=== PATIENT | female | born 1950 | race Caucasian/White ===

== ENCOUNTER → 2022-07-08 09:48 | Outpatient (CLI) | payer MEDICARE, SELFPAY ==
--- NOTE | ~2022-07-08 | MM_ITS ---
EXAMINATION: MM screening [facility] BI w nona HISTORY: Screening TECHNIQUE: Craniocaudal and mediolateral oblique 3-D tomosynthesis images were obtained and synthetic 2-D images were generated. CAD analysis was submitted and interpreted. COMPARISON: 07/16/2012 BREAST PARENCHYMAL COMPOSITION: Breast composed of scattered areas of fibroglandular density FINDINGS: The left breast is stable without evidence for malignancy. There is possible architectural distortion with adjacent clustered indeterminate calcifications centered in the upper outer quadrant of the right breast. IMPRESSION: 1. Possible architectural distortion and clustered indeterminate calcifications in the upper outer qu adrant of the right breast. 2. Additional mammographic views and possible breast ultrasound are recommended. BI-RADS Category 0: Incomplete: Needs additional imaging evaluation. Reviewed, dictated and finalized at location A. IMPRESSION: 1. Possible architectural distortion and clustered indeterminate calcifications in the upper outer quadrant of the right breast. 2. Additional mammographic views and possible breast ultrasound are recommended . BI-RADS Category 0: Incomplete: Needs additional imaging evaluation.
== END ==
PROVIDERS: PCP Obstetrics & Gynecology; Visit Provider Obstetrics & Gynecology
DX: Z12.31 Encounter for screening mammogram for malignant neoplasm of breast (principal); R92.8 Other abnormal and inconclusive findings on diagnostic imaging of breast
CPT/HCPCS: 77063; 77067

== ENCOUNTER → 2022-08-07 07:32 | Outpatient (CLI) | payer MEDICARE, SELFPAY ==
--- NOTE | ~2022-08-07 | MMUS_ITS ---
EXAMINATION: MM diagnostic [facility] RT w nona, US breast RT limited HISTORY: Possible architectural distortion and clustered indeterminate calcifications in upper outer quadrant of right breast on 07/08/2022 screening mammogram TECHNIQUE: Additional 3-D tomosynthesis images of the right breast were performed and synthetic 2-D i mages were generated. CAD analysis was submitted and interpreted. Magnification views of right breast . High resolution right upper outer quadrant breast ultrasound was performed. COMPARISON: 07/08/2022, 07/16/2012 bilateral screening mammogram examinations FINDINGS: MAMMOGRAPHIC FINDINGS: There is a linear array of grouped indeterminate irregular microcalcifications in the anterior upper outer quadrant of the right breast. These are suspicious due to the linear configuration in the irreg ularity. ULTRASOUND: No suspicious mass or shadowing is detected in the upper outer quadrant of the right breast. IMPRESSION: 1. Indeterminate linear array of irregular grouped microcalcifications, anterior upper outer right br east 2. Stereotactic biopsy of upper outer quadrant breast microcalcifications is recommended BI-RADS category 4, suspicious findings. Dr. Curtis telephoned the report and stereotactic breast biopsy recommendation on August 07, 2022 at [address] Tony Leonard's [employer] Ernestina. Reviewed, dictated and finalized at location A. IMPRESSION: 1. Indeterminate linear array of irregular grouped microcalcifications, anterio r upper outer right breast 2. Stereotactic biopsy of upper outer quadrant breast microcalcifications is re commended BI-RADS category 4, suspicious findings. Dr. Curtis telephoned the report and stereotactic breast biopsy recommendation on August 07, [address] Tony Leonard's [employer] Ernestina.
== END ==
PROVIDERS: PCP Obstetrics & Gynecology; Visit Provider Obstetrics & Gynecology
DX: R92.8 Other abnormal and inconclusive findings on diagnostic imaging of breast (principal)
CPT/HCPCS: 76642; 77061; 77065; G0279

== ENCOUNTER 2022-08-24 09:34 | Outpatient (CLI) | payer MEDICARE, SELFPAY ==
--- NOTE | ~2022-08-24 | MM_ITS ---
EXAMINATION: MM stereotactic bx RT, MM post biopsy diagnostic RT, MM stereotactic specimen RT DATE: 08/24/2022 11:24 (accession [id number]), 08/24/2022 11:25 (accession [id number]), 08/24 11:24 (accession [id number]) INDICATION: Indeterminate calcifications of the right breast. Stereotactic core biopsy is requested e valuate for malignancy. TECHNIQUE AND FINDINGS: The risks and potential benefits of the procedure were discussed with the patient including bleeding and infection. A time out was performed to verify the patient's name, date of and site of proce dure to be performed. The patient was placed in the prone position with the right breast in craniocau maty compression, and the area of interest was localized and targeted utilizing digital imaging with s tereotaxis. After sterile preparation of the skin, 1 cc of 1% lidocaine was utilized for local anesthesia at the skin puncture site and 15 cc 1% lidocaine with epinephrine was utilized for deeper local anesthesia a bout the biopsy site. A 9G [employer] vacuum assisted biopsy needle was advanced to the level of the calci fication of interest from a cephalad approach utilizing stereotactic guidance and a total of six tiss ue core biopsies were obtained. A specimen radiograph demonstrates that the calcifications of interest are included within the tissue cores. A tissue marker clip was then placed at the biopsy site. The needle was removed and hemosta sis was achieved. A sterile bandage was applied. The patient tolerated procedure well. A small hemato ma is seen at the biopsy site on the postprocedure mammogram. Tissue cores were submitted to surgical pathology for histologic analysis. A 2-view right unilateral digital mammogram was obtained post procedure and this demonstrates that th e tissue marker clip is in expected position. IMPRESSION: 1. Successful stereotactic biopsy of calcifications in the upper outer quadrant of the right breast, followed by tissue marker clip placement. Reviewed, dictated and finalized at location A. IMPRESSION: 1. Successful stereotactic biopsy of calcifications in the upper outer quadrant of the right breast, followed by tissue marker clip placement. IMPRESSION: 1. Successful stereotactic biopsy of calcifications in the upper outer quadrant of the right breast, followed by tissue marker clip placement.
== END 2022-08-24 09:35 | disposition home or self-care (01) ==
PROVIDERS: Visit Provider Surgery
DX: R92.1 Mammographic calcification found on diagnostic imaging of breast (principal); R56.9 Unspecified convulsions
CPT/HCPCS: 19081; 77065; 88305; A4648

== ENCOUNTER 2023-02-26 20:32 | Emergency (ER) | payer MEDICARE, SELFPAY ==
--- NOTE | ~2023-02-26 | XR_ITS ---
EXAMINATION: XR hip RT 2V w AP pelvis, XR lumbar spine 2-3V DATE: 02/26/2023 22:20 INDICATION: Low back and bilateral hip pain TECHNIQUE: 1. AP, lateral and lateral lumbosacral views of the lumbar spine were obtained. 2. Anteroposterior view of the pelvis and anteroposterior and frog-leg lateral views of the right hip were obtained. COMPARISON: Chest radiograph dated 01/17/2015 FINDINGS: Lumbar spine: 10 degrees lumbar dextrocurvature. 4 mm anterolisthesis L4 on L5. Chronic T12 compression fracture wi th 60% anterior to central vertebral body height loss which appears similar as on chest radiograph fr om 2015. Remaining vertebral body heights are normal. Moderate disc height loss at L2-L3. Mild disc h eight loss at L3-L4 through L5-S1. Moderate to severe facet osteoarthritis in the mid to lower lumbar spine. Pelvis and right hip: Alignment is normal. No fracture or suspected avascular necrosis. Mild bilateral hip and sacroiliac o steoarthritis. IMPRESSION: 1. Chronic T12 compression fracture. No acute osseous abnormality. 2. 10 degrees lumbar dextrocurvature with moderate spondylosis. 3. Mild bilateral hip and sacroiliac osteoarthritis. Reviewed, dictated and finalized at location A. ER CONSULTANT IMPRESSION: 1. Chronic T12 compression fracture. No acute osseous abnormality. 2. 10 degrees lumbar dextrocurvature with moderate spondylosis. 3. Mild bilateral hip and sacroiliac osteoarthritis.
[2023-02-26 20:57] VITALS: BP 176/67; PULSE 93; RESP 18; TEMP 36.4; O2SAT 100
--- NOTE | 2023-02-26 22:04 | ED.GENADULT ---
HPI - General Adult General Chief complaint: Unspecified Stated complaint: Hip pain (both), yeast infection possibly, Time Seen by Provider: 02/26/23 21:26 History of Present Illness HPI narrative: Patient presents to the emergency department with her . She has multiple complaints. Trips back and forth between the complaints when telling the history. Initially talks about her left hip and walking and [employer] all day with lifts. Then requests a test to determine whether she has vaginitis versus a yeast infection. She saw her [facility] last week and was prescribed steroid cream. She initially had left hip pain after walking and [employer] lifts all day. However a couple days ago she started having right hip pain 2. Much worse with any ambulation. Denies any particular trauma. Patient also having right shoulder pain has been ongoing for a long time. She has a history of seizures. No concern for recent seizure activity Related Data Home Medications Medication Instructions Recorded Confirmed cholecalciferol (vitamin D3) 25 25 mcg PO DAILY 12/16/19 12/29/22 mcg (1,000 unit) capsule levetiracetam 500 mg tablet 500 mg PO Q12H 12/16/19 12/29/22 Allergies Allergy/AdvReac Type Severity Reaction Status Date / Time amoxicillin Allergy Mild Diarrhea Verified 02/26/23 22:01 lisinopril Allergy Unknown Constipatio Verified 02/26/23 22:01 n Review of Systems Review of Systems: Negative except what is documented in the HPI [facility] Past Medical History Medical History Anxiety Cataract Cyst of breast, left, diffuse fibrocystic Removal 1981 Depression Ganglion cyst of foot removal 2004 (left) Grand mal seizure HTN (hypertension) PTSD (post-traumatic stress disorder) Seizures Surgical History Surgical History History of breast surgery breast cyst benign left History of surgery on arm titanium [place] Family History Family History Father Patient's father is , Onset Age: 88 Mother Family history of malignant neoplasm of bone Social History Social History Smoking status: Never smoker Alcohol intake: current Alcohol use details: rarely Lack of Transportation: No Lack of Food: Never True Current Housing: I Have Housing Concerned About Future Housing: No Difficulty Paying Gas/Electric Bills: No Difficulty Paying for Meds: No Currently Unemployed: No Education: Master's Degree or Higher Difficulty w/ Childcare or Family Care: No Living arrangements: with family Additional living arrangements comments: Lives with . Occupation/Education: retired Exam Narrative: GENERAL: Well-appearing, well-nourished, and in no acute distress. HEAD: Normocephalic, atraumatic. EYES: PERRLA and EOMI. ENT: Nares clear, no rhinorrhea or epistaxis. Mucous membranes moist. NECK: Supple. CHEST: Clear to auscultation. No respiratory distress. HEART: Regular rate and rhythm. ABDOMEN: Soft, nontender, nondistended. EXTREMITIES: Normal range of motion. No edema. No extremity tenderness. Pain with movement of hips SKIN: Warm, dry, no rash. NEURO: No focal deficits. Alert and oriented x3. PSYCH: Normal mood and affect. Course Course Emergency Course: Patient saw [facility]ER last week and they prescribed steroid cream. Diflucan added. Patient describes more of a burning sensation versus itching. No signs of trauma on images. Chronic T12 fracture noted. Patient feeling better overall. Will DC to home Vital Signs Vital signs: Vital Signs Temperature 36.4 C L 02/26/23 20:57 Pulse Rate 93 02/26/23 20:57 Respiratory Rate 18 02/26/23 20:57 Blood Pressure 176/67 H 02/26/23 20:57 Pulse Oximetry 100 02/26/23 20:57 Oxygen De
[2023-02-26] MEDS: HYDROcodone/acetaminophen (*CRX) 5-325 MG TABLET 1 TAB PO (22:48)
[2023-02-26] MEDS: ONDANSETRON HCL ODT 4 MG TABLET PO (22:49)
[2023-02-27] MEDS: FLUCONAZOLE 150 MG TABLET PO (00:38)
[2023-02-27 00:49] VITALS: BP 153/61; PULSE 80; RESP 15; O2SAT 100
== END 2023-02-27 00:52 | disposition home or self-care (01) ==
PROVIDERS: Emergency Provider Emergency Medicine
DX: M25.552 Pain in left hip (principal); M25.551 Pain in right hip; N89.8 Other specified noninflammatory disorders of vagina; I10 Essential (primary) hypertension; H26.9 Unspecified cataract; M16.0 Bilateral primary osteoarthritis of hip; M46.1 Sacroiliitis, not elsewhere classified; M48.54XA Collapsed vertebra, not elsewhere classified, thoracic region, initial encounter for fracture
CPT/HCPCS: 72100; 73502; 99284; A9270

== ENCOUNTER 2023-03-12 16:45 | Inpatient (IN) | payer MEDICARE, SELFPAY ==
[2023-03-12] VITALS (15 sets, daily range): BP systolic 122–175; BP diastolic 55–76; PULSE 82–95; RESP 12–20; TEMP 36.7; O2SAT 98–100
--- NOTE | ~2023-03-12 | CT_ITS ---
EXAMINATION: CT pelvis wo con DATE: 03/12/2023 19:28 INDICATION: Right hip pain and spasms TECHNIQUE: High resolution computed tomography (CT) of the pelvis was performed without intravenous c ontrast. Additional sagittal and coronal reconstructions were performed. Automated exposure control a nd iterative reconstruction technique were employed. The dose-length product was 399.52 mGy-cm. COMPARISON: Right hip and lumbar spine radiographs dated 02/26/2023 FINDINGS: There is an acute appearing fracture extending transversely across the S2 segment with subtle linear lucency extending across the posterior elements and with prominent buckling of the anterior cortex of the vertebral body which is new since the prior radiographs. There are associated nondisplaced sagit tally oriented insufficiency fractures extending across the bilateral sacral ala cephalad to the larg e nodule fracture at S2. These are also without evident correlate on the prior radiographs. No other fractures identified. Normal alignment at the bilateral hips. Mild osteoarthritis at the bilateral hi p and sacral iliac joints. No hip joint effusions. 3 mm anterolisthesis L4 on L5 with mild disc height loss at L3-L4 and L4-L5. Severe bilateral facet o steoarthritis at L4-5 and moderate bilateral facet osteoarthritis at L3-L4 and L5-S1. There are 3 non obstructing stones measuring up to 3 mm at a lower pole calyx of the left kidney. Visualized portion of the bowels including the appendix are normal. Bladder, uterus and bilateral adnexa are unremarkabl e. No free intraperitoneal gas or fluid. No pathologically enlarged pelvic or inguinal lymphadenopath y. IMPRESSION: 1. Recent sacral insufficiency fractures as detailed above which are new since 02/26/2023. 2. Mild lower lumbar spondylosis with moderate to severe lower lumbar facet osteoarthritis. 3. Mild bilateral hip and sacroiliac osteoarthritis. Reviewed, dictated and finalized at location A. [employer] IMPRESSION: 1. Recent sacral insufficiency fractures as detailed above which are new since 02/26/2023. 2. Mild lower lumbar spondylosis with moderate to severe lower lumbar facet ost eoarthritis. 3. Mild bilateral hip and sacroiliac osteoarthritis.
[2023-03-12 17:24] LABS: Basophils Absolute Auto 0.1 K/mm3 (0.0-0.1); Basophils Percent Auto 1.3 % (0.2-1.2); Eosinophils Percent Auto 0.3 % (0-4.4); Hematocrit 40.7 % (37.0-47.0); Immature Granulocyte Absolute 0.02 K/mm3 (0.00-0.031); Immature Granulocyte Percent A 0.3 % (0-0.5); Lymphocytes Absolute Auto 1.57 K/mm3 (0.9-3.2); Mean Corpuscular HGB Conc 34.4 g/dl (32-36); Mean Corpuscular Hemoglobin 32.2 pg (26-34); Mean Corpuscular Volume 93.6 fl (80-100); Mean Platelet Volume 9.6 fl (7.4-10.4); Monocytes Percent Auto 13.1 % (2.6-8.5); Neutrophils Absolute Auto 4.8 K/mm3 (1.3-6.7); Platelet Count Result 360 k/mm3 (150-375); Red Blood Count 4.35 M/mm3 (4.2-5.4); Red Cell Distribution Width 11.4 % (11.5-14.5); White Blood Count 7.5 K/mm3 (4.5-10.0)
[2023-03-12 17:36] LABS: Alanine Aminotransferase 26 U/L (6-35); Albumin Level 4.6 g/dL (3.5-5.1); Alkaline Phosphatase 170 U/L (38-126); Anion Gap 11 mmol/L (8-16); Aspartate Amino Transferase 32 U/L (14-36); Bilirubin,Total 0.7 mg/dL (0.2-1.3); Blood Urea Nitrogen 13 mg/dL (7-17); Calcium 9.2 mg/dL (8.4-10.2); Carbon Dioxide 25 mmol/L (22-30); Chloride 84 mmol/L (98-107); Estimated CRCL calculation 73 ml/min; Estimated Glomerular Filt Rate > 60; Glucose 118 mg/dL (65-110); Potassium 4.4 mmol/L (3.4-5.0); Sodium 120 mmol/L (137-145)
[2023-03-12 18:59] LABS: Appearance Urine Clear (Clear); Bilirubin Urine Negative (Negative); Blood Urine Negative (Negative); Color Urine Yellow (Yellow); Glucose Urine UA Negative (Negative); Ketones Urine Negative (Negative); Leukocyte Esterase Ur Negative LEU/UL (Negative); Nitrate Urine Negative (Negative); Protein Urine Negative (Negative); Specific Grav Ur 1.011 (1.001-1.035); Urobilinogen Urine 0.2 mg/dL (<2.0); pH Urine 6.5 (5.0-9.0)
[2023-03-12 19:02] LABS: Add Urine Microscopic? NO
[2023-03-12 19:14] LABS: Amphetamine Screen Urine Negative (Negative); Barbiturate Screen Urine Negative (Negative); Benzodiazepines Screen Urine Negative (Negative); Cannabinoid Screen Urine Negative (Negative); Cocaine Screen Urine Negative (Negative); Methadone Screen Urine Negative (Negative); Opiate Screen Urine Negative (Negative); Phencyclidine Screen Urine Negative (Negative)
--- NOTE | 2023-03-12 19:15 | ED.ANXIETY ---
HPI - Anxiety General Chief Complaint: Anxiety <RICKI Andrade Last Filed: 03/13/23 00:26> Stated Complaint: anxiety <RICKI Andrade Last Filed: 03/13/23 00:26> Time Seen by Provider: 03/12/23 18:36 <RICKI Andrade Last Filed: 03/13/23 00:26> Source: patient and family <RICKI Andrade Last Filed: 03/13/23 00:26> Mode of arrival: ambulatory <RICKI Andrade Last Filed: 03/13/23 00:26> Limitations: no limitations <RICKI Andrade Last Filed: 03/13/23 00:26> History of Present Illness HPI narrative: Patient is a 72 y/o female, with PMH of anxiety, vaginal atrophy, HTN, who presents to the ED with multiple complaints. Patient reports pain in her L hip/buttock for the last 2 weeks. She denies any known injury. She has not tried anything for the pain. She also reports having intermittent cramping in her lower extremities and left sided abdomen, intermittent nausea, vulvar pain r/t her atrophic vaginitis, and increased anxiety/panic attacks. Patient states she cannot keep going on like this. She does have previous history of anxiety and had been on Paxil for many years, but quit taking this a few years ago. at bedside endorses that her anxiety has been uncontrollable recently. Patient denies SI or HI. <Sialaja Last PA-C - Last Filed: 03/13/23 00:26> Related Data Home Medications: Home Medications Medication Instructions Recorded Confirmed cholecalciferol (vitamin D3) 25 25 mcg PO DAILY 12/16/19 12/29/22 mcg (1,000 unit) capsule levetiracetam 500 mg tablet 500 mg PO Q12H 12/16/19 12/29/22 <RICKI Andrade Last Filed: 03/13/23 00:26> Allergies/Adverse Reactions: Allergies Allergy/AdvReac Type Severity Reaction Status Date / Time amoxicillin Allergy Mild Diarrhea Verified 02/26/23 22:01 lisinopril Allergy Unknown Constipatio Verified 02/26/23 22:01 n <Sailaja Last PA-C - Last Filed: 03/13/23 00:26> Review of Systems Review of Systems: CONSTITUTIONAL: Denies fever, chills, or sweats. CARDIOVASCULAR: Denies chest pain. RESPIRATORY: Denies dyspnea. GASTROINTESTINAL: See HPI. GENITOURINARY: Denies dysuria or hematuria. MUSCULOSKELETAL: See HPI. NEUROLOGIC: Denies tingling, numbness, or weakness. PSYCHIATRIC: See HPI. <Sailaja Last PA-C - Last Filed: 03/13/23 00:26> All systems reviewed & are unremarkable except as noted in HPI and below <Sailaja Last PA-C - Last Filed: 03/13/23 00:26> [facility] Past Medical History Medical History: Medical History Anxiety Cataract Cyst of breast, left, diffuse fibrocystic Removal 1981 Depression Ganglion cyst of foot removal 2004 (left) Grand mal seizure HTN (hypertension) PTSD (post-traumatic stress disorder) Seizures <Sailaja Last PA-C - Last Filed: 03/13/23 00:26> Surgical History Surgical History: Surgical History History of breast surgery breast cyst benign left History of surgery on arm titanium theresa <Sailaja Last PA-C - Last Filed: 03/13/23 00:26> Family History Family History: Family History Father Patient's father is , Onset Age: 88 Mother Family history of malignant neoplasm of bone <Sailaja Last PA-C - Last Filed: 03/13/23 00:26> Social History Social History: Social History Smoking status: Never smoker Alcohol intake: current Alcohol use details: rarely Lack of Transportation: No Lack of Food: Never True Current Housing: I Have Housing Concerned About Future Housing: No Difficulty Paying Gas/Electric Bills: No Difficulty Paying for
[2023-03-12] MEDS: SODIUM CHLORIDE 0.9% IV 1,000 ML 999 ML IV CONT (19:47)
[2023-03-12] MEDS: LORazepam INJ (*CRX) 2 MG/ML VIAL 0.5 MG IV PUSH (19:48)
[2023-03-12] MEDS: ONDANSETRON INJ 4 MG/2 ML VIAL IV PUSH (19:48)
[2023-03-12] MEDS: MORPHINE SULFATE (*CRX) 4 MG/ML INJ IV PUSH (19:48)
[2023-03-12 20:42] LABS: Ethanol < 10 mg/dL (<10)
[2023-03-12 22:03] LABS: Creatine Kinase 60 U/L (30-135); Magnesium 1.8 mg/dL (1.6-2.3)
[2023-03-12] MEDS: SODIUM CHLORIDE 0.9% IV 1,000 ML 100 ML IV CONT (22:23)
[2023-03-12 22:40] LABS: Sodium 123 mmol/L (137-145)
[2023-03-13 00:14] LABS: Sodium Urine Random 24 meq/L
[2023-03-13 00:40] VITALS: BP 153/74; PULSE 93; RESP 18; TEMP 36.8; O2SAT 97
[2023-03-13 01:00] VITALS: O2SAT 97
[2023-03-13 02:40] LABS: Sodium 124 mmol/L (137-145)
[2023-03-13 06:00] VITALS: BP 131/58; PULSE 84; RESP 18; TEMP 36.2; O2SAT 99
[2023-03-13 06:42] LABS: Basophils Absolute Auto 0.1 K/mm3 (0.0-0.1); Basophils Percent Auto 0.9 % (0.2-1.2); Eosinophils Percent Auto 0.4 % (0-4.4); Hematocrit 34.7 % (37.0-47.0); Hemoglobin 11.8 g/dL (12.0-15.0); Immature Granulocyte Absolute 0.01 K/mm3 (0.00-0.031); Immature Granulocyte Percent A 0.2 % (0-0.5); Lymphocytes Absolute Auto 1.08 K/mm3 (0.9-3.2); Lymphocytes Percent Auto 19.7 % (18.3-44.2); Mean Corpuscular Hemoglobin 32.4 pg (26-34); Mean Corpuscular Volume 95.3 fl (80-100); Mean Platelet Volume 9.6 fl (7.4-10.4); Monocytes Absolute Auto 0.7 K/mm3 (0.1-0.6); Monocytes Percent Auto 13.3 % (2.6-8.5); Neutrophils Absolute Auto 3.6 K/mm3 (1.3-6.7); Neutrophils Percent Auto 65.5 % (45.5-73.1); Platelet Count Result 288 k/mm3 (150-375); Red Blood Count 3.64 M/mm3 (4.2-5.4); Red Cell Distribution Width 11.7 % (11.5-14.5); White Blood Count 5.5 K/mm3 (4.5-10.0)
[2023-03-13 07:00] LABS: Anion Gap 6 mmol/L (8-16); Blood Urea Nitrogen 9 mg/dL (7-17); Calcium 8.4 mg/dL (8.4-10.2); Carbon Dioxide 25 mmol/L (22-30); Chloride 95 mmol/L (98-107); Estimated CRCL calculation 62 ml/min; Estimated Glomerular Filt Rate > 60; Glucose 76 mg/dL (65-110); Potassium 4.3 mmol/L (3.4-5.0); Sodium 126 mmol/L (137-145)
--- NOTE | 2023-03-13 08:00 | PCPTNOTE ---
Waiting for neurosurgery consult/recommendations prior to PT evaluation
[2023-03-13 08:30] LABS: Erythrocyte Sedimentation Rate 21 mm/hr (0-20); Parathyroid Intact 62.7 pg/mL (7.5-53.5)
[2023-03-13 08:36] LABS: Vitamin D 25 Hydroxy 27.7 ng/mL
[2023-03-13] MEDS: levETIRAcetam 500 MG TABLET PO ×2 (08:56→17:32)
[2023-03-13] MEDS: SODIUM CHLORIDE 0.9% IV 1,000 ML 100 ML IV CONT ×2 (08:57→19:00)
[2023-03-13] MEDS: ALPRAZolam (*CRX) 0.5 MG TABLET PO (08:57)
[2023-03-13] MEDS: CHOLECALCIFEROL 1,000 UNITS TABLET 1000 UNITS PO ×2 (08:57→13:46)
--- NOTE | 2023-03-13 10:41 | PM.CNNEP ---
Assessment and Plan Assessment and plan (1) Acute hyponatremia: Code(s): E87.1 - Hypo-osmolality and hyponatremia Status: Acute Assessment and Plan: acute by review of labs however, patient reports a history of this in the past (due to medications) admission sodium 120mmol/L with slow improvement noted with IVFs no culprit medications at this time she does admit to excessive free water intake check TSH, cortisol, SPEP, UPEP, and serum/urine osmo as well as urine electrolytes consider adding free water restriction as well follow serial sodium levels . I will continue follow the patient with you while she remains hospitalized make further recommendations as deemed necessary. Thank you for allowing me to participate in the care this patient. History of Present Illness Reason for Consult Consult date: 03/13/23 Reason for consult: hyponatremia Chief Complaint Chief complaint: Hyponatremia, Anxiety, Pelvic Insufficiency Fractu History of Present Illness Narrative: The patient is a 72-year-old female with a past medical history as outlined below who presented to [facility] with numerous complaints. She reports pain in her left hip/buttocks for last two weeks as well as intermittent cramping in her lower extremities and left-sided abdomen. She also reports intermittent nausea and vulvar pain secondary to atrophic vaginitis. She also has significant anxiety/ panic issues and is very difficult for the patient to focus on one thing at a time. Given these constellation of symptoms, she presented to the emergency room for further assessment Workup and evaluation in the emergency room demonstrated the patient to be hemodynamically stable but quite anxious. It was difficult to get the patient to relay her symptoms / issues as she would jump from topic to topic and was difficult to get her to focus on just one thing. Routine blood tests were significant for a sodium level of 120 millimoles per L a the which is an acute change from review of her previous laboratory findings. Given this electrolyte abnormality and her other multitude of issues as complaints, she was admitted to the hospital for further evaluation and therapy. Since her admission, she has been started on IV fluids and her sodium level is actually improved slowly in comparison to her was on admission. Renal consultation was requested due to her acute hyponatremia. Although not listed in the computer system here [facility], the patient reports that she has had issues with hyponatremia in the past secondary to the use of Paxil. However recent labs in the last couple of years have demonstrated relative stability in her sodium level as far as I can tell. Furthermore, as already mentioned, with the use of IV fluids, her sodium level has improved to some degree artery and there may be a a degree of volume depletion present in spite of the fact that she has a reported history of excessive free water intake. Currently, the time my visit, the patient remains quite anxious and difficult to get her to concentrate on one topic. Review of Systems Review of Systems: As per HPI. [facility] Past Medical History Medical History (Updated 03/27/23 @ 11:47 by aMrce Fowler, [employer]RIER [employer]IVER-C) Anxiety Cataract Cyst of breast, left, diffuse fibrocystic Removal 1981 Depression Excessive cerumen in both ear canals Ganglion cyst of foot removal 2004 (left) Grand mal seizure HTN (hypertension) PTSD (post-traumatic stress disorder) Seizures Surgical History Surgical History History of breast surgery breast cyst benign left History of surgery on arm titanium theresa Family History Family History Father Patient's father is , Onset Age: 88 Mother Family history of malignant neoplasm of bone Social History Social History (Updated
--- NOTE | 2023-03-13 10:42 | PHAR ---
HOME MED OF BYSTOLIC 10 MG TABLET, TAKE ONE TABLET BY MOUTH DAILY, HAS BEEN VERIFIED.
[2023-03-13 10:59] LABS: Sodium 125 mmol/L (137-145)
[2023-03-13] MEDS: TRIAMCINOLONE ACET 0.1% OINT 15 GM TUBE 1 APPLIC TOPICAL ×2 (12:03→18:25)
--- NOTE | 2023-03-13 12:33 | PM.IMHP ---
H&P: HPI History of Present Illness Date/Time: 03/13/23 12:33 Chief Complaint: Multiple complaints Narrative: Patient is a 72 y/o female, with PMH of anxiety, vaginal atrophy, HTN, who presents to the ED with multiple complaints. Patient reports pain in her L hip/buttock for the last 2 weeks. She denies any known injury. She has not tried anything for the pain.? She also reports having intermittent cramping in her lower extremities and left sided abdomen, intermittent nausea, vulvar pain r/t her atrophic vaginitis, and increased anxiety/panic attacks.? Patient states she cannot keep going on like this.? She does have previous history of anxiety and had been on Paxil for many years, but quit taking this a few years ago.? at bedside endorses that her anxiety has been uncontrollable recently.? Patient denies SI or HI. Difficult to keep patient on track with HPI and ROS. 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 She reports history of low sodium in the past that she attributed to Paxil. Review of Systems Review of Systems: All systems reviewed & are unremarkable except as noted in HPI and below PMFSH Past Medical History Medical History Anxiety Cataract Cyst of breast, left, diffuse fibrocystic Removal 1981 Depression Ganglion cyst of foot removal 2004 (left) Grand mal seizure HTN (hypertension) PTSD (post-traumatic stress disorder) Seizures Surgical History Surgical History History of breast surgery breast cyst benign left History of surgery on arm titanium theresa Family History Family History Father Patient's father is , Onset Age: 88 Mother Family history of malignant neoplasm of bone Social History Social History Smoking status: Never smoker Alcohol intake: current Alcohol use details: rarely Substance use: never Substance use type: does not use Lack of Transportation: No Lack of Food: Never True Current Housing: I Have Housing Concerned About Future Housing: No Difficulty Paying Gas/Electric Bills: No Difficulty Paying for Meds: No Currently Unemployed: No Education: Master's Degree or Higher Difficulty w/ Childcare or Family Care: No Living arrangements: with family Additional living arrangements comments: Lives with . Occupation/Education: retired Spiritual care concerns: No Meds Home Medications and Allergies Home Medications Medication Instructions Recorded Confirmed Type cholecalciferol (vitamin D3) 25 25 mcg PO DAILY 12/16/19 03/13/23 History mcg (1,000 unit) capsule levetiracetam 500 mg tablet 500 mg PO Q12H 12/16/19 03/13/23 History Bystolic 10 mg tablet (nebivolol) 10 mg PO DAILY #90 tabs 07/04/22 03/13/23 Rx triamcinolone acetonide 0.1 % 1 ea topical BID 03/13/23 03/13/23 History topical ointment Allergies Allergy/AdvReac Type Severity Reaction Status Date / Time amoxicillin Allergy Mild Diarrhea Verified 02/26/23 22:01 lisinopril Allergy Unknown Constipatio Verified 02/26/23 22:01 n Vital Signs Vital Signs - 24 hr 03/12/23 16:55 03/12/23 18:23 03/12/23 19:54 Temperature 36.7 C Pulse Rate 88 95 93 Respiratory Rate 20 20 15 Blood Pressure 165/68 H 170/69 H 175/68 H Pulse Oximetry 100 100 100 Oxygen Delivery Room Air 03/12/23 18:09 03/12/23 18:18 03/12/23 19:14 Temperature Pulse Rate 91 92 Respiratory Rate 13 18 Blood Pressure Pulse Oximetry 100 100 100 Oxygen Delivery 03/12/23 19:15 03/12/23 19:16 03/12/23 19:30 Temperature Pulse Rate Respiratory Rate Blood Pressure 165/70 H Pulse Oximetry 100 100 100 Oxygen Delivery 03/12/23 20:03 03/12/23 20:15 03/12/23 20:16 Temperature Pul
[2023-03-13 14:00] VITALS: BP 120/43; PULSE 88; RESP 20; TEMP 37.1; O2SAT 97
[2023-03-13 14:57] LABS: Sodium 125 mmol/L (137-145)
[2023-03-13] MEDS: LORATADINE 5 MG TABLET 2.5 MG PO (17:31)
[2023-03-13] MEDS: polyethylene glycoL 3350 17 GM POWD.PACK PO (17:36)
[2023-03-13 18:55] LABS: Sodium 124 mmol/L (137-145)
[2023-03-13 19:38] LABS: Creatinine Urine 116.4 mg/dL; Total Protein Urine Random 8 mg/dL; Ur Ttl Prot Creatinine Ratio 0.07 mg/mg (0-0.20); Urea Random Urine 711 MG/DL
[2023-03-13 19:39] LABS: Sodium Urine Random 84 meq/L
[2023-03-13 20:00] VITALS: O2SAT 98
[2023-03-13 22:00] VITALS: BP 164/66; PULSE 99; RESP 16; TEMP 36.9; O2SAT 98
[2023-03-13 22:52] LABS: Sodium 126 mmol/L (137-145)
[2023-03-14 02:12] LABS: Sodium 126 mmol/L (137-145)
[2023-03-14] MEDS: SODIUM CHLORIDE 0.9% IV 1,000 ML 100 ML IV CONT ×2 (05:22→14:00)
[2023-03-14] MEDS: levETIRAcetam 500 MG TABLET PO ×2 (05:23→18:04)
[2023-03-14 06:00] VITALS: BP 166/69; PULSE 93; RESP 16; TEMP 36.6; O2SAT 96
[2023-03-14 06:28] LABS: Basophils Absolute Auto 0.1 K/mm3 (0.0-0.1); Basophils Percent Auto 0.8 % (0.2-1.2); Eosinophils Absolute Auto 0.1 K/mm3 (0-0.3); Eosinophils Percent Auto 0.8 % (0-4.4); Hematocrit 34.9 % (37.0-47.0); Hemoglobin 11.8 g/dL (12.0-15.0); Immature Granulocyte Absolute 0.02 K/mm3 (0.00-0.031); Immature Granulocyte Percent A 0.3 % (0-0.5); Lymphocytes Absolute Auto 1.16 K/mm3 (0.9-3.2); Lymphocytes Percent Auto 14.8 % (18.3-44.2); Mean Corpuscular HGB Conc 33.8 g/dl (32-36); Mean Corpuscular Hemoglobin 32.2 pg (26-34); Mean Corpuscular Volume 95.4 fl (80-100); Mean Platelet Volume 9.9 fl (7.4-10.4); Monocytes Absolute Auto 0.9 K/mm3 (0.1-0.6); Monocytes Percent Auto 11.3 % (2.6-8.5); Neutrophils Absolute Auto 5.6 K/mm3 (1.3-6.7); Platelet Count Result 296 k/mm3 (150-375); Red Blood Count 3.66 M/mm3 (4.2-5.4); Red Cell Distribution Width 11.7 % (11.5-14.5); White Blood Count 7.8 K/mm3 (4.5-10.0)
[2023-03-14 06:39] LABS: Albumin Level 2.2 g/dL (3.5-5.1); Anion Gap 7 mmol/L (8-16); Blood Urea Nitrogen 8 mg/dL (7-17); Calcium 8.6 mg/dL (8.4-10.2); Carbon Dioxide 25 mmol/L (22-30); Chloride 95 mmol/L (98-107); Estimated CRCL calculation 73 ml/min; Estimated Glomerular Filt Rate > 60; Glucose 104 mg/dL (65-110); Magnesium 1.9 mg/dL (1.6-2.3); Phosphorus 3.1 mg/dL (2.5-4.5); Sodium 127 mmol/L (137-145)
--- NOTE | 2023-03-14 09:15 | PM.IMPN ---
Progress Note: A&P Assessment and Plan (1) Acute anxiety: Code(s): F41.9 - Anxiety disorder, unspecified Status: Acute Assessment and Plan: Acute on chronic anxiety possibly exacerbated by hyponatremia. Wandering stories jumping from topic to topic extremely anxious. PRN alprazolam continued from home med list but they are not really PRN as patient insists on each dose allowed. 03/14: Chronic anxiety but appears less anxious than what previous notes had stated. Patient states she feels better today. (2) Acute hyponatremia: Code(s): E87.1 - Hypo-osmolality and hyponatremia Status: Acute Assessment and Plan: Patient indicates a history low-sodium however prior results from June 2022 and January 2021 were within normal limits. Sodium 120 on presentation to the emergency department. IV fluids ordered. Q.4 hours sodium levels ordered. Nephrology consulted. Workup is pending. 03/14: Patient admits to drinking 13 glasses of water at home. Sodium is improving. Sodium today is 127 up from 120 yesterday. (3) Sacral insufficiency fracture: Qualifiers: Encounter type: initial encounter Qualified Code(s): M84.48XA - Pathological fracture, other site, initial encounter for fracture Code(s): M84.48XA - Pathological fracture, other site, initial encounter for fracture Status: Acute Assessment and Plan: Difficult to narrow down timing of symptom onset but seems to be 2-3 weeks ago and patient denies trauma, states that wearing [place] orthotics for 10 hours may have caused fractures. Initially consulted Neurosurgery but Neurosurgery does not cover these fractures as there is no potential spinal cord involvement. Pain levels elevated may be cause of patient's hyponatremia via SIADH mechanism. Consulted Ortho, unsure if there is any intervention possible, rec's appreciated. 03/14: Consulted Ortho. Unsure if there is much intervention that they can help with but we appreciate their recommendations. Continue with pain control and PT OT. Patient denies decreased sensation to her lower extremities. I spoke with Dr. Jensen, this is not a neuro surgery issue. Recommends bone health clinic at discharge and agrees with ortho consult however she to does not know that there is much intervention they can assist with. (4) History of seizures: Code(s): Z87.898 - Personal history of other specified conditions Status: Acute Assessment and Plan: No seizures in 5 years, takes Keppra, insisted that it had to be brand name and given at 0530/1730 exactly or she will have seizures. (5) Atrophic vaginitis: Code(s): N95.2 - Postmenopausal atrophic vaginitis Status: Acute Assessment and Plan: Continue home steroid cream, may consider [employer] consult due to how bad this is bothering patient. Examination deferred on admission. 03/14: May consider starting Estradiol cream with outpatient follow up. Plan Pain control for sacral insufficiency fractures PT/OT Miralax for symptom of constipation (last BM 03/11) Home medications continued at patient's preferred timing. Nephrology consult for hyponatremia, avoid overcorrection May consider psychiatry consult if anxiety is still so problematic after steady sodium correction Strongly consider staff rotation to prevent caregiver overwhelm Diet: Heart Healthy VTE prophylaxis: Lovenox 40 mg Daily GI prophylaxis: Pepcid 20 mg BID Code Status: Full code Med Rec: Done and times adjusted per patient concern Disposition: Likely SNF Subjective Date/time seen: 03/14/23 09:15 Interval history: HPI obtained from chart, Patient is a 72 y/o female, with PMH of anxiety, vaginal atrophy, HTN, who presents to the ED with multiple complaints. Patient reports pain in her L hip/buttock for the last 2 weeks. She denies any known injury. She has not tried anything for the pain.? She also reports having intermittent cramping
[2023-03-14 10:20] LABS: Sodium 127 mmol/L (137-145)
--- NOTE | 2023-03-14 13:49 | P.PNNP_ITS ---
Progress Note: A&P Assessment and Plan (1) Acute hyponatremia: Code(s): E87.1 - Hypo-osmolality and hyponatremia Status: Acute Assessment and Plan: * slow improvement * acute by review of labs * however, patient reports a history of this in the past (due to medications) * admission sodium 120mmol/L with slow improvement noted with IVFs * no culprit medications at this time * she does admit to excessive free water intake * evaluation to date: * TSH and cortisol okay * SPEP, UPEP, and serum/urine osmo pending * urine electrolytes suggest a degree of prerenal azotemia * will add fluid restriction * follow serial sodium levels . Will continue to follow. Subjective Date/time seen: 03/14/23 13:49 Interval history: Folllow-up for acute hyponatremia. Sodium level continues to improve with current therapy/interventions; still with significant anxiety issues as noted by nursing; no apparent distress noted. Exam Narrative: General: eldely but WD/WN female in NAD; ++ anxiety Heart: normal S1 and S2; no rub Lungs: clear to auscultation Abdomen: soft, nontender, nondistended, positive bowel sounds Extremities: no cyanosis or clubbing; no edema Skin: warm and dry Objective Data Vital Signs Vital Signs: Vital Signs Temp Pulse Resp BP Pulse Ox O2 Del Method 03/14/23 13:30 99.8 F H 86 16 162/62 H 97 03/14/23 10:46 Room Air 03/14/23 10:19 Room Air 03/14/23 06:00 97.9 F 93 16 166/69 H 96 03/13/23 20:00 98 Room Air 03/13/23 22:00 98.5 F 99 16 164/66 H 98 Intake/Output Intake/Output: Intake & Output 03/11/23 03/12/23 03/13/23 03/14/23 23:59 23:59 23:59 23:59 Intake Total 1000 2720 2100 Output Total 400 1000 Balance 1000 2320 1100 Meds/Results Medications: Active Medications Generic Name Dose Route Start Last Admin Trade Name Freq PRN Reason Stop Dose Admin Alprazolam 0.5 mg 03/12/23 22:40 03/13/23 08:57 Alprazolam (*Crx) 0.5 Mg Tablet PO 0.5 mg TID PRN Administration Anxiety Enoxaparin Sodium 40 mg 03/14/23 09:00 03/14/23 12:34 Enoxaparin 40 Mg/0.4 Ml Syringe SUB-Q Not Given DAILY [facility] Famotidine 20 mg 03/13/23 21:00 03/14/23 12:34 Famotidine 20 Mg Tablet PO Not Given Q12HR [facility] Home Med 1 each 03/15/23 05:30 Home Med Bystolic (Nebivolol) 10 Mg Tablet PO 04/14/23 05:29 DAILY@0530 [facility] Sodium Chloride 1,000 mls @ 100 mls/hr 03/12/23 22:00 03/14/23 14:00 Normal Saline Iv IV CONT 100 mls/hr .Q10H [facility] Administration Levetiracetam 500 mg 03/13/23 17:30 03/14/23 18:04 Levetiracetam 500 Mg Tablet PO 500 mg Q12H [facility] Administration Loratadine 2.5 mg 03/13/23 16:41 03/13/23 17:31 Loratadine 5 Mg Tablet PO 2.5 mg PRN PRN Administration Allergic Symptoms Morphine Sulfate 4 mg 03/12/23 22:39 Morphine Sulfate (*Crx) 4 Mg/Ml Inj IV PUSH Q2H PRN Pain Rated 7-10 Ondansetron HCl 4 mg 03/12/23 22:39 Ondansetron Inj 4 Mg/2 Ml Vial IV PUSH Q4H PRN
--- NOTE | 2023-03-14 13:49 | PM.PNNEP ---
Progress Note: A&P Assessment and Plan (1) Acute hyponatremia: Code(s): E87.1 - Hypo-osmolality and hyponatremia Status: Acute Assessment and Plan: slow improvement acute by review of labs however, patient reports a history of this in the past (due to medications) admission sodium 120mmol/L with slow improvement noted with IVFs no culprit medications at this time she does admit to excessive free water intake evaluation to date: TSH and cortisol okay SPEP, UPEP, and serum/urine osmo pending urine electrolytes suggest a degree of prerenal azotemia will add fluid restriction follow serial sodium levels . Will continue to follow. Subjective Date/time seen: 03/14/23 13:49 Interval history: Folllow-up for acute hyponatremia. Sodium level continues to improve with current therapy/interventions; still with significant anxiety issues as noted by nursing; no apparent distress noted. Exam Narrative: General: eldely but WD/WN female in NAD; ++ anxiety Heart: normal S1 and S2; no rub Lungs: clear to auscultation Abdomen: soft, nontender, nondistended, positive bowel sounds Extremities: no cyanosis or clubbing; no edema Skin: warm and dry Objective Data Vital Signs Vital Signs: Vital Signs Temp Pulse Resp BP Pulse Ox O2 Del Method 03/14/23 13:30 99.8 F H 86 16 162/62 H 97 03/14/23 10:46 Room Air 03/14/23 10:19 Room Air 03/14/23 06:00 97.9 F 93 16 166/69 H 96 03/13/23 20:00 98 Room Air 03/13/23 22:00 98.5 F 99 16 164/66 H 98 Intake/Output Intake/Output: Intake & Output 03/11/23 03/12/23 03/13/23 03/14/23 23:59 23:59 23:59 23:59 Intake Total 1000 2720 2100 Output Total 400 1000 Balance 1000 2320 1100 Meds/Results Medications: Active Medications Generic Name Dose Route Start Last Admin Trade Name Freq PRN Reason Stop Dose Admin Alprazolam 0.5 mg 03/12/23 22:40 03/13/23 08:57 Alprazolam (*Crx) 0.5 Mg Tablet PO 0.5 mg TID PRN Administration Anxiety Enoxaparin Sodium 40 mg 03/14/23 09:00 03/14/23 12:34 Enoxaparin 40 Mg/0.4 Ml Syringe SUB-Q Not Given DAILY [facility] Famotidine 20 mg 03/13/23 21:00 03/14/23 12:34 Famotidine 20 Mg Tablet PO Not Given Q12HR [facility] Home Med 1 each 03/15/23 05:30 Home Med Bystolic (Nebivolol) 10 Mg Tablet PO 04/14/23 05:29 DAILY@0530 [facility] Sodium Chloride 1,000 mls @ 100 mls/hr 03/12/23 22:00 03/14/23 14:00 Normal Saline Iv IV CONT 100 mls/hr .Q10H [facility] Administration Levetiracetam 500 mg 03/13/23 17:30 03/14/23 18:04 Levetiracetam 500 Mg Tablet PO 500 mg Q12H [facility] Administration Loratadine 2.5 mg 03/13/23 16:41 03/13/23 17:31 Loratadine 5 Mg Tablet PO 2.5 mg PRN PRN Administration Allergic Symptoms Morphine Sulfate 4 mg 03/12/23 22:39 Morphine Sulfate (*Crx) 4 Mg/Ml Inj IV PUSH Q2H PRN Pain Rated 7-10 Ondansetron HCl 4 mg 03/12/23 22:39 Ondansetron Inj 4 Mg/2 Ml Vial IV PUSH Q4H PRN Nausea Polyethylene Glycol 17 gm 03/13/23 15:01 Polyethylene Glycol 3350 17 Gm Powd.Pack PO QAM PRN Constipation Tramadol HCl 25 mg 03/12/23 22:40 Tramadol Hcl (*Crx) 25 Mg Tablet PO Q4H PRN Pain Rated 4-6 Triamcinolone Acetonide 1 applic 03/13/23 09:00 03/14/23 09:46 Triamcinolone Acet 0.1% Oint 15 Gm Tube TOPICAL 1 applic BID [facility] Administration Vitamin D 1,000 units 03/14/23 14:00 03/14/23 14:00 Cholecalciferol 1,000 Units Tablet PO 1,000 units DAILY@1400 [facility] Administration Radiology Results: ITS Impressions Pelvis CT 03/12/23 19:32 IMPRESSION: 1. Recent sacral insufficiency fractures as detailed above which are new since 02/26/2023. 2. Mild lower lumbar spondylosis with moderate to severe lower lumbar facet osteoarthritis. 3. Mild bilateral hip and sacroiliac osteoarthritis. Labs Labs: Laboratory Tests
[2023-03-14 14:00] VITALS: BP 162/62; PULSE 86; RESP 16; TEMP 37.7; O2SAT 97
[2023-03-14] MEDS: CHOLECALCIFEROL 1,000 UNITS TABLET 1000 UNITS PO (14:00)
[2023-03-14 14:18] LABS: Sodium 127 mmol/L (137-145)
[2023-03-14 20:00] VITALS: PULSE 85; RESP 16; O2SAT 97
[2023-03-14 20:51] VITALS: BP 153/55; PULSE 85; RESP 16; TEMP 37.4; O2SAT 97
[2023-03-14] MEDS: LORATADINE 5 MG TABLET 2.5 MG PO (21:19)
[2023-03-15] MEDS: ALPRAZolam (*CRX) 0.5 MG TABLET PO (00:32)
[2023-03-15 05:41] VITALS: BP 144/56; PULSE 83; RESP 18; TEMP 36.7; O2SAT 97
[2023-03-15 06:08] LABS: Basophils Absolute Auto 0.1 K/mm3 (0.0-0.1); Basophils Percent Auto 1.4 % (0.2-1.2); Eosinophils Absolute Auto 0.2 K/mm3 (0-0.3); Eosinophils Percent Auto 3.4 % (0-4.4); Hematocrit 32.4 % (37.0-47.0); Hemoglobin 11.2 g/dL (12.0-15.0); Immature Granulocyte Absolute 0.01 K/mm3 (0.00-0.031); Immature Granulocyte Percent A 0.2 % (0-0.5); Lymphocytes Absolute Auto 1.33 K/mm3 (0.9-3.2); Lymphocytes Percent Auto 26.4 % (18.3-44.2); Mean Corpuscular HGB Conc 34.6 g/dl (32-36); Mean Corpuscular Hemoglobin 32.8 pg (26-34); Mean Platelet Volume 9.8 fl (7.4-10.4); Monocytes Absolute Auto 0.7 K/mm3 (0.1-0.6); Monocytes Percent Auto 14.7 % (2.6-8.5); Neutrophils Absolute Auto 2.7 K/mm3 (1.3-6.7); Neutrophils Percent Auto 53.9 % (45.5-73.1); Platelet Count Result 260 k/mm3 (150-375); Red Blood Count 3.41 M/mm3 (4.2-5.4); Red Cell Distribution Width 11.9 % (11.5-14.5)
[2023-03-15 06:18] LABS: Albumin Level 3.2 g/dL (3.5-5.1); Anion Gap 6 mmol/L (8-16); Blood Urea Nitrogen 9 mg/dL (7-17); Calcium 8.3 mg/dL (8.4-10.2); Carbon Dioxide 23 mmol/L (22-30); Chloride 100 mmol/L (98-107); Estimated CRCL calculation 73 ml/min; Estimated Glomerular Filt Rate > 60; Glucose 88 mg/dL (65-110); Magnesium 1.9 mg/dL (1.6-2.3); Phosphorus 3.7 mg/dL (2.5-4.5); Sodium 129 mmol/L (137-145)
[2023-03-15] MEDS: levETIRAcetam 500 MG TABLET PO ×2 (06:21→17:22)
--- NOTE | 2023-03-15 09:14 | PM.IMPN ---
Progress Note: A&P Assessment and Plan (1) Acute anxiety: Code(s): F41.9 - Anxiety disorder, unspecified Status: Acute Assessment and Plan: Acute on chronic anxiety possibly exacerbated by hyponatremia. Wandering stories jumping from topic to topic extremely anxious. PRN alprazolam continued from home med list but they are not really PRN as patient insists on each dose allowed. 03/14: Chronic anxiety but appears less anxious than what previous notes had stated. Patient states she feels better today. 03/15: Had a panic attack last night. Xanax TID for anxiety. She had a dose last night which helped her through the panic. (2) Acute hyponatremia: Code(s): E87.1 - Hypo-osmolality and hyponatremia Status: Acute Assessment and Plan: Patient indicates a history low-sodium however prior results from June 2022 and January 2021 were within normal limits. Sodium 120 on presentation to the emergency department. IV fluids ordered. Q.4 hours sodium levels ordered. Nephrology consulted. Workup is pending. 03/14: Patient admits to drinking 13 glasses of water at home. Sodium is improving. Sodium today is 127 up from 120 yesterday. 03/15: Fluid restriction.1800 ml daily. Refusing IV fluids and IV. Will place on sodium tabs 1 gram BID. (3) Sacral insufficiency fracture: Qualifiers: Encounter type: initial encounter Qualified Code(s): M84.48XA - Pathological fracture, other site, initial encounter for fracture Code(s): M84.48XA - Pathological fracture, other site, initial encounter for fracture Status: Acute Assessment and Plan: Difficult to narrow down timing of symptom onset but seems to be 2-3 weeks ago and patient denies trauma, states that wearing Birkenstock orthotics for 10 hours may have caused fractures. Initially consulted Neurosurgery but Neurosurgery does not cover these fractures as there is no potential spinal cord involvement. Pain levels elevated may be cause of patient's hyponatremia via SIADH mechanism. Consulted Ortho, unsure if there is any intervention possible, rec's appreciated. 03/14: Consulted Ortho. Unsure if there is much intervention that they can help with but we appreciate their recommendations. Continue with pain control and PT OT. Patient denies decreased sensation to her lower extremities. I spoke with Dr. Jensen, this is not a neuro surgery issue. Recommends bone health clinic at discharge and agrees with ortho consult however she to does not know that there is much intervention they can assist with. 03/15: Doing well with therapy. No complaints of pain. States her pain has improved since she was admitted. (4) History of seizures: Code(s): Z87.898 - Personal history of other specified conditions Status: Acute Assessment and Plan: No seizures in 5 years, takes Keppra, insisted that it had to be brand name and given at 0530/1730 exactly or she will have seizures. (5) Atrophic vaginitis: Code(s): N95.2 - Postmenopausal atrophic vaginitis Status: Acute Assessment and Plan: Continue home steroid cream, may consider ASSISTANT FACILITY MANAGER consult due to how bad this is bothering patient. Examination deferred on admission. 03/14: May consider starting Estradiol cream with outpatient follow up. 03/15: Since patient had previous prescription from [employer], will restart this medication. Plan Pain control for sacral insufficiency fractures PT/OT Miralax for symptom of constipation (last BM 03/11) Home medications continued at patient's preferred timing. Nephrology consult for hyponatremia, avoid overcorrection May consider psychiatry consult if anxiety is still so problematic after steady sodium correction Strongly consider staff rotation to prevent caregiver overwhelm Diet: Heart Healthy VTE prophylaxis: Lovenox 40 mg Daily GI prophylaxis: Pepcid 20 mg BID Code Status: Full code Med Rec: Done and times adjusted per patient conc
[2023-03-15 14:00] VITALS: BP 158/56; PULSE 79; RESP 18; TEMP 37.2; O2SAT 100
--- NOTE | 2023-03-15 15:05 | P.PNNP_ITS ---
Progress Note: A&P Assessment and Plan (1) Acute hyponatremia: Code(s): E87.1 - Hypo-osmolality and hyponatremia Status: Acute Assessment and Plan: * slow improvement * acute by review of labs * however, patient reports a history of this in the past (due to medications) * admission sodium 120mmol/L with slow improvement noted with IVFs * no culprit medications at this time * she does admit to excessive free water intake * evaluation to date: * TSH and cortisol okay * SPEP, UPEP, and serum/urine osmo pending * urine electrolytes suggest a degree of prerenal azotemia * on fluid restriction and salt tabs * follow serial sodium levels . Will continue to follow. Subjective Date/time seen: 03/15/23 15:05 Interval history: Folllow-up for acute hyponatremia. Seems to be doing reasonably well at this time; sodium continues to slowly improve with current therapy; working with PT/OT as tolerated; no acute distress noted. Exam Narrative: General: eldely but WD/WN female in NAD; ++ anxiety Heart: normal S1 and S2; no rub Lungs: clear to auscultation Abdomen: soft, nontender, nondistended, positive bowel sounds Extremities: no cyanosis or clubbing; no edema Skin: warm and intact Objective Data Vital Signs Vital Signs: Vital Signs Temp Pulse Resp BP Pulse Ox O2 Del Method 03/15/23 14:00 99.0 F 79 18 158/56 H 100 03/15/23 05:41 98.0 F 83 18 144/56 H 97 03/14/23 20:00 85 16 97 Room Air 03/14/23 20:51 99.3 F 85 16 153/55 H 97 Intake/Output Intake/Output: Intake & Output 03/12/23 03/13/23 03/14/23 03/15/23 23:59 23:59 23:59 23:59 Intake Total 1000 2720 2100 880 Output Total 400 1000 Balance 1000 2320 1100 880 Meds/Results Medications: Active Medications Generic Name Dose Route Start Last Admin Trade Name Freq PRN Reason Stop Dose Admin Alprazolam 0.5 mg 03/12/23 22:40 03/15/23 00:32 Alprazolam (*Crx) 0.5 Mg Tablet PO 0.5 mg TID PRN Administration Anxiety Enoxaparin Sodium 40 mg 03/14/23 09:00 03/15/23 11:33 Enoxaparin 40 Mg/0.4 Ml Syringe SUB-Q Not Given DAILY [facility] Estradiol 1 applic 03/16/23 21:00 Estradiol Vaginal Cream 42.5 Gm VAGINAL [email or web address] [facility] Famotidine 20 mg 03/13/23 21:00 03/15/23 11:33 Famotidine 20 Mg Tablet PO Not Given Q12HR [facility] Home Med 1 each 03/15/23 05:30 03/15/23 06:21 Home Med Bystolic (Nebivolol) 10 Mg Tablet PO 04/14/23 05:29 1 each DAILY@0530 [facility] Administration Levetiracetam 500 mg 03/13/23 17:30 03/15/23 06:21 Levetiracetam 500 Mg Tablet PO 500 mg Q12H [facility] Administration Loratadine 2.5 mg 03/13/23 16:41 03/14/23 21:19 Loratadine 5 Mg Tablet PO 2.5 mg PRN PRN Administration Allergic Symptoms Morphine Sulfate 4 mg 03/12/23 22:39 Morphine Sulfate (*Crx) 4 Mg/Ml Inj IV PUSH Q2H PRN Pain Rated 7-10 Ondansetron HCl 4 mg 03/12/23 22:39 Ondansetron Inj 4 Mg/2 Ml Vial IV PUSH Q4H PRN Nausea Polyethylene Glycol 17 gm 03/13/23 1
--- NOTE | 2023-03-15 15:05 | PM.PNNEP ---
Progress Note: A&P Assessment and Plan (1) Acute hyponatremia: Code(s): E87.1 - Hypo-osmolality and hyponatremia Status: Acute Assessment and Plan: slow improvement acute by review of labs however, patient reports a history of this in the past (due to medications) admission sodium 120mmol/L with slow improvement noted with IVFs no culprit medications at this time she does admit to excessive free water intake evaluation to date: TSH and cortisol okay SPEP, UPEP, and serum/urine osmo pending urine electrolytes suggest a degree of prerenal azotemia on fluid restriction and salt tabs follow serial sodium levels . Will continue to follow. Subjective Date/time seen: 03/15/23 15:05 Interval history: Folllow-up for acute hyponatremia. Seems to be doing reasonably well at this time; sodium continues to slowly improve with current therapy; working with PT/OT as tolerated; no acute distress noted. Exam Narrative: General: eldely but WD/WN female in NAD; ++ anxiety Heart: normal S1 and S2; no rub Lungs: clear to auscultation Abdomen: soft, nontender, nondistended, positive bowel sounds Extremities: no cyanosis or clubbing; no edema Skin: warm and intact Objective Data Vital Signs Vital Signs: Vital Signs Temp Pulse Resp BP Pulse Ox O2 Del Method 03/15/23 14:00 99.0 F 79 18 158/56 H 100 03/15/23 05:41 98.0 F 83 18 144/56 H 97 03/14/23 20:00 85 16 97 Room Air 03/14/23 20:51 99.3 F 85 16 153/55 H 97 Intake/Output Intake/Output: Intake & Output 03/12/23 03/13/23 03/14/23 03/15/23 23:59 23:59 23:59 23:59 Intake Total 1000 2720 2100 880 Output Total 400 1000 Balance 1000 2320 1100 880 Meds/Results Medications: Active Medications Generic Name Dose Route Start Last Admin Trade Name Freq PRN Reason Stop Dose Admin Alprazolam 0.5 mg 03/12/23 22:40 03/15/23 00:32 Alprazolam (*Crx) 0.5 Mg Tablet PO 0.5 mg TID PRN Administration Anxiety Enoxaparin Sodium 40 mg 03/14/23 09:00 03/15/23 11:33 Enoxaparin 40 Mg/0.4 Ml Syringe SUB-Q Not Given DAILY [facility] Estradiol 1 applic 03/16/23 21:00 Estradiol Vaginal Cream 42.5 Gm VAGINAL [email or web address] [facility] Famotidine 20 mg 03/13/23 21:00 03/15/23 11:33 Famotidine 20 Mg Tablet PO Not Given Q12HR [facility] Home Med 1 each 03/15/23 05:30 03/15/23 06:21 Home Med Bystolic (Nebivolol) 10 Mg Tablet PO 04/14/23 05:29 1 each DAILY@0530 [facility] Administration Levetiracetam 500 mg 03/13/23 17:30 03/15/23 06:21 Levetiracetam 500 Mg Tablet PO 500 mg Q12H [facility] Administration Loratadine 2.5 mg 03/13/23 16:41 03/14/23 21:19 Loratadine 5 Mg Tablet PO 2.5 mg PRN PRN Administration Allergic Symptoms Morphine Sulfate 4 mg 03/12/23 22:39 Morphine Sulfate (*Crx) 4 Mg/Ml Inj IV PUSH Q2H PRN Pain Rated 7-10 Ondansetron HCl 4 mg 03/12/23 22:39 Ondansetron Inj 4 Mg/2 Ml Vial IV PUSH Q4H PRN Nausea Polyethylene Glycol 17 gm 03/13/23 15:01 Polyethylene Glycol 3350 17 Gm Powd.Pack PO QAM PRN Constipation Sodium Chloride 1 gm 03/15/23 17:00 03/15/23 17:19 Sodium Chloride 1 Gm Tablet PO 1 gm BID [facility] Administration Tramadol HCl 25 mg 03/12/23 22:40 Tramadol Hcl (*Crx) 25 Mg Tablet PO Q4H PRN Pain Rated 4-6 Triamcinolone Acetonide 1 applic 03/13/23 09:00 03/15/23 11:33 Triamcinolone Acet 0.1% Oint 15 Gm Tube TOPICAL Not Given BID [facility] Vitamin D 1,000 units 03/14/23 14:00 03/15/23 17:19 Cholecalciferol 1,000 Units Tablet PO 1,000 units DAILY@1400 [facility] Administration Radiology Results: ITS Impressions Pelvis CT 03/12/23 19:32 IMPRESSION: 1. Recent sacral insufficiency fractures as detailed above which are new since 02/26/2023. 2. Mild lower lumbar spondylosis with moderate to severe lower lumbar facet osteoarthritis. 3. Mild bilateral hip and
[2023-03-15] MEDS: SODIUM CHLORIDE 1 GM TABLET PO (17:19)
[2023-03-15] MEDS: CHOLECALCIFEROL 1,000 UNITS TABLET 1000 UNITS PO (17:19)
--- NOTE | 2023-03-15 17:50 | PC.NURSE ---
Pt c/o pain and and concerns of sepsis r/t her IV sites and the saline infusing. She thinks she is allergic to it and states that the WIND ENERGY ENGINEER said that the sites are infected. WIND ENERGY ENGINEER made aware and ordered sodium tablets instead. Reassured pt the sites are okay. Pt has two 2 inch rashes noted to bilat upper arms. Pt wanted to get a shower today, but I informed her I didn't feel she was safe due to her pelvic fractures, weakness, use of wheelchair prior to admission, and use of walker at this time. Pt set up with bath supplies and offered shower cap. Pt content with this option.
[2023-03-15] MEDS: LORATADINE 10 MG TABLET PO (19:17)
[2023-03-15 19:41] LABS: Osmolality, Urine 323 mOsm/kg (50-1200)
[2023-03-15 21:15] VITALS: PULSE 83; RESP 14; O2SAT 100
[2023-03-15 22:00] VITALS: BP 142/59; PULSE 83; RESP 14; TEMP 36.4; O2SAT 100
[2023-03-16] MEDS: levETIRAcetam 500 MG TABLET PO (05:24)
[2023-03-16 06:00] VITALS: BP 128/65; PULSE 79; RESP 14; TEMP 36.8; O2SAT 96
[2023-03-16 06:55] LABS: Basophils Absolute Auto 0.1 K/mm3 (0.0-0.1); Basophils Percent Auto 1.1 % (0.2-1.2); Eosinophils Absolute Auto 0.3 K/mm3 (0-0.3); Eosinophils Percent Auto 4.6 % (0-4.4); Hematocrit 34.2 % (37.0-47.0); Hemoglobin 11.4 g/dL (12.0-15.0); Immature Granulocyte Absolute 0.02 K/mm3 (0.00-0.031); Immature Granulocyte Percent A 0.4 % (0-0.5); Lymphocytes Percent Auto 21.3 % (18.3-44.2); Mean Corpuscular HGB Conc 33.3 g/dl (32-36); Mean Corpuscular Hemoglobin 32.1 pg (26-34); Mean Corpuscular Volume 96.3 fl (80-100); Mean Platelet Volume 9.8 fl (7.4-10.4); Monocytes Absolute Auto 0.7 K/mm3 (0.1-0.6); Monocytes Percent Auto 13.1 % (2.6-8.5); Neutrophils Absolute Auto 3.4 K/mm3 (1.3-6.7); Neutrophils Percent Auto 59.5 % (45.5-73.1); Platelet Count Result 277 k/mm3 (150-375); Red Blood Count 3.55 M/mm3 (4.2-5.4); White Blood Count 5.6 K/mm3 (4.5-10.0)
[2023-03-16 07:05] LABS: Albumin Level 3.5 g/dL (3.5-5.1); Anion Gap 7 mmol/L (8-16); Blood Urea Nitrogen 13 mg/dL (7-17); Calcium 8.6 mg/dL (8.4-10.2); Carbon Dioxide 24 mmol/L (22-30); Chloride 98 mmol/L (98-107); Estimated CRCL calculation 62 ml/min; Estimated Glomerular Filt Rate > 60; Glucose 95 mg/dL (65-110); Magnesium 1.9 mg/dL (1.6-2.3); Phosphorus 3.7 mg/dL (2.5-4.5); Sodium 129 mmol/L (137-145)
--- NOTE | 2023-03-16 08:16 | P.PNIM_ITS ---
Progress Note: A&P Assessment and Plan (1) Acute anxiety: Code(s): F41.9 - Anxiety disorder, unspecified Status: Acute Assessment and Plan: Acute on chronic anxiety possibly exacerbated by hyponatremia. Wandering stories jumping from topic to topic extremely anxious. PRN alprazolam continued from home med list but they are not really PRN as patient insists on each dose allowed. 03/14: Chronic anxiety but appears less anxious than what previous notes had stated. Patient states she feels better today. 03/15: Had a panic attack last night. Xanax TID for anxiety. She had a dose last night which helped her through the panic. (2) Acute hyponatremia: Code(s): E87.1 - Hypo-osmolality and hyponatremia Status: Acute Assessment and Plan: Patient indicates a history low-sodium however prior results from June 2022 and January 2021 were within normal limits. Sodium 120 on presentation to the emergency department. IV fluids ordered. Q.4 hours sodium levels ordered. Nephrology consulted. Workup is pending. 03/14: Patient admits to drinking 13 glasses of water at home. Sodium is improving. Sodium today is 127 up from 120 yesterday. 03/15: Fluid restriction.1800 ml daily. Refusing IV fluids and IV. Will place on sodium tabs 1 gram BID. (3) Sacral insufficiency fracture: Qualifiers: Encounter type: initial encounter Qualified Code(s): M84.48XA - Pathological fracture, other site, initial encounter for fracture Code(s): M84.48XA - Pathological fracture, other site, initial encounter for fracture Status: Acute Assessment and Plan: Difficult to narrow down timing of symptom onset but seems to be 2-3 weeks ago and patient denies trauma, states that wearing Birkenstock orthotics for 10 hours may have caused fractures. Initially consulted Neurosurgery but Neurosurgery does not cover these fractures as there is no potential spinal cord involvement. Pain levels elevated may be cause of patient's hyponatremia via SIADH mechanism. Consulted Ortho, unsure if there is any intervention possible, rec's appreciated. 03/14: Consulted Ortho. Unsure if there is much intervention that they can help with but we appreciate their recommendations. Continue with pain control and PT OT. Patient denies decreased sensation to her lower extremities. I spoke with Dr. Jensen, this is not a neuro surgery issue. Recommends bone health clinic at discharge and agrees with ortho consult however she to does not know that there is much intervention they can assist with. 03/15: Doing well with therapy. No complaints of pain. States her pain has improved since she was admitted. (4) History of seizures: Code(s): Z87.898 - Personal history of other specified conditions Status: Acute Assessment and Plan: No seizures in 5 years, takes Keppra, insisted that it had to be brand name and given at 0530/1730 exactly or she will have seizures. 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 Examination deferred on admission. 03/14: May consider starting Estradiol cream with outpatient follow up. 03/15: Since patient had previous prescription from [employer], will restart this medication. Plan Pain control for sacral insufficiency fractures PT/OT Miralax for symptom of constipation (last BM 03/11) Home medications continued at patient's preferred timing. Nephrology consult for hyponatremia, avoid overcorrection May consider psychiatry consult if
[2023-03-16] MEDS: SODIUM CHLORIDE 1 GM TABLET PO (10:11)
[2023-03-16] MEDS: ENOXAPARIN 40 MG/0.4 ML SYRINGE SUB-Q (10:11)
--- NOTE | 2023-03-16 11:47 | PM.DS ---
DS: Admitting Diagnosis Discharge Date 03/16 Admitting Diagnosis weakness, pain DS: Summary Hospital Course Hospital Course: HPI obtained from chart, Patient is a 72 y/o female, with PMH of anxiety, vaginal atrophy, HTN, who presents to the ED with multiple complaints. Patient reports pain in her L hip/buttock for the last 2 weeks. She denies any known injury. She has not tried anything for the pain.? She also reports having intermittent cramping in her lower extremities and left sided abdomen, intermittent nausea, vulvar pain r/t her atrophic vaginitis, and increased anxiety/panic attacks.? Patient states she cannot keep going on like this.? She does have previous history of anxiety and had been on Paxil for many years, but quit taking this a few years ago.? at bedside endorses that her anxiety has been uncontrollable recently.? Patient denies SI or HI. 03/14: Patient is seen sitting up in her chair. She is in a good mood and states that she has ?come out of the rabbit hole?. She feels like her pain is improved today. Her biggest complaint is vaginal dryness. She is asking for something to help with that. She says she has been working with therapy today and was walking in the halls. Sodium is showing some improvement today is 127. Upon speaking with the patient it sounds like she was drinking copious amounts of water at home. This combined with her steroid use her likely contributing factors to her low sodium. 03/15: Continues to do well today. Still waiting for sodium level to increase greater than 130. Hopefully tomorrow she will be able to d/c. She mentions that she was on estradiol prescribed by Dr Mac and she just had stopped taking it. She feels like she needs to take it because her vaginal dryness and discomfort is worse. Will restart the cream today. She has been working well with therapy. No other acute complaints at this time. 03/16: Mrs Holman is doing well today. She does have a red rash to her upper arms and face which she contributes to 'heat rash'. She says she gets it from time to time with seasonal changes, anxiety, and she thinks she is possibly having a reaction to the hospital linens. Her sodium level remains stable at 129. Her IV developed a phlebitis yesterday and she was saying she did not want another IV started and was refusing the IV fluids. She was started on sodium tablets 1 gram BID. Her symptoms of hyponatremia; weakness, pain, confusion have all resolved. I spoke with Dr Carrington who agrees with plan to discharge today with sodium tablet prescription and repeat BMP in 1 week with PCP follow up. Patient is agreeable to the plan. Status at Discharge Cognitive/behavioral status at discharge: A&Ox4 Time Spent with Patient Time attestation: Total time spent providing and/or coordinating discharge services:56 Exam Narrative: General: well appearing, well developed, well nourished, appears stated age. HEENT: normocephalic, atraumatic. Mucous membranes moist. EOMI, PERRLA, bilateral sclera anicteric, no conjunctival injection. Neck supple without JVD, lymphadenopathy, or bruit. Respiratory: clear to auscultation bilaterally. No rales/rhonic/wheezes. Cardiovascular: Regular rate and rhythm, normal S1-S2 upon auscultation. No murmurs, rubs, or clicks. PMI is nondisplaced, capillary re-fill less than 3 second. Abdomen: Soft, flat, no pulsatile masses, non-distended and non-tender. No rebound, no guarding. No CVA tenderness, no hepatosplenomegaly.? Bowel sounds present to all four quadrants. No high pitch or tinkling sounds, resonant to percussion. Extremities: No cyanosis, clubbing, or edema present. Pulses are palpable 2/2.? Active ROM to all four extremities. Neuro: Alert and orientated x 4. PERRLA. Cranial nerves 2-12 intact without focal deficit. Skin: Warm, dry, and intact, without rash, erythema, or lesion. Lines: Incisions: Psych: pleasant, cooperative, normal speech, normal affect, no hallucinations, no dysart
[2023-03-17 00:15] LABS: Lambda Light Chain 15.3 mg/L (5.7-26.3)
[2023-03-17 09:05] LABS: Albumin 3.4 g/dL (3.8-4.8); Alpha 1 Globulin 0.3 g/dL (0.2-0.3); Alpha 2 Globulin 0.8 g/dL (0.5-0.9); Beta 1 Globulin 0.4 g/dL (0.4-0.6); Gamma Globulin 0.9 g/dL (0.8-1.7); Protein, Total 6.2 g/dL (6.1-8.1)
[2023-03-17 14:16] LABS: Chloride Rand Ur 90 mmol/L (32-290); Chloride/Creatinine Rand Ur 81 (38-318); Creatinine Random Urine 111 mg/dL (20-275)
[2023-03-19 01:23] LABS: Creatinine, Random Urine 114 mg/dL (20-275); Total Protein/Creatinine Ratio 79 mg/g creat (24-184)
== END 2023-03-16 13:30 | disposition home health service (06) | DRG 641 ==
LOC: ANHED 22:22 → ANH3MEDSUR 23:27
PROVIDERS: Internal Medicine Nephrology; Nurse Practitioner; Student in an Organized Health Care Education/Training Program; Admitting Provider Internal Medicine; Emergency Provider Physician Assistant; Visit Provider Nurse Practitioner Acute Care
DX: E87.1 Hypo-osmolality and hyponatremia (principal); M84.48XD Pathological fracture, other site, subsequent encounter for fracture with routine healing; N95.2 Postmenopausal atrophic vaginitis; F41.0 Panic disorder [episodic paroxysmal anxiety]; F43.10 Post-traumatic stress disorder, unspecified; F32.A Depression, unspecified; I10 Essential (primary) hypertension; R21 Rash and other nonspecific skin eruption; R56.9 Unspecified convulsions; K59.00 Constipation, unspecified; X58.XXXD Exposure to other specified factors, subsequent encounter
CPT/HCPCS: 36415; 72192; 80048; 80053; 80069; 80307; 81003; 81050; 82306; 82436; 82533; 82550; 82570; 83735; 83883; 83935; 83970; 84155; 84156; 84165; 84166; 84295; 84300; 84443; 84540; 85025; 85652; 96361; 96374; 96375; 97161; 97165; 99285; A9270; G0378; J1650; J2060; J2270; J2405; J7030

== ENCOUNTER 2023-03-22 11:34 | Outpatient (CLI) | payer MEDICARE, SELFPAY ==
[2023-03-23 09:06] LABS: Anion Gap 10 mmol/L (8-16); Blood Urea Nitrogen 13 mg/dL (7-17); Calcium 9.4 mg/dL (8.4-10.2); Carbon Dioxide 27 mmol/L (22-30); Chloride 90 mmol/L (98-107); Estimated Glomerular Filt Rate > 60; Glucose 96 mg/dL (65-110); Potassium 4.4 mmol/L (3.4-5.0); Sodium 127 mmol/L (137-145)
== END 2023-03-22 11:35 | disposition home or self-care (01) ==
PROVIDERS: Visit Provider Clinical Nurse Specialist
DX: E87.1 Hypo-osmolality and hyponatremia (principal)
CPT/HCPCS: 36415; 80048

== ENCOUNTER 2023-05-31 11:44 | Emergency (ER) | payer MEDICARE, SELFPAY ==
[2023-05-31 11:46] VITALS: BP 171/76; PULSE 80; RESP 20; TEMP 36.4; O2SAT 100
[2023-05-31 15:15] VITALS: BP 134/70; PULSE 86; RESP 18; O2SAT 100
[2023-05-31 15:20] VITALS: PULSE 85
--- NOTE | 2023-05-31 15:41 | ECG_ITS ---
Measurements Intervals [place] Rate: 84 P: 11 [place]: 108 QRS: 10 QRSD: 89 T: 13 QT: 368 QTc: 437 Interpretive Statements SINUS RHYTHM WITH SHORT [place] INTERVAL POSSIBLE RIGHT VENTRICULAR CONDUCTION DELAY [RSR (QR) IN V1/V2] BORDERLINE ECG NO PREVIOUS ECG AVAILABLE FOR COMPARISON Electronically Signed On 06-01-2023 15:03:30 [employer] by Ray Hickey M.D.
--- NOTE | 2023-05-31 15:42 | ED.GENADULT ---
HPI - General Adult General Chief complaint: Seizure Stated complaint: siezure Time Seen by Provider: 05/31/23 15:41 History of Present Illness HPI narrative: Patient is a 73-year-old female with past medical history of seizure disorder on Keppra presents to the emergency department this afternoon after a witnessed seizure at home while she was in the shower. states that patient became unresponsive but did not fall or hit her. Patient is currently at her baseline. Last breakthrough seizure was approximately 1 year ago. Patient states that she did not have a seizure, she only dozed off while showering as she has been very weak since she has not been drinking water or eating food due to loss of appetite. Patient states that she has been having some abdominal cramping for the last few days secondary to gas and constipation, she has been constipated for a couple of days but finally had a bowel movement yesterday that was normal. She is currently denying any chest pain, shortness of breath, dysuria, hematuria, constipation, diarrhea, melena, hematochezia, fevers or chills. Patient also denies any headaches, dizziness, lightheadedness, focal weakness, changes in her vision, numbness unrepaired. There are no other modifying, alleviating, or precipitating factors at this time. Related Data Home Medications Medication Instructions Recorded Confirmed cholecalciferol (vitamin D3) 25 25 mcg PO DAILY 12/16/19 03/26/23 mcg (1,000 unit) capsule levetiracetam 500 mg tablet 500 mg PO Q12H 12/16/19 03/26/23 Allergies Allergy/AdvReac Type Severity Reaction Status Date / Time Latex, Natural Rubber Allergy Intermediate Hives Verified 05/31/23 15:21 amoxicillin Allergy Mild Diarrhea Verified 05/31/23 15:21 Corticosteroids Allergy Unknown excessive Verified 05/31/23 15:21 (Glucocorticoids) thirst hydrocodone Allergy Unknown [place], Verified 05/31/23 15:21 abdominal pain lisinopril Allergy Unknown Constipatio Verified 05/31/23 15:21 n bleach Allergy Unknown Rash Uncoded 05/31/23 15:21 fragrance Allergy Unknown Rash Uncoded 05/31/23 15:21 Review of Systems Review of Systems: All systems are reviewed and are negative unless stated otherwise in the HPI. [facility] Past Medical History Medical History Anxiety Cataract Cyst of breast, left, diffuse fibrocystic Removal 1982 Depression Excessive cerumen in both ear canals Ganglion cyst of foot removal 2004 (left) Grand mal seizure HTN (hypertension) PTSD (post-traumatic stress disorder) Seizures Surgical History Surgical History History of breast surgery breast cyst benign left History of surgery on arm titanium theresa Family History Family History Father Patient's father is , Onset Age: 88 Mother Family history of malignant neoplasm of bone Social History Social History Social History: Caffeine- coffee Smoking status: Never smoker Alcohol intake: current Alcohol use details: rarely Substance use: never Substance use type: does not use Lack of Transportation: No Lack of Food: Never True Current Housing: I Have Housing Concerned About Future Housing: No Difficulty Paying Gas/Electric Bills: No Difficulty Paying for Meds: No Currently Unemployed: No Education: Master's Degree or Higher Difficulty w/ Childcare or Family Care: No Living arrangements: with family Additional living arrangements comments: Lives with . Occupation/Education: retired Spiritual care concerns: No Exam Narrative: General: Alert, awake, afebrile, in no acute distress. HEENT: PERRL, no rhinorrhea, no post nasal drip, oropharynx clear. Neck: Trachea midline, no JVD, no lymphadenopathy. Cardi
[2023-05-31 16:00] VITALS: BP 160/46; PULSE 88; RESP 20; O2SAT 100
[2023-05-31 16:04] LABS: Basophils Absolute Auto 0.1 K/mm3 (0.0-0.1); Basophils Percent Auto 0.7 % (0.2-1.2); Eosinophils Percent Auto 0.2 % (0-4.4); Hematocrit 40.7 % (37.0-47.0); Hemoglobin 14.2 g/dL (12.0-15.0); Immature Granulocyte Absolute 0.03 K/mm3 (0.00-0.031); Immature Granulocyte Percent A 0.2 % (0-0.5); Lymphocytes Absolute Auto 1.22 K/mm3 (0.9-3.2); Mean Corpuscular HGB Conc 34.9 g/dl (32-36); Mean Corpuscular Hemoglobin 31.8 pg (26-34); Mean Corpuscular Volume 91.1 fl (80-100); Mean Platelet Volume 9.8 fl (7.4-10.4); Monocytes Percent Auto 8.2 % (2.6-8.5); Neutrophils Absolute Auto 9.8 K/mm3 (1.3-6.7); Neutrophils Percent Auto 80.7 % (45.5-73.1); Platelet Count Result 344 k/mm3 (150-375); Red Blood Count 4.47 M/mm3 (4.2-5.4); Red Cell Distribution Width 11.7 % (11.5-14.5); White Blood Count 12.2 K/mm3 (4.5-10.0)
[2023-05-31 16:29] LABS: Alanine Aminotransferase 30 U/L (6-35); Albumin Level 4.5 g/dL (3.5-5.1); Alkaline Phosphatase 122 U/L (38-126); Anion Gap 9 mmol/L (8-16); Aspartate Amino Transferase 39 U/L (14-36); Bilirubin,Total 0.7 mg/dL (0.2-1.3); Blood Urea Nitrogen 14 mg/dL (7-17); Carbon Dioxide 24 mmol/L (22-30); Chloride 96 mmol/L (98-107); Estimated CRCL calculation 47 ml/min; Estimated Glomerular Filt Rate > 60; Glucose 117 mg/dL (65-110); Potassium 4.3 mmol/L (3.4-5.0); Sodium 129 mmol/L (137-145)
[2023-05-31 16:30] LABS: Lipase 63 U/L (23-300)
[2023-05-31 16:33] LABS: Appearance Urine Cloudy (Clear); Bacteria Urine Rare /hpf; Bilirubin Urine Negative (Negative); Blood Urine Negative (Negative); Color Urine Dark Yellow (Yellow); Glucose Urine UA Negative (Negative); Ketones Urine 3+ mg/dL (Negative); Leukocyte Esterase Ur 1+ LEU/UL (Negative); Need Manual Microscopic Reviewed; Nitrate Urine Negative (Negative); Non Pathogenic Casts >20; Protein Urine 2+ mg/dL (Negative); Specific Grav Ur 1.021 (1.001-1.035); Squamous Epithelial Cell Urine Many /hpf (Few)
[2023-05-31 16:38] LABS: Add Urine Microscopic? YES
[2023-05-31 17:00] LABS: Creatine Kinase 82 U/L (30-135); Magnesium 1.9 mg/dL (1.6-2.3)
[2023-05-31] MEDS: SODIUM CHLORIDE 0.9% IV 1,000 ML 999 ML IV CONT (17:03)
[2023-05-31] MEDS: levETIRAcetam 500 MG TABLET PO (17:17)
== END 2023-05-31 17:34 | disposition home or self-care (01) ==
PROVIDERS: Emergency Provider Emergency Medicine; PCP Internal Medicine
DX: R55 Syncope and collapse (principal); E87.1 Hypo-osmolality and hyponatremia; E86.0 Dehydration; R82.998 Other abnormal findings in urine; G40.909 Epilepsy, unspecified, not intractable, without status epilepticus; I10 Essential (primary) hypertension; H26.9 Unspecified cataract; R94.31 Abnormal electrocardiogram [ECG] [EKG]
CPT/HCPCS: 36415; 80053; 81001; 82248; 82550; 83690; 83735; 85025; 87086; 93005; 99284; A9270; J7030

== ENCOUNTER 2023-11-03 10:27 | Emergency (ER) | payer MEDICARE, SELFPAY ==
[2023-11-03 10:36] VITALS: BP 187/72; PULSE 87; RESP 16; TEMP 36.3; O2SAT 100
[2023-11-03 11:53] VITALS: RESP 20
--- NOTE | 2023-11-03 12:08 | ED.GENADULT ---
HPI - General Adult General Chief complaint: Unspecified Stated complaint: low sodium Time Seen by Provider: 11/03/23 11:42 Source: patient and family () Mode of arrival: ambulatory Limitations: no limitations History of Present Illness HPI narrative: Patient presents with concern low-sodium. She has a history of this feels that this is going on today. She is complaining nausea and cold hands for the past 6 weeks and diarrhea today. She denies any generalized weakness. She states she has been drinking 7 cups of water per day as advised and also having some Pedialyte recently. She states when her sodium has been low before she got an infusion and this helped. She initially states she doesn't have a primary care physician but then states she has been seeing an [employer]/PA who is holistic and not just trying to push medication. She states she previously saw Dr Cardoso. Patient frequently going on tangents about her Bystolic medication which she was advised to stop taking since it can cause hyponatremia but that she started taking it again because she panicked because her home blood pressure cuff wasn't working at measuring her blood pressure. She is frustrated that her blood pressure is improperly taken at appointments, including not waiting a certain amount of time after arriving and being performed over clothing/sweatshirts. Related Data Home Medications Medication Instructions Recorded Confirmed cholecalciferol (vitamin D3) 25 25 mcg PO DAILY 12/16/19 08/07/23 mcg (1,000 unit) capsule levetiracetam 500 mg tablet 500 mg PO Q12H 12/16/19 08/07/23 cetirizine 10 mg capsule (Zyrtec) 10 mg PO DAILY PRN 08/07/23 08/07/23 Allergies Allergy/AdvReac Type Severity Reaction Status Date / Time Latex, Natural Rubber Allergy Intermediate Hives Verified 11/03/23 11:50 amoxicillin Allergy Mild Diarrhea Verified 11/03/23 11:50 Corticosteroids Allergy Unknown excessive Verified 11/03/23 11:50 (Glucocorticoids) thirst hydrocodone Allergy Unknown naseau, Verified 11/03/23 11:50 abdominal pain lisinopril Allergy Unknown Constipatio Verified 11/03/23 11:50 n bleach Allergy Unknown Rash Uncoded 11/03/23 11:50 fragrance Allergy Unknown Rash Uncoded 11/03/23 11:50 PMFSH Past Medical History Medical History (Updated 11/04/23 @ 13:45 by Cindy Cook MD) Anxiety Cataract Cyst of breast, left, diffuse fibrocystic Removal 1981 Depression Excessive cerumen in both ear canals Ganglion cyst of foot removal 2004 (left) Grand mal seizure HTN (hypertension) Hyponatremia PTSD (post-traumatic stress disorder) Seizures Surgical History Surgical History History of breast surgery breast cyst benign left History of surgery on arm titanium theresa Family History Family History Father Patient's father is , Onset Age: 88 Mother Family history of malignant neoplasm of bone Social History Social History (Updated 11/04/23 @ 13:46 by Cindy Cook MD) Social History: Caffeine- coffee Plant based diet Smoking status: Never smoker Alcohol intake: current Alcohol use details: rarely Substance use: never Substance use type: does not use Lack of Transportation: No Lack of Food: Never True Current Housing: I Have Housing Concerned About Future Housing: No Difficulty Paying Gas/Electric Bills: No Difficulty Paying for Meds: No Currently Unemployed: No Education: Master's Degree or Higher Difficulty w/ Childcare or Family Care: No Living arrangements: with family Additional living arrangements comments: Lives with . Occupation/Education: retired Spiritual care concerns: No Exam Narrative: GENERAL: Well-appearing, well-nourished, and in no acute distress. HEAD: Normocephalic, atraumatic. EYES: Keeps sunglasses on throughout
[2023-11-03 12:25] LABS: Basophils Absolute Auto 0.1 K/mm3 (0.0-0.1); Basophils Percent Auto 1.1 % (0.2-1.2); Eosinophils Percent Auto 0.3 % (0-4.4); Hemoglobin 13.1 g/dL (12.0-15.0); Immature Granulocyte Absolute 0.01 K/mm3 (0.00-0.031); Immature Granulocyte Percent A 0.2 % (0-0.5); Lymphocytes Absolute Auto 1.32 K/mm3 (0.9-3.2); Lymphocytes Percent Auto 21.7 % (18.3-44.2); Mean Corpuscular HGB Conc 35.4 g/dl (32-36); Mean Corpuscular Hemoglobin 32.8 pg (26-34); Mean Corpuscular Volume 92.5 fl (80-100); Mean Platelet Volume 10.1 fl (7.4-10.4); Monocytes Absolute Auto 0.7 K/mm3 (0.1-0.6); Monocytes Percent Auto 11.8 % (2.6-8.5); Neutrophils Percent Auto 64.9 % (45.5-73.1); Platelet Count Result 283 k/mm3 (150-375); Red Cell Distribution Width 11.9 % (11.5-14.5); White Blood Count 6.1 K/mm3 (4.5-10.0)
[2023-11-03 12:59] LABS: Alanine Aminotransferase 42 U/L (6-35); Albumin Level 4.5 g/dL (3.5-5.1); Alkaline Phosphatase 119 U/L (38-126); Anion Gap 9 mmol/L (4-12); Aspartate Amino Transferase 45 U/L (14-36); Bilirubin,Total 0.5 mg/dL (0.2-1.3); Blood Urea Nitrogen 16 mg/dL (7-17); Calcium 9.4 mg/dL (8.4-10.2); Carbon Dioxide 26 mmol/L (22-30); Chloride 88 mmol/L (98-107); Estimated CRCL calculation 72 ml/min; Estimated Glomerular Filt Rate > 60; Glucose 166 mg/dL (65-110); Magnesium 1.8 mg/dL (1.6-2.3); Potassium 4.1 mmol/L (3.4-5.0); Sodium 123 mmol/L (137-145)
[2023-11-03 13:02] LABS: Influenza A QL RT-PCR Negative (Negative); Influenza B QL RT-PCR Negative (Negative); SARS-CoV-2 RNA PCR Negative (Negative)
[2023-11-03 13:07] VITALS: BP 167/62; PULSE 90; RESP 20; O2SAT 98
[2023-11-03 13:27] LABS: Creatinine Urine 15.3 mg/dL
[2023-11-03] MEDS: SODIUM CHLORIDE 0.9% IV 1,000 ML 999 ML IV CONT (13:27)
[2023-11-03 13:31] LABS: Sodium Urine Random 25 meq/L
[2023-11-03 14:55] VITALS: BP 178/72; PULSE 87; RESP 16; O2SAT 97
[2023-11-03 15:13] LABS: Anion Gap 9 mmol/L (4-12); Blood Urea Nitrogen 14 mg/dL (7-17); Calcium 8.5 mg/dL (8.4-10.2); Carbon Dioxide 25 mmol/L (22-30); Chloride 93 mmol/L (98-107); Estimated CRCL calculation 72 ml/min; Estimated Glomerular Filt Rate > 60; Glucose 102 mg/dL (65-110); Potassium 4.1 mmol/L (3.4-5.0); Sodium 127 mmol/L (137-145)
[2023-11-03 16:31] VITALS: BP 185/81; PULSE 90; RESP 20; O2SAT 97
[2023-11-07 14:28] LABS: Osmolality, Urine 200 mOsm/kg (50-1200)
== END 2023-11-03 16:35 | disposition home or self-care (01) ==
PROVIDERS: Emergency Provider Student in an Organized Health Care Education/Training Program; PCP Internal Medicine
DX: E87.1 Hypo-osmolality and hyponatremia (principal); R74.01 Elevation of levels of liver transaminase levels; Z20.822 Contact with and (suspected) exposure to COVID-19; I10 Essential (primary) hypertension; Z79.899 Other long term (current) drug therapy
CPT/HCPCS: 36415; 80048; 80053; 82570; 83735; 83935; 84300; 85025; 87636; 96360; 99283; J7030

== ENCOUNTER 2023-11-05 10:00 | Emergency (ER) | payer MEDICARE, SELFPAY ==
[2023-11-05 10:29] VITALS: BP 200/70; PULSE 82; RESP 20; TEMP 36.7; O2SAT 100
--- NOTE | 2023-11-05 11:25 | ED.GENADULT ---
HPI - General Adult General Chief complaint: Recheck/Abnormal Lab/Rx Stated complaint: i wanna get sodium chloride tablets Time Seen by Provider: 11/05/23 10:57 Source: patient Mode of arrival: ambulatory Limitations: no limitations History of Present Illness HPI narrative: this is a 73-year-old female with PMH of chronic hyponatremia who presents to the ED for sodium chloride tablet prescription. She states that she has been scheduled for an appointment in a month with her PCP but got very anxious about her sodium being low today. States that she has undergone several workups the of the hospital and ER for hyponatremia. She states that she is feeling asymptomatic at this time. She has been taking Pedialyte but would really like to just have the sodium tablets. States that these would help more than anything. reports she knows exactly why her sodium is low and is due to all the drugs such as beta blockers that she is taking. Denies any further complaints Related Data Home Medications Medication Instructions Recorded Confirmed cholecalciferol (vitamin D3) 25 25 mcg PO DAILY 12/16/19 08/07/23 mcg (1,000 unit) capsule levetiracetam 500 mg tablet 500 mg PO Q12H 12/16/19 08/07/23 cetirizine 10 mg capsule (Zyrtec) 10 mg PO DAILY PRN 08/07/23 08/07/23 Allergies Allergy/AdvReac Type Severity Reaction Status Date / Time Latex, Natural Rubber Allergy Intermediate Hives Verified 11/03/23 11:50 amoxicillin Allergy Mild Diarrhea Verified 11/03/23 11:50 Corticosteroids Allergy Unknown excessive Verified 11/03/23 11:50 (Glucocorticoids) thirst hydrocodone Allergy Unknown naseau, Verified 11/03/23 11:50 abdominal pain lisinopril Allergy Unknown Constipatio Verified 11/03/23 11:50 n bleach Allergy Unknown Rash Uncoded 11/03/23 11:50 fragrance Allergy Unknown Rash Uncoded 11/03/23 11:50 Review of Systems Review of Systems: All systems as dictated in [facility] Past Medical History Medical History (Updated 11/05/23 @ 14:25 by Porfirio Ponce PA-C) Anxiety Cataract Cyst of breast, left, diffuse fibrocystic Removal 1982 Depression Excessive cerumen in both ear canals Ganglion cyst of foot removal 2004 (left) Grand mal seizure HTN (hypertension) Hyponatremia PTSD (post-traumatic stress disorder) Seizures Surgical History Surgical History History of breast surgery breast cyst benign left History of surgery on arm titanium theresa Family History Family History Father Patient's father is , Onset Age: 88 Mother Family history of malignant neoplasm of bone Social History Social History (Updated 11/04/23 @ 13:46 by Cindy Cook MD) Social History: Caffeine- coffee Plant based diet Smoking status: Never smoker Alcohol intake: current Alcohol use details: rarely Substance use: never Substance use type: does not use Lack of Transportation: No Lack of Food: Never True Current Housing: I Have Housing Concerned About Future Housing: No Difficulty Paying Gas/Electric Bills: No Difficulty Paying for Meds: No Currently Unemployed: No Education: Master's Degree or Higher Difficulty w/ Childcare or Family Care: No Living arrangements: with family Additional living arrangements comments: Lives with . Occupation/Education: retired Spiritual care concerns: No Exam Narrative: GENERAL: Well-appearing, well-nourished, and in no acute distress. HEAD: Normocephalic, atraumatic. EYES: PERRLA and EOMI. ENT: Nares clear, no rhinorrhea or epistaxis. Mucous membranes moist. Oropharynx without tonsillar hypertrophy exudate or other lesions. NECK: Supple. No adenopathy or masses. CHEST: No respiratory distress. Clear to auscultation. No wheezes rales or rhonchi HEART: Regular rate and rhythm. No murmur heard.
== END 2023-11-05 12:59 | disposition home or self-care (01) ==
PROVIDERS: Emergency Provider Physician Assistant
DX: E87.1 Hypo-osmolality and hyponatremia (principal); I10 Essential (primary) hypertension; Z79.899 Other long term (current) drug therapy
CPT/HCPCS: 99283

== ENCOUNTER 2024-01-18 15:55 | Emergency (ER) | payer MEDICARE, SELFPAY ==
--- NOTE | ~2024-01-18 | CT_ITS ---
EXAMINATION: CT brain wo con DATE: 01/18/2024 18:39 INDICATION: Seizure. TECHNIQUE: Computed tomography (CT) of the head was performed without intravenous contrast. The mA wa s adjusted according to patient size. Iterative reconstruction technique was employed. The dose-lengt h product was 681.00 mGy-cm. COMPARISON: Head CT 01/17/2015, brain MRI 11/02/2013 FINDINGS: There is low attenuation in the right temporal occipital white matter. There are scattered areas of low attenuation in the cerebral white matter, which is within normal limits for the patient' s age. There is no intracranial hemorrhage, acute infarction, or abnormal intracranial mass lesion. The ventricles are normal in size. There is mild mucosal thickening in the ethmoid sinuses. The masto id air cells are normal. There is are normal. IMPRESSION: 1. Low attenuation in the right temporal occipital white matter, which may be an age-indeterminate in farct or vasogenic edema. Consider brain MRI without and with contrast. Reviewed, dictated and finalized at location A. IMPRESSION: 1. Low attenuation in the right temporal occipital white matter, which may be a n age-indeterminate infarct or vasogenic edema. Consider brain MRI without and with contrast.
--- NOTE | ~2024-01-18 | XR_ITS ---
EXAMINATION: XR chest 1V portable DATE: 01/18/2024 17:29 INDICATION: Seizure TECHNIQUE: frontal view of the chest was obtained. COMPARISON: None FINDINGS: Linear discoid atelectasis/scarring at the bilateral costophrenic angles. Mild right apical pleural-p arenchymal scarring. No pulmonary edema, pleural effusion or pneumothorax. The cardiomediastinal silh ouette is normal. Plain screw fixation along the proximal right humerus. IMPRESSION: 1. Mild discoid atelectasis at the bilateral lung bases. Reviewed, dictated and finalized at location A.
[2024-01-18 16:04] VITALS: BP 173/75; PULSE 107; PULSE 109; RESP 20; TEMP 36.1; O2SAT 92; O2SAT 93
--- NOTE | 2024-01-18 16:04 | ECG_ITS ---
Test Date: 2024-01-18 16:12:01 Measurements Intervals [place] Rate: 105 P: 53 OK: 135 QRS: 38 QRSD: 94 T: 9 QT: 322 QTc: 426 Interpretive Statements SINUS TACHYCARDIA LEFT ATRIAL ENLARGEMENT [-0.15mV P-WAVE IN V1/V2] POSSIBLE RIGHT VENTRICULAR CONDUCTION DELAY [RSR (QR) IN V1/V2] No previous ECG available for comparison Electronically Signed On 01-19-2024 16:14:13 CDT by Hyacinth Sweet M.D.
[2024-01-18 16:32] VITALS: BP 156/63; PULSE 104; RESP 20; O2SAT 94
--- NOTE | 2024-01-18 17:17 | ED.SEIZURE ---
HPI - Seizure General Chief Complaint: Seizure Stated Complaint: AMS Time Seen by Provider: 01/18/24 17:17 Source: patient, family and EMS Mode of arrival: EMS Limitations: no limitations History of Present Illness HPI Narrative: 73 years old white female came to the ED by ambulance after having a seizure witnessed by her lasted for 10 seconds. History of seizure, last 1 was 8 years ago, currently on Keppra 500 b.i.d.. Patient reports tons of stress lately and lack of sleep. Currently patient screaming about pain at the right hip area, declined to take any pain medication, she is telling me that she gets worse when she lay flat for a while and need to get up and start moving She denies any fever, chills, nausea, vomiting, chest pain or shortness of breath or headache or focal neuro deficit. Patient does not want any blood workup or any imaging and would like to go home because she knew her symptoms secondary to stress. Seizure History: Yes Related Data Home Medications Medication Instructions Recorded Confirmed cholecalciferol (vitamin D3) 25 25 mcg PO DAILY 12/16/19 08/07/23 mcg (1,000 unit) capsule levetiracetam 500 mg tablet 500 mg PO Q12H 12/16/19 08/07/23 cetirizine 10 mg capsule (Zyrtec) 10 mg PO DAILY PRN 08/07/23 08/07/23 Allergies Allergy/AdvReac Type Severity Reaction Status Date / Time Latex, Natural Rubber Allergy Intermediate Hives Verified 01/18/24 16:02 amoxicillin Allergy Mild Diarrhea Verified 01/18/24 16:02 Corticosteroids Allergy Unknown excessive Verified 01/18/24 16:02 (Glucocorticoids) thirst hydrocodone Allergy Unknown naseau, Verified 01/18/24 16:02 abdominal pain lisinopril Allergy Unknown Constipatio Verified 01/18/24 16:02 n bleach Allergy Unknown Rash Uncoded 01/18/24 16:02 fragrance Allergy Unknown Rash Uncoded 01/18/24 16:02 Review of Systems Review of Systems: All systems reviewed & are unremarkable except as noted in HPI and below PMFSH Past Medical History Medical History Anxiety Cataract Cyst of breast, left, diffuse fibrocystic Removal 1981 Depression Excessive cerumen in both ear canals Ganglion cyst of foot removal 2004 (left) Grand mal seizure HTN (hypertension) Hyponatremia PTSD (post-traumatic stress disorder) Seizures Surgical History Surgical History History of breast surgery breast cyst benign left History of surgery on arm titanium theresa Family History Family History Father Patient's father is , Onset Age: 88 Mother Family history of malignant neoplasm of bone Social History Social History Social History: Caffeine- coffee Plant based diet Smoking status: Never smoker Alcohol intake: current Alcohol use details: rarely Substance use: never Substance use type: does not use Lack of Transportation: No Lack of Food: Never True Current Housing: I Have Housing Concerned About Future Housing: No Difficulty Paying Gas/Electric Bills: No Difficulty Paying for Meds: No Currently Unemployed: No Education: Master's Degree or Higher Difficulty w/ Childcare or Family Care: No Living arrangements: with family Additional living arrangements comments: Lives with . Occupation/Education: retired Spiritual care concerns: No Exam Narrative: General appearance: Well-developed, well-nourished, anxious Skin: Normal color Head: Normocephalic, nontraumatic Eyes: Clear conjunctiva ENT: Oropharynx normal, ears normal, nose normal Neck: Supple, nontender Chest and respiratory: Airway patent, no respiratory distress, no accessory muscle use Heart: Regular rate/rhythm Abdomen: Soft, nontender, no organomegaly, quiet bowel sounds Vascular: Normal peripheral pulses, normal cap
[2024-01-18] MEDS: levETIRAcetam 1000MG/NACL100ML 1,000 MG/100 ML BAG 400 MG IVPB (17:36)
[2024-01-18] MEDS: diazePAM INJ (*CRX) 10 MG/2 ML SYRINGE 5 MG IV PUSH (18:11)
[2024-01-18 18:16] VITALS: BP 134/69; PULSE 100; RESP 17; O2SAT 93
[2024-01-18 18:18] LABS: Basophils Absolute Auto 0.1 K/mm3 (0.0-0.1); Basophils Percent Auto 0.6 % (0.2-1.2); Eosinophils Percent Auto 0.1 % (0-4.4); Hemoglobin 13.6 g/dL (12.0-15.0); Immature Granulocyte Absolute 0.17 K/mm3 (0.00-0.031); Lymphocytes Absolute Auto 0.99 K/mm3 (0.9-3.2); Lymphocytes Percent Auto 5.5 % (18.3-44.2); Mean Corpuscular HGB Conc 35.8 g/dl (32-36); Mean Corpuscular Hemoglobin 32.9 pg (26-34); Mean Platelet Volume 10.1 fl (7.4-10.4); Monocytes Absolute Auto 1.1 K/mm3 (0.1-0.6); Monocytes Percent Auto 6.4 % (2.6-8.5); Neutrophils Absolute Auto 15.4 K/mm3 (1.3-6.7); Neutrophils Percent Auto 86.4 % (45.5-73.1); Platelet Count Result 269 k/mm3 (150-375); Red Blood Count 4.13 M/mm3 (4.2-5.4); Red Cell Distribution Width 12.5 % (11.5-14.5); White Blood Count 17.8 K/mm3 (4.5-10.0)
[2024-01-18 18:28] LABS: Alanine Aminotransferase 45 U/L (6-35); Albumin Level 4.5 g/dL (3.5-5.1); Alkaline Phosphatase 135 U/L (38-126); Anion Gap 7 mmol/L (4-12); Aspartate Amino Transferase 57 U/L (14-36); Bilirubin,Total 0.5 mg/dL (0.2-1.3); Blood Urea Nitrogen 21 mg/dL (7-17); Calcium 8.9 mg/dL (8.4-10.2); Carbon Dioxide 27 mmol/L (22-30); Chloride 89 mmol/L (98-107); Creatine Kinase 203 U/L (30-135); Estimated CRCL calculation 80 ml/min; Estimated Glomerular Filt Rate > 60; Glucose 120 mg/dL (65-110); Potassium 4.1 mmol/L (3.4-5.0); Sodium 123 mmol/L (137-145)
--- NOTE | 2024-01-18 18:44 | PC.NURSE ---
Notified by radiology pt refused all imaging. aware.
--- NOTE | 2024-01-18 18:44 | PC.NURSE ---
pt states she is unable to urinate on the bedpan but is having to much pain to get on a bedside commode.
[2024-01-18 20:42] VITALS: BP 134/88; PULSE 102; RESP 15; O2SAT 100
== END 2024-01-18 20:44 | disposition home or self-care (01) ==
PROVIDERS: Emergency Provider Emergency Medicine; PCP Clinical Nurse Specialist
DX: G40.909 Epilepsy, unspecified, not intractable, without status epilepticus (principal); G93.6 Cerebral edema; E87.1 Hypo-osmolality and hyponatremia; F41.9 Anxiety disorder, unspecified; R00.0 Tachycardia, unspecified; R94.31 Abnormal electrocardiogram [ECG] [EKG]
CPT/HCPCS: 36415; 70450; 71045; 80053; 82550; 85025; 93005; 96365; 96375; 99284; J1953; J3360

== ENCOUNTER 2024-01-19 10:05 | Emergency (ER) | payer MEDICARE, SELFPAY ==
[2024-01-19] VITALS (9 sets, daily range): BP systolic 114–157; BP diastolic 60–85; PULSE 60–108; RESP 11–21; TEMP 36.6–36.9; O2SAT 94–99
--- NOTE | ~2024-01-19 | XR_ITS ---
EXAMINATION: XR knee RT 3V DATE: 01/19/2024 12:34 INDICATION: Right knee pain post seizure TECHNIQUE: Anteroposterior, oblique and crosstable lateral views of the right knee were obtained COMPARISON: None. FINDINGS: Alignment is normal. No fracture. There is at least mild joint space narrowing at the medial compart ment the right knee which could be underestimated on nonweightbearing imaging. There are also tiny ma rginal osteophytes along the patella also consistent with mild osteoarthritis. Minimal right knee diony nt effusion without evident layering lipohemarthrosis. Soft tissues are otherwise unremarkable. IMPRESSION: 1. Small right knee joint effusion. No acute osseous abnormality. 2. Mild osteoarthritis at the medial and patellofemoral compartment. Reviewed, dictated and finalized at location A.
--- NOTE | ~2024-01-19 | XR_ITS ---
EXAMINATION: XR hip RT 2V w AP pelvis DATE: 01/19/2024 12:34 INDICATION: Right hip pain and limited range of motion post seizure TECHNIQUE: Anteroposterior view of the pelvis and anteroposterior and cross-table lateral views of th e right hip were obtained. COMPARISON: None. FINDINGS: Comminuted proximal right femoral fracture which includes a transcervical fracture plane, a horizonta l intratrochanteric fracture plane and with nondisplaced fracture involving the greater trochanter. T here is proximal migration and varus angulation and external rotation of the distal diaphyseal fragme nt. The femoral head fragment remains normally centered in the right acetabulum but is rotated as wit h abduction. No other fractures identified. Mild osteoarthritis at the bilateral hip and sacroiliac j oints. IMPRESSION: 1. Comminuted proximal right femoral fracture including both transcervical and transverse intratrocha nteric fracture planes with proximal migration, varus angulation and external rotation of the distal diaphyseal fragment. Reviewed, dictated and finalized at location A. IMPRESSION: 1. Comminuted proximal right femoral fracture including both transcervical and transverse intratrochanteric fracture planes with proximal migration, varus ang ulation and external rotation of the distal diaphyseal fragment.
--- NOTE | ~2024-01-19 | XR_ITS ---
EXAMINATION: XR chest 1V DATE: 01/19/2024 12:34 INDICATION: Seizure TECHNIQUE: frontal view of the chest was obtained. COMPARISON: Chest radiograph dated 01/18/2024 FINDINGS: Persistent of linear and bandlike the basilar discoid atelectasis/scarring at the bilateral costophre siddharth angles. Retrocardiac opacities in the left lower lung zone. No pleural effusion or pneumothorax. Heart size is within normal limits for AP technique. Plain screw fixation at the proximal right humer us. IMPRESSION: 1. Chronic discoid atelectasis/scarring at the bilateral lung bases. 2. New retrocardiac opacities in the left lower lung zone which could represent additional atelectasi s or pneumonia. Reviewed, dictated and finalized at location A. IMPRESSION: 1. Chronic discoid atelectasis/scarring at the bilateral lung bases. 2. New retrocardiac opacities in the left lower lung zone which could represent additional atelectasis or pneumonia.
--- NOTE | 2024-01-19 11:27 | ECG_ITS ---
Test Date: 2024-01-19 12:12:35 Measurements Intervals [place] Rate: 99 P: 52 SC: 137 QRS: 18 QRSD: 90 T: 12 QT: 336 QTc: 432 Interpretive Statements SINUS RHYTHM LEFT ATRIAL ENLARGEMENT [-0.15mV P WAVE IN V1/V2] Compared to ECG 01/18/2024 16:12:01 Sinus tachycardia no longer present Electronically Signed On 01-19-2024 16:24:28 CDT by Hyacinth Sweet M.D.
--- NOTE | 2024-01-19 11:29 | ED.GENADULT ---
HPI - General Adult General Chief complaint: Unspecified <Re Cannon PA-C - Last Filed: 01/19/24 16:06> Stated complaint: R leg pain <Re Cannon PA-C - Last Filed: 01/19/24 16:06> History of Present Illness HPI narrative: 73-year-old female with history of seizures, hyponatremia, hypertension presents to the ED from home via EMS for right leg pain. Patient's is at bedside to assist with history. States yesterday they were at the kitchen table and the patient had a seizure lasting approximately 10-15 seconds. States she was sitting in a chair when all of her extremities tensed up. They contacted EMS and she was transported to the ED for further evaluation. She is evaluated here and left AMA after having some blood work and a CT brain which showed an indeterminate infarct or vasogenic edema. She presents back today because she states she has not been able to move secondary to right leg pain. States she has not urinated in 16 hours because she cannot get up to urinate. She is reporting pain diffusely to the right leg and states she has been unable to move her leg. She has not had any seizures since she was seen yesterday. She has been taking 500 mg of Keppra b.i.d. for several years. Her last seizure was 8 years ago. Her neurologist is at [facility]. <Re Cannon PA-C - Last Filed: 01/19/24 16:06> Related Data Home medications: Home Medications Medication Instructions Recorded Confirmed cholecalciferol (vitamin D3) 25 25 mcg PO DAILY 12/16/19 08/07/23 mcg (1,000 unit) capsule levetiracetam 500 mg tablet 500 mg PO Q12H 12/16/19 08/07/23 cetirizine 10 mg capsule (Zyrtec) 10 mg PO DAILY PRN 08/07/23 08/07/23 <Re Cannon PA-C - Last Filed: 01/19/24 16:06> Allergies/adverse reactions: Allergies Allergy/AdvReac Type Severity Reaction Status Date / Time Latex, Natural Rubber Allergy Intermediate Hives Verified 01/18/24 16:02 amoxicillin Allergy Mild Diarrhea Verified 01/18/24 16:02 Corticosteroids Allergy Unknown excessive Verified 01/18/24 16:02 (Glucocorticoids) thirst hydrocodone Allergy Unknown naseau, Verified 01/18/24 16:02 abdominal pain lisinopril Allergy Unknown Constipatio Verified 01/18/24 16:02 n bleach Allergy Unknown Rash Uncoded 01/18/24 16:02 fragrance Allergy Unknown Rash Uncoded 01/18/24 16:02 <Re Cannon PA-C - Last Filed: 01/19/24 16:06> Review of Systems Review of Systems: All systems reviewed & are unremarkable except as noted in HPI and below <Re Cannon PA-C - Last Filed: 01/19/24 16:06> PMFSH Past Medical History Medical History: Medical History Anxiety Cataract Cyst of breast, left, diffuse fibrocystic Removal 1981 Depression Excessive cerumen in both ear canals Ganglion cyst of foot removal 2004 (left) Grand mal seizure HTN (hypertension) Hyponatremia PTSD (post-traumatic stress disorder) Seizures <Re Cannon PA-C - Last Filed: 01/19/24 16:06> Surgical History Surgical History: Surgical History History of breast surgery breast cyst benign left History of surgery on arm titanium theresa <Re Cannon PA-C - Last Filed: 01/19/24 16:06> Family History Family History: Family History Father Patient's father is , Onset Age: 88 Mother Family history of malignant neoplasm of bone <Re Cannon PA-C - Last Filed: 01/19/24 16:06> Social History Social History: Social History Social History: Caffeine- coffee Plant based diet Smoking status: Never smoker Alcohol intake: current Alcohol use details: rarely Substance use: never Substance use type: does not use Lack of Transportation:
--- NOTE | 2024-01-19 11:34 | PC.NURSE ---
garrick applied for patient comfort.
[2024-01-19 11:48] LABS: Basophils Percent Auto 0.3 % (0.2-1.2); Hematocrit 35.4 % (37.0-47.0); Hemoglobin 12.9 g/dL (12.0-15.0); Immature Granulocyte Absolute 0.05 K/mm3 (0.00-0.031); Immature Granulocyte Percent A 0.4 % (0-0.5); Lymphocytes Absolute Auto 0.58 K/mm3 (0.9-3.2); Lymphocytes Percent Auto 4.8 % (18.3-44.2); Mean Corpuscular HGB Conc 36.4 g/dl (32-36); Mean Corpuscular Hemoglobin 33.5 pg (26-34); Mean Corpuscular Volume 91.9 fl (80-100); Monocytes Absolute Auto 0.9 K/mm3 (0.1-0.6); Monocytes Percent Auto 7.4 % (2.6-8.5); Neutrophils Absolute Auto 10.4 K/mm3 (1.3-6.7); Neutrophils Percent Auto 87.1 % (45.5-73.1); Platelet Count Result 229 k/mm3 (150-375); Red Blood Count 3.85 M/mm3 (4.2-5.4); Red Cell Distribution Width 12.9 % (11.5-14.5)
[2024-01-19 11:56] LABS: Ethanol < 10 mg/dL (<10)
[2024-01-19 11:58] LABS: Alanine Aminotransferase 41 U/L (6-35); Albumin Level 4.3 g/dL (3.5-5.1); Alkaline Phosphatase 123 U/L (38-126); Anion Gap 10 mmol/L (4-12); Aspartate Amino Transferase 60 U/L (14-36); Bilirubin,Total 1.1 mg/dL (0.2-1.3); Blood Urea Nitrogen 15 mg/dL (7-17); Calcium 8.7 mg/dL (8.4-10.2); Carbon Dioxide 23 mmol/L (22-30); Chloride 92 mmol/L (98-107); Creatine Kinase 474 U/L (30-135); Estimated Glomerular Filt Rate > 60; Glucose 119 mg/dL (65-110); Potassium 4.1 mmol/L (3.4-5.0); Sodium 125 mmol/L (137-145)
[2024-01-19 12:05] LABS: INR 1.1; Prothrombin Time 14.1 Seconds (11.1-14.7)
[2024-01-19 12:06] LABS: Partial Thromboplastin Time 27.6 Seconds (22.3-36.8)
[2024-01-19 12:09] LABS: Troponin I < 0.012 ng/mL (0.000-0.034)
[2024-01-19] MEDS: CYCLOBENZAPRINE HCL 5 MG TABLET PO (12:13)
[2024-01-19] MEDS: HYDROmorphone HCL INJ (*CRX) 1 MG/ML SYR 0.5 MG IV PUSH ×3 (13:12→17:06)
[2024-01-19] MEDS: SODIUM CHLORIDE 0.9% IV 1,000 ML 999 ML IV CONT (13:12)
[2024-01-19 14:29] LABS: Magnesium 1.9 mg/dL (1.6-2.3)
[2024-01-19 14:42] LABS: Add Urine Microscopic? YES; Appearance Urine Clear (Clear); Bacteria Urine None Seen /hpf; Bilirubin Urine Negative (Negative); Blood Urine Negative (Negative); Color Urine Yellow (Yellow); Glucose Urine UA Negative (Negative); Ketones Urine 2+ mg/dL (Negative); Leukocyte Esterase Ur 1+ LEU/UL (Negative); Nitrate Urine Negative (Negative); Non Pathogenic Casts 0-2; Protein Urine Trace mg/dL (Negative); RBC Urine 0-2 /hpf (0-2); Specific Grav Ur 1.018 (1.001-1.035); Squamous Epithelial Cell Urine Occasional /hpf (Few); Urobilinogen Urine 0.2 mg/dL (<2.0); pH Urine 6.5 (5.0-9.0)
[2024-01-19 14:52] LABS: Amphetamine Screen Urine Negative (Negative); Barbiturate Screen Urine Negative (Negative); Benzodiazepines Screen Urine Negative (Negative); Cannabinoid Screen Urine Negative (Negative); Cocaine Screen Urine Negative (Negative); Methadone Screen Urine Negative (Negative); Opiate Screen Urine Negative (Negative); Phencyclidine Screen Urine Negative (Negative)
--- NOTE | 2024-01-19 17:22 | PC.NURSE ---
called [facility] ER and gave report to NIKKIE Esteban. all questions answered.
== END 2024-01-19 17:12 | disposition short-term general hospital (02) ==
PROVIDERS: Emergency Provider Physician Assistant; PCP Clinical Nurse Specialist
DX: S72.91XA Unspecified fracture of right femur, initial encounter for closed fracture (principal); G40.909 Epilepsy, unspecified, not intractable, without status epilepticus; I10 Essential (primary) hypertension; F41.9 Anxiety disorder, unspecified; F32.A Depression, unspecified; F43.10 Post-traumatic stress disorder, unspecified; X58.XXXA Exposure to other specified factors, initial encounter; Z79.899 Other long term (current) drug therapy
CPT/HCPCS: 36415; 71045; 73502; 73562; 80053; 80307; 81001; 82077; 82550; 83735; 84484; 85025; 85610; 85730; 87077; 87086; 87186; 93005; 96361; 96365; 96375; 96376; 99285; A9270; J0696; J1171; J7030

== ENCOUNTER 2024-06-21 07:20 | Emergency (ER) | payer MEDICARE, SELFPAY ==
--- NOTE | ~2024-06-21 | XR_ITS ---
EXAMINATION: XR shoulder LT 1V DATE: 06/21/2024 08:10 INDICATION: Left shoulder pain. TECHNIQUE: 3 views of left shoulder were obtained. COMPARISON: None. FINDINGS: Alignment is normal. No fracture. The glenohumeral joint is well profiled. There is mild ac romioclavicular joint and glenohumeral joint osteoarthritis. IMPRESSION: 1. Mild polyarticular osteoarthritis. Reviewed, dictated and finalized at location A. NELER OUTSOLE
--- NOTE | ~2024-06-21 | CT_ITS ---
EXAMINATION: CT cervical spine wo con DATE: 06/21/2024 08:54 INDICATION: Neck injury. Fall. TECHNIQUE: Computed tomography (CT) of the cervical spine was performed without intravenous contrast. Automated exposure control and iterative reconstruction technique were employed. The dose-length pro duct was 250.63 mGy-cm. COMPARISON: CT cervical spine 11/01/2013 FINDINGS: There is kyphosis of cervical spine. There is 3 degrees levocurvature of cervical spine. Th ere is 2 mm retrolisthesis of C6 on C7. There is mild chronic anterior wedging of T1 vertebral body. There is moderately decreased disc height at C4-C5 and severely decreased disc height at C5-C6 and C6 -C7. The following disc levels are specifically discussed: C2-C3: There is no uncovertebral joint osteoarthritis. There is mild bilateral facet joint osteoarthr itis. There is no neural foraminal stenosis. There is no central canal stenosis. C3-C4: There is no uncovertebral joint osteoarthritis. There is severe right and moderate left facet joint osteoarthritis. There is mild right neural foraminal stenosis. There is no central canal stenos is. C4-C5: There is severe bilateral uncovertebral joint osteoarthritis. There is moderate right and mild left facet joint osteoarthritis. There is mild bilateral neural foraminal stenosis. There is mild ce ntral canal stenosis. C5-C6: There is severe bilateral uncovertebral joint osteoarthritis. There is moderate bilateral face t joint osteoarthritis. There is mild right and moderate left neural foraminal stenosis. There is mil d central canal stenosis. C6-C7: There is severe bilateral uncovertebral joint osteoarthritis. There is mild right and moderate left facet joint osteoarthritis. There is mild left neural foraminal stenosis. There is mild central canal stenosis. C7-T1: There is no uncovertebral joint osteoarthritis. There is mild right and severe left facet join t osteoarthritis. There is mild left neural foraminal stenosis. There is no central canal stenosis. IMPRESSION: 1. No acute fracture. 2. Severe cervical spondylosis. Reviewed, dictated and finalized at location A. PUBLIC RELATIONS
--- NOTE | ~2024-06-21 | CT_ITS ---
EXAMINATION: CT brain wo con DATE: 06/21/2024 08:54 INDICATION: Head injury. TECHNIQUE: Computed tomography (CT) of the head was performed without intravenous contrast. The mA wa s adjusted according to patient size. Iterative reconstruction technique was employed. The dose-lengt h product was 681.00 mGy-cm. COMPARISON: Head CT 01/18/2024 FINDINGS: There are scattered areas of low attenuation in the cerebral white matter, which is within normal limits for the patient's age. There is no intracranial hemorrhage, acute infarction, or abnorm al intracranial mass lesion. The ventricles are normal in size. There is mild mucosal thickening in t he ethmoid sinuses. The orbits are normal. The mastoid air cells are normal. IMPRESSION: 1. Normal aging brain. Reviewed, dictated and finalized at location A. COATER IMPRESSION: 1. Normal aging brain.
--- NOTE | ~2024-06-21 | XR_ITS ---
EXAMINATION: XR chest 1V portable DATE: 06/21/2024 08:20 INDICATION: Seizure. TECHNIQUE: A single frontal view of the chest was obtained. COMPARISON: Chest single view 01/19/2024 FINDINGS: There is mild atelectasis versus scarring in the lower lung zones. No pleural effusion or p neumothorax. The heart size is normal. There is plate and screw fixation of right humerus. IMPRESSION: 1. Mild atelectasis versus scarring in the lower lung zones. Reviewed, dictated and finalized at location A. O MACHINE OPERATOR
[2024-06-21 07:27] VITALS: BP 137/61; PULSE 77; RESP 16; TEMP 36.6; O2SAT 92
[2024-06-21 07:33] VITALS: O2SAT 93
--- OUTSIDE RECORDS SUMMARY | 2024-06-21 07:55 | XMS_ITS | Continuity of Care Document ---
Author Organization [facility] Address [address] [place] [address] [address] [place] [address] Phone Care Team Providers Care Stock Handler Floorperson Name Role Phone Bennett PT,MPT,ATC, Porfirio Unavailable [...] Diagnoses Date Provider Providers Copied on Encounter [facility], [place], [place], [id number], tel:[phone] [place] No Information 6 Donald Richardson [place], . [facility], [place], [place], [address], tel:[phone] [place] No Information 6 JANN Abernathy, . [facility], [place], [place], [address], [place] tel:[phone] [place] No Information 6 Bennett Porfirio. , [place], [place]. [facility], [place], [place], [address], [place] tel:[phone] [place] No Information 6 Bennett Porfirio. , [place], [place]. [facility], [place], [place], [address], [place] tel:[phone] [place] No Information 6 Bennett Porfirio. , [place], [place]. [facility], [place], [place], [address], [place] tel:[phone] [place] No Information 6 Bennett Porfirio. , [place]. [facility], [place], [place], [address], [place] tel:[phone] [place] No Information 6 Bennett Porfirio. , [place]. [facility], [place], [place], [address], [place] tel:[phone] [place] No Information 6 Bennett Porfirio. , [place], [place]. [facility], [place], [place], [address], [place] tel:[phone] [place] No Information 6 Heaven Ordoñez. [address] [facility], [address], [place], [place], [facility], [place]. tel: [phone] [facility], [place], [place], [address], [place] tel:[phone] [place] No Information 6 Bennett Porfirio. , [place], [place]. [facility], [place], [place], [address], [place] tel:[phone] [place] No Information José-0 4-201 6 Bennett Porfirio. , [place], [place]. [facility], [address], [place], [place], [address], [place] tel:[phone] [place] No Information Dec-3 0-201 5 Bennett Porfirio. , [place], [place]. [facility], [address], [place], [place], [address], [place] tel:[phone] [place] No Information Dec-2 8-201 5 Bennett Porfirio. , [place], [place]. [facility], [address], [place], [place], [address], [place] tel:[phone] [place] No Information Dec-2 1-201 5 Bennett Porfirio. , [place], [place]. [facility], [address], [place], [place], [address], [place] tel:[phone] [place] No Information Dec-1 6-201 5 Bennett Porfirio. , [place], [place]. [facility], [address], [place], [place], [address], [place] tel:[phone] [place] No Information Dec-1 4-201 5 Bennett Porfirio. , [place]. [facility], [address], [place], [place], [address], [place] tel:[phone] [place] No Information Dec-0 9-201 5 Bennett Porfirio. , [place]. [facility], [place], [place], [address], [place] tel:[phone] [place] No Information Dec-0 7-201 5 Bennett Porfirio. , [place], [place]. [facility], [place], [place], [address], [place] tel:[phone] [place] No Information Dec-0 2-201 5 Bennett Porfirio. , [place]. [facility], [place], [place], [address], [place] tel:[phone] [place] No Information Nov-3 0-201 5 Bennett Porf[place]io. , [place], [place]. [facility], [address], [place], [place], [address], [place] tel:[phone] [place] No Information Nov-2 5-201 5 Bennett Porfirio. , [place], [place]. [facility], [address], [place], [place], [address], [place] tel:[phone] [place] No Information Nov-2 3- 5 Bennett Porfirio. , [place], [place]. [facility], [address], [place], [place], [address], [place] tel:[phone] [place] No Information Feb-1 8- 5 Leena Fowler. [address] [facility], [address], [place], [place], [facility], [place]. tel: [phone] [facility], [place], [place], [address], [place] tel:[phone] [place] No Information Feb-1 6- 5 Bennett Porfirio. , [place], [place]. [facility], [place], [place], [address], [place] tel:[phone] [place] No Information Feb-1 5 Bennett Porfirio. , [place]. [facility], [place], [place], [address], [place] tel:[phone] [place] No Information Nov-0 9- 5 Bennett Porfirio. , [place]. [facility], [address], [place], [place], [address], [place] tel:[phone] [place] No Information Nov-0 6- 5 Danie Pimentel. [address] [facility], [address], [place], [place], [facility], [place]. tel: [phone] [facility], [place], [place], [address], [place] tel:[phone] [place] No Information 4 5 Danie Loren. [address] [place] [address], [address], [place], [facility], . tel: [phone] [address], [place], [place], [address], tel:[phone] [place] No Information 2 5 Danie Loren. [address] [place] [address], [address], [place], [facility], . tel: [phone] [address], [place], [place], [address], tel:[phone] [place] No Information 0 5 Danie Loren. [address] [place] [address], [address], [place], [facility], . tel: [phone] [address], [place], [address], tel:[phone] [place] No Information 8 5 Danie Loren. [address] [place] [address], [address], [place], [facility], . tel: [phone] [address], [place], [place], [address], tel:[phone] [place] Pain in right shoulderStiffnes s of right shoulder, not elsewhere classifiedMuscle weakness (generalized)Uns p fx upper end of r humerus, subs for fx w routn healPresence of other bone and tendon implants 6 5 Danie Loren. [address] [place] [address], [address], [place], [place], [facility], . tel: [phone] Family History Family Member Type Diagnosis Age At Onset No Information Payers Payer name Insurance type Covered republican ID Authoriza tion(s) No Information Social History [...]
--- OUTSIDE RECORDS SUMMARY | 2024-06-21 07:55 | XMS_ITS ---
Author Organization [facility] Address [address] [place] [address] Care Team Providers Care Heel Shaver Name Role Phone Manuel Desiree Unavailable [phone] REASON FOR VISIT BEE RANCHER Allergies Encounters Encounter Location Date Provider Diagnosis [facility] [address] [place] [address] 02/22/2023 Desiree Jackson Plan Of Treatment No Information Progress Notes * Teodoro HOLMANB: (74 yo F)Acc No.[id number]:02/22/2023 Progress Notes Patient: Apurva URENA Provider: Costa Jackson PA-C :1950 A ge:72 Y S ex:Female Date:02/22/2023 Address:[facility] [address] Subjective: * Chief Complaints: * 1 . BEE RANCHER Allergies. 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
--- OUTSIDE RECORDS SUMMARY | 2024-06-21 07:55 | XMS_ITS | Referral Summary ---
Author Organization [facility] Address [address] [place] [address] Care Team Providers Care Support Group Manager Name Role Phone Marce Fowler NP Unavailable [phone] Marce Fowler NP Primary Care Provider [phone] Encounters Date Type Department Care Team Description 06/05/2024 Telephone [facility] Organization [address] [place] [address] [facility] [place], [place] Unsuccessful Phone Call 1 ([employer]) from Last 3 Months Allergies Active Allergy Reactions Criticality Noted Date Comments Bleach (Sodium Hypochlorite) Rash Medium 024 Latex Rash Medium 01/20/2024 Nickel Rash Medium Medications nebivoloL (BYSTOLIC) 10 mg tablet Take 1 tablet (10 mg total) by mouth daily 30 tablet 4 01/26/20 25 Active cholecalciferol (VITAMIN D-3) 1,000 unit capsule Take 1 capsule (1,000 Units total) by mouth daily 30 capsule 4 01/26/20 25 Active acetaminophen 500 mg capsule Take 2 capsules (1,000 mg total) by mouth every 6 (six) hours 30 tablet 4 Active cyclobenzaprine (FLEXERIL) 5 mg tablet Take 1 tablet (5 mg total) by mouth 3 (three) times a day 30 tablet 4 Active lidocaine (ASPERCREME) 4 % adhesive patch,medicated Place 1 patch on the skin daily 30 patch 4 Active miconazole 2 % powder Apply topically 2 (two) times a day 70 g 4 Active polyethylene glycol (MIRALAX) 17 gram packetIndicatio ns:constipation Take 1 packet (17 g total) by mouth daily 30 packet 4 Active senna-docusate (PERICOLACE) 8.6-50 mg Take 2 tablets by mouth 2 (two) times a day 120 tablet 4 Active levETIRAcetam (KEPPRA) 750 mg tablet Take 1 tablet (750 mg total) by mouth 2 (two) times a day 180 tablet 3 4 03/10/20 25 Active Active Problems Problem Noted Date Diagnosed Date Hypo-osmolality and hyponatremia 03/04/2024 Illness, unspecified 03/04/2024 Nausea 03/04/2024 Pain in right leg 03/04/2024 Urinary retention 01/23/2024 Assessment & Plan (01/25/2024 1:32 PM CDT): - 01/22 failed void trail yesterday, put parrish in on 01/22/2024 - 01/23 removed parrish, will have void check Void check completed Single skin nodule 01/22/2024 Assessment & Plan (01/22/2024 11:44 AM CDT): - reports single skin nodule behind left knee, no pain, no erythema, no drainage - picture uploaded in media, continue to monitor Discharge planning issues 01/21/2024 Assessment & Plan (01/24/2024 1:38 PM CDT): - 01/20 POD1, will PT/OT, f/u neurology - 01/21 pending for brain MRI - 01/22 pt refuses MRI, per neurology, okay with outpatient MRI, PT/OT rec's SNF, Patient is medically stable for discharge, SW/CM updated. Discharge pending placement - 01/23 parrish removed, Discharge pending for placement Treatment plan started on 01/21, UTI (urinary tract infection) 01/21/2024 Assessment & Plan (01/25/2024 1:31 PM CDT): - UA (01/18) Nitrite neg, wbc 21-50, urine culture: Enterococcus, Doxycycline resistent Abx Nitrofurantoin 01/20-01/23 (3 days) COMPLETED Fall 01/20/2024 Assessment & Plan (01/23/2024 9:30 AM CDT): - CXR: negative - CT head and Cspine: negative - CK due to being immobile for 24hrs, 444(01/19) Hypertension 01/20/2024 Assessment & Plan (01/22/2024 11:38 AM CDT): - hold home nebivolol (need special pharmacy permissions) --> resumed on 01/21 Chronic hyponatremia 01/20/2024 Assessment & Plan (01/25/2024 1:38 PM CDT): - hypoNa+ to 129 on presentation - possible percipient of seizure activity - given 1g salt tablet, encourage PO intake, free water restriction, Gatorade, daily BMP--> 01/22 refused salt, cont free water restriction + Gatorade - D5NS @ 50ml/hr while NPO for OR 01/21 Na 132 Baseline Right occipital hypoattenuation 01/20/2024 Assessment & Plan (01/23/2024 9:21 AM CDT): #Right occipital hypoattenuation could represent age indeterminate infarct vs. 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 - prior MRI brain and HCT from 2014 that demonstrate a similar occipital finding as HCT 01/18 - per neurology: can consider non-urgent brain MRI to further evaluate --> ordered joe MRI - 01/22 pt refuses MRI, contacted neurology, okay with outpatient MRI Closed wedge compression fracture of T1 vertebra 01/20/2024 Assessment & Plan (01/21/2024 4:27 PM CDT): #Age indeterminate anterior wedging of T1 - no tenderness to palpation Breakthrough seizure 01/19/2024 Assessment & Plan (01/23/2024 9:30 AM CDT): - cont home keppra - neurology consult for breakthrough seizure - ordered routine EEG, EEG:This is an abnormal awake and stage I sleep EEG due to rare right hemisphere slowing. Focal slowing indicates focal cerebral dysfunction. A focal structural or physiologic abnormality should be considered. - seizure precautions - Follow-up in the Epilepsy clinic with Dr. Monroy on 10/06/2024 Closed fracture of neck of right femur 4 Assessment & Plan (01/25/2024 1:44 PM CDT): #R intertrochanteric femur fx - ortho c/s: OR on 01/19 - WBAT RLE, no active abduction, abduction pillow until abduction brace fitted - PT/OT, pain control - Wound Care: Maintain surgical dressing until follow-up - Sutures/[place]: Will be removed 3 weeks after surgical date., will be 02/10/2024 - Bone health referral at discharge Patient has follow up scheduled on 03/[address] Wu located at [facility] WBAT, DVT prophylaxis Eliquis 2.5 mg PO x4 weeks Dysuria 03/25/2023 Epilepsy with partial complex seizures 5 Assessment & Plan (09/17/2017 11:32 AM CDT): Well controlled on monotherapy with Keppra. Cerebral arteriovenous malformation 05/16/2013 Resolved Problems Problem Noted Date Diagnosed Date Resolved Date Closed fracture of proximal end of humerus 02/03/2015 01/22/2024 Assessment & Plan (01/21/2024 4:22 PM CDT): #R intertrochanteric femur fx - ortho c/s: OR on 01/19 - WBAT RLE, no active abduction, abduction pillow until abduction brace fitted - PT/OT, pain control - Bone health referral at discharge Social History Tobacco Use Types Packs/Day Years Used Date Smoking Tobacco: Never Smokeless Tobacco: Never Tobacco Cessation:Counseling Given: Not Answered AUDIT-C Answer Date Recorded Q1: How often do you have a drink containing alcohol? Never 01/20/2024 Q2: How many drinks containi ng alcohol do you have on a typical day when you are drinking? Patient does not drink Q3: How often do you have si x or more drinks on one occasion? Never 01/20/2024 Personal Safety Answer Date Recorded Have you ever been in or are you currently in a harmful physical or emotional relationship or is someone making you feel afraid or unsafe? 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 Gender Identity Female 01/20/2024 12:30 AM CDT Sexual Orientation Not on file Last Filed Vital Signs Vital Sign Reading Time Taken Comments Blood Pressure 171/86 03/10/2024 7:56 AM AIRCRAFT POWERTRAIN REPAIRER Pulse 99 03/10/2024 7:56 AM AIRCRAFT POWERTRAIN REPAIRER Temperature 37.3 C (99.2 F) 01/25/2024 3:12 PM CDT Respiratory Rate 18 01/25/2024 3:12 PM CDT Oxygen Saturation 100% 01/25/2024 3:12 PM CDT Inhaled Oxygen Concentration - - Weight 70.3 kg (155 lb) 03/10/2024 7:56 AM AIRCRAFT POWERTRAIN REPAIRER Height 157.5 cm (5' 2 ) 03/10/2024 7:56 AM AIRCRAFT POWERTRAIN REPAIRER Body Mass Index 28.35 03/10/2024 7:56 AM AIRCRAFT POWERTRAIN REPAIRER Plan of Treatment Not on file Medical Devices Implanted Type Area Supervisor Furnace Process Device Identifier Shelf Expiration Date Model / Serial / Lot [employer] Simplex P Full Dose Radiopaque Preblend Cement Bone Tobramycin 6197-9-010 - S0 - [id number] Implanted:Qty: 2 on 01/20/2024 by Dhruv Wu MD at [facility] Bone Cement Left: Femur [employer] [id number] 03/15/2025 6197-9-010 / 0 / [id number] Description:Same Lot # and s mary Exp date (x2) Synthes 1.7mm 750mm Crimp Cerclage Cable Orthopedic Stainless Steel 298.801.01s - S0 - [id number] Implanted:Qty: 1 on 01/20/2024 by Dhruv Wu MD at [facility] Cable Left: Femur Synthes 10/13/2028 298.801.01S / 0 / [id number] [employer] [place] 97mm Cemented Hip 2 03/29 Standard Offset Taper Stem [id number] - S0 - [id number] Implanted:Qty: 1 on 01/20/2024 by Dhruv Wu MD at [facility] Other - see comments Left: Femur [employer] [id number] 06/13/2028 [id number] / 0 / [id number] Description:Femoral Stem [employer] Cementralizer 8.5mm Cemented Hip Femur Centralizer Stem Pmma Latex Free 1376-46-000 - S0 - [id number] Implanted:Qty: 1 on 01/20/2024 by Dhruv Wu MD at [facility] Other - see comments Left: Femur [employer] [id number] 08/13/2028 1376-46-000 / 0 / [id number] Description:Stem Centralizer [employer] Articul/Girma 28mm Hip +1.5mm 03/29 Taper Head Femoral Cocr Sterile Latex Free 1365-11-000 - S0 - [id number] Implanted:Qty: 1 on 01/20/2024 by Dhruv Wu MD at [facility] Other - see comments Left: Femur [employer] [id number] 10/13/2028 1365-11-000 / 0 / [id number] Description:Femoral Head [employer] Self-Centering 44mm 28mm Hip Femur Head Bipolar Sterile [place] 1035-44-000 - S0 - [id number] Implanted:Qty: 1 on 01/20/2024 by Dhruv Wu MD at [facility] Other - see comments Left: Femur [employer] [id number] 09/13/2028 1035-44-000 / 0 / [id number] Description:Bi-polar Head [employer]/O rtho Prep-Im Plug [place] Sponge Suction Hip Kit Thr Latex Free [id number] - S0 - [id number] Implanted:Qty: 1 on 01/20/2024 by Dhruv Wu MD at [facility] Other - see comments Left: Femur [employer]/ Ortho [id number] 06/05/2033 629195 / 0 / [id number] Description:Cement restricto r Insurance [facility] MEDICARE [facility] MEDICARE [facility] Advance Directives For more information, please contact: [phone] Documents on File Type Date Recorded Patient Sow Farm Manager Expl anation ADVANCE DIRECTIVE 01/21/2024 2:49 PM POWER OF SUPERVISOR PHOTOCOMPOSITION-MEDICAL ADVANCE DIRECTIVE 01/21/2024 2:49 PM ALYSE MONAHAN * Full Code (Latest Code Status on File) Date Activated Date Inactivated Comments 01/20/2024 1:58 AM 01/25/2024 11:27 PM Care Teams Support Group Manager Relationship Specialty Start Date End Date Marce Fowler NP [address] [place] [address] [address] [place] [address] PCP - General Cardiovascular Disease 01/31/24 Marce Fowler NP [address] [place] [address] [address] [place] [address] Registered Nurse Cardiovascular Disease 10/31/23
--- OUTSIDE RECORDS SUMMARY | 2024-06-21 07:55 | XMS_ITS | Patient Health Record ---
Author Organization [facility] Address [address] [place] [address] Support Name Relationship Address Phone Apurva Holman Guarantor Unknown [phone] Reason For Referral No Information Plan Of Treatment No Information Insurance Providers Payer Name Payer Address Payer Phone Subscriber Number Group Number Insured Name Patient Relationship to Insured Coverage Start Date Coverage End Date [employer] [address] [place] [address] [id number] Apurva Holman Self - patient is the insured
--- OUTSIDE RECORDS SUMMARY | 2024-06-21 07:55 | XMS_ITS | Clinical Summary ---
Author Organization [facility] Address [address] [place] [address] Care Team Providers Care Manager Mba Name Role Phone Marce Fowler NP Unavailable [phone] Marce Fowler NP Primary Care Provider Allergies Active Allergy Reactions Criticality Noted Date [...] a day 180 tablet 3 4 03/10/20 Active Active Problems Problem Noted Date Diagnosed [...] Care: Maintain surgical dressing until follow-up - Sutures/Lanie: Will be removed 3 weeks after surgical date., will be 02/10/2024 - Bone health referral at discharge Patient has follow up scheduled on 03/[address] Wu located at [facility], [facility], DVT prophylaxis Eliquis 2.5 mg PO [...] control - Bone health referral at discharge Encounters Date Type Department Care Team Description 06/05/2024 Telephone [facility] Accountable Care Organization [address] [place] [id number] Soheila Barry MA Unsuccessful Phone Call 1 (Seamus NASH) from Last 3 Months Medical History Medical History Date Comments Personal history of other di seases of the circulatory system History of hypertension - (A dded by EDER Raza) Personal history of other me ntal and behavioral disorders History of anxiety disorder - (Added by EDER Raza) Anxiety Panic attacks Seizures (HCC) Family History Medical History Relation Name Comments Hypertension Father Family history of hypertension - (Added by TW Conv) Stroke Father Family history of cerebrovascular accident - (Added by TW Conv) Relation Name Status Comments Father Social History Tobacco Use Types Packs/Day Years [...] on file Legal 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 Gender Identity Female 01/20/2024 12:30 AM CDT Sexual Orientation Not on file Obstetrics History Last Filed Vital Signs Vital Sign Reading Time Taken Comments Blood Pressure 171/86 03/10/2024 7:56 AM MICROARRAY SPECIALIST Pulse 99 03/10/2024 7:56 AM MICROARRAY SPECIALIST Temperature 37.3 C (99.2 F) 01/25/2024 3:12 PM CDT Respiratory Rate 18 01/25/2024 3:12 PM CDT Oxygen Saturation 100% 01/25/2024 3:12 PM CDT Inhaled Oxygen Concentration - - Weight 70.3 kg (155 lb) 03/10/2024 7:56 AM MICROARRAY SPECIALIST Height 157.5 cm (5' 2 ) 03/10/2024 7:56 AM MICROARRAY SPECIALIST Body Mass Index 28.35 03/10/2024 7:56 AM MICROARRAY SPECIALIST Plan of Treatment Health Maintenance Due Date Last Done Comments Breast Cancer Screening-Mammogram 1950 Colon Cancer Screening-Colonoscopy 1950 Depression Screening 1950 Hepatitis C Screening 1950 Osteoporosis Screening-Bone Density Scan 1950 DTaP/Tdap/Td Vaccine (1 - Tdap) 1962 Hepatitis B Screening 1969 Pneumococcal vaccine 65+ (1 of 1 - PCV) 2001 Zoster Vaccine (1 of 2) 2001 Well Visit 65+ 2016 Covid-19 Vaccine ( season) 2023, 12/07/2020 Influenza Vaccine (#1) 2023 Fall Risk Assessment 01/24/2025 01/25/2024 Medical Devices Implanted Type [employer] Device Identifier Shelf Expiration Date Model / Serial / Lot [employer] Simplex P Full Dose Radiopaque Preblend Cement Bone Tobramycin 6197-9-010 - S0 - [id number] Implanted:Qty: 2 on 01/20/2024 by Dhruv Wu MD at [facility] Bone Cement Left: Femur [employer] [id number] 03/15/2025 6197-9-010 / 0 / [id number] Description:Same Lot # and s mary Exp date (x2) Synthes 1.7mm 750mm Crimp Cerclage Cable Orthopedic Stainless Steel 298.801.01s - S0 - [id number] Implanted:Qty: 1 on 01/20/2024 by Dhruv Wu MD at [facility] Cable Left: Femur Synthes 10/13/2028 298.801.01S / 0 / [id number] [employer] [place] 97mm Cemented Hip 2 03/29 Standard Offset Taper Stem [id number] - S0 - [id number] Implanted:Qty: 1 on 01/20/2024 by Dhruv Wu MD at [facility] Other - see comments Left: Femur [employer] Inc [id number] 06/13/2028 [id number] / 0 / [id number] Description:Femoral Stem [employer] Inc Cementralizer 8.5mm Cemented Hip Femur Centralizer Stem Pmma Latex Free 1376-46-000 - S0 - [id number] Implanted:Qty: 1 on 01/20/2024 by Dhruv Wu MD at [facility] Other - see comments Left: Femur [employer] Inc [id number] 08/13/2028 1376-46-000 / 0 / [id number] Description:Stem Centralizer [employer] Inc Articul/Girma 28mm Hip +1.5mm 03/29 Taper Head Femoral Cocr Sterile Latex Free 1365-11-000 - S0 - [id number] Implanted:Qty: 1 on 01/20/2024 by Dhruv Wu MD at [facility] Other - see comments Left: Femur [employer] Inc [id number] 10/13/2028 1365-11-000 / 0 / [id number] Description:Femoral Head [employer] Inc Self-Centering 44mm 28mm Hip Femur Head Bipolar Sterile [place] 1035-44-000 - S0 - [id number] Implanted:Qty: 1 on 01/20/2024 by Dhruv Wu MD at [facility] Other - see comments Left: Femur [employer] Inc [id number] 09/13/2028 1035-44-000 / 0 / [id number] Description:Bi-polar Head [employer]/Rich[employer]/O rtho Prep-Im Plug [place] Sponge Suction Hip Kit Thr Latex Free [id number] - S0 - [id number] Implanted:Qty: 1 on 01/20/2024 by Dhruv Wu MD at [facility] Other - see comments Left: Femur [employer]/ Ortho [id number] 06/05/2033 [id number] / 0 / [id number] Description:Cement restricto r Insurance AET MEDICARE [facility] MEDICARE [facility] MEDICARE Advance Directives For more information, please contact: [phone] Documents on File Type Date Recorded Patient Community Organization Aide Expl anation ADVANCE DIRECTIVE 01/21/2024 2:49 PM [employer]ER HAND-MEDICAL ADVANCE DIRECTIVE 01/21/2024 2:49 PM ALYSE MONAHAN * Full Code (Latest Code Status on File) Date Activated Date Inactivated Comments 01/20/2024 1:58 AM 01/25/2024 11:27 PM Care Teams Manager Mba Relationship Specialty Start Date End Date Marce Fowler NP [address] [place] [address] [address] ROS[address] [place] [id number] PCP - General Cardiovascular Disease 01/31/24 Marce Fowler NP [address] [facility] [address] [place] [address] [id number] Registered Nurse Cardiovascular Disease 10/31/23
[2024-06-21 07:59] LABS: Basophils Absolute Auto 0.1 K/mm3 (0.0-0.1); Basophils Percent Auto 1.7 % (0.2-1.2); Eosinophils Absolute Auto 0.1 K/mm3 (0-0.3); Eosinophils Percent Auto 2.2 % (0-4.4); Hematocrit 37.1 % (37.0-47.0); Hemoglobin 12.6 g/dL (12.0-15.0); Immature Granulocyte Absolute 0.14 K/mm3 (0.00-0.031); Immature Granulocyte Percent A 3.3 % (0-0.5); Lymphocytes Absolute Auto 1.25 K/mm3 (0.9-3.2); Lymphocytes Percent Auto 29.9 % (18.3-44.2); Mean Corpuscular Hemoglobin 31.7 pg (26-34); Mean Corpuscular Volume 93.2 fl (80-100); Mean Platelet Volume 10.5 fl (7.4-10.4); Monocytes Absolute Auto 0.6 K/mm3 (0.1-0.6); Monocytes Percent Auto 13.4 % (2.6-8.5); Neutrophils Absolute Auto 2.1 K/mm3 (1.3-6.7); Neutrophils Percent Auto 49.5 % (45.5-73.1); Platelet Count Result 249 k/mm3 (150-375); Red Blood Count 3.98 M/mm3 (4.2-5.4); Red Cell Distribution Width 12.3 % (11.5-14.5); White Blood Count 4.2 K/mm3 (4.5-10.0)
[2024-06-21 08:10] LABS: Alanine Aminotransferase 39 U/L (6-35); Albumin Level 4.5 g/dL (3.5-5.1); Alkaline Phosphatase 137 U/L (38-126); Anion Gap 14 mmol/L (4-12); Aspartate Amino Transferase 44 U/L (14-36); Bilirubin,Total 0.4 mg/dL (0.2-1.3); Blood Urea Nitrogen 17 mg/dL (7-17); Calcium 9.5 mg/dL (8.4-10.2); Carbon Dioxide 23 mmol/L (22-30); Chloride 88 mmol/L (98-107); Estimated CRCL calculation 60 ml/min; Estimated Glomerular Filt Rate > 60; Glucose 107 mg/dL (65-110); Sodium 125 mmol/L (137-145)
--- NOTE | 2024-06-21 08:21 | ED_ITS ---
HPI - General Adult General Chief complaint: Seizure Stated complaint: seizure Time Seen by Provider: 06/21/24 07:24 History of Present Illness HPI narrative: 74-year-old female presented emergency department for evaluation after having a seizure today. Patient's last seizure was back in January. Patient does take Keppra 750 mg b.i.d.. Patient and has been are admit that she has not missed any doses. Patient denies any recent coughs colds or fevers. Patient denies any nausea vomiting or diarrhea. Patient does complain of some burning with urination that started few days ago. Patient did have a fall secondary to the seizure did complain of head and neck pain and shoulder pain. Related Data Home Medications ?Medication ?Instructions ?Recorded ?Confirmed ?Last Taken ?Type cholecalciferol (vitamin D3) 25 25 mcg PO DAILY 12/16/19 06/21/24 03/12/23 05:00 History mcg (1,000 unit) capsule cetirizine 10 mg capsule (Zyrtec) 10 mg PO DAILY PRN allergy symptoms 08/07/23 06/21/24 Unknown History levetiracetam 500 mg tablet 750 mg PO Q12H 06/19/24 06/21/24 06/21/24 History Allergies Allergy/AdvReac Type Severity Reaction Status Date / Time Latex, Natural Rubber Allergy Intermediate Hives Verified 06/21/24 07:35 amoxicillin Allergy Mild Diarrhea Verified 06/21/24 07:35 Corticosteroids Allergy Unknown excessive Verified 06/21/24 07:35 (Glucocorticoids) thirst hydrocodone Allergy Unknown naseau, Verified 06/21/24 07:35 abdominal pain lisinopril Allergy Unknown Constipatio Verified 06/21/24 07:35 n bleach Allergy Unknown Rash Uncoded 06/21/24 07:35 fragrance Allergy Unknown Rash Uncoded 06/21/24 07:35 Review of Systems 2 Review of Systems: All systems reviewed & are unremarkable except as noted in HPI and below PMFSH Past Medical History Medical History (Updated 06/21/24 @ 11:25 by Ryley Jennings MD) Excessive cerumen in both ear canals Hyponatremia Grand mal seizure Seizures Ganglion cyst of foot removal 2004 (left) Cyst of breast, left, diffuse fibrocystic Removal 1981 PTSD (post-traumatic stress disorder) Cataract Anxiety Depression HTN (hypertension) Surgical History Surgical History History of breast surgery breast cyst benign left History of surgery on arm titanium theresa Family History Family History Father Patient's father is , Onset Age: 88 Mother Family history of malignant neoplasm of bone Social History Social History Social History: Caffeine- coffee Plant based diet Smoking status: Never smoker Alcohol intake: current Alcohol use details: rarely Substance use: never Substance use type: does not use Lack of Transportation: No Lack of Food: Never True Current Housing: I Have Housing Concerned About Future Housing: No Difficulty Paying Gas/Electric Bills: No Difficulty Paying for Meds: No Currently Unemployed: No Education: Master's Degree or Higher Difficulty w/ Childcare or Family Care: No Living arrangements: with family Additional living arrangements comments: Lives with . Occupation/Education: retired Spiritual care concerns: No Exam 2 Narrative: APPEARANCE: Well appearing, no pain, no distress, well-nourished. HEAD: normocephalic, atraumatic. Patient in C-collar on arrival EYES: PERRLA/EOMI, conjunctivae clear. NOSE: Normal no drainage EARS:TMS clear with good light reflex. THROAT: Pharynx clear, no exudate. NECK: Supple. No adenopathy, no masses. RESPIRATORY: Airway patent, respirations nonlabored. Clear to auscultation bilaterally, no rales, rhonchi, wheezing. CARDIOVASCULAR: Regular rate and rhythm without murmurs rubs or gallops. ABDOMINAL: Soft, nontender, nondistended, normal bowel sounds MUSCULOSKELETAL: Moves all extremities. Strength/ROM intact, No edema, No calf tenderness. NEURO: Alert. Cranial nerves II through XII intact. Grossly intact SKIN: Warm, dry. Normal Color Course Vital Signs Vital signs: Vital Signs Temperature 97.9 F 06/21/24 07:27 Pulse Rate 77 06/21/24 07:27 Respiratory Rate 16 06/21/24 07:27 Blood Pressure 137/61 06/21/24 07:27 Pulse Oximetry 92 06/21/24 07:27 Oxygen Delivery Room Air 06/21/24 07:27 Temperature 97.9 F 06/21/24 07:27 Pulse Rate 84 06/21/24 11:49 Respiratory Rate 16 06/21/24 11:49 Blood Pressure 143/61 H 06/21/24 11:49 Pulse Oximetry 96 06/21/24 11:49 Oxygen Delivery Room Air 06/21/24 07:33 Medical Decision Making MDM Narrative Medical decision making narrative: 74-year-old female presented emergency department for evaluation for breakthrough seizure. Patient is currently afebrile with no leukocytosis and a stable hemoglobin. Patient does have baseline chronic hyponatremia that is similar to her baseline no underlying kidney dysfunction. Urine was negative for infection patient was negative for COVID RSV and influenza. CT head and C- spine and right shoulder were evaluated for injury and these were negative. Chest x-ray was ordered to evaluate for pneumonia and this was also negative. Case was discussed with Dr. De Los Santos at [place] and they did recommend increasing the patient's Keppra to 1 g b.i.d.. Patient did take her morning medication but she will be treated with an additional 1 g IV prior to discharge. Patient family were comfortable with plan for discharge and close follow-up. All questions concerns were addressed. Differential Diagnosis Differential Diagnosis: COVID, RSV, influenza, pneumonia, urinary tract infection, breakthrough seizure, medication noncompliance Vital Signs Vital Signs: Vital Signs Temperature 97.9 F 06/21/24 07:27 Pulse Rate 77 06/21/24 07:27 Respiratory Rate 16 06/21/24 07:27 Blood Pressure 137/61 06/21/24 07:27 Pulse Oximetry 92 06/21/24 07:27 Oxygen Delivery Room Air 06/21/24 07:27 Temperature 97.9 F 06/21/24 07:27 Pulse Rate 84 06/21/24 11:49 Respiratory Rate 16 06/21/24 11:49 Blood Pressure 143/61 H 06/21/24 11:49 Pulse Oximetry 96 06/21/24 11:49 Oxygen Delivery Room Air 06/21/24 07:33 Lab Data Lab results reviewed: Yes I reviewed the patient's lab results. 06/21/24 07:43 06/21/24 07:43 Labs: Lab Results 06/21/24 06/21/24 06/21/24 Range/Units 07:43 08:44 09:10 WBC 4.2 L (4.5-10.0) K/mm3 RBC 3.98 L (4.2-5.4) M/mm3 Hgb 12.6 (12.0-15.0) g/dL Hct 37.1 (37.0-47.0) % MCV 93.2 (80-100) fl MCH 31.7 (26-34) pg MCHC 34.0 (32-36) g/dl RDW 12.3 (11.5-14.5) % Plt Count 249 (150-375) k/mm3 MPV 10.5 H (7.4-10.4) fl Immature Gran % (Auto) 3.3 H (0-0.5) % Neut % (Auto) 49.5 (45.5-73.1) % Lymph % (Auto) 29.9 (18.3-44.2) % [place] % (Auto) 13.4 H (2.6-8.5) % Eos % (Auto) 2.2 (0-4.4) % Baso % (Auto) 1.7 H (0.2-1.2) % Lymph # (Auto) 1.25 (0.9-3.2) K/mm3 [place] # (Auto) 0.6 (0.1-0.6) K/mm3 Eos # (Auto) 0.1 (0-0.3) K/mm3 Baso # (Auto) 0.1 (0.0-0.1) K/mm3 Abs Immat Gran (auto) 0.14 H (0.00-0.031) K/mm3 Absolute Neuts (auto) 2.1 (1.3-6.7) K/mm3 Absolute Nucleated RBC 0.000 (0.0-0.012) K/mm3 Nucleated RBC % 0.0 (0.0-0.2) % Sodium 125 L (137-145) mmol/L Potassium 4.0 (3.4-5.0) mmol/L Chloride 88 L (98-107) mmol/L Carbon Dioxide 23 (22-30) mmol/L Anion Gap 14 H (4-12) mmol/L BUN 17 (7-17) mg/dL Creatinine 0.62 L (0.7-1.0) mg/dL Estim Creat Clear Calc 60 ml/min Estimated GFR > 60 (59 - ) Glucose 107 (65-110) mg/dL Calcium 9.5 (8.4-10.2) mg/dL Total Bilirubin 0.4 (0.2-1.3) mg/dL AST 44 H (14-36) U/L ALT 39 H (6-35) U/L Alkaline Phosphatase 137 H (38-126) U/L Total Protein 8.0 (6.3-8.2) g/dL Albumin 4.5 (3.5-5.1) g/dL Urine Color Yellow (Yellow) Urine Appearance Clear (Clear) Urine pH 6.0 (5.0-9.0) Ur Specific [place] 1.018 (1.001-1.035) Urine Protein 2+ H (Negative) mg/dL Urine Glucose (UA) Negative (Negative) mg/dL Urine Ketones Negative (Negative) mg/dL Ur Blood (Man) Non-hemolyzed trace H (Negative) Urine Nitrate Negative (Negative) Urine Bilirubin Negative (Negative) Urine Urobilinogen 0.2 (<2.0) mg/dL Leukocyte Esterase Rfl Negative (Negative) SHIRA/UL Urine RBC 3-5 H (0-2) /hpf Urine WBC 0-5 (0-3) /hpf Ur Squamous Epith Cells None seen (Few) /hpf Urine Bacteria None seen /hpf Urine Casts 0-2 Influenza A (RT-PCR) Negative (Negative) Influenza B (RT-PCR) Negative (Negative) RSV (RT-PCR) Negative (Negative) SARS-CoV-2 RNA (RT-PCR) Negative (Negative) Imaging Data Radiologist's impression: Impressions Shoulder X-Ray 06/21/24 08:11 IMPRESSION: 1. Mild polyarticular osteoarthritis. Chest X-Ray 06/21/24 08:24 IMPRESSION: 1. Mild atelectasis versus scarring in the lower lung zones. Head CT 06/21/24 08:59 IMPRESSION: 1. Normal aging brain. Cervical Spine CT 06/21/24 09:02 IMPRESSION: 1. No acute fracture. 2. Severe cervical spondylosis. Discharge Plan Discharge Clinical Impression: Seizures Patient Disposition: Home, Self-Care Condition: Stable Instructions: Antibiotic Form, Epilepsy (DC) Additional Instructions: Increase your Keppra to 1000 mg b.i.d. starting with your evening dose tonight. Have close follow-up with your neurologist. If you have any worsening symptoms then please call or return to the emergency department. Patient Language: Taiwanese Prescriptions: New levetiracetam [Keppra] 1,000 mg tablet 1,000 mg PO BID 30 Days Qty: 60 0RF No Action levetiracetam 500 mg tablet 750 mg PO Q12H cholecalciferol (vitamin D3) 25 mcg (1,000 unit) capsule 25 mcg PO DAILY Zyrtec 10 mg capsule 10 mg PO DAILY PRN (Reason: allergy symptoms) estradiol [Estrace] 0.01 % (0.1 mg/gram) Cream 1 applic vaginal MoWeFr@HS Qty: 42.5 0RF nebivolol [Bystolic] 5 mg tablet 5 mg PO DAILY Qty: 90 3RF sodium chloride 1,000 mg tablet,soluble 1,000 mg PO DAILY Qty: 30 0RF Follow-up/Referrals: Marce Fowler, AMBULATORY SERVICES REPRESENTATIVE-C [Primary Care Provider] -
[2024-06-21 09:22] LABS: Add Urine Microscopic? YES; Appearance Urine Clear (Clear); Bacteria Urine None Seen /hpf; Bilirubin Urine Negative (Negative); Blood Urine Non-Hemolyzed Trace (Negative); Color Urine Yellow (Yellow); Glucose Urine UA Negative (Negative); Ketones Urine Negative (Negative); Leukocyte Esterase Ur Negative LEU/UL (Negative); Nitrate Urine Negative (Negative); Non Pathogenic Casts 0-2; Protein Urine 2+ mg/dL (Negative); Specific Grav Ur 1.018 (1.001-1.035); Squamous Epithelial Cell Urine None Seen /hpf (Few); Urobilinogen Urine 0.2 mg/dL (<2.0); WBC Urine 0-5 /hpf (0-3)
[2024-06-21 09:25] LABS: Influenza A QL RT-PCR Negative (Negative); Influenza B QL RT-PCR Negative (Negative); RSV RNA, RT-PCR Negative (Negative); SARS-CoV-2 RNA PCR Negative (Negative)
[2024-06-21 09:45] VITALS: BP 149/63; PULSE 77; RESP 16; O2SAT 98
[2024-06-21] MEDS: levETIRAcetam 1000MG/NACL100ML 1,000 MG/100 ML BAG 400 MG IVPB (11:47)
[2024-06-21 11:49] VITALS: BP 143/61; PULSE 84; RESP 16; O2SAT 96
== END 2024-06-21 12:15 | disposition home or self-care (01) ==
PROVIDERS: Emergency Provider Emergency Medicine; PCP Clinical Nurse Specialist
DX: G40.909 Epilepsy, unspecified, not intractable, without status epilepticus (principal); Z20.822 Contact with and (suspected) exposure to COVID-19; I10 Essential (primary) hypertension; E87.1 Hypo-osmolality and hyponatremia; M19.011 Primary osteoarthritis, right shoulder; M47.812 Spondylosis without myelopathy or radiculopathy, cervical region; Z79.899 Other long term (current) drug therapy
CPT/HCPCS: 36415; 70450; 71045; 72125; 73020; 80053; 81001; 85025; 87637; 96374; 99284; J1953; L0140

== ENCOUNTER 2024-08-19 10:18 | Outpatient (CLI) | payer MEDICARE, SELFPAY ==
--- OUTSIDE RECORDS SUMMARY | 2024-08-19 11:08 | XMS_ITS ---
Author Organization [facility] [place] ([address]) Address [address] [place] [address] Care Team Providers Care Residential Child Care Counselor Name Role Phone Desiree Jackson [phone] REASON FOR VISIT PARLOR MAID Allergies Encounters Encounter Location Date Provider Diagnosis [facility] [address] [place] [address] 02/22/2023 Desiree Jackson Plan Of Treatment No Information Progress Notes * Yamil HOLMANAlessioB: (74 yo F)Acc No.[id number]:02/22/2023 Progress Notes Patient: Apurva URENA Provider: Costa Jackson PA-C :1950 A ge:72 Y S ex:Female Date:02/22/2023 Address:[address] Subjective: * Chief Complaints: * 1 . PARLOR MAID Allergies. * Medical History: Objective: * Vitals: Assessment: Plan: * Treatment: * Billing Information: * Visit Code: * Procedure Codes: * Electronic signature of Evert Jackson PA-C, [facility] on 08/19/2024 at 11:08 AM CDT Sign off status: Pending * Provider: Costa Jackson PA-C Date: 04/24/2022 Generated for Ida simmons/Harry/eTransmitting on: 0 08/19/2024 11:08 AM CDT
--- OUTSIDE RECORDS SUMMARY | 2024-08-19 11:08 | XMS_ITS | Patient Health Record ---
Author Organization [facility] [place] ([address]) Address [address] [place] [address] Support Name Relationship Address Phone Apurva Holman Guarantor Unknown [phone] Reason For Referral No Information Plan Of Treatment No Information Insurance Providers Payer Name Payer Address Payer Phone Subscriber Number Group Number Insured Name Patient Relationship to Insured Coverage Start Date Coverage End Date [employer] Medicare [address] [place] [address] [id number] Apurva Holman Self - patient is the insured
--- OUTSIDE RECORDS SUMMARY | 2024-08-19 11:09 | XMS_ITS | Referral Summary ---
Author Organization [facility] Address [address] [place] [address] Care Team Providers Care Advertising Sales Associate Name Role Phone Marce Fowler NP Unavailable [phone] Marce Fowler NP Primary Care Provider Encounters Date Type Department Care Team Description 08/12/2024 Telephone [facility] Epilepsy [address] [facility] 6th [place] [address] [place] [address] Clay Monroy MD PhD Med Management; Medication Problem 07/31/2024 Telephone [facility] Epilepsy [address] [facility] 6th [place] [address] Clay Monroy MD PhD Med Management; Hallucinations 06/26/2024 Telephone [facility] Accountable Care Organization [address] [place] [address] Soheila Barry MA Unsuccessful Phone Call 1 ([employer] OMW) 06/25/2024 Telephone [facility] Epilepsy [address] [facility] [address]th [place] [address] [place] [address] Altagracia Willams RN 06/23/2024 Telephone [facility] Epilepsy [address] [facility] [address]th [place] [address] [place] [address] Clay Monroy MD PhD 06/21/2024 Telephone [facility] [address] [place] [address] Health 4th Floor [address] [place] [phone] Liat De Los Santos MD 06/05/2024 Telephone [facility] Care Organization [address] [place] [address] Soheila Barry MA Unsuccessful Phone Call 1 ([place] SAAD) from Last 3 Months Allergies Active Allergy Reactions Criticality Noted Date Comments Bleach (Sodium Hypochlorite) Rash Medium 024 Latex Rash Medium 01/20/2024 Nickel Rash Medium Medications nebivoloL (BYSTOLIC) 10 mg tablet Take 1 tablet (10 mg total) by mouth daily 30 tablet 11 4 01/26/20 25 Active cholecalciferol (VITAMIN D-3) 1,000 unit capsule Take 1 capsule (1,000 Units total) by mouth daily 30 capsule 11 4 01/26/20 25 Active acetaminophen 500 mg [...] day 120 tablet 4 Active levETIRAcetam (KEPPRA) 500 mg tablet Take 1.5 tablets (750 mg total) by mouth 2 (two) times a day 90 tablet 1 5 10/12/19 25 Active levETIRAcetam (KEPPRA) 1,000 mg tablet Take 1 tablet (1,000 mg total) by mouth 2 (two) times a day 180 tablet 1 5 08/01/19 25 Discontinu ed(Reorder ) levETIRAcetam (KEPPRA) 500 mg tablet Take 1.5 tablets (750 mg total) by mouth every morning AND 2 tablets (1,000 mg total) nightly. 210 tablet 5 08/13/19 25 Discontinu ed(Reorder ) Active Problems Problem Noted Date Diagnosed Date [...] on 03/[address] 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 DIRECTOR Gender Identity Female 01/20/2024 12:30 AM CDT Sexual Orientation Not on file Last Filed Vital Signs Vital Sign Reading Time Taken Comments Blood Pressure 171/86 03/10/2024 7:56 AM COMMUNITY AFFAIRS DIRECTOR Pulse 99 03/10/2024 7:56 AM COMMUNITY AFFAIRS DIRECTOR Temperature 37.3 C (99.2 F) 01/25/2024 3:12 PM CDT Respiratory Rate 18 01/25/2024 3:12 PM CDT Oxygen Saturation 100% 01/25/2024 3:12 PM CDT Inhaled Oxygen Concentration - - Weight 70.3 kg (155 lb) 03/10/2024 7:56 AM COMMUNITY AFFAIRS DIRECTOR Height 157.5 cm (5' 2 ) 03/10/2024 7:56 AM COMMUNITY AFFAIRS DIRECTOR Body Mass Index 28.35 03/10/2024 7:56 AM COMMUNITY AFFAIRS DIRECTOR Plan of Treatment Not on file Medical Devices Implanted Type Area Mat Cutter Device Identifier Shelf Expiration Date Model / Serial / Lot [employer] Simplex P Full Dose Radiopaque Preblend Cement Bone Tobramycin 6197-9-010 - S0 - [id number] Implanted:Qty: 2 on 01/20/2024 by Dhruv Wu MD at [facility] Bone Cement Left: Femur [employer] [id number] 03/15/2025 6197-9-010 / 0 / [id number] Description:Same Lot # and s mary Exp date (x2) Synthes 1.7mm 750mm Crimp Cerclage Cable Orthopedic Stainless Steel 298.801.01s - S0 - [id number] Implanted:Qty: 1 on 01/20/2024 by Dhruv Wu MD at [facility] Cable Left: Femur Synthes 10/13/2028 298.801.01S / 0 / [id number] Depuy [employer] Inc [place] 97mm Cemented Hip 2 03/29 Standard Offset Taper Stem [id number] - S0 - [id number] Implanted:Qty: 1 on 01/20/2024 by Dhruv Wu MD at [facility] Other - see comments Left: Femur [employer] Inc [id number] 06/13/2028 [id number] / 0 / [id number] Description:Femoral Stem [employer] Inc Cementralizer 8.5mm Cemented Hip Femur Centralizer Stem Pmma Latex Free 1376-46-000 - S0 - [id number] Implanted:Qty: 1 on 01/20/2024 by Dhruv Wu MD at [facility] Other - see comments Left: Femur [employer] Inc [id number] 08/13/2028 1376-46-000 / 0 / [id number] Description:Stem Centralizer [employer] Inc Articul/Girma 28mm Hip +1.5mm 03/29 Taper Head Femoral Cocr Sterile Latex Free 1365-11-000 - S0 - Implanted:Qty: 1 on 01/20/2024 by Dhruv Wu MD at [facility] Other - see comments Left: Femur [employer] Inc [id number] 10/13/2028 1365-11-000 / 0 / [id number] Description:Femoral Head [employer] Inc Self-Centering 44mm 28mm Hip Femur Head Bipolar Sterile [place]as 1035-44-000 - S0 - [id number] Implanted:Qty: 1 on 01/20/2024 by Dhruv Wu MD at [facility] Other - see comments Left: Femur [employer] Inc [id number] 09/13/2028 1035-44-000 / 0 / [id number] Description:Bi-polar Head [employer]Rich[employer]/O rtho Prep-Im Plug Rodanthe Sponge Suction Hip Kit Thr Latex Free 854383 - S0 - [id number] Implanted:Qty: 1 on 01/20/2024 by Dhruv Wu MD at [facility] Other - see comments Left: Femur [employer]/ Ortho [id number] 06/05/2033 530855 / 0 / [id number] Description:Cement restricto r Insurance MEDICARE MEDICARE [facility]IC[facility] Address: [facility] [id number] [place] [id number] Advance Directives For more information, please contact: [phone] Documents on File Type Date Recorded Patient Credit Reporter Expl anation ADVANCE DIRECTIVE 01/21/2024 2:49 PM POWER OF CHAIN SALES CONSULTANT-MEDICAL ADVANCE DIRECTIVE 01/21/2024 2:49 PM ALYSE Dennison WILL * Full Code (Latest Code Status on File) Date Activated Date Inactivated Comments 01/20/2024 1:58 AM 01/25/2024 11:27 PM Care Teams Advertising Sales Associate Relationship Specialty Start Date End Date Marce Fowler WEB MASTER [address] [facility] [address] [place] [address] [place] [id number] PCP - General Cardiovascular Disease 01/31/24 Marce Fowler WEB MASTER [address] [facility] [address] [place] [place] [id number] Registered Nurse Cardiovascular Disease 10/31/23
--- OUTSIDE RECORDS SUMMARY | 2024-08-19 11:09 | XMS_ITS | Clinical Summary ---
Author Organization [facility] Address [facility] [place] [address] Care Team Providers Care Sole Trimmer Name Role Phone Marce Fowler NP Unavailable [phone] Marce Fowler NP Primary Care Provider [phone] Allergies Active Allergy Reactions Criticality Noted Date [...] Closed fracture of neck of right femur Assessment & Plan (01/25/2024 1:44 PM CDT): #R intertrochanteric femur fx - ortho c/s: OR on 01/19 - WBAT RLE, no active abduction, abduction pillow until abduction brace fitted - PT/OT, pain control - Wound Care: Maintain surgical dressing until follow-up - Sutures/[place]: Will be removed 3 weeks after surgical date., will be 02/10/2024 - Bone health referral at discharge Patient has follow up scheduled on 03/[address] Wu located at [address], DVT prophylaxis Eliquis 2.5 mg PO x4 [...] Type Department Care Team Description 08/12/2024 Telephone [facility] Epilepsy [address] [facility] 6th [place] [address] [place] [phone] Clay Monroy MD PhD Med Management; Medication Problem 07/31/2024 Telephone [facility] Epilepsy [address] [facility] 6th [place] [address] [place] [address] Clay Monroy MD PhD Med Management; Hallucinations 06/26/2024 Telephone [facility] Care [address] [address] Soheila Barry MA Unsuccessful Phone Call 1 ([employer] OMW) 06/25/2024 Telephone [facility] Epilepsy [facility] 6th [place] [address] [place] [phone] Altagracia Willams RN 06/23/2024 Telephone [facility] Epilepsy [facility] 6th [place] [address] [place] [phone] Clay Monroy MD PhD 06/21/2024 [facility]phone [facility] [address] [place] [address] Health 4th Floor [address] [place] [phone] Liat De Los Santos MD 06/05/[address] [address] Soheila Barry MA Unsuccessful Phone Call 1 ([employer] OMW) from Last 3 Months Medical History Medical History Date Comments Personal history of other di seases of the circulatory system History of hypertension - (A dded by TW Conv) Personal history of other me ntal and behavioral disorders History of anxiety disorder - (Added by TW Conv) Anxiety Panic attacks Seizures (HCC) Family History [...] on file Legal Sex Female 11:50 PM [employer] INTERNS[employer] Gender Identity Female 01/20/2024 12:30 AM CDT Sexual Orientation Not on file Obstetrics History Last Filed Vital Signs Vital Sign Reading Time Taken Comments Blood Pressure 171/86 03/10/2024 7:56 AM CHEMIST INTERNSHIP Pulse 99 03/10/2024 7:56 AM CHEMIST INTERNSHIP Temperature 37.3 C (99.2 F) 01/25/2024 3:12 PM CDT Respiratory Rate 18 01/25/2024 3:12 PM CDT Oxygen Saturation 100% 01/25/2024 3:12 PM CDT Inhaled Oxygen Concentration - - Weight 70.3 kg (155 lb) 03/10/2024 7:56 AM CHEMIST INTERNSHIP Height 157.5 cm (5' 2 ) 03/10/2024 7:56 AM CHEMIST INTERNSHIP Body Mass Index 28.35 03/10/2024 7:56 AM CHEMIST INTERNSHIP Plan of Treatment Health Maintenance Due Date Last Done Comments Breast Cancer Screening-Mammogram 1950 Colon Cancer Screening-Colonoscopy 1950 Depression Screening 1950 Hepatitis C Screening 1950 Osteoporosis Screening-Bone Density Scan 1951 DTaP/Tdap/Td Vaccine (1 - Tdap) 1962 Hepatitis B Screening 1969 Pneumococcal vaccine 65+ (1 of 1 - PCV) 2001 Zoster Vaccine (1 of 2) 2001 Well Visit 65+ 2016 Covid-19 Vaccine (3 - season) 2023, 12/07/2020 Influenza Vaccine (Season Ended) 2024 Fall Risk Assessment 01/24/2025 01/25/2024 Medical Devices Implanted Type Area Card Painter Device Identifier Shelf Expiration Date Model / Serial / Lot [employer] Simplex P Full Dose Radiopaque Preblend Cement Bone Tobramycin 6197-9-010 - S0 - [id number] Implanted:Qty: 2 on 01/20/2024 by Dhruv Wu MD at [facility] Bone Cement Left: Femur [employer] [id number] 03/15/2025 6197-9-010 / 0 / [id number] Description:Same Lot # and s mary Exp date (x2) Synthes 1.7mm 750mm Crimp Cercl[employer] Cable Orthopedic Stainless Steel 298.801.01s - S0 - [id number] Implanted:Qty: 1 on 01/20/2024 by Dhruv Wu MD at [facility] Cable Left: Femur Synthes 10/13/2028 298.801.01S / 0 / [id number] Depuy Orth[employer] Inc [place] 97mm Cemented Hip 2 03/29 Standard Offset Taper Stem [id number] - S0 - [id number] Implanted:Qty: 1 on 01/20/2024 by Dhruv Wu MD at [facility] Other - see comments Left: Femur [employer] Inc [id number] 06/13/2028 [id number] / 0 / [id number] Description:Femoral Stem [employer] Inc Cementralizer 8.5mm Cemented Hip Femur Centralizer Stem Pmma Latex Free 1376-46-000 - S0 - [id number] Implanted:Qty: 1 on 01/20/2024 by Dhruv Wu MD at [facility] Other - see comments Left: Femur [employer] Inc [id number] 08/13/2028 1376-46-000 / 0 / [id number] Description:Stem Centralizer [employer] Inc Articul/Girma 28mm Hip +1.5mm 12/14 Taper Head Femoral Cocr Sterile Latex Free 1365-11-000 - S0 - [id number] Implanted:Qty: 1 on 01/20/2024 by Dhruv Wu MD at [facility] Other - see comments Left: Femur [employer] Inc [id number] 10/13/2028 1365-11-000 / 0 / [id number] Description:Femoral Head [employer] Inc Self-Centering 44mm 28mm Hip Femur Head Bipolar Sterile Casas 1035-44-000 - S0 - [id number] Implanted:Qty: 1 on 01/20/2024 by Dhruv Wu MD at [facility] Other - see comments Left: Femur [employer] Inc [id number] 09/13/2028 1035-44-000 / 0 / [id number] Description:Bi-polar Head [employer]/O rtho Prep-Im Plug Seney Sponge Suction Hip Kit Thr Latex Free 032350 - S0 - [id number] Implanted:Qty: 1 on 01/20/2024 by Dhruv Wu MD at [facility] Other - see comments Left: Femur [employer]/ Ortho [id number] 06/05/2033 253232 / 0 / [id number] Description:Cement restricto r Insurance [facility] MEDICARE [facility] MEDICARE [facility] MEDIC[facility] Advance Directives For more information, please contact: [phone] Documents on File Type Date Recorded Patient Government Relations Director Expl anation ADVANCE DIRECTIVE 01/21/2024 2:49 PM POWER OF IRRIGATION TAX ASSESSOR COLLECTOR-MEDICAL ADVANCE DIRECTIVE 01/21/2024 2:49 PM ALYSE MONAHAN * Full Code (Latest Code Status on File) Date Activated Date Inactivated Comments 01/20/2024 1:58 AM 01/25/2024 11:27 PM Care Teams Sole Trimmer Relationship Specialty Start Date End Date Marce Fowler NP [address] [place] [address] DR [address]UM [address] [place] [phone] PCP - General Cardiovascular Disease 01/31/24 Marce Fowler NP [address] [place] [address] DR [address] [place] [address] Registered Nurse Cardiovascular Disease 10/31/23
[2024-08-19 13:00] LABS: Alanine Aminotransferase 54 U/L (6-35); Albumin Level 4.7 g/dL (3.5-5.1); Alkaline Phosphatase 202 U/L (38-126); Anion Gap 9 mmol/L (4-12); Aspartate Amino Transferase 56 U/L (14-36); Bilirubin,Total 0.5 mg/dL (0.2-1.3); Blood Urea Nitrogen 15 mg/dL (7-17); Calcium 9.6 mg/dL (8.4-10.2); Carbon Dioxide 30 mmol/L (22-30); Chloride 90 mmol/L (98-107); Estimated Glomerular Filt Rate > 60; Glucose 82 mg/dL (65-110); Potassium 5.1 mmol/L (3.4-5.0); Sodium 129 mmol/L (137-145)
== END 2024-08-19 10:19 | disposition home or self-care (01) ==
LOC: ANHGOSHLAB 10:19
PROVIDERS: PCP Internal Medicine; Visit Provider Clinical Nurse Specialist
DX: E87.1 Hypo-osmolality and hyponatremia (principal)
CPT/HCPCS: 36415; 80053

== ENCOUNTER 2024-09-01 08:46 | Outpatient (CLI) | payer MEDICARE, SELFPAY ==
--- NOTE | ~2024-09-01 | US_ITS ---
RIGHT UPPER QUADRANT ABDOMINAL ULTRASOUND (Doppler ultrasound interrogation techniques used as needed for this exam.) Ordering provider: ADAM Joel-Nilay History: . R74.01 - Elevation of levels of liver transaminase levels . Comparison: None. FINDINGS: PANCREAS: Normal echotexture and size of the visualized portion.. PORTAL VEIN: Hepatopedal flow demonstrated. LIVER: Normal size and echotexture. No focal hepatic lesions or perihepatic fluid collections are huma ntified. BILIARY DUCTS: No intra or extrahepatic biliary dilation. Common bile duct measures 4 mm in diameter which is normal for patient's age. GALLBLADDER: Normal. No stones, sludge, gallbladder wall thickening or pericholecystic fluid. Negati ve sonographic Recio's sign. FREE FLUID: None visualized within the upper abdomen. IMPRESSION: normal right upper quadrant ultrasound. Reviewed, dictated and finalized at location A.
== END 2024-09-01 08:47 | disposition home or self-care (01) ==
LOC: GOSHIMG 08:47
PROVIDERS: PCP Clinical Nurse Specialist; Visit Provider Clinical Nurse Specialist
DX: R74.01 Elevation of levels of liver transaminase levels (principal); R74.8 Abnormal levels of other serum enzymes
CPT/HCPCS: 76705

== ENCOUNTER 2024-12-23 06:05 | Inpatient (IN) | payer MEDICARE, SELFPAY ==
[2024-12-23] VITALS (11 sets, daily range): BP systolic 141–191; BP diastolic 54–95; PULSE 63–87; RESP 16–20; TEMP 36.4–36.8; O2SAT 98–99; BMI 29.5
--- NOTE | ~2024-12-23 | XR_ITS ---
EXAMINATION: XR chest 1V portable COMPARISON: Comparison 12/23/2024. HISTORY: hypothermia FINDINGS: Bilateral interstitial airspace opacities superimposed on chronic lung disease. No pneumothorax. Stable cardiomegaly. Mediastinal and hilar contours are within normal limits. Bony thorax no acute abnormality. Miscellaneous: None Impression: Interval progression Reviewed, dictated and finalized at location A. Impression: Interval progression
--- NOTE | ~2024-12-23 | MR_ITS ---
EXAMINATION: MR brain/brain stem wo con DATE: 12/24/2024 12:15 INDICATION: Hallucinations TECHNIQUE: Magnetic resonance imaging (MRI) of the brain and brainstem was performed without intravenous contrast. Sequences included sagittal and axial T1-weighted SE, axial diffusion-weighted FS SE, axial T2*-weighted GRE, axial T2-weighted FLAIR, and axial T2-weighted FSE. Apparent diffusion coefficient (ADC) maps were created. COMPARISON: None. FINDINGS: There is a small focus of increased fluid signal in the right temporal occipital region. There is an equivocal 3 mm focus of possible restricted diffusion within this region potentially related to acute infarct. No intracranial hemorrhage or abnormal intracranial mass lesion. There are a few scattered small foci of nonspecific increased T2-weighted signal intensity in the cerebral white matter which is within normal limits for age and likely sequela of chronic small vessel ischemic disease.. There are no intraparenchymal signal abnormalities seen on the other pulse sequences. The ventricles are symmetric and normal in size. There are no abnormal extra-axial fluid collections. Flow voids are seen in the cerebral arteries on the T2-weighted sequences consistent with their expected patency. Visualized orbits are unremarkable. There is a 1.4 x 1.0 cm globular T2 hyperintense lesion within the inferior right temporalis muscle. Mild to callosal thickening the bilateral ethmoid sinuses. IMPRESSION: 1. Small region of increased signal in the right temporal occipital region with possible tiny focus of restricted diffusion in this could be related to recent infarction. The possible effusion is however not clearly convincing and with consider further evaluation with postcontrast imaging to exclude underlying neoplastic lesion. 2. Indeterminate 1.4 x 1.0 cm T2 hyperintense lesion in the inferior right masseter muscle which is been present since MRI dated 05/02/2013 at which time it demonstrated no enhancement and imaging appearance favoring arteriovenous malformation. Reviewed, dictated and finalized at location A. IMPRESSION: 1. Small region of increased signal in the right temporal occipital region with possible tiny focus of restricted diffusion in this could be related to recent infarction. The possible effusion is however not clearly convincing and with c onsider further evaluation with postcontrast imaging to exclude underlying neop lastic lesion. 2. Indeterminate 1.4 x 1.0 cm T2 hyperintense lesion in the inferior right mass eter muscle which is been present since MRI dated 05/02/2013 at which time it de monstrated no enhancement and imaging appearance favoring arteriovenous malform ation.
--- NOTE | ~2024-12-23 | XR_ITS ---
EXAMINATION: XR chest 1V portable 12/23/2024 10:37 INDICATION: Altered mental status. Weakness. TECHNIQUE:A single portable AP upright frontal image of the chest was obtained. COMPARISON: 06/21/2024 FINDINGS: Heart is mildly enlarged. No pneumothorax. No pleural effusion. No free air under the diaphragm. Interstitial opacities in both lungs. Small opacities in the lower lungs. Hardware in the right humerus. IMPRESSION: 1: Interstitial opacities in both lungs. Differential includes interstitial edema, interstitial pneumonia or chronic interstitial changes. 2. Small opacities in the mid and lower lungs which represents atelectasis/scarring or infiltrates. Reviewed, dictated and finalized at location Q. IMPRESSION: 1: Interstitial opacities in both lungs. Differential includes interstitial ed glenys, interstitial pneumonia or chronic interstitial changes. 2. Small opacities in the mid and lower lungs which represents atelectasis/scar ring or infiltrates.
--- NOTE | ~2024-12-23 | MR_ITS ---
EXAMINATION: MR brain IAC wo/w con DATE: 12/25/2024 16:04 INDICATION: Concern for right brain tumor versus stroke TECHNIQUE: Magnetic resonance imaging (MRI) of the brain and brainstem was performed without and with 14 mL Multihance intravenous contrast. Sequences included sagittal T1-weighted FSE, axial T2-weighted FLAIR Propeller, small xgrik-iz-ahqf coronal FIESTA, 3D T1-weighted JULIAN and small vbvti-qq-uphv c oronal T1-weighted FSE. Postcontrast sequences included axial and sagittal T1- weighted FSE, small 3D T1-weighted JULIAN and small vbcny-sp-glqq coronal T1- weighted FSE, and small aclwt-gb-qlbb axial T1-weighted SPGR. COMPARISON: Brain MR dated 12/24/2024 FINDINGS: There is a 7 x 4 x 3 mm enhancing lesion in the region of vasogenic edema in the right temporal occipital region. There is a prominent feeding vessel extending to the enhancing lesion with appearance favoring a vascular malformation over neoplasm. No other abnormally enhancing brain lesions identified. Normal seventh/eighth cranial nerve complexes. No cerebellopontine angles masses. No evidence of mastoid or middle ear fluid. IMPRESSION: 1. Prominent feeding vessel extending to a 7 x 4 x 3 mm enhancing lesion in the right temporal occipital region of surrounding vasogenic edema identified on prior MRI. Appearance favors vascular malformation over malignancy. 2. Otherwise unremarkable MRI of the bilateral internal auditory canals. Reviewed, dictated and finalized at location A. IMPRESSION: 1. Prominent feeding vessel extending to a 7 x 4 x 3 mm enhancing lesion in the right temporal occipital region of surrounding vasogenic edema identified on p rior MRI. Appearance favors vascular malformation over malignancy. 2. Otherwise unremarkable MRI of the bilateral internal auditory canals.
--- NOTE | ~2024-12-23 | XR_ITS ---
Examination: XR chest 1V portable Clinical History: eval for pneumonia Comparison: 9 hours prior Technique: Portable AP Findings: Heart size mildly enlarged. Improving interstitial markings. No acute bony abnormality. IMPRESSION: 1. Improving interstitial pulmonary edema and/or pneumonitis. Reviewed, dictated and finalized at location R.
--- NOTE | ~2024-12-23 | CT_ITS ---
EXAMINATION: CT brain wo con DATE: 12/23/2024 06:48 INDICATION: Seizure TECHNIQUE: Computed tomography (CT) of the head was performed without intravenous contrast. Sagittal and coronal reconstructions were performed. The mA was adjusted according to patient size. Iterative reconstruction technique was employed. The dose-length product was 681.00 mGy-cm. COMPARISON: head CT dated 06/21/2024 FINDINGS: No acute intracranial hemorrhage, acute infarction or abnormal extra axial fluid collection. There is mild scattered white matter hypoattenuation consistent with chronic small vessel ischemic disease. Symmetric prominence of the sulci consistent with mild age-appropriate diffuse cerebral volume loss. Ventricles are normal and symmetric. No mass/mass effect. The orbits, paranasal sinuses and mastoid air cells are normal. IMPRESSION: 1. Normal aging brain. No acute intracranial process. Reviewed, dictated and finalized at location A.
--- NOTE | 2024-12-23 06:12 | PC.NURSE ---
kala edp zych - ct brain with out con
--- NOTE | 2024-12-23 06:36 | ECG_ITS ---
Test Date: 2024-12-23 06:08:12 Measurements Intervals [place] Rate: 82 P: 51 ME: 177 QRS: 25 QRSD: 93 T: 13 QT: 362 QTc: 425 Interpretive Statements SINUS RHYTHM LEFT ATRIAL ENLARGEMENT [-0.15mV P WAVE IN V1/V2] BORDERLINE ECG Compared to ECG 01/19/2024 12:12:35 NO DIFFERENCE Electronically Signed On 12-24-2024 15:34:59 CDT by Daniel Bacon M.D.
[2024-12-23 07:06] LABS: Hematocrit 41.7 % (37.0-47.0); Hemoglobin 14.1 g/dL (12.0-15.0); Immature Granulocyte Percent A 0.3 % (0-0.5); Lymphocytes Absolute Auto 1.08 K/mm3 (0.9-3.2); Mean Corpuscular HGB Conc 33.8 g/dl (32-36); Mean Corpuscular Hemoglobin 32.9 pg (26-34); Mean Corpuscular Volume 97.2 fl (80-100); Nucleated Red Blood Cells Absolute Auto 0.000 K/mm3 (0.0-0.012); Nucleated Red Blood Cells Perc 0.0 % (0.0-0.2); Platelet Count Result 196 k/mm3 (150-375); Red Blood Count 4.29 M/mm3 (4.2-5.4); White Blood Count 3.7 K/mm3 (4.5-10.0)
[2024-12-23 07:16] LABS: INR 0.9; Prothrombin Time 12.1 Seconds (11.1-14.7)
[2024-12-23 07:17] LABS: Partial Thromboplastin Time 33.9 Seconds (22.3-36.8)
[2024-12-23 07:24] LABS: Alanine Aminotransferase 123 U/L (6-35); Albumin Level 4.6 g/dL (3.5-5.1); Alkaline Phosphatase 214 U/L (38-126); Anion Gap 8 mmol/L (4-12); Aspartate Amino Transferase 100 U/L (14-36); Bilirubin,Total 0.6 mg/dL (0.2-1.3); Blood Urea Nitrogen 14 mg/dL (7-17); Calcium 9.7 mg/dL (8.4-10.2); Carbon Dioxide 30 mmol/L (22-30); Chloride 90 mmol/L (98-107); Estimated CRCL calculation 60 ml/min; Estimated Glomerular Filt Rate > 60; Glucose 111 mg/dL (65-110); Potassium 4.7 mmol/L (3.4-5.0); Sodium 128 mmol/L (137-145); Total Protein 8.6 g/dL (6.3-8.2)
[2024-12-23 07:36] LABS: Add Urine Microscopic? NO; Appearance Urine Clear (Clear); Glucose Urine UA Negative (Negative); Leukocyte Esterase Ur Negative LEU/UL (Negative); Nitrate Urine Negative (Negative); Specific Grav Ur 1.011 (1.001-1.035)
--- NOTE | 2024-12-23 07:40 | ED_ITS ---
HPI - General Adult General Chief complaint: Seizure Stated complaint: UNRESPONSIVE, ?POST ICTAL Time Seen by Provider: 12/23/24 06:55 History of Present Illness HPI narrative: 74-year-old female presenting to the emergency department for evaluation for altered mental status and suspected seizure. Patient family states the patient has had increasing hallucinations over the last few days. This morning went to wake up the patient and she was less responsive than usual and this was reminiscent of her having a seizure. states that he did not witness a seizure but this did appeared to be post seizure level of awareness. He denies her having any a sonorous respirations. Upon arrival to the emergency department patient is more alert and appropriate. Patient denies any pain or complaints. Patient denies any cough colds fevers or pain with urination. Patient does follow-up with Dr. Parr at [facility]. Patient did have a medication increase her Keppra in January and then patient had a breakthrough seizure in June and patient's Keppra was increased to 1 g by her neurologist. Patient had worsening hallucinations at that time and patient was decreased back down to 750 mg of Keppra b.i.d. and this is her current dose. Family states patient has not missed any doses. Family states the patient has had increasing anxiety since stopping her Paxil Related Data Home Medications ?Medication ?Instructions ?Recorded ?Confirmed ?Last Taken ?Type cholecalciferol (vitamin D3) 25 25 mcg PO DAILY 12/23/24 03/12/23 05:00 History mcg (1,000 unit) capsule levetiracetam 500 mg tablet 750 mg PO Q12H 06/19/2406/21/24 History levetiracetam 1,000 mg tablet 750 mg PO BID 12/23/24 0 12/23/24 Unknown History (Keppra) nebivolol 5 mg tablet (Bystolic) 5 mg PO DAILY 5 12/23/24 Unknown History sennosides 8.6 mg-docusate sodium 1 tab-cap PO DAILY 0 12/23/24 12/23/24 Unknown History 50 mg tablet (Senna-S) Allergies Allergy/AdvReac Type Severity Reaction Status Date / Time Latex, Natural Rubber Allergy Intermediate Hives Verified 08/19/24 09:03 amoxicillin Allergy Mild Diarrhea Verified 08/19/24 09:03 Corticosteroids Allergy Unknown excessive Verified 08/19/24 09:03 (Glucocorticoids) thirst hydrocodone Allergy Unknown naseau, Verified 08/19/24 09:03 abdominal pain lisinopril Allergy Unknown Constipatio Verified 08/19/24 09:03 n bleach Allergy Unknown Rash Uncoded 08/19/24 09:03 fragrance Allergy Unknown Rash Uncoded 08/19/24 09:03 Review of Systems 2 Review of Systems: All systems reviewed & are unremarkable except as noted in HPI and below PMFSH Past Medical History Medical History (Updated 12/23/24 @ 10:20 by Ryley Jennings MD) Acute anxiety Excessive cerumen in both ear canals Hyponatremia Grand mal seizure Seizures Ganglion cyst of foot removal 2004 (left) Cyst of breast, left, diffuse fibrocystic Removal 1981 PTSD (post-traumatic stress disorder) Cataract Anxiety Depression HTN (hypertension) Surgical History Surgical History History of breast surgery breast cyst benign left History of surgery on arm titanium theresa Family History Family History Father Patient's father is , Onset Age: 88 Mother Family history of malignant neoplasm of bone Social History Social History Social History: Caffeine- coffee Plant based diet Smoking status: Never smoker Alcohol intake: never Alcohol use details: rarely Substance use: never Substance use type: does not use Lack of Transportation: No Lack of Food: Never True Current Housing: I Have Housing Concerned About Future Housing: No Difficulty Paying Gas/Electric Bills: No Difficulty Paying for Meds: No Currently Unemployed: No Education: Master's Degree or Higher Difficulty w/ Childcare or Family Care: No Living arrangements: with family Additional living arrangements comments: Lives with . Occupation/Education: retired Spiritual care concerns: No Exam 2 Narrative: APPEARANCE: Anxious appearing HEAD: normocephalic, atraumatic. EYES: PERRLA/EOMI, conjunctivae clear. NOSE: Normal no drainage EARS:TMS clear with good light reflex. THROAT: Pharynx clear, no exudate. NECK: Supple. No adenopathy, no masses. RESPIRATORY: Airway patent, respirations nonlabored. Clear to auscultation bilaterally, no rales, rhonchi, wheezing. CARDIOVASCULAR: Regular rate and rhythm without murmurs rubs or gallops. ABDOMINAL: Soft, nontender, nondistended, normal bowel sounds MUSCULOSKELETAL: Moves all extremities. Strength/ROM intact, No edema, No calf tenderness. NEURO: Alert. Grossly intact SKIN: Warm, dry. Normal Color Course Vital Signs Vital signs: Vital Signs Temperature 98.3 F 12/23/24 06:05 Pulse Rate 87 12/23/24 06:05 Respiratory Rate 16 12/23/24 06:05 Blood Pressure 191/95 H 12/23/24 06:05 Pulse Oximetry 99 12/23/24 06:05 Oxygen Delivery Room Air 12/23/24 06:05 Temperature 98.3 F 12/23/24 06:05 Pulse Rate 72 12/23/24 16:00 Respiratory Rate 18 12/23/24 10:54 Blood Pressure 163/64 H 12/23/24 10:54 Pulse Oximetry 98 12/23/24 10:54 Oxygen Delivery Room Air 12/23/24 12:56 Medical Decision Making [facility] Narrative Medical decision making narrative: 74-year-old female history of seizures presents emergency department for evaluation for altered mental status for the last few days and suspected seizure overnight. Patient is currently afebrile with no leukocytosis hemoglobin of 14.1. Patient has an INR 0.9. Patient has a mild hyponatremia with a sodium of 128. Patient has mild elevation of AST ALT alk-phos. Patient had a negative cath UA and patient was negative for influenza RSV and for COVID. Head CT was negative for acute intracranial abnormality. On re-evaluation patient is very anxious and is still having hallucinations, she was reporting that she was floating into the ceiling. states this is atypical for her. No underlying evidence of infection, patient may still be having a prolonged postictal phase. Patient was also having similar symptoms when she was taking 1 g of Keppra, patient is currently taking 750 mg of Keppra but she still may be having adverse reactions. Case will be discussed with hospitalist for admission for further evaluation including MRI. Case was accepted by the hospitalist for further evaluation. Patient family were updated on the plan for admission. All questions concerns were addressed patient was well-appearing at time of admission. Differential Diagnosis Differential Diagnosis: Intracranial abnormality, pneumonia, prolonged postictal phase, breakthrough seizure, UTI, COVID, RSV, influenza, medication adverse reaction Vital Signs Vital Signs: Vital Signs Temperature 98.3 F 12/23/24 06:05 Pulse Rate 87 12/23/24 06:05 Respiratory Rate 16 12/23/24 06:05 Blood Pressure 191/95 H 12/23/24 06:05 Pulse Oximetry 99 12/23/24 06:05 Oxygen Delivery Room Air 12/23/24 06:05 Temperature 98.3 F 12/23/24 06:05 Pulse Rate 72 12/23/24 16:00 Respiratory Rate 18 12/23/24 10:54 Blood Pressure 163/64 H 12/23/24 10:54 Pulse Oximetry 98 12/23/24 10:54 Oxygen Delivery Room Air 12/23/24 12:56 Lab Data Lab results reviewed: Yes I reviewed the patient's lab results. 12/23/24 06:54 12/23/24 06:54 Labs: Lab Results 12/23/24 12/23/24 12/23/24 Range/Units 06:54 07:25 07:50 WBC 3.7 L (4.5-10.0) K/mm3 RBC 4.29 (4.2-5.4) M/mm3 Hgb 14.1 (12.0-15.0) g/dL Hct 41.7 (37.0-47.0) % MCV 97.2 (80-100) fl MCH 32.9 (26-34) pg MCHC 33.8 (32-36) g/dl RDW 13.8 (11.5-14.5) % Plt Count 196 (150-375) k/mm3 MPV 10.7 H (7.4-10.4) fl Immature Gran % (Auto) 0.3 (0-0.5) % Neut % (Auto) 53.0 (45.5-73.1) % Lymph % (Auto) 29.5 (18.3-44.2) % [place] % (Auto) 14.2 H (2.6-8.5) % Eos % (Auto) 2.2 (0-4.4) % Baso % (Auto) 0.8 (0.2-1.2) % Lymph # (Auto) 1.08 (0.9-3.2) K/mm3 [place] # (Auto) 0.5 (0.1-0.6) K/mm3 Eos # (Auto) 0.1 (0-0.3) K/mm3 Baso # (Auto) 0.0 (0.0-0.1) K/mm3 Abs Immat Gran (auto) 0.01 (0.00-0.031) K/mm3 Absolute Neuts (auto) 1.9 (1.3-6.7) K/mm3 Absolute Nucleated RBC 0.000 (0.0-0.012) K/mm3 Nucleated RBC % 0.0 (0.0-0.2) % PT 12.1 (11.1-14.7) Seconds INR 0.9 APTT 33.9 (22.3-36.8) Seconds Sodium 128 L (137-145) mmol/L Potassium 4.7 (3.4-5.0) mmol/L Chloride 90 L (98-107) mmol/L Carbon Dioxide 30 (22-30) mmol/L Anion Gap 8 (4-12) mmol/L BUN 14 (7-17) mg/dL Creatinine 0.62 L (0.7-1.0) mg/dL Estim Creat Clear Calc 60 ml/min Estimated GFR > 60 (59 - ) Glucose 111 H (65-110) mg/dL Calcium 9.7 (8.4-10.2) mg/dL Total Bilirubin 0.6 (0.2-1.3) mg/dL AST 100 H (14-36) U/L ALT 123 H (6-35) U/L Alkaline Phosphatase 214 H (38-126) U/L Total Protein 8.6 H (6.3-8.2) g/dL Albumin 4.6 (3.5-5.1) g/dL Urine Color Yellow (Yellow) Urine Appearance Clear (Clear) Urine pH 8.0 (5.0-9.0) Ur Specific [place] 1.011 (1.001-1.035) Urine Protein Negative (Negative) mg/dL Urine Glucose (UA) Negative (Negative) mg/dL Urine Ketones Negative (Negative) mg/dL Ur Blood (Man) Negative (Negative) Urine Nitrate Negative (Negative) Urine Bilirubin Negative (Negative) Urine Urobilinogen 0.2 (<2.0) mg/dL Leukocyte Esterase Rfl Negative (Negative) SHIRA/UL Influenza A (RT-PCR) Negative (Negative) Influenza B (RT-PCR) Negative (Negative) RSV (RT-PCR) Negative (Negative) SARS-CoV-2 RNA (RT-PCR) Negative (Negative) Imaging Data Radiologist's impression: Impressions Head CT 12/23/24 07:14 IMPRESSION: 1. Normal aging brain. No acute intracranial process. ECG Data EKG #1: EKG Interpretation: normal rate, sinus rhythm, no ectopy, non-specific ST changes, normal QRS, normal QT and NL axis Discharge Plan Discharge Clinical Impression: AMS (altered mental status), Seizure, Hallucination Patient Disposition: Still a Patient Condition: Serious
[2024-12-23] MEDS: levETIRAcetam 500MG/NACL 100ML 500 MG/100 ML BAG 400 MG IVPB (07:46)
[2024-12-23] MEDS: LACTATED RINGERS 1,000 ML 999 ML IV CONT (07:46)
[2024-12-23 08:33] LABS: Influenza A QL RT-PCR Negative (Negative); Influenza B QL RT-PCR Negative (Negative); RSV RNA, RT-PCR Negative (Negative); SARS-CoV-2 RNA PCR Negative (Negative)
--- NOTE | 2024-12-23 11:34 | ADMGEN ---
This patient, Apurva Holman, was admitted to Medical Room 344-01. Patient/family oriented to hospital policies and general routines including ID bracelet, bed and alarms, visiting hours, pain management, procedures, bathroom and other care routines, personal items, smoking policy, room service/diet, and visiting hours. Information on how to activate the Rapid Response Team has been discussed. Patient/Family are encouraged to report perceived risks to care and to ask questions if they do not understand what they are told or what they should do.
--- NOTE | 2024-12-23 16:51 | PM.IMHP ---
H&P: HPI History of Present Illness Date/Time: 12/23/24 16:51 Chief Complaint: AMS Narrative: 74 y/o with PMH of anxiety, hyponatremia, seizures, PTSD, depression, and hypertension presents here with altered mental status and suspected seizure. The patient presents here from home via EMS on 12/23 for further evaluation of altered mental status suspected seizure. The patient and her provided the following report. The patient has been reports that she has been having increased hallucinations over the past few days. When he went to wake her that this morning she was less responsive than usual and her behavior was similar to when she has previously had a seizure. No witnessed seizure. Patient denies any oral trauma or incontinence. No new headaches or dizziness. She currently follows with Karolyn FALL at [facility] for her neurological care. She reports her Keppra was recently increased after she had a breakthrough seizure in June (Keppra 750 mg b.i.d. -> 1G b.i.d.). However she began to experience worsening hallucinations at that time and her Keppra was reduced back to her original dose of 750 mg b.i.d. She reports the hallucinations have become less. No recent missed doses of her Keppra. Denies shortness of breath, cough, fever, chills, or body aches. Patient however is a poor historian and has difficulty remaining on topic. Initial VS at presentation: 98.3? F, HR 87, RR 16, 191/95, and 99% on RA. ED workup showed: WBC 3.7, no anemia, platelet count within normal limits, normal coags, sodium 128, creatinine 0.62, glucose 111, UA was unremarkable, viral PCR negative. Head CT showed a normal aging brain and no acute intracranial process. CXR showed interstitial opacities in both lungs (differential includes edema, pneumonia, chronic interstitial changes) and small opacities in the mid and lower lungs which may represent atelectasis/scarring or infiltrates. Review of Systems Review of Systems: All systems reviewed & are unremarkable except as noted in HPI and below (Very limited, poor historian) [facility] Past Medical History Medical History Excessive cerumen in both ear canals Hyponatremia Grand mal seizure Seizures Ganglion cyst of foot removal 2004 (left) Cyst of breast, left, diffuse fibrocystic Removal 1981 PTSD (post-traumatic stress disorder) Cataract Anxiety Depression HTN (hypertension) Surgical History Surgical History History of breast surgery breast cyst benign left History of surgery on arm titanium theresa Family History Family History Father Patient's father is , Onset Age: 88 Mother Family history of malignant neoplasm of bone Social History Social History Social History: Caffeine- coffee Plant based diet Smoking status: Never smoker Alcohol intake: never Alcohol use details: rarely Substance use: never Substance use type: does not use Lack of Transportation: No Lack of Food: Never True Current Housing: I Have Housing Concerned About Future Housing: No Difficulty Paying Gas/Electric Bills: No Difficulty Paying for Meds: No Currently Unemployed: No Education: Master's Degree or Higher Difficulty w/ Childcare or Family Care: No Living arrangements: with family Additional living arrangements comments: Lives with . Occupation/Education: retired Spiritual care concerns: No Meds Home Medications and Allergies Home Medications ?Medication ?Instructions ?Recorded ?Confirmed ?Type cholecalciferol (vitamin D3) 25 25 mcg PO DAILY 12/16/19 12/23/24 History mcg (1,000 unit) capsule levetiracetam 500 mg tablet 750 mg PO Q12H 06/19/24 12/23/24 History sodium chloride 1,000 mg soluble 1,000 mg PO DAILY #30 tabs 12/19/24 12/23/24 Rx tablet levetiracetam 1,000 mg tablet 750 mg PO BID 12/23/24 12/23/24 History (Keppra) nebivolol 5 mg tablet (Bystolic) 5 mg PO DAILY 12/23/24 12/23/24 History sennosides 8.6 mg-docusate sodium 1 tab-cap PO DAILY 12/23/24 12/23/24 History 50 mg tablet (Senna-S) Allergies Allergy/AdvReac Type Severity Reaction Status Date / Time Latex, Natural Rubber Allergy Intermediate Hives Verified 08/19/24 09:03 amoxicillin Allergy Mild Diarrhea Verified 08/19/24 09:03 Corticosteroids Allergy Unknown excessive Verified 08/19/24 09:03 (Glucocorticoids) thirst hydrocodone Allergy Unknown naseau, Verified 08/19/24 09:03 abdominal pain lisinopril Allergy Unknown Constipatio Verified 08/19/24 09:03 n bleach Allergy Unknown Rash Uncoded 08/19/24 09:03 fragrance Allergy Unknown Rash Uncoded 08/19/24 09:03 Vital Signs Vital Signs - 24 hr 12/23/24 06:05 12/23/24 06:19 12/23/24 07:29 Temperature 98.3 F Pulse Rate 87 81 76 Respiratory Rate 16 20 Blood Pressure 191/95 H 187/84 H Pulse Oximetry 99 98 Oxygen Delivery Room Air 12/23/24 09:39 12/23/24 10:54 12/23/24 12:00 Temperature Pulse Rate 80 81 77 Respiratory Rate 20 18 Blood Pressure 171/82 H 163/64 H Pulse Oximetry 98 98 Oxygen Delivery 12/23/24 12:56 12/23/24 16:00 Temperature Pulse Rate 72 Respiratory Rate Blood Pressure Pulse Oximetry Oxygen Delivery Room Air Exam Const: General: comfortable and no acute distress Other: , female, elderly, nontoxic appearance HENMT: Face/Nose/Sinus: Normal nares present Mouth: Yes moist mucous membranes Eyes: General: appearance normal, both eyes and all related structures Sclera: sclerae normal Pupils: Equal, round and reactive pupils present EOM: EOMs intact bilaterally Resp: Effort & Inspection: normal respiratory effort Auscultation: clear to auscultation bilaterally Cardio: Rate: regular rate Rhythm: regular rhythm Other: S1-S2 present without murmur, rub, ectopy GI: Other: Abdomen soft, nondistended, nontender. Normoactive bowel sounds in all quadrants. Skin: General skin exam: normal color and no rashes or lesions noted Wounds: no wounds Neuro: Other: odd statements made, slow speech amberly. A/Ox self, year, place, and situation. moving all extremities, no sensory deficits. Extrem: General: normal to inspection Psych: Other: Poor insight and judgment present, flat affect, tangential thinking noted, making odd statements H&P: Results Labs Labs: Short CBC 12/23/24 Range/Units 06:54 WBC 3.7 L (4.5-10.0) K/mm3 Hgb 14.1 (12.0-15.0) g/dL Hct 41.7 (37.0-47.0) % Plt Count 196 (150-375) k/mm3 BMP 12/23/24 06:54 Sodium 128 L Potassium 4.7 Chloride 90 L Carbon Dioxide 30 BUN 14 Creatinine 0.62 L Glucose 111 H Calcium 9.7 Liver Function 12/23/24 Range/Units 06:54 Total Bilirubin 0.6 (0.2-1.3) mg/dL AST 100 H (14-36) U/L ALT 123 H (6-35) U/L Alkaline Phosphatase 214 H (38-126) U/L Albumin 4.6 (3.5-5.1) g/dL Urine 12/23/24 Range/Units 07:25 Urine Color Yellow (Yellow) Urine Appearance Clear (Clear) Urine pH 8.0 (5.0-9.0) Ur Specific [place] 1.011 (1.001-1.035) Urine Protein Negative (Negative) mg/dL Urine Glucose (UA) Negative (Negative) mg/dL Assessment and Plan Assessment and plan (1) AMS (altered mental status): Qualifiers: Altered mental status type: unspecified Qualified Code(s): R41.82 - Altered mental status, unspecified Code(s): R41.82 - Altered mental status, unspecified Status: Acute Assessment and Plan: Patient with worsening hallucinations of the last few days and difficult to arouse this morning per . Per her appearance/presentation is similar to when she has been postictal from a seizure. No seizure activity witnessed. Patient did have a breakthrough seizure in June of 2024, Keppra was attempted to be increased from 750 mg b.i.d. to 1 g b.i.d. however this worsened her hallucinations. Patient was dropped back to 750 mg b.i.d.. - head CT, 12/23: Normal aging brain. No acute intracranial process. - UA unremarkable - viral PCR negative - MRI brain ordered -> patient initially told bedside RN that she would not do the MRI as it causes panic attacks and MRI at this facility is not an open MRI. After discussing imaging with the patient, she is currently amenable to trying if she is given Xanax. One time ordered Xanax p.r.n. ordered for premedication for MRI. - neurologist consulted - seizure precautions - neurological checks q.4 - check UDS - CXR concerning for pneumonia, could be source of patient's alteration. Started on broad-spectrum antibiotics. - check Keppra levels, will continue Keppra 750 mg b.i.d.. Given Keppra 500 mg IV in the ED on 12/23. (2) Hallucination: Code(s): R44.3 - Hallucinations, unspecified Status: Acute Assessment and Plan: - see above (3) Seizures: Code(s): R56.9 - Unspecified convulsions Status: Chronic Assessment and Plan: - see above (4) Acute hyponatremia: Code(s): E87.1 - Hypo-osmolality and hyponatremia Status: Acute Assessment and Plan: - Na 128 - given 1L of LR in the ED, will start NS at 100 mL/hr x1L - monitor neurologic status - continue patient's home medication: NaCl tabs 1G daily - trend sodium - contributing to patient's alteration? (5) Pneumonia: Qualifiers: Laterality: bilateral Lung location: unspecified part of lung Pneumonia type: due to unspecified organism Qualified Code(s): J18.9 - Pneumonia, unspecified organism Code(s): J18.9 - Pneumonia, unspecified organism Status: Acute Assessment and Plan: - did not meet SIRS criteria, WBC <4 only - CXR: 1: Interstitial opacities in both lungs. Differential includes interstitial edema, interstitial pneumonia or chronic interstitial changes. 2. Small opacities in the mid and lower lungs which represents atelectasis/scarring or infiltrates. - started on ceftriaxone and azithromycin on 12/23 - Viral PCR negative on 12/23 - supportive care: Mucinex yariel, Tessalon Perles p.r.n., Tylenol p.r.n., lozenge p.r.n. - no current supplemental O2 requirement, monitor (6) HTN (hypertension): Qualifiers: Hypertension type: primary hypertension Qualified Code(s): I10 - Essential (primary) hypertension Code(s): I10 - Essential (primary) hypertension Status: Chronic Assessment and Plan: - chronic, currently 163/64 - continue home medications: Bystolic - monitor Plan Diet: Heart healthy GI Prophylaxis: N/a DVT Prophylaxis: SCDs IV fluids: 1L bolus of LR -> NS 100 mL/hr x1L Lines/Tubes: Peripheral IV Code Status: Full code Quality VTE Prophylaxis VTE prophylaxis: mechanical ordered Hospitalist MIPS Advance Care Plan I have confirmed that the patient's Advanced Care Plan is present, code status is documented, or surrogate decision maker is listed in patient medical record.: Yes Medication Reconciliation I have utilized all available resources to obtain, update and review the patients current medications (includes all prescriptions, OTC, herbals, cannabis, and nutritional supplements).: Yes
[2024-12-23] MEDS: NEBIVOLOL HCL 5 MG TABLET PO (18:11)
[2024-12-23] MEDS: AZITHROMYCIN IV 500 MG in SODIUM CHLORIDE 0.9% IV 250 ML IVPB (18:12)
[2024-12-23] MEDS: SODIUM CHLORIDE 0.9% IV 1,000 ML 100 ML IV CONT (18:12)
[2024-12-23 21:03] LABS: Cannabinoid Screen Urine Negative (Negative)
[2024-12-23] MEDS: guaiFENesin 12 HR 600 MG TABCR PO (21:38)
[2024-12-23] MEDS: cefTRIAXone 1 GM in SODIUM CHLORIDE 0.9% IV 50 ML 100 ML IVPB (21:38)
[2024-12-23] MEDS: ACETAMINOPHEN 325 MG TABLET 650 MG PO (21:59)
[2024-12-24] VITALS (14 sets, daily range): BP systolic 120–162; BP diastolic 51–107; PULSE 40–72; RESP 14–18; TEMP 32.9–37.1; O2SAT 98–100
[2024-12-24] MEDS: NEBIVOLOL HCL 5 MG TABLET PO (04:18)
[2024-12-24] MEDS: diphenhydrAMINE HCl CAP 25 MG CAPSULE PO (04:18)
[2024-12-24 05:49] LABS: Hematocrit 34.6 % (37.0-47.0); Hemoglobin 11.6 g/dL (12.0-15.0); Immature Granulocyte Percent A 0.0 % (0-0.5); Lymphocytes Absolute Auto 0.83 K/mm3 (0.9-3.2); Mean Corpuscular HGB Conc 33.5 g/dl (32-36); Mean Corpuscular Hemoglobin 32.7 pg (26-34); Mean Corpuscular Volume 97.5 fl (80-100); Nucleated Red Blood Cells Absolute Auto 0.000 K/mm3 (0.0-0.012); Nucleated Red Blood Cells Perc 0.0 % (0.0-0.2); Platelet Count Result 165 k/mm3 (150-375); Red Blood Count 3.55 M/mm3 (4.2-5.4); White Blood Count 2.9 K/mm3 (4.5-10.0)
[2024-12-24 06:16] LABS: Alanine Aminotransferase 87 U/L (6-35); Albumin Level 3.5 g/dL (3.5-5.1); Alkaline Phosphatase 160 U/L (38-126); Aspartate Amino Transferase 68 U/L (14-36); Bilirubin,Total 0.5 mg/dL (0.2-1.3); Blood Urea Nitrogen 15 mg/dL (7-17); Calcium 8.1 mg/dL (8.4-10.2); Carbon Dioxide 25 mmol/L (22-30); Estimated CRCL calculation 67 ml/min; Estimated Glomerular Filt Rate > 60; Glucose 74 mg/dL (65-110); Potassium 4.2 mmol/L (3.4-5.0); Sodium 126 mmol/L (137-145); Total Protein 6.5 g/dL (6.3-8.2)
[2024-12-24 06:24] LABS: Anion Gap 5 mmol/L (4-12); Chloride 96 mmol/L (98-107)
--- NOTE | 2024-12-24 09:42 | P.PNIM_ITS ---
Progress Note: A&P Assessment and Plan (1) AMS (altered mental status): Qualifiers: Altered mental status type: unspecified Qualified Code(s): R41.82 - Altered mental status, unspecified Code(s): R41.82 - Altered mental status, unspecified Status: Acute Assessment and Plan: Patient with worsening hallucinations of the last few days and difficult to arouse this morning per . Per her appearance/presentation is similar to when she has been postictal from a seizure. No seizure activity witnessed. Patient did have a breakthrough seizure in June of 2024, Keppra was attempted to be increased from 750 mg b.i.d. to 1 g b.i.d. however this worsened her hallucinations. Patient was dropped back to 750 mg b.i.d.. - head CT, 12/23: Normal aging brain. No acute intracranial process. - UA unremarkable - viral PCR negative - MRI brain ordered -> patient initially told bedside RN that she would not do the MRI as it causes panic attacks and MRI at this facility is not an open MRI. After discussing imaging with the patient, she is currently amenable to trying if she is given Xanax. One time ordered Xanax p.r.n. ordered for premedication for MRI. - neurologist consulted - seizure precautions - neurological checks q.4 - check UDS - CXR concerning for pneumonia, could be source of patient's alteration. Started on broad-spectrum antibiotics. - check Keppra levels, will continue Keppra 750 mg b.i.d.. Given Keppra 500 mg IV in the ED on 12/23. Neurology consulted- awaiting for recommendations will continue antibiotics for now and stop/adjust as indicated (2) Hallucination: Code(s): R44.3 - Hallucinations, unspecified Status: Acute Assessment and Plan: - see above (3) Seizures: Code(s): R56.9 - Unspecified convulsions Status: Chronic Assessment and Plan: - see above (4) Acute hyponatremia: Code(s): E87.1 - Hypo-osmolality and hyponatremia Status: Acute Assessment and Plan: - Na 128 - given 1L of LR in the ED, will start NS at 100 mL/hr x1L - monitor neurologic status - continue patient's home medication: NaCl tabs 1G daily - trend sodium - contributing to patient's alteration? daily labs ordered-monitor closely (5) Pneumonia: Qualifiers: Pneumonia type: due to unspecified organism Laterality: bilateral Lung location: unspecified part of lung Qualified Code(s): J18.9 - Pneumonia, unspecified organism Code(s): J18.9 - Pneumonia, unspecified organism Status: Acute Assessment and Plan: - did not meet SIRS criteria, WBC <4 only - CXR: 1: Interstitial opacities in both lungs. Differential includes interstitial edema, interstitial pneumonia or chronic interstitial changes. 2. Small opacities in the mid and lower lungs which represents atelectasis/scarring or infiltrates. - started on ceftriaxone and azithromycin on 12/23 - Viral PCR negative on 12/23 - supportive care: Mucinex yariel, Tessalon Perles p.r.n., Tylenol p.r.n., lozenge p.r.n. - no current supplemental O2 requirement, monitor (6) HTN (hypertension): Qualifiers: Hypertension type: primary hypertension Qualified Code(s): I10 - Essential (primary) hypertension Code(s): I10 - Essential (primary) hypertension Status: Chronic Assessment and Plan: - chronic, currently 163/64 - continue home medications: Bystolic - monitor Plan Diet: Heart healthy GI Prophylaxis: N/a DVT Prophylaxis: SCDs IV fluids: 1L bolus of LR -> NS 100 mL/hr x1L Lines/Tubes: Peripheral IV Code Status: Full code Time Spent With Patient Time with patient: 25 - 35 minutes Subjective Date/time seen: 12/24/24 09:42 Interval history: 74 y/o with PMH of anxiety, hyponatremia, seizures, PTSD, depression, and hypertension presents here with altered mental status and suspected seizure. Initial VS at presentation: 98.3? F, HR 87, RR 16, 191/95, and 99% on RA. ED workup showed: WBC 3.7, no anemia, platelet count within normal limits, normal coags, sodium 128, creatinine 0.62, glucose 111, UA was unremarkable, viral PCR negative. Head CT showed a normal aging brain and no acute intracranial process. CXR showed interstitial opacities in both lungs (differential includes edema, pneumonia, chronic interstitial changes) and small opacities in the mid and lower lungs which may represent atelectasis/scarring or infiltrates. Pt is seen and examined. She is anxious for MRI but has xanax ordered. She is a lert and oriented, some stomach discomfort. Review of Systems Review of Systems: All systems reviewed & are unremarkable except as noted in HPI and below Exam Narrative: tangential thinking, odd statements made, slow speech amberly. A/Ox self, year, place, and situation. Const: General: comfortable and no acute distress Other: , female, elderly, nontoxic appearance HENMT: Face/Nose/Sinus: Normal nares present Mouth: Yes moist mucous membranes Eyes: General: appearance normal, both eyes and all related structures Sclera: sclerae normal Pupils: Equal, round and reactive pupils present EOM: EOMs intact bilaterally Resp: Effort & Inspection: normal respiratory effort Auscultation: clear to auscultation bilaterally Cardio: Rate: regular rate Rhythm: regular rhythm Other: S1-S2 present without murmur, rub, ectopy GI: Other: Abdomen soft, nondistended, nontender. Normoactive bowel sounds in all quadrants. Skin: General skin exam: normal color and no rashes or lesions noted Wounds: no wounds Neuro: Cranial nerves: Yes Equal, round and reactive pupils present Other: odd statements made, slow speech amberly. A/Ox self, year, place, and situation. moving all extremities, no sensory deficits. Extrem: General: normal to inspection Psych: Other: Poor insight and judgment present, flat affect, tangential thinking noted, making odd statements Objective Data Vital Signs Vital Signs: Vital Signs - 24 hr 12/23/24 10:54 12/23/24 12:00 12/23/24 12:56 Temperature Pulse Rate 81 77 Respiratory Rate 18 Blood Pressure 163/64 H Pulse Oximetry 98 Oxygen Delivery Room Air 12/23/24 16:00 12/23/24 18:11 12/23/24 18:13 Temperature Pulse Rate 72 76 75 Respiratory Rate Blood Pressure 171/68 H Pulse Oximetry 99 Oxygen Delivery 12/23/24 20:00 12/23/24 20:17 12/24/24 00:00 Temperature 97.5 F L Pulse Rate 63 73 70 Respiratory Rate 18 Blood Pressure 141/54 H Pulse Oximetry 99 Oxygen Delivery 12/24/24 04:00 12/24/24 04:08 12/24/24 08:35 Temperature 97.6 F Pulse Rate 70 72 Respiratory Rate 18 Blood Pressure 162/77 H Pulse Oximetry 99 98 Oxygen Delivery Room Air Intake/Output Intake/Output: Intake & Output 12/21/24 12/22/24 12/23/24 12/24/24 23:59 23:59 23:59 23:59 Intake Total 1698 250 Output Total 250 Balance 1448 250 Meds/Results Medications: Active Medications Generic Name Dose Route Start Last Admin Trade Name Freq PRN Reason Stop Dose Admin Acetaminophen 650 mg 12/23/24 17:37 12/23/24 21:59 Acetaminophen 325 Mg Tablet PO 650 mg Q6H PRN Administration Mild Pain (1-3) or Fever Alprazolam 0.5 mg 12/23/24 22:34 Alprazolam (*Crx) 0.5 Mg Tablet PO ONCE PRN Anxiety prior to MRI Benzocaine 1 lozenge 12/23/24 17:37 Benzocaine/Menthol (*Bkc) 18 Ea Lozenge PO PRN PRN Sore Throat Benzonatate 100 mg 12/23/24 17:37 Benzonatate 100 Mg Capsule PO TID PRN Cough Calcium Carbonate 200 mg 12/23/24 17:37 Calcium Carbonate (Tums) 500 Mg (200 Mg Elemental) PO Q6H PRN Indigestion Docusate Sodium 100 mg 12/23/24 17:37 Docusate Sodium 100 Mg Capsule PO Q12H PRN Constipation Guaifenesin 600 mg 12/23/24 21:00 12/23/24 21:38 Guaifenesin 12 Hr 600 Mg Tabcr PO 600 mg Q12HR YARIEL Administration Ceftriaxone Sodium 1 gm/ 50 mls @ 100 mls/hr 12/23/24 19:00 12/23/24 21:38 Sodium Chloride IVPB 100 mls/hr Q24H YARIEL Administration Azithromycin 500 mg/ Sodium 250 mls @ 250 mls/hr 12/23/24 18:00 12/23/24 18:12 Chloride IVPB 12/27/24 18:59 250 mls/hr Q24H YARIEL Administration Levetiracetam 750 mg 12/24/24 05:00 12/24/24 04:18 Levetiracetam 250 Mg Tablet PO 750 mg 0500,1700 [facility] Administration Nebivolol 5 mg 12/23/24 18:00 12/24/24 04:18 Nebivolol Hcl 5 Mg Tablet PO 5 mg 0500 YARIEL Administration Senna/Docusate Sodium 1 tab 12/24/24 09:00 Senna/Docusate Sodium Tablet PO DAILY [facility] Sodium Chloride 1 gm 12/24/24 09:00 Sodium Chloride 1 Gm Tablet PO DAILY [facility] Vitamin D 25 mcg 12/24/24 09:00 Cholecalciferol (Vitamin D3) 25 Mcg (1,000 Units) Tablet PO DAILY [facility] Radiology Results: ITS Impressions Head CT 12/23/24 07:14 IMPRESSION: 1. Normal aging brain. No acute intracranial process. Chest X-Ray 12/23/24 10:41 IMPRESSION: 1: Interstitial opacities in both lungs. Differential includes interstitial edema, interstitial pneumonia or chronic interstitial changes. 2. Small opacities in the mid and lower lungs which represents atelectasis/scarring or infiltrates. Labs Labs: Laboratory Results - last 24 hr 12/23/24 12/24/24 20:35 05:26 WBC 2.9 L RBC 3.55 L Hgb 11.6 L Hct 34.6 L MCV 97.5 MCH 32.7 MCHC 33.5 RDW 13.6 Plt Count 165 MPV 10.5 H Immature Gran % (Auto) 0.0 Neut % (Auto) 56.9 Lymph % (Auto) 28.9 [place] % (Auto) 12.5 H Eos % (Auto) 1.0 Baso % (Auto) 0.7 Lymph # (Auto) 0.83 L [place] # (Auto) 0.4 Eos # (Auto) 0.0 Baso # (Auto) 0.0 Abs Immat Gran (auto) 0.00 Absolute Neuts (auto) 1.6 Absolute Nucleated RBC 0.000 Nucleated RBC % 0.0 Sodium 126 L Potassium 4.2 Chloride 96 L Carbon Dioxide 25 Anion Gap 5 BUN 15 Creatinine 0.59 L Estim Creat Clear Calc 67 Estimated GFR > 60 Glucose 74 Calcium 8.1 L Total Bilirubin 0.5 AST 68 H ALT 87 H Alkaline Phosphatase 160 H Total Protein 6.5 Albumin 3.5 Urine Opiates Screen Negative Urine Methadone Screen Negative Ur Barbiturates Screen Negative Ur Phencyclidine Scrn Negative Ur Amphetamine Screen Negative U Benzodiazepines Scrn Negative Urine Cocaine Screen Negative U Cannabinoids Screen Negative Quality VTE Prophylaxis VTE prophylaxis: mechanical ordered
[2024-12-24] MEDS: SODIUM CHLORIDE 1 GM TABLET PO (09:43)
[2024-12-24] MEDS: SENNA/DOCUSATE SODIUM TABLET 1 TAB PO (09:43)
[2024-12-24] MEDS: guaiFENesin 12 HR 600 MG TABCR PO (09:43)
[2024-12-24] MEDS: CHOLECALCIFEROL (VITAMIN D3) 25 MCG (1,000 UNITS) TABLET PO (09:43)
[2024-12-24] MEDS: ALPRAZolam (*CRX) 0.5 MG TABLET PO (11:10)
--- NOTE | 2024-12-24 12:16 | WPDNEURCNPN ---
Consult date: 12/24/24 HPI: Apurva Holman is a 74 year old female Admitted to the hospital through the emergency room for the complaints of change in the mental status and with the possibility of seizures. As per the family patient has been experiencing increasing hallucination over the last several days and when the went to wake up the patient she was found to be less responsive than usual which was reminiscent of her having had a seizure in the past though did not witness any active seizure. Upon arrival to the emergency room she was more alert and more appropriate and was not complaining of any general symptomatology. She has been taking multiple medications which included Keppra 750mg q.12 hours and 1000mg q.12 hours that is total of 1750mg b.i.d. in addition to Bystolic 5mg daily. She is allergic to multiple medications particularly amoxicillin, hydrocodone, lisinopril, he does have ongoing history of acute anxiety, electrolyte imbalance, seizure disorder, posttraumatic stress disorder, and hypertension. She is a never smoker and never alcohol intake. On initial exam in the emergency room she was documented to have anxiety, her vital signs were with blood pressure 191/95, CBC was normal, BMP with sodium only 128, and negative for the common viral infections. EKG was normal with no atrial fibrillation. Initial CT scan of the head was negative for the bleed Or hydrocephalus or stroke. MRI is pending.Patient was sedated for the MRI and is still sleepy so did not examine further Review of Systems Review of Systems: All systems reviewed & are unremarkable except as noted in HPI and below PMFSH Past Medical History Medical History Excessive cerumen in both ear canals Hyponatremia Grand mal seizure Seizures Ganglion cyst of foot removal 2004 (left) Cyst of breast, left, diffuse fibrocystic Removal 1981 PTSD (post-traumatic stress disorder) Cataract Anxiety Depression HTN (hypertension) Surgical History Surgical History History of breast surgery breast cyst benign left History of surgery on arm titanium theresa Family History Family History Father Patient's father is , Onset Age: 88 Mother Family history of malignant neoplasm of bone Social History Social History Social History: Caffeine- coffee Plant based diet Smoking status: Never smoker Alcohol intake: never Alcohol use details: rarely Substance use: never Substance use type: does not use Lack of Transportation: No Lack of Food: Never True Current Housing: I Have Housing Concerned About Future Housing: No Difficulty Paying Gas/Electric Bills: No Difficulty Paying for Meds: No Currently Unemployed: No Education: Master's Degree or Higher Difficulty w/ Childcare or Family Care: No Living arrangements: with family Additional living arrangements comments: Lives with . Occupation/Education: retired Spiritual care concerns: No Meds Home Medications and Allergies Home Medications ?Medication ?Instructions ?Recorded ?Confirmed ?Type cholecalciferol (vitamin D3) 25 25 mcg PO DAILY 12/16/19 12/23/24 History mcg (1,000 unit) capsule levetiracetam 500 mg tablet 750 mg PO Q12H 06/19/24 12/23/24 History sodium chloride 1,000 mg soluble 1,000 mg PO DAILY #30 tabs 12/19/24 12/23/24 Rx tablet levetiracetam 1,000 mg tablet 750 mg PO BID 12/23/24 12/23/24 History (Keppra) nebivolol 5 mg tablet (Bystolic) 5 mg PO DAILY 12/23/24 12/23/24 History sennosides 8.6 mg-docusate sodium 1 tab-cap PO DAILY 12/23/24 12/23/24 History 50 mg tablet (Senna-S) Allergies Allergy/AdvReac Type Severity Reaction Status Date / Time Latex, Natural Rubber Allergy Intermediate Hives Verified 08/19/24 09:03 olanzapine (From Zyprexa) Allergy Intermediate Itching Verified 12/24/24 04:10 amoxicillin Allergy Mild Diarrhea Verified 08/19/24 09:03 Corticosteroids Allergy Unknown excessive Verified 08/19/24 09:03 (Glucocorticoids) thirst hydrocodone Allergy Unknown [place], Verified 08/19/24 09:03 abdominal pain lisinopril Allergy Unknown Constipatio Verified 08/19/24 09:03 n bleach Allergy Unknown Rash Uncoded 08/19/24 09:03 fragrance Allergy Unknown Rash Uncoded 08/19/24 09:03 Vital Signs Vital Signs - 24 hr 12/23/24 12:56 12/23/24 16:00 12/23/24 18:11 Temperature Pulse Rate 72 76 Respiratory Rate Blood Pressure Pulse Oximetry Oxygen Delivery Room Air 12/23/24 18:13 12/23/24 20:00 12/23/24 20:17 Temperature 36.4 C L Pulse Rate 75 63 73 Respiratory Rate 18 Blood Pressure 171/68 H 141/54 H Pulse Oximetry 99 99 Oxygen Delivery 12/24/24 00:00 12/24/24 04:00 12/24/24 04:08 Temperature 36.4 C Pulse Rate 70 70 72 Respiratory Rate 18 Blood Pressure 162/77 H Pulse Oximetry 99 Oxygen Delivery 12/24/24 08:00 12/24/24 08:35 Temperature Pulse Rate Respiratory Rate Blood Pressure Pulse Oximetry 98 Oxygen Delivery Room Air Room Air Results Labs 12/24/24 05:26 12/24/24 05:26 Labs: Short CBC 12/24/24 Range/Units 05:26 WBC 2.9 L (4.5-10.0) K/mm3 Hgb 11.6 L (12.0-15.0) g/dL Hct 34.6 L (37.0-47.0) % Plt Count 165 (150-375) k/mm3 BMP 12/24/24 05:26 Sodium 126 L Potassium 4.2 Chloride 96 L Carbon Dioxide 25 BUN 15 Creatinine 0.59 L Glucose 74 Calcium 8.1 L Liver Function 12/24/24 Range/Units 05:26 Total Bilirubin 0.5 (0.2-1.3) mg/dL AST 68 H (14-36) U/L ALT 87 H (6-35) U/L Alkaline Phosphatase 160 H (38-126) U/L Albumin 3.5 (3.5-5.1) g/dL
[2024-12-24] MEDS: AZITHROMYCIN IV 500 MG in SODIUM CHLORIDE 0.9% IV 250 ML IVPB (17:01)
[2024-12-24] MEDS: cefTRIAXone 1 GM in SODIUM CHLORIDE 0.9% IV 50 ML 100 ML IVPB (18:08)
[2024-12-24] MEDS: LACTATED RINGERS 1,000 ML 999 ML IV CONT ×2 (22:49→22:58)
--- NOTE | 2024-12-24 22:49 | P.PNCROSS_ITS ---
Event Note Event Note Event Note: 2300: I was called regarding patient's level of consciousness declining and co re body temperature low. Rectal temp was under 93 degrees. I instructed to insert Spangler Catheter with temperature probe for continuous monitoring. Additionally, ordered STAT labs to evaluate for sepsis. I went to bedside to see patient who easily awakened but was slow to verbalize responses. Patient denied any complaints including a negative review of systems. No seizure activity noted. IV fluids ordered 30 mL/kg. She was wrapped in blankets but denied feeling cold or hot, stating that she felt very comfortable. Yun Hugger ordered. Vital signs stable except for temperature. Ordered TSH with Reflex T4 and random cortisol. Patient transferred to IMU for closer monitoring and Yun Hugger to remain in place. Patient again denies any complaints or current needs. Labs reviewed and TSH mildly elevated, random cortisol not a concerning value. CXR showed worsening of bilateral infiltrates. WBC mildly depressed at 3.1. Lactic acid normal at 1.9. CRP and procalcitonin normal, ESR mildly up at 25.
[2024-12-24] MEDS: DEXTROSE 50% 25 GM/50 ML SYRINGE (22:58)
[2024-12-24 23:30] LABS: Hematocrit 35.2 % (37.0-47.0); Hemoglobin 11.9 g/dL (12.0-15.0); Immature Granulocyte Percent A 0.3 % (0-0.5); Lymphocytes Absolute Auto 0.73 K/mm3 (0.9-3.2); Mean Corpuscular HGB Conc 33.8 g/dl (32-36); Mean Corpuscular Hemoglobin 33.0 pg (26-34); Mean Corpuscular Volume 97.5 fl (80-100); Nucleated Red Blood Cells Absolute Auto 0.000 K/mm3 (0.0-0.012); Nucleated Red Blood Cells Perc 0.0 % (0.0-0.2); Platelet Count Result 159 k/mm3 (150-375); Red Blood Count 3.61 M/mm3 (4.2-5.4); White Blood Count 3.1 K/mm3 (4.5-10.0)
[2024-12-24 23:49] LABS: Alanine Aminotransferase 101 U/L (6-35); Albumin Level 3.5 g/dL (3.5-5.1); Alkaline Phosphatase 154 U/L (38-126); Anion Gap 5 mmol/L (4-12); Aspartate Amino Transferase 84 U/L (14-36); Bilirubin,Total 0.2 mg/dL (0.2-1.3); Blood Urea Nitrogen 19 mg/dL (7-17); CRP 0.6 mg/dL (<1.0); Calcium 8.8 mg/dL (8.4-10.2); Carbon Dioxide 24 mmol/L (22-30); Chloride 100 mmol/L (98-107); Estimated CRCL calculation 57 ml/min; Estimated Glomerular Filt Rate > 60; Glucose 182 mg/dL (65-110); Magnesium 1.9 mg/dL (1.6-2.3); Potassium 4.2 mmol/L (3.4-5.0); Sodium 129 mmol/L (137-145); Total Protein 7.0 g/dL (6.3-8.2)
--- NOTE | 2024-12-24 23:57 | PC.NURSE ---
Patient rectal temp 92.2 at 2240. Provider Theodore Raza notified. New orders received. Spangler with probe placed, 50 ml of D50 administered for Blood Sugar of 58, (recheck of BS at 2315 was 195). Septic Labs ordered. Patient has been philippe with pulse of 40's provider Kenton notified earlier, see Physicians communication. Patient contact of Asif Álvarez called by phone twice with no answer or voicemail option.
[2024-12-25] VITALS (21 sets, daily range): BP systolic 133–153; BP diastolic 46–63; PULSE 76–97; RESP 16–18; TEMP 33.2–37; O2SAT 94–100
[2024-12-25] MEDS: LACTATED RINGERS 200 ML 999 ML IV CONT (00:08)
[2024-12-25 00:27] LABS: Thyroid Stimulating Hormone Reflex 5.350 uIU/mL (0.465-4.68)
--- NOTE | 2024-12-25 00:45 | PC.NURSE ---
Report given to MASON LINER. Patient Spouse returned phone call and aware of patient transfer
--- NOTE | 2024-12-25 00:59 | PC.NURSE ---
patient transfered to room 201 at 0040
[2024-12-25 01:25] LABS: Procalcitonin < 0.0 ng/mL
[2024-12-25 03:59] LABS: Free T4 Free Thyroxine Reflex 1.21 ng/dL (0.78-2.19)
[2024-12-25 04:47] LABS: Total Triiodothyronine (T3) 0.94 NG/ML (0.82-1.58)
[2024-12-25] MEDS: NEBIVOLOL HCL 5 MG TABLET PO (06:09)
[2024-12-25 07:18] LABS: Hematocrit 34.7 % (37.0-47.0); Hemoglobin 11.9 g/dL (12.0-15.0); Mean Corpuscular HGB Conc 34.3 g/dl (32-36); Mean Corpuscular Hemoglobin 33.1 pg (26-34); Mean Corpuscular Volume 96.7 fl (80-100); Platelet Count Result 163 k/mm3 (150-375); Red Blood Count 3.59 M/mm3 (4.2-5.4); White Blood Count 4.5 K/mm3 (4.5-10.0)
[2024-12-25 07:43] LABS: Anion Gap 5 mmol/L (4-12); Blood Urea Nitrogen 14 mg/dL (7-17); Calcium 8.8 mg/dL (8.4-10.2); Carbon Dioxide 26 mmol/L (22-30); Chloride 100 mmol/L (98-107); Estimated CRCL calculation 64 ml/min; Estimated Glomerular Filt Rate > 60; Glucose 70 mg/dL (65-110); Potassium 4.6 mmol/L (3.4-5.0); Sodium 131 mmol/L (137-145)
[2024-12-25] MEDS: guaiFENesin 12 HR 600 MG TABCR PO ×2 (10:14→20:43)
[2024-12-25] MEDS: CHOLECALCIFEROL (VITAMIN D3) 25 MCG (1,000 UNITS) TABLET PO (10:14)
[2024-12-25] MEDS: SENNA/DOCUSATE SODIUM TABLET 1 TAB PO (10:14)
[2024-12-25] MEDS: SODIUM CHLORIDE 1 GM TABLET PO (10:14)
[2024-12-25 13:06] LABS: MRSA (PCR) NOT DETECTED (NOT DETECTE)
--- NOTE | 2024-12-25 14:42 | P.PNIM_ITS ---
Progress Note: A&P Assessment and Plan (1) AMS (altered mental status): Qualifiers: Altered mental status type: unspecified Qualified Code(s): R41.82 - Altered mental status, unspecified Code(s): R41.82 - Altered mental status, unspecified Status: Acute Assessment and Plan: Patient with worsening hallucinations of the last few days and difficult to arouse this morning per . Per her appearance/presentation is similar to when she has been postictal from a seizure. No seizure activity witnessed. Patient did have a breakthrough seizure in June of 2024, Keppra was attempted to be increased from 750 mg b.i.d. to 1 g b.i.d. however this worsened her hallucinations. Patient was dropped back to 750 mg b.i.d.. - head CT, 12/23: Normal aging brain. No acute intracranial process. - UA unremarkable - viral PCR negative - MRI brain ordered -> patient initially told bedside RN that she would not do the MRI as it causes panic attacks and MRI at this facility is not an open MRI. After discussing imaging with the patient, she is currently amenable to trying if she is given Xanax. One time ordered Xanax p.r.n. ordered for premedication for MRI. - neurologist consulted - seizure precautions - neurological checks q.4 - check UDS - CXR concerning for pneumonia, could be source of patient's alteration. Started on broad-spectrum antibiotics. - check Keppra levels, will continue Keppra 750 mg b.i.d.. Given Keppra 500 mg IV in the ED on 12/23. Neurology consulted- awaiting for recommendations will continue antibiotics for now and stop/adjust as indicated repated chest xray: Improving interstitial pulmonary edema and/or pneumonitis. Will not escalate antibiotics for nw and continue to monitor. Continue zithromax and rocephin (2) Hallucination: Code(s): R44.3 - Hallucinations, unspecified Status: Acute Assessment and Plan: - see above (3) Seizures: Code(s): R56.9 - Unspecified convulsions Status: Chronic Assessment and Plan: - see above (4) Acute hyponatremia: Code(s): E87.1 - Hypo-osmolality and hyponatremia Status: Acute Assessment and Plan: - Na 128 - given 1L of LR in the ED, will start NS at 100 mL/hr x1L - monitor neurologic status - continue patient's home medication: NaCl tabs 1G daily - trend sodium - contributing to patient's alteration? daily labs ordered-monitor closely (5) Pneumonia: Qualifiers: Pneumonia type: due to unspecified organism Laterality: bilateral Lung location: unspecified part of lung Qualified Code(s): J18.9 - Pneumonia, unspecified organism Code(s): J18.9 - Pneumonia, unspecified organism Status: Acute Assessment and Plan: - did not meet SIRS criteria, WBC <4 only - CXR: 1: Interstitial opacities in both lungs. Differential includes interstitial edema, interstitial pneumonia or chronic interstitial changes. 2. Small opacities in the mid and lower lungs which represents atelectasis/scarring or infiltrates. - started on ceftriaxone and azithromycin on 12/23 - Viral PCR negative on 12/23 - supportive care: Mucinex yariel, Tessalon Perles p.r.n., Tylenol p.r.n., lozenge p.r.n. - no current supplemental O2 requirement, monitor -zithromax and rocephin for now IS, ambualtion, follwo temp curve and monitor vs,labs (6) HTN (hypertension): Qualifiers: Hypertension type: primary hypertension Qualified Code(s): I10 - Essential (primary) hypertension Code(s): I10 - Essential (primary) hypertension Status: Chronic Assessment and Plan: - chronic, currently 163/64 - continue home medications: Bystolic - monitor Plan Diet: Heart healthy GI Prophylaxis: N/a DVT Prophylaxis: SCDs IV fluids: 1L bolus of LR -> NS 100 mL/hr x1L Lines/Tubes: Peripheral IV Code Status: Full code Time Spent With Patient Time with patient: Greater than 35 minutes Subjective Date/time seen: 12/25/24 14:42 Interval history: 74 y/o with PMH of anxiety, hyponatremia, seizures, PTSD, depression, and hypertension presents here with altered mental status and suspected seizure. Initial VS at presentation: 98.3? F, HR 87, RR 16, 191/95, and 99% on RA. ED workup showed: WBC 3.7, no anemia, platelet count within normal limits, normal coags, sodium 128, creatinine 0.62, glucose 111, UA was unremarkable, viral PCR negative. Head CT showed a normal aging brain and no acute intracranial process. CXR showed interstitial opacities in both lungs (differential includes edema, pneumonia, chronic interstitial changes) and small opacities in the mid and lower lungs which may represent atelectasis/scarring or infiltrates. 12/25- pt had an event last night with hypothermia and was moved to IMU. When examined, pt is alert and comfortable. No issues. Repeated chest xray was reviewed and showed: Improving interstitial pulmonary edema and/or pneumonitis. neurology is following. Review of Systems Review of Systems: All systems reviewed & are unremarkable except as noted in HPI and below Exam Narrative: A/Ox self, year, place, and situation. Const: General: comfortable and no acute distress Other: , female, elderly, nontoxic appearance HENMT: Face/Nose/Sinus: Normal nares present Mouth: Yes moist mucous membranes Eyes: General: appearance normal, both eyes and all related structures Sclera: sclerae normal Pupils: Equal, round and reactive pupils present EOM: EOMs intact bilaterally Resp: Effort & Inspection: normal respiratory effort Auscultation: clear to auscultation bilaterally Cardio: Rate: regular rate Rhythm: regular rhythm Other: S1-S2 present without murmur, rub, ectopy GI: Other: Abdomen soft, nondistended, nontender. Normoactive bowel sounds in all quadrants. Skin: General skin exam: normal color and no rashes or lesions noted Wounds: no wounds Neuro: Cranial nerves: Yes Equal, round and reactive pupils present Other: odd statements made, slow speech amberly. A/Ox self, year, place, and situation. moving all extremities, no sensory deficits. Extrem: General: normal to inspection Psych: Other: Poor insight and judgment present, flat affect, tangential thinking noted, making odd statements Objective Data Vital Signs Vital Signs: Vital Signs - 24 hr 12/24/24 16:00 12/24/24 20:00 12/24/24 20:47 Temperature Pulse Rate 54 L 40 L 45 L Respiratory Rate 14 Blood Pressure 127/107 H Pulse Oximetry 100 12/24/24 21:11 12/24/24 22:40 12/24/24 22:55 Temperature 92.2 F L Pulse Rate 47 L 52 L Respiratory Rate 16 16 Blood Pressure 147/67 H 155/64 H Pulse Oximetry 100 12/24/24 23:20 12/24/24 23:52 12/25/24 00:02 Temperature 91.3 F L 91.7 F L 91.8 F L Pulse Rate Respiratory Rate Blood Pressure Pulse Oximetry 12/25/24 00:23 12/25/24 00:36 12/25/24 01:10 Temperature 92.2 F L 92.7 F L 93.2 F L Pulse Rate Respiratory Rate Blood Pressure Pulse Oximetry 12/25/24 01:30 12/25/24 01:59 12/25/24 02:30 Temperature 93.7 F L 95.1 F L 96.3 F L Pulse Rate Respiratory Rate Blood Pressure Pulse Oximetry 12/25/24 03:00 12/25/24 04:00 12/25/24 04:00 Temperature 96.8 F L 98.3 F Pulse Rate 95 95 Respiratory Rate 16 Blood Pressure 147/60 H Pulse Oximetry 95 12/25/24 06:09 12/25/24 07:56 12/25/24 08:00 Temperature 97.8 F Pulse Rate 93 93 97 Respiratory Rate 18 Blood Pressure 153/63 H Pulse Oximetry 96 12/25/24 10:00 12/25/24 11:29 12/25/24 12:00 Temperature 97.7 F Pulse Rate 81 83 81 Respiratory Rate 18 Blood Pressure 133/50 L Pulse Oximetry 94 12/25/24 14:00 Temperature Pulse Rate 84 Respiratory Rate Blood Pressure Pulse Oximetry Intake/Output Intake/Output: Intake & Output 12/22/24 12/23/24 12/24/24 12/25/24 23:59 23:59 23:59 23:59 Intake Total 1997 1320 1435 Output Total 250 900 Balance 1748 1320 535 Meds/Results Medications: Active Medications Generic Name Dose Route Start Last Admin Trade Name Freq PRN Reason Stop Dose Admin Acetaminophen 650 mg 12/23/24 17:37 12/23/24 21:59 Acetaminophen 325 Mg Tablet PO 650 mg Q6H PRN Administration Mild Pain (1-3) or Fever Alprazolam 0.5 mg 12/25/24 14:40 Alprazolam (*Crx) 0.5 Mg Tablet PO ONCE PRN Anxiety prior to MRI Benzocaine 1 lozenge 12/23/24 17:37 Benzocaine/Menthol (*Bkc) 18 Ea Lozenge PO PRN PRN Sore Throat Benzonatate 100 mg 12/23/24 17:37 Benzonatate 100 Mg Capsule PO TID PRN Cough Calcium Carbonate 200 mg 12/23/24 17:37 Calcium Carbonate (Tums) 500 Mg (200 Mg Elemental) PO Q6H PRN Indigestion Docusate Sodium 100 mg 12/23/24 17:37 Docusate Sodium 100 Mg Capsule PO Q12H PRN Constipation Guaifenesin 600 mg 12/23/24 21:00 12/25/24 10:14 Guaifenesin 12 Hr 600 Mg Tabcr PO 600 mg Q12HR YARIEL Administration Ceftriaxone Sodium 1 gm/ 50 mls @ 100 mls/hr 12/23/24 19:00 12/24/24 18:38 Sodium Chloride IVPB Infused Q24H YARIEL Infusion Azithromycin 500 mg/ Sodium 250 mls @ 250 mls/hr 12/23/24 18:00 12/24/24 18:01 Chloride IVPB 12/27/24 18:59 Infused Q24H YARIEL Infusion Levetiracetam 750 mg 12/24/24 05:00 12/25/24 06:09 Levetiracetam 250 Mg Tablet PO 750 mg 0500,1700 YARIEL Administration Nebivolol 5 mg 12/23/24 18:00 12/25/24 06:09 Nebivolol Hcl 5 Mg Tablet PO 5 mg 0500 YARIEL Administration Senna/Docusate Sodium 1 tab 12/24/24 09:00 12/25/24 10:14 Senna/Docusate Sodium Tablet PO 1 tab DAILY YARIEL Administration Sodium Chloride 1 gm 12/24/24 09:00 12/25/24 10:14 Sodium Chloride 1 Gm Tablet PO 1 gm DAILY YARIEL Administration Vitamin D 25 mcg 12/24/24 09:00 12/25/24 10:14 Cholecalciferol (Vitamin D3) 25 Mcg (1,000 Units) Tablet PO 25 mcg DAILY YARIEL Administration Radiology Results: ITS Impressions Head CT 12/23/24 07:14 IMPRESSION: 1. Normal aging brain. No acute intracranial process. Brain MRI 12/24/24 12:28 IMPRESSION: 1. Small region of increased signal in the right temporal occipital region with possible tiny focus of restricted diffusion in this could be related to recent infarction. The possible effusion is however not clearly convincing and with consider further evaluation with postcontrast imaging to exclude underlying neoplastic lesion. 2. Indeterminate 1.4 x 1.0 cm T2 hyperintense lesion in the inferior right masseter muscle which is been present since MRI dated 05/02/2013 at which time it demonstrated no enhancement and imaging appearance favoring arteriovenous malformation. Chest X-Ray 12/25/24 09:30 IMPRESSION: 1. Improving interstitial pulmonary edema and/or pneumonitis. Labs Labs: Laboratory Results - last 24 hr 12/24/24 12/24/24 12/24/24 22:50 23:12 23:24 WBC 3.1 L RBC 3.61 L Hgb 11.9 L Hct 35.2 L MCV 97.5 MCH 33.0 MCHC 33.8 RDW 14.2 Plt Count 159 MPV 10.5 H Immature Gran % (Auto) 0.3 Neut % (Auto) 57.1 Lymph % (Auto) 23.9 [place] % (Auto) 12.1 H Eos % (Auto) 5.6 H Baso % (Auto) 1.0 Lymph # (Auto) 0.73 L [place] # (Auto) 0.4 Eos # (Auto) 0.2 Baso # (Auto) 0.0 Abs Immat Gran (auto) 0.01 Absolute Neuts (auto) 1.8 Absolute Nucleated RBC 0.000 Nucleated RBC % 0.0 ESR 25 H Sodium 129 L Potassium 4.2 Chloride 100 Carbon Dioxide 24 Anion Gap 5 BUN 19 H Creatinine 0.71 Estim Creat Clear Calc 57 Estimated GFR > 60 Glucose 182 H POC Capillary Glucose 53 L* 191 H Lactic Acid 1.5 Calcium 8.8 Phosphorus 2.5 Magnesium 1.9 Total Bilirubin 0.2 AST 84 H ALT 101 H Alkaline Phosphatase 154 H C-Reactive Protein 0.6 Total Protein 7.0 Albumin 3.5 Procalcitonin < 0.0 TSH (Reflex) 5.350 H Free T4 1.21 Total T3 0.94 Random Cortisol 19.20 Nasal MRSA (PCR) 12/25/24 12/25/24 07:09 11:45 WBC 4.5 RBC 3.59 L Hgb 11.9 L Hct 34.7 L MCV 96.7 MCH 33.1 MCHC 34.3 RDW 14.0 Plt Count 163 MPV 10.4 Immature Gran % (Auto) Neut % (Auto) Lymph % (Auto) [place] % (Auto) Eos % (Auto) Baso % (Auto) Lymph # (Auto) [place] # (Auto) Eos # (Auto) Baso # (Auto) Abs Immat Gran (auto) Absolute Neuts (auto) Absolute Nucleated RBC Nucleated RBC % ESR Sodium 131 L Potassium 4.6 Chloride 100 Carbon Dioxide 26 Anion Gap 5 BUN 14 D Creatinine 0.63 L Estim Creat Clear Calc 64 Estimated GFR > 60 Glucose 70 POC Capillary Glucose Lactic Acid Calcium 8.8 Phosphorus Magnesium Total Bilirubin AST ALT Alkaline Phosphatase C-Reactive Protein Total Protein Albumin Procalcitonin TSH (Reflex) Free T4 Total T3 Random Cortisol Nasal MRSA (PCR) Not detected Quality VTE Prophylaxis VTE prophylaxis: mechanical ordered
[2024-12-25] MEDS: ALPRAZolam (*CRX) 0.5 MG TABLET PO (14:55)
[2024-12-25] MEDS: AZITHROMYCIN IV 500 MG in SODIUM CHLORIDE 0.9% IV 250 ML IVPB (17:21)
--- NOTE | 2024-12-25 17:30 | WPDNEUROPN ---
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 Her serum sodium was low at 128. The temperature is also gone down to 93 and a she required warming. The visual hallucinations also not well explained by the minor changes in the dose of Keppra. The finding off a lesion in the right temporal occipital area is interesting particular since he has visual hallucinations. Of course these can also occur due to metabolic encephalopathy. I will suggest to increase the dose of Keppra 1000 mg twice a day and add Vimpat 100 mg twice a day. Patient follows with a neurologist in [facility]. She will require a neurosurgical consultation for the malformation noted in the right temporal occipital area. Patient also such recurrent pneumonia and is on antibiotics. This of course can account for any underlying metabolic encephalopathy. At this time I would suggest to monitor her. There does not appear to be any evidence for bleed around the area suspected of vascular malformation noted on MRI of the brain. Subjective Date/time seen: 12/25/24 17:30 Interval history: The patient is 74-year-old with history of seizure disorder and hallucinations for last several days. Serum sodium was low at 128. Body temperature went down to 93 and she Require what me. Patient follows with neurologist at [facility] with regard to seizure. She is advised to increase the dose of Keppra but she had side effects and hence family thought that today that could be causing hallucinations in the dose of Keppra was reduced back to 750 mg twice a day. MRI of the brain shows a possible infarct in the right temporal occipital region. Possibility of ischemic versus neoplastic pathology were considered and hence an MRI of the brain with contrast was requested. 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 The 7 x 4 x 3 enhancing lesion in the right temporal occipital region. Review of Systems Review of Systems: Patient denies any other symptoms. Exam Narrative: Patient is fully conscious alert. No aphasia or dysarthria. She was able to tell me the month and the year. Exam her cranial nerves and motor and sensory system did not show any significant focal abnormalities. No involuntary movements are seen. Objective Data Vital Signs Vital Signs: Vital Signs - 24 hr 12/24/24 20:00 12/24/24 20:47 12/24/24 21:11 Temperature Pulse Rate 40 L 45 L 47 L Respiratory Rate 14 16 Blood Pressure 127/107 H 147/67 H Pulse Oximetry 100 12/24/24 22:40 12/24/24 22:55 12/24/24 23:20 Temperature 92.2 F L 91.3 F L Pulse Rate 52 L Respiratory Rate 16 Blood Pressure 155/64 H Pulse Oximetry 100 12/24/24 23:52 12/25/24 00:02 12/25/24 00:23 Temperature 91.7 F L 91.8 F L 92.2 F L Pulse Rate Respiratory Rate Blood Pressure Pulse Oximetry 12/25/24 00:36 12/25/24 01:10 12/25/24 01:30 Temperature 92.7 F L 93.2 F L 93.7 F L Pulse Rate Respiratory Rate Blood Pressure Pulse Oximetry 12/25/24 01:59 12/25/24 02:30 12/25/24 03:00 Temperature 95.1 F L 96.3 F L 96.8 F L Pulse Rate Respiratory Rate Blood Pressure Pulse Oximetry 12/25/24 04:00 12/25/24 04:00 12/25/24 06:09 Temperature 98.3 F Pulse Rate 95 95 93 Respiratory Rate 16 Blood Pressure 147/60 H Pulse Oximetry 95 12/25/24 07:56 12/25/24 08:00 12/25/24 10:00 Temperature 97.8 F Pulse Rate 93 97 81 Respiratory Rate 18 Blood Pressure 153/63 H Pulse Oximetry 96 12/25/24 11:29 12/25/24 12:00 12/25/24 14:00 Temperature 97.7 F Pulse Rate 83 81 84 Respiratory Rate 18 Blood Pressure 133/50 L Pulse Oximetry 94 12/25/24 16:43 Temperature 97.6 F Pulse Rate 76 Respiratory Rate 18 Blood Pressure 139/57 L Pulse Oximetry 96 Intake/Output Intake/Output: Intake & Output 12/22/24 12/23/24 12/24/24 12/25/24 23:59 23:59 23:59 23:59 Intake Total 1998 1320 1735 Output Total 250 1700 Balance 1748 1320 35 Meds/Results Medications: Active Medications Generic Name Dose Route Start Last Admin Trade Name Freq PRN Reason Stop Dose Admin Acetaminophen 650 mg 12/23/24 17:37 12/23/24 21:59 Acetaminophen 325 Mg Tablet PO 650 mg Q6H PRN Administration Mild Pain (1-3) or Fever Benzocaine 1 lozenge 12/23/24 17:37 Benzocaine/Menthol (*Bkc) 18 Ea Lozenge PO PRN PRN Sore Throat Benzonatate 100 mg 12/23/24 17:37 Benzonatate 100 Mg Capsule PO TID PRN Cough Calcium Carbonate 200 mg 12/23/24 17:37 Calcium Carbonate (Tums) 500 Mg (200 Mg Elemental) PO Q6H PRN Indigestion Docusate Sodium 100 mg 12/23/24 17:37 Docusate Sodium 100 Mg Capsule PO Q12H PRN Constipation Guaifenesin 600 mg 12/23/24 21:00 12/25/24 10:14 Guaifenesin 12 Hr 600 Mg Tabcr PO 600 mg Q12HR RAVIN Administration Azithromycin 500 mg/ Sodium 250 mls @ 250 mls/hr 12/23/24 18:00 12/25/24 17:21 Chloride IVPB 12/27/24 18:59 250 mls/hr Q24H RAVIN Administration Ceftriaxone Sodium 1 gm/ 50 mls @ 100 mls/hr 12/25/24 17:00 Sodium Chloride IVPB Q24H RAVIN Levetiracetam 750 mg 12/24/24 05:00 12/25/24 17:24 Levetiracetam 250 Mg Tablet PO 750 mg 0500,1700 RAVIN Administration Nebivolol 5 mg 12/23/24 18:00 12/25/24 06:09 Nebivolol Hcl 5 Mg Tablet PO 5 mg 0500 RAVIN Administration Senna/Docusate Sodium 1 tab 12/24/24 09:00 12/25/24 10:14 Senna/Docusate Sodium Tablet PO 1 tab DAILY RAVIN Administration Sodium Chloride 1 gm 12/24/24 09:00 12/25/24 10:14 Sodium Chloride 1 Gm Tablet PO 1 gm DAILY RAVIN Administration Vitamin D 25 mcg 12/24/24 09:00 12/25/24 10:14 Cholecalciferol (Vitamin D3) 25 Mcg (1,000 Units) Tablet PO 25 mcg DAILY RAVIN Administration Radiology Results: ITS Impressions Head CT 12/23/24 07:14 IMPRESSION: 1. Normal aging brain. No acute intracranial process. Chest X-Ray 12/25/24 09:30 IMPRESSION: 1. Improving interstitial pulmonary edema and/or pneumonitis. Brain MRI 12/25/24 16:07 IMPRESSION: 1. Prominent feeding vessel extending to a 7 x 4 x 3 mm enhancing lesion in the right temporal occipital region of surrounding vasogenic edema identified on prior MRI. Appearance favors vascular malformation over malignancy. 2. Otherwise unremarkable MRI of the bilateral internal auditory canals. Labs Labs: Laboratory Results - last 24 hr 12/24/24 12/24/24 12/24/24 22:50 23:12 23:24 WBC 3.1 L RBC 3.61 L Hgb 11.9 L Hct 35.2 L MCV 97.5 MCH 33.0 MCHC 33.8 RDW 14.2 Plt Count 159 MPV 10.5 H Immature Gran % (Auto) 0.3 Neut % (Auto) 57.1 Lymph % (Auto) 23.9 [place] % (Auto) 12.1 H Eos % (Auto) 5.6 H Baso % (Auto) 1.0 Lymph # (Auto) 0.73 L [place] # (Auto) 0.4 Eos # (Auto) 0.2 Baso # (Auto) 0.0 Abs Immat Gran (auto) 0.01 Absolute Neuts (auto) 1.8 Absolute Nucleated RBC 0.000 Nucleated RBC % 0.0 ESR 25 H Sodium 129 L Potassium 4.2 Chloride 100 Carbon Dioxide 24 Anion Gap 5 BUN 19 H Creatinine 0.71 Estim Creat Clear Calc 57 Estimated GFR > 60 Glucose 182 H POC Capillary Glucose 53 L* 191 H Lactic Acid 1.5 Calcium 8.8 Phosphorus 2.5 Magnesium 1.9 Total Bilirubin 0.2 AST 84 H ALT 101 H Alkaline Phosphatase 154 H C-Reactive Protein 0.6 Total Protein 7.0 Albumin 3.5 Procalcitonin < 0.0 TSH (Reflex) 5.350 H Free T4 1.21 Total T3 0.94 Random Cortisol 19.20 Nasal MRSA (PCR) 12/25/24 12/25/24 07:09 11:45 WBC 4.5 RBC 3.59 L Hgb 11.9 L Hct 34.7 L MCV 96.7 MCH 33.1 MCHC 34.3 RDW 14.0 Plt Count 163 MPV 10.4 Immature Gran % (Auto) Neut % (Auto) Lymph % (Auto) [place] % (Auto) Eos % (Auto) Baso % (Auto) Lymph # (Auto) [place] # (Auto) Eos # (Auto) Baso # (Auto) Abs Immat Gran (auto) Absolute Neuts (auto) Absolute Nucleated RBC Nucleated RBC % ESR Sodium 131 L Potassium 4.6 Chloride 100 Carbon Dioxide 26 Anion Gap 5 BUN 14 D Creatinine 0.63 L Estim Creat Clear Calc 64 Estimated GFR > 60 Glucose 70 POC Capillary Glucose Lactic Acid Calcium 8.8 Phosphorus Magnesium Total Bilirubin AST ALT Alkaline Phosphatase C-Reactive Protein Total Protein Albumin Procalcitonin TSH (Reflex) Free T4 Total T3 Random Cortisol Nasal MRSA (PCR) Not detected
[2024-12-25] MEDS: cefTRIAXone 1 GM in SODIUM CHLORIDE 0.9% IV 50 ML 100 ML IVPB (17:32)
[2024-12-25] MEDS: LACOSAMIDE (*CRX) 100 MG TABLET PO (20:44)
[2024-12-26] VITALS (15 sets, daily range): BP systolic 139–152; BP diastolic 54–83; PULSE 67–84; RESP 17–20; TEMP 36.4–36.8; O2SAT 96–100
[2024-12-26 04:35] LABS: Hematocrit 38.4 % (37.0-47.0); Hemoglobin 12.7 g/dL (12.0-15.0); Immature Granulocyte Percent A 0.2 % (0-0.5); Lymphocytes Absolute Auto 0.77 K/mm3 (0.9-3.2); Mean Corpuscular HGB Conc 33.1 g/dl (32-36); Mean Corpuscular Hemoglobin 32.8 pg (26-34); Mean Corpuscular Volume 99.2 fl (80-100); Nucleated Red Blood Cells Absolute Auto 0.000 K/mm3 (0.0-0.012); Nucleated Red Blood Cells Perc 0.0 % (0.0-0.2); Platelet Count Result 185 k/mm3 (150-375); Red Blood Count 3.87 M/mm3 (4.2-5.4); White Blood Count 4.3 K/mm3 (4.5-10.0)
[2024-12-26 04:54] LABS: Alanine Aminotransferase 115 U/L (6-35); Albumin Level 3.7 g/dL (3.5-5.1); Alkaline Phosphatase 163 U/L (38-126); Anion Gap 6 mmol/L (4-12); Aspartate Amino Transferase 83 U/L (14-36); Bilirubin,Total 0.5 mg/dL (0.2-1.3); Blood Urea Nitrogen 20 mg/dL (7-17); Calcium 9.1 mg/dL (8.4-10.2); Carbon Dioxide 26 mmol/L (22-30); Chloride 102 mmol/L (98-107); Estimated CRCL calculation 54 ml/min; Estimated Glomerular Filt Rate > 60; Glucose 84 mg/dL (65-110); Potassium 4.0 mmol/L (3.4-5.0); Sodium 134 mmol/L (137-145); Total Protein 6.9 g/dL (6.3-8.2)
[2024-12-26] MEDS: NEBIVOLOL HCL 5 MG TABLET PO (05:53)
[2024-12-26] MEDS: SENNA/DOCUSATE SODIUM TABLET 1 TAB PO (09:50)
[2024-12-26] MEDS: LACOSAMIDE (*CRX) 100 MG TABLET PO (09:50)
[2024-12-26] MEDS: guaiFENesin 12 HR 600 MG TABCR PO (09:50)
[2024-12-26] MEDS: CHOLECALCIFEROL (VITAMIN D3) 25 MCG (1,000 UNITS) TABLET PO (09:50)
[2024-12-26] MEDS: SODIUM CHLORIDE 1 GM TABLET PO (09:50)
--- NOTE | 2024-12-26 15:27 | PM.IMPN ---
Progress Note: A&P Assessment and Plan (1) AMS (altered mental status): Qualifiers: Altered mental status type: unspecified Qualified Code(s): R41.82 - Altered mental status, unspecified Code(s): R41.82 - Altered mental status, unspecified Status: Acute Assessment and Plan: Patient with worsening hallucinations of the last few days and difficult to arouse this morning per . Per her appearance/presentation is similar to when she has been postictal from a seizure. No seizure activity witnessed. Patient did have a breakthrough seizure in June of 2024, Keppra was attempted to be increased from 750 mg b.i.d. to 1 g b.i.d. however this worsened her hallucinations. Patient was dropped back to 750 mg b.i.d.. - head CT, 12/23: Normal aging brain. No acute intracranial process. - UA unremarkable - viral PCR negative - MRI brain ordered -> patient initially told bedside RN that she would not do the MRI as it causes panic attacks and MRI at this facility is not an open MRI. After discussing imaging with the patient, she is currently amenable to trying if she is given Xanax. One time ordered Xanax p.r.n. ordered for premedication for MRI. - neurologist consulted - seizure precautions - neurological checks q.4 - check UDS - CXR concerning for pneumonia, could be source of patient's alteration. Started on broad-spectrum antibiotics. - check Keppra levels, will continue Keppra 750 mg b.i.d.. Given Keppra 500 mg IV in the ED on 12/23. Neurology consulted- awaiting for recommendations will continue antibiotics for now and stop/adjust as indicated repated chest xray: Improving interstitial pulmonary edema and/or pneumonitis. Will not escalate antibiotics for nw and continue to monitor. Continue zithromax and rocephin (2) Hallucination: Code(s): R44.3 - Hallucinations, unspecified Status: Acute Assessment and Plan: - see above (3) Seizures: Code(s): R56.9 - Unspecified convulsions Status: Chronic Assessment and Plan: - see above continue follow neurology recommendation for dosing (4) Acute hyponatremia: Code(s): E87.1 - Hypo-osmolality and hyponatremia Status: Acute Assessment and Plan: - Na 128 - given 1L of LR in the ED, will start NS at 100 mL/hr x1L - monitor neurologic status - continue patient's home medication: NaCl tabs 1G daily - trend sodium - contributing to patient's alteration? daily labs ordered-monitor closely (5) Pneumonia: Qualifiers: Pneumonia type: due to unspecified organism Laterality: bilateral Lung location: unspecified part of lung Qualified Code(s): J18.9 - Pneumonia, unspecified organism Code(s): J18.9 - Pneumonia, unspecified organism Status: Acute Assessment and Plan: - did not meet SIRS criteria, WBC <4 only - CXR: 1: Interstitial opacities in both lungs. Differential includes interstitial edema, interstitial pneumonia or chronic interstitial changes. 2. Small opacities in the mid and lower lungs which represents atelectasis/scarring or infiltrates. - started on ceftriaxone and azithromycin on 12/23 - Viral PCR negative on 12/23 - supportive care: Mucinex yariel, Tessalon Perles p.r.n., Tylenol p.r.n., lozenge p.r.n. 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 Diet: Heart healthy GI Prophylaxis: N/a DVT Prophylaxis: SCDs IV fluids: 1L bolus of LR -> NS 100 mL/hr x1L Lines/Tubes: Peripheral IV Code Status: Full code Time Spent With Patient Time with patient: Greater than 35 minutes Subjective Date/time seen: 12/26/24 15:27 Interval history: 74 y/o with PMH of anxiety, hyponatremia, seizures, PTSD, depression, and hypertension presents here with altered mental status and suspected seizure. Initial VS at presentation: 98.3? F, HR 87, RR 16, 191/95, and 99% on RA. ED workup showed: WBC 3.7, no anemia, platelet count within normal limits, normal coags, sodium 128, creatinine 0.62, glucose 111, UA was unremarkable, viral PCR negative. Head CT showed a normal aging brain and no acute intracranial process. CXR showed interstitial opacities in both lungs (differential includes edema, pneumonia, chronic interstitial changes) and small opacities in the mid and lower lungs which may represent atelectasis/scarring or infiltrates. 12/25- pt had an event last night with hypothermia and was moved to IMU. When examined, pt is alert and comfortable. No issues. Repeated chest xray was reviewed and showed: Improving interstitial pulmonary edema and/or pneumonitis. neurology is following. 12/26 seen and examined. Temp had been stable, will transfer out of IMU. will consult neurosurgery Possibility of ischemic versus neoplastic pathology were considered and hence an MRI of the brain with contrast was requested. 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 The 7 x 4 x 3 enhancing lesion in the right temporal occipital region. She has scattered redness to her body, some itchiness but states that her allergies are bad. Review of Systems Review of Systems: All systems reviewed & are unremarkable except as noted in HPI and below Exam Narrative: A/Ox self, year, place, and situation. Const: General: comfortable and no acute distress Other: , female, elderly, nontoxic appearance HENMT: Face/Nose/Sinus: Normal nares present Mouth: Yes moist mucous membranes Eyes: General: appearance normal, both eyes and all related structures Sclera: sclerae normal Pupils: Equal, round and reactive pupils present EOM: EOMs intact bilaterally Resp: Effort & Inspection: normal respiratory effort Auscultation: clear to auscultation bilaterally Cardio: Rate: regular rate Rhythm: regular rhythm Other: S1-S2 present without murmur, rub, ectopy GI: Other: Abdomen soft, nondistended, nontender. Normoactive bowel sounds in all quadrants. Skin: General skin exam: normal color and no rashes or lesions noted Wounds: no wounds Neuro: Cranial nerves: Yes Equal, round and reactive pupils present Other: odd statements made, slow speech amberly. A/Ox self, year, place, and situation. moving all extremities, no sensory deficits. Extrem: General: normal to inspection Psych: Other: Poor insight and judgment present, flat affect, tangential thinking noted, making odd statements Objective Data Vital Signs Vital Signs: Vital Signs - 24 hr 12/25/24 16:43 12/25/24 18:00 12/25/24 20:00 Temperature 97.6 F 98.6 F Pulse Rate 76 88 82 Respiratory Rate 18 17 Blood Pressure 139/57 L 133/46 L Pulse Oximetry 96 96 12/25/24 20:00 12/25/24 22:00 12/25/24 23:07 Temperature 97.6 F Pulse Rate 78 76 83 Respiratory Rate 17 Blood Pressure 143/57 H Pulse Oximetry 100 12/26/24 00:00 12/26/24 02:00 12/26/24 03:49 Temperature 98.2 F Pulse Rate 76 84 80 Respiratory Rate 17 Blood Pressure 150/62 H Pulse Oximetry 98 12/26/24 04:00 12/26/24 05:53 12/26/24 06:00 Temperature Pulse Rate 79 72 72 Respiratory Rate Blood Pressure Pulse Oximetry 12/26/24 08:00 12/26/24 08:23 12/26/24 10:00 Temperature 97.5 F L Pulse Rate 74 67 77 Respiratory Rate 18 Blood Pressure 151/61 H Pulse Oximetry 98 12/26/24 11:28 12/26/24 12:00 Temperature 97.6 F Pulse Rate 72 78 Respiratory Rate 18 Blood Pressure 142/54 H Pulse Oximetry 96 Intake/Output Intake/Output: Intake & Output 12/23/24 12/24/24 12/25/24 12/26/24 23:59 23:59 23:59 23:59 Intake Total 1997 1320 2065 480 Output Total 250 1700 225 Balance 1748 1320 365 255 Meds/Results Medications: Active Medications Generic Name Dose Route Start Last Admin Trade Name Freq PRN Reason Stop Dose Admin Acetaminophen 650 mg 12/23/24 17:37 12/23/24 21:59 Acetaminophen 325 Mg Tablet PO 650 mg Q6H PRN Administration Mild Pain (1-3) or Fever Azithromycin 500 mg 12/26/24 21:00 Azithromycin 500 Mg Tablet PO 12/27/24 21:01 QHS YARIEL Benzocaine 1 lozenge 12/23/24 17:37 Benzocaine/Menthol (*Bkc) 18 Ea Lozenge PO PRN PRN Sore Throat Benzonatate 100 mg 12/23/24 17:37 Benzonatate 100 Mg Capsule PO TID PRN Cough Buspirone HCl 2.5 mg 12/26/24 21:00 Buspirone Hcl 2.5 Mg Tablet PO Q12HR YARIEL Calcium Carbonate 200 mg 12/23/24 17:37 Calcium Carbonate (Tums) 500 Mg (200 Mg Elemental) PO Q6H PRN Indigestion Cefuroxime Axetil 500 mg 12/26/24 21:00 Cefuroxime Axetil 250 Mg Tablet PO 12/28/24 09:01 Q12HR [facility] Docusate Sodium 100 mg 12/23/24 17:37 Docusate Sodium 100 Mg Capsule PO Q12H PRN Constipation Guaifenesin 600 mg 12/23/24 21:00 12/26/24 09:50 Guaifenesin 12 Hr 600 Mg Tabcr PO 600 mg Q12HR YARIEL Administration Lacosamide 100 mg 12/25/24 21:00 12/26/24 09:50 Lacosamide (*Crx) 100 Mg Tablet PO 100 mg Q12HR YARIEL Administration Levetiracetam 1,000 mg 12/26/24 05:00 12/26/24 05:53 Levetiracetam 500 Mg Tablet PO 1,000 mg 0500,1700 YARIEL Administration Nebivolol 5 mg 12/23/24 18:00 12/26/24 05:53 Nebivolol Hcl 5 Mg Tablet PO 5 mg 0500 YARIEL Administration Senna/Docusate Sodium 1 tab 12/24/24 09:00 12/26/24 09:50 Senna/Docusate Sodium Tablet PO 1 tab DAILY YARIEL Administration Sodium Chloride 1 gm 12/24/24 09:00 12/26/24 09:50 Sodium Chloride 1 Gm Tablet PO 1 gm DAILY YARIEL Administration Vitamin D 25 mcg 12/24/24 09:00 12/26/24 09:50 Cholecalciferol (Vitamin D3) 25 Mcg (1,000 Units) Tablet PO 25 mcg DAILY YARIEL Administration Radiology Results: ITS Impressions Head CT 12/23/24 07:14 IMPRESSION: 1. Normal aging brain. No acute intracranial process. Chest X-Ray 12/25/24 09:30 IMPRESSION: 1. Improving interstitial pulmonary edema and/or pneumonitis. Brain MRI 12/25/24 16:07 IMPRESSION: 1. Prominent feeding vessel extending to a 7 x 4 x 3 mm enhancing lesion in the right temporal occipital region of surrounding vasogenic edema identified on prior MRI. Appearance favors vascular malformation over malignancy. 2. Otherwise unremarkable MRI of the bilateral internal auditory canals. Labs Labs: Laboratory Results - last 24 hr 12/26/24 12/26/24 03:46 03:47 WBC 4.3 L RBC 3.87 L Hgb 12.7 Hct 38.4 MCV 99.2 MCH 32.8 MCHC 33.1 RDW 14.4 Plt Count 185 MPV 10.9 H Immature Gran % (Auto) 0.2 Neut % (Auto) 59.3 Lymph % (Auto) 17.8 L [place] % (Auto) 16.4 H Eos % (Auto) 5.6 H Baso % (Auto) 0.7 Lymph # (Auto) 0.77 L [place] # (Auto) 0.7 H Eos # (Auto) 0.2 Baso # (Auto) 0.0 Abs Immat Gran (auto) 0.01 Absolute Neuts (auto) 2.6 Absolute Nucleated RBC 0.000 Nucleated RBC % 0.0 Sodium 134 L Potassium 4.0 Chloride 102 Carbon Dioxide 26 Anion Gap 6 BUN 20 H Creatinine 0.75 Estim Creat Clear Calc 54 Estimated GFR > 60 Glucose 84 Calcium 9.1 Total Bilirubin 0.5 AST 83 H ALT 115 H Alkaline Phosphatase 163 H Total Protein 6.9 Albumin 3.7 Quality VTE Prophylaxis VTE prophylaxis: mechanical ordered
--- NOTE | 2024-12-26 15:52 | WPDNEUROSGPN ---
Subjective Date/time seen: 12/26/24 15:52 Interval history: Asked to review patient's MRI with finding of small prominent blood vessel in the posterior temporal lobe on the right side. There is no evidence of hemorrhage on Head CT. The patient is admitted for altered mental status with multiple other likely explanations for mental status change. There is no indication for surgical intervention at this time. An incidentally identified vascuar anomaly would be managed on an outpatient basis by a group or location that provides vascular neurosurgery. [facility] does not provide vascular neurosurgery. Recommentation would be for outpatient care established at a facility such as [facility] or [facility]. Our clinic can help with these recommendations. Urgent additional imaging such as MRA or angiography is not currently required becuase there is no current suggestion of hemorrhage. Objective Data Vital Signs Vital Signs: Vital Signs - 24 hr 12/25/24 16:43 12/25/24 18:00 12/25/24 20:00 Temperature 36.4 C 37.0 C Pulse Rate 76 88 82 Respiratory Rate 18 17 Blood Pressure 139/57 L 133/46 L Pulse Oximetry 96 96 12/25/24 20:00 12/25/24 22:00 12/25/24 23:07 Temperature 36.4 C Pulse Rate 78 76 83 Respiratory Rate 17 Blood Pressure 143/57 H Pulse Oximetry 100 12/26/24 00:00 12/26/24 02:00 12/26/24 03:49 Temperature 36.8 C Pulse Rate 76 84 80 Respiratory Rate 17 Blood Pressure 150/62 H Pulse Oximetry 98 12/26/24 04:00 12/26/24 05:53 12/26/24 06:00 Temperature Pulse Rate 79 72 72 Respiratory Rate Blood Pressure Pulse Oximetry 12/26/24 08:00 12/26/24 08:23 12/26/24 10:00 Temperature 36.4 C L Pulse Rate 74 67 77 Respiratory Rate 18 Blood Pressure 151/61 H Pulse Oximetry 98 12/26/24 11:28 12/26/24 12:00 12/26/24 14:00 Temperature 36.4 C Pulse Rate 72 78 74 Respiratory Rate 18 Blood Pressure 142/54 H Pulse Oximetry 96 Intake/Output Intake/Output: Intake & Output 12/23/24 12/24/24 12/25/24 12/26/24 23:59 23:59 23:59 23:59 Intake Total 1998 1320 2065 480 Output Total 250 1700 225 Balance 1748 1320 365 255 Meds/Results Medications: Active Medications Generic Name Dose Route Start Last Admin Trade Name Freq PRN Reason Stop Dose Admin Acetaminophen 650 mg 12/23/24 17:37 12/23/24 21:59 Acetaminophen 325 Mg Tablet PO 650 mg Q6H PRN Administration Mild Pain (1-3) or Fever Azithromycin 500 mg 12/26/24 21:00 Azithromycin 500 Mg Tablet PO 12/27/24 21:01 QHS RAVIN Benzocaine 1 lozenge 12/23/24 17:37 Benzocaine/Menthol (*Bkc) 18 Ea Lozenge PO PRN PRN Sore Throat Benzonatate 100 mg 12/23/24 17:37 Benzonatate 100 Mg Capsule PO TID PRN Cough Buspirone HCl 2.5 mg 12/26/24 21:00 Buspirone Hcl 2.5 Mg Tablet PO Q12HR [facility] Calcium Carbonate 200 mg 12/23/24 17:37 Calcium Carbonate (Tums) 500 Mg (200 Mg Elemental) PO Q6H PRN Indigestion Cefuroxime Axetil 500 mg 12/26/24 21:00 Cefuroxime Axetil 250 Mg Tablet PO 12/28/24 09:01 Q12HR RAVIN Docusate Sodium 100 mg 12/23/24 17:37 Docusate Sodium 100 Mg Capsule PO Q12H PRN Constipation Guaifenesin 600 mg 12/23/24 21:00 12/26/24 09:50 Guaifenesin 12 Hr 600 Mg Tabcr PO 600 mg Q12HR RAVIN Administration Lacosamide 100 mg 12/25/24 21:00 12/26/24 09:50 Lacosamide (*Crx) 100 Mg Tablet PO 100 mg Q12HR RAVIN Administration Levetiracetam 1,000 mg 12/26/24 05:00 12/26/24 05:53 Levetiracetam 500 Mg Tablet PO 1,000 mg 0500,1700 RAVIN Administration Loratadine 10 mg 12/27/24 09:00 Loratadine 10 Mg Tablet PO QAM RAVIN Nebivolol 5 mg 12/23/24 18:00 12/26/24 05:53 Nebivolol Hcl 5 Mg Tablet PO 5 mg 0500 RAVIN Administration Senna/Docusate Sodium 1 tab 12/24/24 09:00 12/26/24 09:50 Senna/Docusate Sodium Tablet PO 1 tab DAILY RAVIN Administration Sodium Chloride 1 gm 12/24/24 09:00 12/26/24 09:50 Sodium Chloride 1 Gm Tablet PO 1 gm DAILY RAVIN Administration Vitamin D 25 mcg 12/24/24 09:00 12/26/24 09:50 Cholecalciferol (Vitamin D3) 25 Mcg (1,000 Units) Tablet PO 25 mcg DAILY RAVIN Administration Radiology Results: ITS Impressions Head CT 12/23/24 07:14 IMPRESSION: 1. Normal aging brain. No acute intracranial process. Chest X-Ray 12/25/24 09:30 IMPRESSION: 1. Improving interstitial pulmonary edema and/or pneumonitis. Brain MRI 12/25/24 16:07 IMPRESSION: 1. Prominent feeding vessel extending to a 7 x 4 x 3 mm enhancing lesion in the right temporal occipital region of surrounding vasogenic edema identified on prior MRI. Appearance favors vascular malformation over malignancy. 2. Otherwise unremarkable MRI of the bilateral internal auditory canals. Labs Labs: Laboratory Results - last 24 hr 12/26/24 12/26/24 03:46 03:47 WBC 4.3 L RBC 3.87 L Hgb 12.7 Hct 38.4 MCV 99.2 MCH 32.8 MCHC 33.1 RDW 14.4 Plt Count 185 MPV 10.9 H Immature Gran % (Auto) 0.2 Neut % (Auto) 59.3 Lymph % (Auto) 17.8 L [place] % (Auto) 16.4 H Eos % (Auto) 5.6 H Baso % (Auto) 0.7 Lymph # (Auto) 0.77 L [place] # (Auto) 0.7 H Eos # (Auto) 0.2 Baso # (Auto) 0.0 Abs Immat Gran (auto) 0.01 Absolute Neuts (auto) 2.6 Absolute Nucleated RBC 0.000 Nucleated RBC % 0.0 Sodium 134 L Potassium 4.0 Chloride 102 Carbon Dioxide 26 Anion Gap 6 BUN 20 H Creatinine 0.75 Estim Creat Clear Calc 54 Estimated GFR > 60 Glucose 84 Calcium 9.1 Total Bilirubin 0.5 AST 83 H ALT 115 H Alkaline Phosphatase 163 H Total Protein 6.9 Albumin 3.7
--- NOTE | 2024-12-26 20:07 | PC.NURSE ---
This patient, Apurva Holman, was transferred to [facility] on 12/26/24 at 2006. Personal belongings sent with patient. Report given to NIKKIE Juarez. Appropriate documentation sent with patient.
--- NOTE | 2024-12-26 20:10 | PC.NURSE ---
Asif updated that patient moved to room 245 at 2010.
[2024-12-27 04:13] VITALS: BP 148/61; PULSE 74; RESP 20; TEMP 36.4; O2SAT 100
[2024-12-27 05:04] LABS: Hematocrit 37.0 % (37.0-47.0); Hemoglobin 12.5 g/dL (12.0-15.0); Immature Granulocyte Percent A 0.2 % (0-0.5); Lymphocytes Absolute Auto 0.90 K/mm3 (0.9-3.2); Mean Corpuscular HGB Conc 33.8 g/dl (32-36); Mean Corpuscular Hemoglobin 33.0 pg (26-34); Mean Corpuscular Volume 97.6 fl (80-100); Nucleated Red Blood Cells Absolute Auto 0.000 K/mm3 (0.0-0.012); Nucleated Red Blood Cells Perc 0.0 % (0.0-0.2); Platelet Count Result 177 k/mm3 (150-375); Red Blood Count 3.79 M/mm3 (4.2-5.4); White Blood Count 4.9 K/mm3 (4.5-10.0)
[2024-12-27 05:21] LABS: Alanine Aminotransferase 122 U/L (6-35); Albumin Level 3.5 g/dL (3.5-5.1); Alkaline Phosphatase 185 U/L (38-126); Anion Gap 6 mmol/L (4-12); Aspartate Amino Transferase 93 U/L (14-36); Bilirubin,Total 0.5 mg/dL (0.2-1.3); Blood Urea Nitrogen 22 mg/dL (7-17); Calcium 8.8 mg/dL (8.4-10.2); Carbon Dioxide 25 mmol/L (22-30); Chloride 99 mmol/L (98-107); Estimated CRCL calculation 66 ml/min; Estimated Glomerular Filt Rate > 60; Glucose 83 mg/dL (65-110); Potassium 3.8 mmol/L (3.4-5.0); Sodium 130 mmol/L (137-145); Total Protein 6.5 g/dL (6.3-8.2)
[2024-12-27 05:26] VITALS: PULSE 72
[2024-12-27] MEDS: NEBIVOLOL HCL 5 MG TABLET PO (05:26)
[2024-12-27] MEDS: LACOSAMIDE (*CRX) 100 MG TABLET PO (10:17)
[2024-12-27] MEDS: LORATADINE 10 MG TABLET PO (10:17)
[2024-12-27] MEDS: busPIRone HCL 2.5 MG TABLET PO (10:17)
[2024-12-27] MEDS: guaiFENesin 12 HR 600 MG TABCR PO (10:17)
[2024-12-27] MEDS: SENNA/DOCUSATE SODIUM TABLET 1 TAB PO (10:18)
[2024-12-27] MEDS: SODIUM CHLORIDE 1 GM TABLET PO (10:18)
[2024-12-27] MEDS: CHOLECALCIFEROL (VITAMIN D3) 25 MCG (1,000 UNITS) TABLET PO (10:18)
--- NOTE | 2024-12-27 13:57 | PM.DS ---
DS: Admitting Diagnosis Discharge Date 12/27 Admitting Diagnosis ams DS: Discharge Diagnosis Discharge Diagnosis (1) AMS (altered mental status): Qualifiers: Altered mental status type: unspecified Qualified Code(s): R41.82 - Altered mental status, unspecified Code(s): R41.82 - Altered mental status, unspecified Status: Acute (2) Hallucination: Code(s): R44.3 - Hallucinations, unspecified Status: Acute (3) Seizures: Code(s): R56.9 - Unspecified convulsions Status: Chronic (4) Acute hyponatremia: Code(s): E87.1 - Hypo-osmolality and hyponatremia Status: Acute (5) Pneumonia: Qualifiers: Laterality: bilateral Lung location: unspecified part of lung Pneumonia type: due to unspecified organism Qualified Code(s): J18.9 - Pneumonia, unspecified organism Code(s): J18.9 - Pneumonia, unspecified organism Status: Acute (6) HTN (hypertension): Qualifiers: Hypertension type: primary hypertension Qualified Code(s): I10 - Essential (primary) hypertension Code(s): I10 - Essential (primary) hypertension Status: Chronic Assessment and Plan: - DS: Summary Hospital Course Hospital Course: 74 y/o with PMH of anxiety, hyponatremia, seizures, PTSD, depression, and hypertension presents here with altered mental status and suspected seizure. Initial VS at presentation: 98.3? F, HR 87, RR 16, 191/95, and 99% on RA. ED workup showed: WBC 3.7, no anemia, platelet count within normal limits, normal coags, sodium 128, creatinine 0.62, glucose 111, UA was unremarkable, viral PCR negative. Head CT showed a normal aging brain and no acute intracranial process. CXR showed interstitial opacities in both lungs (differential includes edema, pneumonia, chronic interstitial changes) and small opacities in the mid and lower lungs which may represent atelectasis/scarring or infiltrates. 12/25- pt had an event last night with hypothermia and was moved to IMU. When examined, pt is alert and comfortable. No issues. Repeated chest xray was reviewed and showed: Improving interstitial pulmonary edema and/or pneumonitis. neurology is following. 12/26 seen and examined. Temp had been stable, will transfer out of IMU. will consult neurosurgery Dr Nemani recommended Keppra 1000 mg twice a day and add Vimpat 100 mg twice a day and neurosurgery consult. Possibility of ischemic versus neoplastic pathology were considered and hence an MRI of the brain with contrast was requested. 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 The 7 x 4 x 3 enhancing lesion in the right temporal occipital region. She has scattered redness to her body, some itchiness but states that her allergies are bad. DR Contreras, neurosurgery was consulted: Asked to review patient's MRI with finding of small prominent blood vessel in the posterior temporal lobe on the right side. There is no evidence of hemorrhage on Head CT. The patient is admitted for altered mental status with multiple other likely explanations for mental status change. There is no indication for surgical intervention at this time. An incidentally identified vascuar anomaly would be managed on an outpatient basis by a group or location that provides vascular neurosurgery. [facility] does not provide vascular neurosurgery. Recommendation would be for outpatient care established at a facility such as [facility] or [facility]. Our clinic can help with these recommendations. Urgent additional imaging such as MRA or angiography is not currently required because there is no current suggestion of hemorrhage. Discussed with pt and and they will follow up with her neurologist at [facility] once discharged. NOted her Na is low but better that it was and she is on salt tabs. PCP referred her to hire car driver. Liver enzymes were elevated but she states they were elevated before and she is supposed to f/u with GI. She denies abd pain currently. for pneumonia- 2 more doses are needed, ceftin 500 mg twice a day- 3 more doses. she was started on buspar 2,5 mg bid for anxiety. we will continue that for now Status at Discharge Functional status at discharge: uses cane/walker Overall status at discharge: patient is progressing back to baseline Time Spent with Patient Time attestation: Total time spent providing and/or coordinating discharge services: Time spent: Greater than 30 minutes Exam Narrative: a/o x4 Const: General: comfortable and no acute distress Other: , female, elderly, nontoxic appearance HENMT: Face/Nose/Sinus: Normal nares present Mouth: Yes moist mucous membranes Eyes: General: appearance normal, both eyes and all related structures Sclera: sclerae normal Pupils: Equal, round and reactive pupils present EOM: EOMs intact bilaterally Resp: Effort & Inspection: normal respiratory effort Auscultation: clear to auscultation bilaterally Cardio: Rate: regular rate Rhythm: regular rhythm Other: S1-S2 present without murmur, rub, ectopy GI: Other: Abdomen soft, nondistended, nontender. Normoactive bowel sounds in all quadrants. Skin: General skin exam: normal color and no rashes or lesions noted Wounds: no wounds Neuro: Cranial nerves: Yes Equal, round and reactive pupils present Other: odd statements made, slow speech amberly. A/Ox self, year, place, and situation. moving all extremities, no sensory deficits. Extrem: General: normal to inspection Psych: Other: Poor insight and judgment present, flat affect, tangential thinking noted, making odd statements DS: Data Data Completed and Pending Labs on day of discharge: Labs from last 24 hours 12/27/24 04:32 WBC 4.9 RBC 3.79 L Hgb 12.5 Hct 37.0 MCV 97.6 MCH 33.0 MCHC 33.8 RDW 14.2 Plt Count 177 MPV 10.3 Immature Gran % (Auto) 0.2 Neut % (Auto) 60.4 Lymph % (Auto) 18.5 [place] % (Auto) 12.3 H Eos % (Auto) 7.8 H Baso % (Auto) 0.8 Lymph # (Auto) 0.90 [place] # (Auto) 0.6 Eos # (Auto) 0.4 H Baso # (Auto) 0.0 Abs Immat Gran (auto) 0.01 Absolute Neuts (auto) 2.9 Absolute Nucleated RBC 0.000 Nucleated RBC % 0.0 Sodium 130 L Potassium 3.8 Chloride 99 Carbon Dioxide 25 Anion Gap 6 BUN 22 H Creatinine 0.60 L Estim Creat Clear Calc 66 Estimated GFR > 60 Glucose 83 Calcium 8.8 Total Bilirubin 0.5 AST 93 H ALT 122 H Alkaline Phosphatase 185 H Total Protein 6.5 Albumin 3.5 Discharge Plan Discharge Attending physician on discharge: Kirby Palacios Consulting providers: Juan Carlos Ramesh; Natalie Contreras Discharging Clinician: Sienna Jaimes Patient Disposition: Home Activity: may shower Diet: heart healthy Discharge Instructions: Please continue with Keppra 1000 mg twice a day and add Vimpat 100 mg twice a day. You were started on buspar 2.5 mg twice a day- very low dose to help you with anxiety-please take it and disuss with your PCP for further titration of dose if needed. we discussed- f/u with neurology at [facility]. Your liver enzymes were elevated while here-so it important you have a f/u with PCP/GI for further monitoring. Continue to take your salt tablets and see hire car driver for low sodium levels in your blood. Patient Instructions: Antibiotic Form Patient Language: [place] Stand Alone Forms: General Discharge Information Follow-up/Referrals: Marce Fowler, IS CONSULTANT-C [Primary Care Provider, Internal Medicine] - 2 Weeks Discharge Medications: New azithromycin 500 mg Tablet 500 mg PO QHS Qty: 2 0RF cefuroxime axetil 250 mg Tablet 500 mg PO Q12HR Qty: 3 0RF levetiracetam [Keppra] 500 mg Tablet 1,000 mg PO 0500,1700 Qty: 60 0RF lacosamide [Vimpat] 100 mg Tablet 100 mg PO Q12HR Qty: 60 0RF buspirone 5 mg tablet 2.5 mg PO BID Qty: 60 0RF Continued cholecalciferol (vitamin D3) 25 mcg (1,000 unit) capsule 25 mcg PO DAILY Rx Instructions: pt takes at 0500 sennosides-docusate sodium [Senna-S] 8.6-50 mg tablet 1 tab-cap PO DAILY nebivolol [Bystolic] 5 mg tablet 5 mg PO DAILY Rx Instructions: pt takes at 0500 sodium chloride 1,000 mg tablet,soluble 1,000 mg PO DAILY Qty: 30 0RF Discontinued levetiracetam 500 mg tablet 750 mg PO Q12H Rx Instructions: pt takes at 0500 and 1700 No Action levetiracetam [Keppra] 1,000 mg tablet 750 mg PO BID Date of admission: 12/24/24 10:01 Primary Care Provider: Marce Fowler Admitting Provider: Anais Peralta Attending physician on admission: Anais Peralta Condition: Serious Quality VTE Prophylaxis VTE prophylaxis: mechanical ordered
[2024-12-27] MEDS: diphenhydrAMINE HCl CAP 25 MG CAPSULE PO (14:30)
== END 2024-12-27 15:00 | disposition home or self-care (01) | DRG 100 ==
LOC: ANHED 10:20 → ANH3MED 11:02 → ANH2MED 12-27 14:07 → ANH3MED 12-30 11:58 → ANHIMU 12-30 11:58
PROVIDERS: Emergency Medicine; Nurse Practitioner; Student in an Organized Health Care Education/Training Program; Admitting Provider General Practice; Emergency Provider Emergency Medicine; PCP Clinical Nurse Specialist; Visit Provider Nurse Practitioner
DX: G40.909 Epilepsy, unspecified, not intractable, without status epilepticus (principal); J18.9 Pneumonia, unspecified organism; E87.1 Hypo-osmolality and hyponatremia; Q04.8 Other specified congenital malformations of brain; R44.1 Visual hallucinations; I10 Essential (primary) hypertension; F41.9 Anxiety disorder, unspecified; F32.A Depression, unspecified; F10.90 Alcohol use, unspecified, uncomplicated; R68.0 Hypothermia, not associated with low environmental temperature; H25.9 Unspecified age-related cataract; Z20.822 Contact with and (suspected) exposure to COVID-19; Z87.01 Personal history of pneumonia (recurrent); Z86.59 Personal history of other mental and behavioral disorders
CPT/HCPCS: 36415; 70450; 70551; 70553; 71045; 80048; 80053; 80177; 80307; 81003; 82533; 82948; 83605; 83735; 84100; 84145; 84439; 84443; 84480; 85025; 85027; 85610; 85652; 85730; 86140; 87040; 87637; 87641; 93005; 96361; 96365; 96367; 99285; A9270; A9577; G0378; J0456; J0696; J1953; J7030; J7050; J7120

== ENCOUNTER 2025-03-04 09:04 | Inpatient (IN) | payer MEDICARE, SELFPAY ==
[2025-03-04] VITALS (30 sets, daily range): BP systolic 126–186; BP diastolic 59–112; PULSE 47–77; RESP 8–18; TEMP 32.2–36.9; O2SAT 91–100; BMI 29.7
--- NOTE | ~2025-03-04 | CT_ITS ---
EXAMINATION: CT brain wo con, 03/04/2025 9:15 LABORATORY CHEMICAL ASSISTANT HISTORY: headache COMPARISON: No comparisons available. Technique: Axial images obtained of the brain without contrast. One or more of the following dose reduction techniques were used: automated exposure control, adjustment of the mA and/or kV according to patient size, use of iterative reconstruction technique. Findings: No acute infarct or parenchymal hemorrhage. No abnormal mass or mass effect. No midline shift. No extra-axial fluid collections. No hydrocephalus. Mastoid air cells unremarkable. Sinuses and orbits unremarkable. No acute fracture. No significant facial or scalp soft tissue swelling evident. No radiopaque foreign body is seen. Impression: 1.No acute intracranial abnormality. Reviewed, dictated and finalized at location P. RATORY CHEMICAL ASSISTANT Impression: 1.No acute intracranial abnormality.
[2025-03-04] MEDS: ONDANSETRON INJ 4 MG/2 ML VIAL IV PUSH (09:15)
[2025-03-04] MEDS: fentaNYL CITRATE INJ (*CRX) 100 MCG/2 ML VIAL 50 MCG IV PUSH (09:15)
--- NOTE | 2025-03-04 09:32 | ECG_ITS ---
Test Date: 2025-03-04 09:38:55 Measurements Intervals [place] Rate: 57 P: 58 KS: 219 QRS: 62 QRSD: 112 T: 55 QT: 443 QTc: 432 Interpretive Statements SINUS BRADYCARDIA WITH FIRST DEGREE AV BLOCK POSSIBLE LEFT ATRIAL ENLARGEMENT [-0.1mV P-WAVE IN V1/V2] MODERATE INTRAVENTRICULAR CONDUCTION DELAY [110+ ms QRS DURATION] ABNORMAL ECG Compared to ECG 12/23/2024 06:08:12 First degree AV block now present Intraventricular conduction delay now present Sinus rhythm no longer present Electronically Signed On 03-04-2025 17:08:42 HEALTH CARE / MEDICAL JOB TITLES by Ray Hickey M.D.
[2025-03-04 09:40] LABS: Hematocrit 36.5 % (37.0-47.0); Hemoglobin 12.7 g/dL (12.0-15.0); Immature Granulocyte Percent A 0.4 % (0-0.5); Lymphocytes Absolute Auto 1.17 K/mm3 (0.9-3.2); Mean Corpuscular HGB Conc 34.8 g/dl (32-36); Mean Corpuscular Hemoglobin 33.8 pg (26-34); Mean Corpuscular Volume 97.1 fl (80-100); Nucleated Red Blood Cells Absolute Auto 0.000 K/mm3 (0.0-0.012); Nucleated Red Blood Cells Perc 0.0 % (0.0-0.2); Platelet Count Result 141 k/mm3 (150-375); Red Blood Count 3.76 M/mm3 (4.2-5.4); White Blood Count 5.2 K/mm3 (4.5-10.0)
[2025-03-04 09:57] LABS: Alanine Aminotransferase 87 U/L (6-35); Albumin Level 4.4 g/dL (3.5-5.1); Alkaline Phosphatase 193 U/L (38-126); Anion Gap 5 mmol/L (4-12); Aspartate Amino Transferase 52 U/L (14-36); Bilirubin,Total 0.5 mg/dL (0.2-1.3); Blood Urea Nitrogen 18 mg/dL (7-17); Calcium 9.2 mg/dL (8.4-10.2); Carbon Dioxide 29 mmol/L (22-30); Chloride 89 mmol/L (98-107); Estimated CRCL calculation 67 ml/min; Estimated Glomerular Filt Rate > 60; Glucose 101 mg/dL (65-110); Potassium 4.5 mmol/L (3.4-5.0); Sodium 123 mmol/L (137-145); Total Protein 8.0 g/dL (6.3-8.2)
[2025-03-04 10:01] LABS: INR 0.8; Prothrombin Time 11.8 Seconds (11.1-14.7)
[2025-03-04 10:02] LABS: Partial Thromboplastin Time 34.5 Seconds (22.3-36.8)
--- NOTE | 2025-03-04 11:16 | ED.HA ---
HPI - Headache General Chief Complaint: Headache Stated Complaint: headache History of Present Illness HPI Narrative: Pt presents with a HASSAN for 4 days and just not feeling well. Pt has been trying otc meds without releif. Pt denies one sided weakness or dizziness or vomiting. Related Data Home Medications ?Medication ?Instructions ?Recorded ?Confirmed ?Last Taken ?Type cholecalciferol (vitamin D3) 25 25 mcg PO DAILY 12/16/19 03/04/25 03/04/25 History mcg (1,000 unit) capsule nebivolol 5 mg tablet (Bystolic) 5 mg PO DAILY 12/23/24 03/04/25 03/04/25 History Allergies Allergy/AdvReac Type Severity Reaction Status Date / Time Latex, Natural Rubber Allergy Intermediate Hives Verified 03/04/25 14:52 olanzapine (From Zyprexa) Allergy Intermediate Itching Verified 03/04/25 14:52 amoxicillin Allergy Mild Diarrhea Verified 03/04/25 14:52 Corticosteroids Allergy Unknown excessive Verified 03/04/25 14:52 (Glucocorticoids) thirst hydrocodone Allergy Unknown naseau, Verified 03/04/25 14:52 abdominal pain lisinopril Allergy Unknown Constipatio Verified 03/04/25 14:52 n bleach Allergy Unknown Rash Uncoded 02/19/25 10:15 fragrance Allergy Unknown Rash Uncoded 02/19/25 10:15 Review of Systems Review of Systems: All systems reviewed & are unremarkable except as noted in HPI and below PMFSH Past Medical History Medical History Vascular malformation of nervous system Seizure disorder Excessive cerumen in both ear canals Hyponatremia Grand mal seizure Seizures Ganglion cyst of foot removal 2004 (left) Cyst of breast, left, diffuse fibrocystic Removal 1981 PTSD (post-traumatic stress disorder) Cataract Anxiety Depression HTN (hypertension) Surgical History Surgical History History of breast surgery breast cyst benign left History of surgery on arm titanium theresa Family History Family History Father Patient's father is , Onset Age: 88 Mother Family history of malignant neoplasm of bone Social History Social History Social History: Caffeine- coffee Plant based diet Smoking status: Never smoker Alcohol intake: never Alcohol use details: rarely Substance use: never Substance use type: does not use Lack of Transportation: No Lack of Food: Never True Current Housing: I Have Housing Concerned About Future Housing: No Difficulty Paying Gas/Electric Bills: No Difficulty Paying for Meds: No Currently Unemployed: No Education: Master's Degree or Higher Difficulty w/ Childcare or Family Care: No Living arrangements: with family Additional living arrangements comments: Lives with . Occupation/Education: retired Spiritual care concerns: No Exam Const: General: healthy appearing and no acute distress Nutritional Appearance: well nourished Orientation/consciousness: patient oriented x3 Limitations: no limitations HENMT: Head: normal to inspection Eyes: Pupils: Equal, round and reactive pupils present EOM: EOMs intact bilaterally Neck: Neck: normal visual inspection, no lymphadenopathy and no meningeal signs Chest: Chest palpation & inspection: normal inspection of the chest Resp: Effort & Inspection: normal respiratory effort Auscultation: clear to auscultation bilaterally Cardio: Rate: regular rate Rhythm: regular rhythm GI: GI Palp: Yes Soft to palpation and No Tenderness to palpation present (GI) Auscultation: normal bowel sounds Back/Spine/Pelvis: Back: no CVA tenderness Skin: Rashes: no rashes Wounds: no wounds Other: face flushed Neuro: General: patient oriented x3, moves all extremities, no meningeal signs and no focal motor deficits Cranial nerves: Yes Nystagmus not present Speech: normal speech Extrem: General: normal to inspection and no clubbing, cyanosis or edema Psych: Mental Status: mental status grossly normal Affect: normal affect Attitude: cooperative Course Vital Signs Vital signs: Vital Signs Temperature 98.4 F 03/04/25 09:04 Pulse Rate 67 03/04/25 09:04 Respiratory Rate 18 03/04/25 09:04 Blood Pressure 186/112 H 03/04/25 09:04 Pulse Oximetry 94 03/04/25 09:04 Oxygen Delivery Room Air 03/04/25 09:04 Temperature 93.9 F L 03/04/25 18:59 Pulse Rate 56 L 03/04/25 14:31 Respiratory Rate 18 03/04/25 14:31 Blood Pressure 155/69 H 03/04/25 14:31 Pulse Oximetry 93 03/04/25 14:31 Oxygen Delivery Room Air 03/04/25 09:04 MDM - Headache MDM Narrative Medical decision making narrative: Pt hyponatremic. ct unremarkable. Bp improved. Discussed with Dr grijalva and agrees to admit. Differential Diagnosis Differential diagnosis: Likely migraine, tension headache, subarachnoid hemorrhage, headache and other (hypertensive urgency) Lab Data Attestation: I reviewed the patient's lab results. 03/04/25 09:32 03/04/25 16:05 Labs: Lab Results 03/04/25 Range/Units 09:32 WBC 5.2 (4.5-10.0) K/mm3 RBC 3.76 L (4.2-5.4) M/mm3 Hgb 12.7 (12.0-15.0) g/dL Hct 36.5 L (37.0-47.0) % MCV 97.1 (80-100) fl MCH 33.8 (26-34) pg MCHC 34.8 (32-36) g/dl RDW 14.0 (11.5-14.5) % Plt Count 141 L (150-375) k/mm3 MPV 10.4 (7.4-10.4) fl Immature Gran % (Auto) 0.4 (0-0.5) % Neut % (Auto) 69.1 (45.5-73.1) % Lymph % (Auto) 22.4 (18.3-44.2) % [place] % (Auto) 7.3 (2.6-8.5) % Eos % (Auto) 0.4 (0-4.4) % Baso % (Auto) 0.4 (0.2-1.2) % Lymph # (Auto) 1.17 (0.9-3.2) K/mm3 [place] # (Auto) 0.4 (0.1-0.6) K/mm3 Eos # (Auto) 0.0 (0-0.3) K/mm3 Baso # (Auto) 0.0 (0.0-0.1) K/mm3 Abs Immat Gran (auto) 0.02 (0.00-0.031) K/mm3 Absolute Neuts (auto) 3.6 (1.3-6.7) K/mm3 Absolute Nucleated RBC 0.000 (0.0-0.012) K/mm3 Nucleated RBC % 0.0 (0.0-0.2) % PT 11.8 (11.1-14.7) Seconds INR 0.8 APTT 34.5 (22.3-36.8) Seconds Sodium 123 L (137-145) mmol/L Potassium 4.5 (3.4-5.0) mmol/L Chloride 89 L (98-107) mmol/L Carbon Dioxide 29 (22-30) mmol/L Anion Gap 5 (4-12) mmol/L BUN 18 H (7-17) mg/dL Creatinine 0.58 L (0.7-1.0) mg/dL Estim Creat Clear Calc 67 ml/min Estimated GFR > 60 (59 - ) Glucose 101 (65-110) mg/dL Calcium 9.2 (8.4-10.2) mg/dL Total Bilirubin 0.5 (0.2-1.3) mg/dL AST 52 H (14-36) U/L ALT 87 H (6-35) U/L Alkaline Phosphatase 193 H (38-126) U/L Total Protein 8.0 (6.3-8.2) g/dL Albumin 4.4 (3.5-5.1) g/dL ECG Data EKG #1: Interpretation: sinus philippe with first degree block rate 57 lae intraventricluar conduction delay Discharge Plan Discharge Clinical Impression: Acute hyponatremia HTN (hypertension) Qualifiers: Hypertension type: primary hypertension Qualified Code(s): I10 - Essential (primary) hypertension Headache Qualifiers: Headache type: tension-type Headache chronicity pattern: acute headache Intractability: intractable Qualified Code(s): G44.201 - Tension-type headache, unspecified, intractable Patient Disposition: Still a Patient Condition: Stable
[2025-03-04] MEDS: SODIUM CHLORIDE 0.9% IV 1,000 ML 125 ML IV CONT (13:05)
--- NOTE | 2025-03-04 13:18 | WPCEDHO ---
ED Hand Off Checklist All vitals saved: YES IV Site documented: YES All med administrations documented: YES Triage Note Triage Note pt to ed with c/o headache that 03/04/25 09:04 began yesterday at 0800. pt states it's 10/10 pain and is the worst headache she's ever had. pt has pmhx of epilepsy and takes keppra states that she hasn't missed a dose. Allergies Latex, Natural Rubber Allergy (Intermediate, Verified 02/19/25 10:15) Hives blistering olanzapine (From Zyprexa) Allergy (Intermediate, Verified 02/19/25 10:15) Itching PATIENT COMPLAINED ABOUT ITCHINESS AFTER ADMINISTRATION amoxicillin Allergy (Mild, Verified 02/19/25 10:15) Diarrhea Corticosteroids (Glucocorticoids) Allergy (Unknown, Verified 02/19/25 10:15) excessive thirst hydrocodone Allergy (Unknown, Verified 02/19/25 10:15) naseau, abdominal pain lisinopril Allergy (Unknown, Verified 02/19/25 10:15) Constipation bleach Allergy (Unknown, Uncoded 02/19/25 10:15) Rash fragrance Allergy (Unknown, Uncoded 02/19/25 10:15) Rash Family History (Last Reviewed 02/19/25 @ 10:06 by Vik Schultz M.D.) Father Patient's father is Mother Family history of malignant neoplasm of bone Active Medications including assessments/comments Sodium Chloride (Normal Saline Iv) 1,000 mls @ 125 mls/hr IV CONT .Q8H STA Stop: 03/04/25 19:20 Last Admin: 03/04/25 13:05 Dose: 125 mls/hr Documented By: KARLA Infusion/Titration Document 03/04/25 13:05 KARLA (Rec: 03/04/25 13:05 KARLA [id number]) Intake IV Site Peripheral Access Right Wrist Container Volume 1,000 Waste Amount 0 Dosing Infusion Rate 125 Cumulative Dose Not Applicable Increase/Decrease Started Elapsed Time Elapsed Time ( 0m minutes) Administered/Completed Medications Discontinued Medications Clonidine HCl (Clonidine Hcl 0.1 Mg Tablet) 0.1 mg PO ONCE ONE Stop: 03/04/25 09:04 Last Admin: 03/04/25 09:15 Dose: 0.1 mg Documented By: KARLA Fentanyl Citrate (Fentanyl Citrate Inj (*Crx) 100 Mcg/2 Ml Vial) 50 mcg IV PUSH ONCE STA Stop: 03/04/25 09:04 Last Admin: 03/04/25 09:15 Dose: 50 mcg Documented By: KARLA Ondansetron HCl (Ondansetron Inj 4 Mg/2 Ml Vial) 4 mg IV PUSH ONCE STA Stop: 03/04/25 09:04 Last Admin: 03/04/25 09:15 Dose: 4 mg Documented By: KARLA Interventions/Assessments IV / Saline Lock, Insert Start: 03/04/25 08:47 Freq: Status: Active Protocol: Document 03/04/25 09:11 KARLA (Rec: 03/04/25 09:12 KARLA [id number]) IV Assessment Peripheral Access Right Wrist IV Catheter Access Initiated Before Arrival IV Insertion Date 03/04/25 Catheter Gauge 18 IV Site Assessment WNL IV Care and WNL Maintenance PA: Neurological Assessment Start: 03/04/25 08:47 Freq: Status: Active Protocol: Document 03/04/25 09:10 KARLA (Rec: 03/04/25 09:11 KARLA [id number]) Neurological Assessment Level of Alert,Awake Consciousness Arousable to Verbal Orientation Oriented to Person,Oriented to Place,Oriented to Time Neurological Headache,Weakness, General Symptoms Behavior Appropriate Memory Description Intact Ability to Maintain Unable to Assess Balance Facial Symmetry Symmetrical Speech Pattern Delayed Tongue Position Midline Emily Coma Scale Eyes Open Verbal Oriented and Alert Motor Follows Commands Leivasy Coma Total 15 Score Last Vital Signs Temperature 98.4 F 03/04/25 09:04 Pulse Rate 53 L 03/04/25 10:04 Respiratory Rate 18 03/04/25 10:04 Pulse Oximetry 99 03/04/25 10:04 Blood Pressure 182/71 H 03/04/25 10:04 Blood Pressure Mean 108 03/04/25 10:04 Blood Pressure Position Supine 03/04/25 09:04 Oxygen Delivery Room Air 03/04/25 09:04 Weight 72.6 kg 03/04/25 09:04 Last Result - Abnormals Only RBC 3.76 M/mm3 (4.2-5.4) L 03/04/25 09:32 Hct 36.5 % (37.0-47.0) L 03/04/25 09:32 Plt Count 141 k/mm3 (150-375) L 03/04/25 09:32 Sodium 123 mmol/L (137-145) L 03/04/25 09:32 Chloride 89 mmol/L (98-107) L 03/04/25 09:32 BUN 18 mg/dL (7-17) H 03/04/25 09:32 Creatinine 0.58 mg/dL (0.7-1.0) L 03/04/25 09:32 AST 52 U/L (14-36) H 03/04/25 09:32 ALT 87 U/L (6-35) H 03/04/25 09:32 Alkaline Phosphatase 193 U/L (38-126) H 03/04/25 09:32 Most Recent Suicide Severity Rating Suicide Severity Rating NO RISK INDICATED 03/04/25 09:04
--- OUTSIDE RECORDS SUMMARY | 2025-03-04 14:40 | XMS_ITS | Clinical Summary ---
Author Organization [facility] Address [facility] [place] [address] Care Team Providers Care Pharmacy Picking Tech Name Role Phone Marce Fowler NP Unavailable [phone] Marce Fowler NP Primary Care Provider [phone] Allergies Active Allergy Reactions Criticality Noted Date Comments Bleach (Sodium Hypochlorite) Rash Medium 024 Latex Rash Medium 01/20/2024 Nickel Rash Medium Medications nebivoloL (BYSTOLIC) 10 mg tablet Take 1 tablet (10 mg total) by mouth daily 30 tablet 11 4 Active cholecalciferol (VITAMIN D-3) 1,000 unit capsule Take 1 capsule (1,000 Units total) by mouth daily 30 capsule 11 4 Active acetaminophen 500 mg capsule Take 2 [...] times a day 120 tablet 4 Active lamoTRIgine (LaMICtal) 25 mg tablet Take 1 tab daily for 2 weeks then 2 tabs daily for 2 weeks then 4 tabs daily for 1 week 70 tablet 5 Active levETIRAcetam (KEPPRA) 500 mg tablet Take 2 tablets (1,000 mg total) by mouth 2 (two) times a day 360 tablet 1 5 07/14/19 26 Active lacosamide (VIMPAT) 100 mg tablet Take 1 tablet (100 mg total) by mouth 2 (two) times a day 180 tablet 1 5 07/14/19 26 Active busPIRone (BUSPAR) 5 mg tabletIndicatio ns:Generalized Anxiety Disorder Take 0.5 tablets (2.5 mg total) by mouth 2 (two) times a day 5 Active Active Problems Problem Noted Date Diagnosed [...] Care: Maintain surgical dressing until follow-up - Sutures/Buford: Will be removed 3 weeks after surgical date., will be 02/10/2024 - Bone health referral at discharge Patient has follow up scheduled on 03/[address] Wu located at [address], DVT prophylaxis Eliquis 2.5 mg PO [...] Encounters Date Type Department Care Team Description 01/16/2025 Telephone [facility] [address] [facility] 6th [place] [address] [place] [address] Clay Monroy MD PhD Med Management 01/07/2025 5:46 PM CDT - 01/07/2025 11:59 PM CDT Hospital Encounter [facility] ([facility]) [address] [place] [address] Diagnosis unknown Discharge Disposition: Discharge to home or self care 01/07/2025 3:27 PM CDT - 01/07/2025 11:59 PM CDT Hospital Encounter [facility] ([facility]) [address] [place] [address] Discharge Disposition: Discharge to home or self care from Last 3 Months Medical History Medical [...] on file Legal Sex Female 11:50 PM [facility] Gender Identity Female 01/20/2024 12:30 AM CDT Sexual Orientation Not on file Last Filed Vital Signs Vital Sign Reading Time Taken Comments Blood Pressure 171/86 03/10/2024 7:56 AM [facility] Pulse 99 03/10/2024 7:56 AM [facility] Temperature 37.3 C (99.2 F) 01/25/2024 3:12 PM CDT Respiratory Rate 18 01/25/2024 3:12 PM CDT Oxygen Saturation 100% 01/25/2024 3:12 PM CDT Inhaled Oxygen Concentration - - Weight 70.3 kg (155 lb) 03/10/2024 7:56 AM [facility] Height 157.5 cm (5' 2) 03/10/2024 7:56 AM [facility] Body Mass Index 28.35 03/10/2024 7:56 AM [facility] Plan of Treatment Health Maintenance Due Date Last Done Comments Breast Cancer Screening-Mammogram 1950 Colon Cancer Screening-Colonoscopy 1950 Depression Screening 1950 Hepatitis C Screening 1950 Osteoporosis Screening-Bone Density Scan 1951 Hepatitis B Screening 1969 Pneumococcal vaccine 65+ (1 of 1 - PCV) 2001 Zoster Vaccine (1 of 2) 2001 Well Visit 65+ 2016 DTaP/Tdap/Td Vaccine (2 - Td or Tdap) 04/16/201704/2007 Covid-19 Vaccine (3 - season) 2024, 12/07/2020 Influenza Vaccine (#1) 2024 Fall Risk Assessment 01/24/2025 01/25/2024 Medical Devices Implanted Type Area [employer] Remover Device Identifier Shelf Expiration Date Model / Serial / Lot [employer] Simplex P Full Dose Radiopaque Preblend Cement Bone Tobramycin 6197-9-010 - S0 - [id number] Implanted:Qty: 2 on 01/20/2024 by Dhruv Wu MD at [facility] Bone Cement Left: Femur [employer] [id number] 03/15/2025 6197-9-010 / 0 / [id number] Description:Same Lot # and s mary Exp date (x2) Synthes 1.7mm 750mm Crimp Cerclage Cable Orthopedic Stainless Steel 298.801.01s - S0 - [id number] Implanted:Qty: 1 on 01/20/2024 by Dhruv Wu MD at [facility] Cable Left: Femur Synthes 10/13/2028 298.801.01S / 0 / [id number] [employer] Inc [place] 97mm Cemented Hip 2 03/29 Standard Offset Taper Stem [id number] - S0 - [id number] Implanted:Qty: 1 on 01/20/2024 by Dhruv Wu MD at [facility] Other - see comments Left: Femur [employer] [id number] 06/13/2028 [id number] / 0 / [id number] Description:Femoral Stem [employer] Inc Cementralizer 8.5mm Cemented Hip Femur Centralizer Stem Pmma Latex Free 1376-46-000 - S0 - [id number] Implanted:Qty: 1 on 01/20/2024 by Dhruv Wu MD at [facility] Other - see comments Left: Femur [employer] [id number] 08/13/2028 1376-46-000 / 0 / [id number] Description:Stem Centralizer [employer] Inc Articul/Girma 28mm Hip +1.5mm 03/29 Taper Head Femoral Cocr Sterile Latex Free 1365-11-000 - S0 - [id number] Implanted:Qty: 1 on 01/20/2024 by Dhruv Wu MD at [facility] Other - see comments Left: Femur [employer] [id number] 10/13/2028 1365-11-000 / 0 / [id number] Description:Femoral Head [employer] Inc Self-Centering 44mm 28mm Hip Femur Head Bipolar Sterile Casas 1035-44-000 - S0 - [id number] Implanted:Qty: 1 on 01/20/2024 by Dhruv Wu MD at [facility] Other - see comments Left: Femur [employer] [id number] 09/13/2028 1035-44-000 / 0 / [id number] Description:Bi-polar Head [employer]Rich[employer]/O rtho Prep-Im Plug Castine Sponge Suction Hip Kit Thr Latex Free 321234 - S0 - [id number] Implanted:Qty: 1 on 01/20/2024 by Dhruv Wu MD at [facility] Other - see comments Left: Femur [employer]/ Ortho [id number] 06/05/2033 [id number] / 0 / [id number] Description:Cement restricto r Procedures Procedure Name Priority Date/Time Associated Diagnosis Comments NEURO MR OUTSIDE CONSULT Routine 01/07/2025 5:46 PM CDT Diagnosis unknown NEURO MR OUTSIDE REFERENCE Routine 01/07/2025 3:27 PM CDT from Last 3 Months Results * Neuro MR Outside Consult (01/07/2025 5:46 PM CDT) Anatomical Region Laterality Modality N/A Magnetic Resonan ce 01/08/2025 11:1 9 AM CDT Impressions 01/08/2025 12:50 PM CDT 1. No acute abnormality. 2. Treated right parietal occipital/temporal arteriovenous malformation, unchanged in appearance from 01/19/2015, although incompletely assessed without intravenous contrast. The findings, conclusions and recommendations within this report do not replace the initial findings, conclusions and recommendations made at the facility where the study was performed based upon the imaging and clinical condition at that time. Comparison with the prior report and clinical history is necessary. The provided images may or may not represent the eyak source data set and thus may contain changes that may lower the accuracy of this second-opinion interpretation. Dictated by: Atul Jaimes MD The radiology attending physician has personally reviewed this study, and had reviewed and/or edited this written report and agrees with it. Electronically signed by: Luna Chavez M.D. Narrative 01/08/2025 12:50 PM CDT EXAMINATION: RADIOLOGY CONSULTATION ON OUTSIDE IMAGING STUDY STUDY INITIALLY PERFORMED: 12/24/2024 at [facility]. TYPE OF STUDY: Multiple MR images of the brain without intravenous contrast are provided at the time of this interpretation. CONTRAST ROUTE: Contrast was administered via the intravenous route. The protocol was adequate to address the clinical question. The outside final report was not available at the time of this second opinion interpretation. 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 The superior sagittal sinus demonstrates normal venous flow. The corpus callosum is normal in shape and signal intensity. The posterior fossa is unremarkable.. The pituitary and sella are normal. The brainstem and craniocervical junction are unremarkable. Diffusion weighted images reveal no hyperintensities to suggest acute cerebral infarction. The susceptibility weighted sequences reveal no evidence of acute or chronic hemorrhage. There is diffuse cerebral volume loss with associated ex vacuo dilatation of the ventricles. The ventricles are unchanged in size and morphology. Mild foci of T2/FLAIR hyperintensity in the periventricular and deep white matter are nonspecific but may be seen in the setting of chronic microvascular ischemia. Area of T2/FLAIR hyperintensity with in the right parietal occipital temporal lobe is unchanged from 01/19/2015, compatible with reported treated arteriovenous malformation; no flow voids are seen. The paranasal sinuses are normal. The visualized portions of the mastoids are unremarkable. The orbits appear normal. Normal flow voids are demonstrated in the carotid arteries and basilar artery. Procedure Note VoLuna MD - 01/08/2025 EXAMINATION: RADIOLOGY CONSULTATION ON OUTSIDE IMAGING STUDY STUDY INITIALLY PERFORMED: 12/24/2024 at [facility]. TYPE OF STUDY: Multiple MR images of the brain without intravenous contrast are provided at the time of this interpretation. CONTRAST ROUTE: Contrast was administered via the intravenous route. The protocol was adequate to address the clinical question. The outside final report was not available at the time of this second opinion interpretation. 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 The superior sagittal sinus demonstrates normal venous flow. The corpus callosum is normal in shape and signal intensity. The posterior fossa is unremarkable.. The pituitary and sella are normal. The brainstem and craniocervical junction are unremarkable. Diffusion weighted images reveal no hyperintensities to suggest acute cerebral infarction. The susceptibility weighted sequences reveal no evidence of acute or chronic hemorrhage. There is diffuse cerebral volume loss with associated ex vacuo dilatation of the ventricles. The ventricles are unchanged in size and morphology. Mild foci of T2/FLAIR hyperintensity in the periventricular and deep white matter are nonspecific but may be seen in the setting of chronic microvascular ischemia. Area of T2/FLAIR hyperintensity with in the right parietal occipital temporal lobe is unchanged from 01/19/2015, compatible with reported treated arteriovenous malformation; no flow voids are seen. The paranasal sinuses are normal. The visualized portions of the mastoids are unremarkable. The orbits appear normal. Normal flow voids are demonstrated in the carotid arteries and basilar artery. IMPRESSION: 1. No acute abnormality. 2. Treated right parietal occipital/temporal arteriovenous malformation, unchanged in appearance from 01/19/2015, although incompletely assessed without intravenous contrast. The findings, conclusions and recommendations within this report do not replace the initial findings, conclusions and recommendations made at the facility where the study was performed based upon the imaging and clinical condition at that time. Comparison with the prior report and clinical history is necessary. The provided images may or may not represent the eyak source data set and thus may contain changes that may lower the accuracy of this second-opinion interpretation. Dictated by: Atul Jaimes MD The radiology attending physician has personally reviewed this study, and had reviewed and/or edited this written report and agrees with it. Electronically signed by: Luna Chavez M.D. Clay Monroy MD PhD IMG MRI PROCEDURES F inal Result * Neuro MR Outside Reference (01/07/2025 3:27 PM CDT) Impressions RAD_P[facility] - 01/07/2025 3:27 PM CDT These images are for Reference purposes only and have not been reviewed by [facility]. There will be no report generated by a [facility] Radiologist. Narrative RAD_P[facility] - 01/07/2025 3:27 PM CDT EXAMINATION: Images For Reference Purposes Only us Clay Monroy MD PhD IMG MRI PROCEDURES F inal Result RAD_PACS[facility] from Last 3 Months Insurance [facility] MEDICARE T MEDICARE Advance Directives For more information, please contact: [phone] Documents on File Type Date Recorded Patient Book Publisher Expl anation ADVANCE DIRECTIVE 01/21/2024 2:49 PM POWER OF DOOR REPAIRER BUS-MEDICAL ADVANCE DIRECTIVE 01/21/2024 2:49 PM LIVIN G WILL * Full Code (Latest Code Status on File) Date Activated Date Inactivated Comments 01/20/2024 1:58 AM 01/25/2024 11:27 PM Care Teams Pharmacy Picking Tech Relationship Specialty Start Date End Date Marce Fowler CAN INSPECTOR [address] [place] [address] [place] [address] PCP - General Cardiovascular Disease 01/31/24 Marce Fowler NP [address] [place] [address] [place] [address] Registered Nurse Cardiovascular Disease 10/31/23
--- NOTE | 2025-03-04 14:45 | PC.NURSE ---
Patients temperature rectally reading low (see vitals). RN called hospitalist Ginny and no answer at this time.
--- NOTE | 2025-03-04 14:51 | ADMGEN ---
This patient, Apurva Holman, was admitted to [facility] Surg Room 317-01. Patient/family oriented to hospital policies and general routines including ID bracelet, bed and alarms, visiting hours, pain management, procedures, bathroom and other care routines, personal items, smoking policy, room service/diet, and visiting hours. Information on how to activate the Rapid Response Team has been discussed. Patient/Family are encouraged to report perceived risks to care and to ask questions if they do not understand what they are told or what they should do.
--- NOTE | 2025-03-04 14:55 | P.HP_ITS ---
H&P: HPI History of Present Illness Date/Time: 03/04/25 14:55 Chief Complaint: Headache Narrative: 74 y/o F with PMH of anxiety, hyponatremia, seizures, PTSD, depression, and hypertension presents here with headache. The patient presents here from home on 03/04 for further evaluation of headache. She reports onset 2-3 days ago. She reports the headache has been dull and has shifted from side to side and has not stayed in 1 location. She reports the pain previously radiated into the base of her skull and neck. She reports her initially did not want her to seek evaluation in the emergency depa rtment, however after the pain was persistent she was able to come seek care. She denies associated vision changes, dizziness, nausea, vomiting. She does report she has felt more generally weak over this same time frame. Of note, she was admitted at [facility] from 12/23/24-12/27/24 for possible recurrent seizures. She was evaluated by General Medicine, Neurology, and Neurosurgery. Neurology recommended increasing patient's Keppra to 1000 mg b.i.d. and adding Vimpat 100 mg b.i.d.. Neurosurgery was consulted after a vascular malformation extending to a 7 x 4 x 3 enhancing lesion in the right temporal occipital region was noted. However neurosurgery felt there were multiple other explanations for the change in her mental status and did not feel the malformation/lesion was the culprit of her symptoms. During this admission she was also treated for hyponatremia which is chronic for her. Patient also developed hypothermia, lowest recorded temp 91.3?F. While she was transferred to IMU and placed on a Yun Hugger with improvement and without recurrence. She was also treated for pneumonia. Initial VS at presentation: 98.4? F, HR 67, R 18, 186/112, and 94% on RA. ED workup showed: No leukocytosis, no anemia, normal coags, sodium 123, creatinine 0.58, AST 52/ALT 87 (decreased from previous). Head CT showed no acute intracranial abnormality. EKG showed sinus bradycardia with first-degree AV block, rate 57, possible left atrial enlargement, moderate intraventricular conduction delay. Review of Systems Review of Systems: All systems reviewed & are unremarkable except as noted in HPI and below (Limited, poor historian) [facility] Past Medical History Medical History Vascular malformation of nervous system Seizure disorder Excessive cerumen in both ear canals Hyponatremia Grand mal seizure Seizures Ganglion cyst of foot removal 2004 (left) Cyst of breast, left, diffuse fibrocystic Removal 1981 PTSD (post-traumatic stress disorder) Cataract Anxiety Depression HTN (hypertension) Surgical History Surgical History History of breast surgery breast cyst benign left History of surgery on arm titanium theresa Family History Family History Father Patient's father is , Onset Age: 88 Mother Family history of malignant neoplasm of bone Social History Social History Social History: Caffeine- coffee Plant based diet Smoking status: Never smoker Alcohol intake: never Alcohol use details: rarely Substance use: never Substance use type: does not use Lack of Transportation: No Lack of Food: Never True Current Housing: I Have Housing Concerned About Future Housing: No Difficulty Paying Gas/Electric Bills: No Difficulty Paying for Meds: No Currently Unemployed: No Education: Master's Degree or Higher Difficulty w/ Childcare or Family Care: No Living arrangements: with family Additional living arrangements comments: Lives with . Occupation/Education: retired Spiritual care concerns: No Meds Home Medications and Allergies Home Medications ?Medication ?Instructions ?Recorded ?Confirmed ?Type cholecalciferol (vitamin D3) 25 25 mcg PO DAILY 03/04/25 History mcg (1,000 unit) capsule nebivolol 5 mg tablet (Bystolic) 5 mg PO DAILY 5 03/04/25 History lacosamide 100 mg tablet (Vimpat) 100 mg PO Q12HR #60 tabs 12/27/24 03/04/25 Rx levetiracetam 500 mg tablet 1,000 mg (2 x 500 mg) PO 0 500,1700 12/27/24 03/04/25 Rx (Keppra) #60 tabs buspirone 5 mg tablet 2.5 mg (1/2 x 5 mg) PO BID # 60 tabs 02/12/25 03/04/25 Rx Allergies Allergy/AdvReac Type Severity Reaction Status Date / Time Latex, Natural Rubber Allergy Intermediate Hives Verified 03/04/25 14:52 olanzapine (From Zyprexa) Allergy Intermediate Itching Verified 03/04/25 14:52 amoxicillin Allergy Mild Diarrhea Verified 03/04/25 14:52 Corticosteroids Allergy Unknown excessive Verified 03/04/25 14:52 (Glucocorticoids) thirst hydrocodone Allergy Unknown [place], Verified 03/04/25 14:52 abdominal pain lisinopril Allergy Unknown Constipatio Verified 03/04/25 14:52 n bleach Allergy Unknown Rash Uncoded 02/19/25 10:15 fragrance Allergy Unknown Rash Uncoded 02/19/25 10:15 Vital Signs Vital Signs - 24 hr 03/04/25 09:04 03/04/25 09:33 03/04/25 10:04 Temperature 98.4 F Pulse Rate 67 55 L 53 L Respiratory Rate 18 10 L 18 Blood Pressure 186/112 H 177/81 H 182/71 H Pulse Oximetry 94 91 99 Oxygen Delivery Room Air 03/04/25 10:07 03/04/25 11:12 03/04/25 11:15 Temperature Pulse Rate 60 54 L 51 L Respiratory Rate 11 L 9 L 8 L Blood Pressure Pulse Oximetry 99 100 100 Oxygen Delivery 03/04/25 11:16 03/04/25 11:30 03/04/25 11:31 Temperature Pulse Rate 51 L 48 L 47 L Respiratory Rate 8 L 12 9 L Blood Pressure 165/68 H 146/59 H Pulse Oximetry 100 100 100 Oxygen Delivery 03/04/25 12:00 03/04/25 14:31 03/04/25 14:42 Temperature 89.9 F L Pulse Rate 57 L 56 L Respiratory Rate 11 L 18 Blood Pressure 155/69 H Pulse Oximetry 93 93 Oxygen Delivery Exam Const: General: comfortable and no acute distress Other: , female, chronically ill-appearing with nontoxic appearance HENMT: Face/Nose/Sinus: Normal nares present Mouth: Yes moist mucous membranes Eyes: General: appearance normal, both eyes and all related structures Sclera: sclerae normal Pupils: Equal, round and reactive pupils present EOM: EOMs intact bilaterally Resp: Effort & Inspection: normal respiratory effort Auscultation: clear to auscultation bilaterally Cardio: Rate: regular rate Rhythm: regular rhythm Other: S1-S2 present without murmur, rub, ectopy GI: Other: Abdomen soft, nondistended, nontender. Normoactive bowel sounds in all quadrants. Skin: General skin exam: no rashes or lesions noted Wounds: no wounds Other: + flushing Neuro: Sensory Exam: normal sensation Other: + generalized weakness, however symmetri c in all extremities. Slow speech amberly. A&Ox3-4, patient very poor historian and has changed some time frames from provider to provider. Extrem: General: normal to inspection Psych: Other: Flat affect. Fair insight and judgment at present. Tangental. H&P: Results Labs Labs: Short CBC 03/04/25 Range/Units 09:32 WBC 5.2 (4.5-10.0) K/mm3 Hgb 12.7 (12.0-15.0) g/dL Hct 36.5 L (37.0-47.0) % Plt Count 141 L (150-375) k/mm3 BMP 03/04/25 09:32 Sodium 123 L Potassium 4.5 Chloride 89 L Carbon Dioxide 29 BUN 18 H Creatinine 0.58 L Glucose 101 Calcium 9.2 Liver Function 03/04/25 Range/Units 09:32 Total Bilirubin 0.5 (0.2-1.3) mg/dL AST 52 H (14-36) U/L ALT 87 H (6-35) U/L Alkaline Phosphatase 193 H (38-126) U/L Albumin 4.4 (3.5-5.1) g/dL Assessment and Plan Assessment and plan (1) Hyponatremia: Code(s): E87.1 - Hypo-osmolality and hyponatremia Status: Acute Assessment and Plan: Patient has history of hyponatremia. Currently on BuSpar and Vimpat which could be contributing. Now acutely worse today. Initial sodium upon admission was 123. Previously 130 upon discharge on 12/27/2024. Per review, has been as low as 128 back in 2022. More consistently appears to run in the upper 120s/low 130s. - check serum osmolality, urine osmolality, urine sodium, protein/creatinine rat io, urine creatinine - IV fluids: NS 125 mL/hour x1 L Serum osmolality - nephrology consulted for hyponatremia and patient's hypothermia - patient currently A&Ox3-4, however she is a poor historian. Appears to be the patient's baseline, similar exam during her admission in December of 2024. Monitor. - fluid restriction: 1500 mL per day (2) Hypothermia: Qualifiers: Encounter type: initial encounter Qualified Code(s): T68.XXXA - Hypothermia, initial encounter Code(s): T68.XXXA - Hypothermia, initial encounter Status: Acute Assessment and Plan: Patient found to be hypothermic post admission. Recorded rectal temp of 89.9. Subsequently placed on a Yun Hugger, temperature improving to 92.3. Per review of chart, patient had hypothermic episode during her most recent admission in December. Treated with a Yun Hugger. No specific etiology indicated at that time. TSH last within normal limits in August of 2024. - check TSH, UDS, and random cortisol - nephrology consulted for further input, has concurrent hyponatremia - Yun Hugger applied, monitor temperature closely. May need transfer to IMU for continued close monitoring. (3) Headache: Qualifiers: Headache type: tension-type Headache chronicity pattern: acute headache Intractability: intractable Qualified Code(s): G44.201 - Tension-type headache, unspecified, intractable Code(s): R51.9 - Headache, unspecified Status: Acute Assessment and Plan: Reported headache for the past 2-3 days. Has been shifting from side to side and radiates into her occiput/neck. No associated vision changes, dizziness, nausea, or vomiting. Does report fatigue. Patient was given fentanyl, clonidine, and started on IV fluids in the emergency department. Since initiation/administration of these medications she reports her headache has improved and is now mild in nature. - head CT obtained in the emergency department on 03/04, personally reviewed and no acute abnormalities appreciated. Radiologist impression reads no acute intracranial abnormality. - suspect etiology is patient's acute on chronic hyponatremia. Receiving IV fluids. - analgesics p.r.n. (4) Seizures: Code(s): R56.9 - Unspecified convulsions Status: Chronic Assessment and Plan: No seizure-like activity reported by the patient. At baseline on neurological exam. - continue Keppra 1000 mg b.i.d. and Vimpat 100 mg b.i.d. 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 Prominent feeding vessel extending to a 7 x 4 x 3 mm enhancing lesion in the right temporal occipital region of surrounding vasogenic edema identified on prior MRI. Appearance favors vascular malformation over malignancy. 2. Otherwise unremarkable MRI of the bilateral internal auditory canals. Neurosurgery was consulted the time and did not recommend an urgent MRI or angiogram as there was no current suggestion of hemorrhage. Patient referred to a neurosurgical team that offered vascular Services such is [facility] or [facility] for further evaluation as an outpatient as the team at [facility] does not offer this. (6) Depression: Qualifiers: Depression Type: unspecified Qualified Code(s): F32.A - Depression, unspecified Code(s): F32.9 - Major depressive disorder, single episode, unspecified Status: Chronic Assessment and Plan: Flat affect on exam. No depressive thoughts voiced. - continue BuSpar 2.5 mg b.i.d. Plan Diet: Regular, fluid restriction GI Prophylaxis: N/a a DVT Prophylaxis: SCDs IV fluids: NS 125 mL/hour x1 L -> NS 100 mL/hour Lines/Tubes: Peripheral IV Code Status: Full code Quality VTE Prophylaxis VTE prophylaxis: mechanical ordered Hospitalist [facility] Medication Reconciliation I have utilized all available resources to obtain, update and review the patients current medications (includes all prescriptions, OTC, herbals, cannabis, and nutritional supplements).: Yes
--- NOTE | 2025-03-04 15:01 | PC.NURSE ---
RN called hospitalist Ginny to update her on patient's temperature (see vitals). No answer again.
--- NOTE | 2025-03-04 15:16 | PC.NURSE ---
RN spoke with hospitalist Ginny who stated she was going to speak with the vender in regards to patient's temperature. Hospitalist gave TORB to put patient on daniel hugger.
[2025-03-04] MEDS: busPIRone HCL 2.5 MG TABLET PO (17:19)
--- NOTE | 2025-03-04 17:20 | PC.NURSE ---
RN spoke with hospitalist at bedside and hospitalist wants to keep patient on daniel hugger until temperature of 95 is reached.
[2025-03-04] MEDS: SODIUM CHLORIDE 0.9% IV 1,000 ML 100 ML IV CONT (17:27)
[2025-03-04 17:28] LABS: Thyroid Stimulating Hormone Reflex 3.090 uIU/mL (0.465-4.68)
[2025-03-04 18:01] LABS: Anion Gap 4 mmol/L (4-12); Blood Urea Nitrogen 16 mg/dL (7-17); Calcium 8.7 mg/dL (8.4-10.2); Carbon Dioxide 28 mmol/L (22-30); Chloride 91 mmol/L (98-107); Estimated CRCL calculation 69 ml/min; Estimated Glomerular Filt Rate > 60; Glucose 91 mg/dL (65-110); Potassium 4.7 mmol/L (3.4-5.0); Sodium 123 mmol/L (137-145)
[2025-03-04 18:09] LABS: Total Protein Urine Random 22 mg/dL; Ur Ttl Prot Creatinine Ratio 0.32 mg/mg (0-0.20)
[2025-03-04 18:20] LABS: Cannabinoid Screen Urine Negative (Negative)
[2025-03-04 20:41] LABS: Anion Gap 3 mmol/L (4-12); Blood Urea Nitrogen 15 mg/dL (7-17); Calcium 8.8 mg/dL (8.4-10.2); Carbon Dioxide 29 mmol/L (22-30); Chloride 91 mmol/L (98-107); Estimated CRCL calculation 62 ml/min; Estimated Glomerular Filt Rate > 60; Glucose 107 mg/dL (65-110); Potassium 4.6 mmol/L (3.4-5.0); Sodium 123 mmol/L (137-145)
[2025-03-04] MEDS: LACOSAMIDE (*CRX) 100 MG TABLET PO (20:52)
[2025-03-05] VITALS: TEMP 36.8
[2025-03-05 00:05] LABS: Anion Gap 3 mmol/L (4-12); Blood Urea Nitrogen 15 mg/dL (7-17); Calcium 8.6 mg/dL (8.4-10.2); Carbon Dioxide 27 mmol/L (22-30); Chloride 93 mmol/L (98-107); Estimated CRCL calculation 59 ml/min; Estimated Glomerular Filt Rate > 60; Glucose 67 mg/dL (65-110); Potassium 4.7 mmol/L (3.4-5.0); Sodium 123 mmol/L (137-145)
[2025-03-05 02:06] LABS: Anion Gap 5 mmol/L (4-12); Blood Urea Nitrogen 14 mg/dL (7-17); Calcium 8.8 mg/dL (8.4-10.2); Carbon Dioxide 26 mmol/L (22-30); Chloride 93 mmol/L (98-107); Estimated CRCL calculation 52 ml/min; Estimated Glomerular Filt Rate > 60; Glucose 86 mg/dL (65-110); Potassium 5.2 mmol/L (3.4-5.0); Sodium 124 mmol/L (137-145)
[2025-03-05 06:00] VITALS: BP 152/73; PULSE 92; RESP 18; TEMP 36.8; O2SAT 94
[2025-03-05 06:21] LABS: Hematocrit 33.1 % (37.0-47.0); Hemoglobin 11.2 g/dL (12.0-15.0); Immature Granulocyte Percent A 0.4 % (0-0.5); Immature Platelet Fraction Pct 8.2 % (0.9-11.2); Lymphocytes Absolute Auto 0.71 K/mm3 (0.9-3.2); Mean Corpuscular HGB Conc 33.8 g/dl (32-36); Mean Corpuscular Hemoglobin 33.6 pg (26-34); Mean Corpuscular Volume 99.4 fl (80-100); Nucleated Red Blood Cells Absolute Auto 0.020 K/mm3 (0.0-0.012); Nucleated Red Blood Cells Perc 0.4 % (0.0-0.2); Platelet Count Result 147 k/mm3 (150-375); Red Blood Count 3.33 M/mm3 (4.2-5.4); White Blood Count 5.1 K/mm3 (4.5-10.0)
[2025-03-05 06:28] LABS: Anion Gap 5 mmol/L (4-12); Blood Urea Nitrogen 14 mg/dL (7-17); Calcium 8.7 mg/dL (8.4-10.2); Carbon Dioxide 26 mmol/L (22-30); Chloride 94 mmol/L (98-107); Estimated CRCL calculation 54 ml/min; Estimated Glomerular Filt Rate > 60; Glucose 78 mg/dL (65-110); Potassium 4.8 mmol/L (3.4-5.0); Sodium 125 mmol/L (137-145)
[2025-03-05 06:30] VITALS: PULSE 92
[2025-03-05] MEDS: NEBIVOLOL HCL 5 MG TABLET PO (06:30)
[2025-03-05] MEDS: CHOLECALCIFEROL (VITAMIN D3) 25 MCG (1,000 UNITS) TABLET PO (06:30)
[2025-03-05] MEDS: SODIUM CHLORIDE 0.9% IV 1,000 ML 100 ML IV CONT ×2 (06:31→17:47)
[2025-03-05 08:00] VITALS: PULSE 92; RESP 18; O2SAT 94
--- NOTE | 2025-03-05 08:47 | P.PNIM_ITS ---
Progress Note: A&P Assessment and Plan (1) Hyponatremia: Code(s): E87.1 - Hypo-osmolality and hyponatremia Status: Acute Assessment and Plan: Slight improvement Patient has history of hyponatremia. Currently on BuSpar and Vimpat which could be contributing. Now acutely worse today. Initial sodium upon admission was 123. Previously 130 upon discharge on 12/27/2024. Per review, has been as low as 128 back in 2022. More consistently appears to run in the upper 120s/low 130s. Nephrology consulted - check serum osmolality, urine osmolality, urine sodium, protein/creatinine ratio, urine creatinine - IV fluids Mental status at baseline - fluid restriction: 1500 mL per day, limit free water encourage Gatorade or Pedialyte (2) Hypothermia: Qualifiers: Encounter type: initial encounter Qualified Code(s): T68.XXXA - Hypothermia, initial encounter Code(s): T68.XXXA - Hypothermia, initial encounter Status: Acute Assessment and Plan: Resolved No specific etiology indicated at that time, Per review of chart, patient had hypothermic episode during her most recent admission in December. Patient found to be hypothermic post admission. Recorded rectal temp of 89.9. Nephrology consulted - check TSH, pending UDS, negative (3) Headache: Qualifiers: Headache chronicity pattern: acute headache Headache type: tension-type Intractability: intractable Qualified Code(s): G44.201 - Tension-type headache, unspecified, intractable Code(s): R51.9 - Headache, unspecified Status: Acute Assessment and Plan: Improved Reported headache for the past 2-3 days. Has been shifting from side to side and radiates into her occiput/neck. No associated vision changes, dizziness, nausea, or vomiting. Does report fatigue. - head CT obtained in the emergency department on 03/04, reads no acute intracranial abnormality. - suspect etiology is patient's acute on chronic hyponatremia. - Receiving IV fluids. - analgesics p.r.n. (4) Seizures: Code(s): R56.9 - Unspecified convulsions Status: Chronic Assessment and Plan: Stable - continue Keppra 1000 mg b.i.d. and Vimpat 100 mg b.i.d. 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 Prominent feeding vessel extending to a 7 x 4 x 3 mm enhancing lesion in the right temporal occipital region of surrounding vasogenic edema identified on prior MRI. Appearance favors vascular malformation over malignancy. 2. Otherwise unremarkable MRI of the bilateral internal auditory canals. Neurosurgery was consulted the time and did not recommend an urgent MRI or angiogram as there was no current suggestion of hemorrhage. Patient referred to a neurosurgical team that offered vascular Services such is [facility] or [facility] for further evaluation as an outpatient as the team at [facility] does not offer this. (6) Depression: Qualifiers: Depression Type: unspecified Qualified Code(s): F32.A - Depression, unspecified Code(s): F32.9 - Major depressive disorder, single episode, unspecified Status: Chronic Assessment and Plan: Flat affect on exam. No depressive thoughts voiced. - continue BuSpar 2.5 mg b.i.d. Plan Diet: Regular, fluid restriction GI Prophylaxis: Na DVT Prophylaxis: SCDs IV fluids: NS 100 mL/hour Lines/Tubes: Peripheral IV Code Status: Full code Time Spent With Patient Time with patient: Greater than 35 minutes Subjective Date/time seen: 03/05/25 08:47 Interval history: 74 y/o F with PMH of anxiety, hyponatremia, seizures, PTSD, depression, and hypertension presents here with headache found to have hyponatremia and hypothermia Hypernatremia minimally improved on a.m. labs Patient's flat affect on bedside exam, order PT OT Review of Systems Review of Systems: 12 systems were reviewed and are negativ e except for as per HPI. Exam Narrative: General: well appearing, appears stated age. HEENT: normocephalic, atraumatic. Mucous membranes moist. EOMI, PERRLA, bilateral sclera anicteric, no conjunctival injection. Neck supple without JVD, lymphadenopathy, or bruit. Respiratory: clear bilaterally. No rales/rhonic/wheezes. Cardiovascular: Regular rate and rhythm, normal S1-S2. No murmurs, rubs, or clicks. PMI is nondisplaced, capillary refill less than 3 second. Abdomen: Soft, round, no pulsatile masses, nondistended and nontender. No rebound, no guarding. Bowel sounds present to all four quadrants. No high pitch or tinkling sounds, resonant to percussion. Extremities: No cyanosis, clubbing, or edema present. Pulses are palpable 2/2. Active ROM to all four extremities. Neuro: Alert and orientated x 4. PERRLA. Cranial nerves 2-12 intact without focal deficit. Skin: Warm, dry, and intact, without rash, erythema, or lesion. Psych: Flat affect Objective Data Vital Signs Vital Signs: Vital Signs - 24 hr 03/04/25 09:04 03/04/25 09:33 03/04/25 10:04 Temperature 98.4 F Pulse Rate 67 55 L 53 L Respiratory Rate 18 10 L 18 Blood Pressure 186/112 H 177/81 H 182/71 H Pulse Oximetry 94 91 99 Oxygen Delivery Room Air 03/04/25 10:07 03/04/25 11:12 03/04/25 11:15 Temperature Pulse Rate 60 54 L 51 L Respiratory Rate 11 L 9 L 8 L Blood Pressure Pulse Oximetry 99 100 100 Oxygen Delivery 03/04/25 11:16 03/04/25 11:30 03/04/25 11:31 Temperature Pulse Rate 51 L 48 L 47 L Respiratory Rate 8 L 12 9 L Blood Pressure 165/68 H 146/59 H Pulse Oximetry 100 100 100 Oxygen Delivery 03/04/25 12:00 03/04/25 14:31 03/04/25 14:42 Temperature 89.9 F L Pulse Rate 57 L 56 L Respiratory Rate 11 L 18 Blood Pressure 155/69 H Pulse Oximetry 93 93 Oxygen Delivery 03/04/25 15:20 03/04/25 15:35 03/04/25 15:50 Temperature 91.7 F L 91.8 F L 91.8 F L Pulse Rate Respiratory Rate Blood Pressure Pulse Oximetry Oxygen Delivery 03/04/25 15:54 03/04/25 16:05 03/04/25 16:35 Temperature 91.8 F L 92.5 F L 92.3 F L Pulse Rate Respiratory Rate Blood Pressure Pulse Oximetry Oxygen Delivery 03/04/25 17:05 03/04/25 17:30 03/04/25 18:00 Temperature 92.5 F L 93.5 F L 93.9 F L Pulse Rate Respiratory Rate Blood Pressure Pulse Oximetry Oxygen Delivery 03/04/25 18:30 03/04/25 18:59 03/04/25 19:00 Temperature 94.4 F L 93.9 F L 94.6 F L Pulse Rate Respiratory Rate Blood Pressure Pulse Oximetry Oxygen Delivery 03/04/25 19:30 03/04/25 19:44 03/04/25 20:00 Temperature 94.6 F L 95.3 F L Pulse Rate 77 Respiratory Rate 18 Blood Pressure 126/63 Pulse Oximetry 95 Oxygen Delivery 03/04/25 20:30 03/04/25 20:40 03/04/25 21:00 Temperature 95.6 F L 96.6 F L Pulse Rate Respiratory Rate Blood Pressure Pulse Oximetry Oxygen Delivery Room Air 03/04/25 21:30 03/05/25 00:00 03/05/25 06:00 Temperature 98.0 F 98.2 F 98.3 F Pulse Rate 92 Respiratory Rate 18 Blood Pressure 152/73 H Pulse Oximetry 94 Oxygen Delivery 03/05/25 06:30 Temperature Pulse Rate 92 Respiratory Rate Blood Pressure Pulse Oximetry Oxygen Delivery Intake/Output Intake/Output: Intake & Output 03/02/25 03/03/25 03/04/25 03/05/25 23:59 23:59 23:59 23:59 Intake Total 730 1300 Output Total 50 Balance 680 1300 Meds/Results Medications: Active Medications Generic Name Dose Route Start Last Admin Trade Name Freq PRN Reason Stop Dose Admin Buspirone HCl 2.5 mg 03/04/25 17:00 03/04/25 17:19 Buspirone Hcl 2.5 Mg Tablet PO 2.5 mg BID RAVIN Administration Sodium Chloride 1,000 mls @ 100 mls/hr 03/04/25 17:10 03/05/25 06:31 Normal Saline Iv IV CONT 100 mls/hr .Q10H RAVIN Administration Lacosamide 100 mg 03/04/25 21:00 03/04/25 20:52 Lacosamide (*Crx) 100 Mg Tablet PO 100 mg Q12HR RAVIN Administration Levetiracetam 1,000 mg 03/04/25 17:00 03/05/25 06:31 Levetiracetam 500 Mg Tablet PO 1,000 mg 0500,1700 RAVIN Administration Nebivolol 5 mg 03/05/25 05:00 03/05/25 06:30 Nebivolol Hcl 5 Mg Tablet PO 5 mg Q24H RAVIN Administration Vitamin D 25 mcg 03/05/25 05:00 03/05/25 06:30 Cholecalciferol (Vitamin D3) 25 Mcg (1,000 Units) Tablet PO 25 mcg Q24H RAVIN Administration Radiology Results: ITS Impressions Head CT 03/04/25 09:29 Impression: 1.No acute intracranial abnormality. Labs Labs: Laboratory Results - last 24 hr 03/04/25 03/04/25 03/04/25 09:32 16:05 17:33 WBC 5.2 RBC 3.76 L Hgb 12.7 Hct 36.5 L MCV 97.1 MCH 33.8 MCHC 34.8 RDW 14.0 Plt Count 141 L MPV 10.4 Immature Gran % (Auto) 0.4 Neut % (Auto) 69.1 Lymph % (Auto) 22.4 [place] % (Auto) 7.3 Eos % (Auto) 0.4 Baso % (Auto) 0.4 Lymph # (Auto) 1.17 [place] # (Auto) 0.4 Eos # (Auto) 0.0 Baso # (Auto) 0.0 Abs Immat Gran (auto) 0.02 Absolute Neuts (auto) 3.6 Absolute Nucleated RBC 0.000 Nucleated RBC % 0.0 % Immature Plt Fraction PT 11.8 INR 0.8 APTT 34.5 Sodium 123 L 123 L Potassium 4.5 4.7 Chloride 89 L 91 L Carbon Dioxide 29 28 Anion Gap 5 4 BUN 18 H 16 Creatinine 0.58 L 0.55 L Estim Creat Clear Calc 67 69 Estimated GFR > 60 > 60 Glucose 101 91 Calcium 9.2 8.7 Total Bilirubin 0.5 AST 52 H ALT 87 H Alkaline Phosphatase 193 H Total Protein 8.0 Albumin 4.4 TSH (Reflex) 3.090 Random Cortisol 12.90 U Random Total Protein 22 Ur Random Sodium 100 Urine Creatinine 68.3 Protein/Creat Ratio 2 Urine Opiates Screen Urine Methadone Screen Ur Barbiturates Screen Ur Phencyclidine Scrn Ur Amphetamine Screen U Benzodiazepines Scrn Urine Cocaine Screen U Cannabinoids Screen 03/04/25 03/04/25 03/04/25 17:33 20:13 23:11 WBC RBC Hgb Hct MCV MCH MCHC RDW Plt Count MPV Immature Gran % (Auto) Neut % (Auto) Lymph % (Auto) [place] % (Auto) Eos % (Auto) Baso % (Auto) Lymph # (Auto) [place] # (Auto) Eos # (Auto) Baso # (Auto) Abs Immat Gran (auto) Absolute Neuts (auto) Absolute Nucleated RBC Nucleated RBC % % Immature Plt Fraction PT INR APTT Sodium 123 L 123 L Potassium 4.6 4.7 Chloride 91 L 93 L Carbon Dioxide 29 27 Anion Gap 3 L 3 L BUN 15 15 Creatinine 0.62 L 0.66 L Estim Creat Clear Calc 62 59 Estimated GFR > 60 > 60 Glucose 107 67 Calcium 8.8 8.6 Total Bilirubin AST ALT Alkaline Phosphatase Total Protein Albumin TSH (Reflex) Random Cortisol U Random Total Protein Ur Random Sodium Urine Creatinine 69.7 Protein/Creat Ratio 2 0.32 H Urine Opiates Screen Negative Urine Methadone Screen Negative Ur Barbiturates Screen Negative Ur Phencyclidine Scrn Negative Ur Amphetamine Screen Negative U Benzodiazepines Scrn Negative Urine Cocaine Screen Negative U Cannabinoids Screen Negative 03/05/25 03/05/25 01:47 06:04 WBC 5.1 RBC 3.33 L Hgb 11.2 L Hct 33.1 L MCV 99.4 MCH 33.6 MCHC 33.8 RDW 14.3 Plt Count 147 L MPV 10.7 H Immature Gran % (Auto) 0.4 Neut % (Auto) 74.8 H Lymph % (Auto) 13.9 L [place] % (Auto) 10.7 H Eos % (Auto) 0.0 Baso % (Auto) 0.2 Lymph # (Auto) 0.71 L [place] # (Auto) 0.6 Eos # (Auto) 0.0 Baso # (Auto) 0.0 Abs Immat Gran (auto) 0.02 Absolute Neuts (auto) 3.8 Absolute Nucleated RBC 0.020 H Nucleated RBC % 0.4 H % Immature Plt Fraction 8.2 PT INR APTT Sodium 124 L 125 L Potassium 5.2 H 4.8 Chloride 93 L 94 L Carbon Dioxide 26 26 Anion Gap 5 5 BUN 14 14 Creatinine 0.75 0.72 Estim Creat Clear Calc 52 54 Estimated GFR > 60 > 60 Glucose 86 78 Calcium 8.8 8.7 Total Bilirubin AST ALT Alkaline Phosphatase Total Protein Albumin TSH (Reflex) Random Cortisol U Random Total Protein Ur Random Sodium Urine Creatinine Protein/Creat Ratio 2 Urine Opiates Screen Urine Methadone Screen Ur Barbiturates Screen Ur Phencyclidine Scrn Ur Amphetamine Screen U Benzodiazepines Scrn Urine Cocaine Screen U Cannabinoids Screen Quality VTE Prophylaxis VTE prophylaxis: mechanical ordered
[2025-03-05] MEDS: busPIRone HCL 2.5 MG TABLET PO ×2 (09:08→17:48)
[2025-03-05] MEDS: LACOSAMIDE (*CRX) 100 MG TABLET PO ×2 (09:08→20:22)
--- NOTE | 2025-03-05 12:34 | PHAR ---
VISINE RED EYE HYDRATING COMFORT BROUGHT IN FROM HOME
[2025-03-05] MEDS: SENNOSIDES 8.6 MG TABLET PO (13:12)
[2025-03-05 14:00] VITALS: BP 116/53; PULSE 85; RESP 18; TEMP 36.4; O2SAT 91
--- NOTE | 2025-03-05 14:20 | P.CONNP_ITS ---
Assessment and Plan Assessment and plan (1) Hyponatremia: Code(s): E87.1 - Hypo-osmolality and hyponatremia Status: Acute Assessment and Plan: * slow improvement * acute on chronic * baseline sodium seems to run around 125 - 130mmol/L * has been as low as 120 and as high as 134mmol/L in the past * admission sodium 123mmol/L with slow improvement noted with IVFs * risk factors for low sodium: * excessive fluid intake (per my discussion with ) - initially reported no more than 4 bottles of water a day - however, on further questioning, more likely 8 bottles of water/day + other beverages as well... * buspar use(?) * vimpat use(?) * other(?) * evaluation to date: * TSH normal * cortisol slightly low - consider stim test * urine electrolytes non-prerenal * urine sodium 100 * SPEP, UPEP, and serum/urine osmo pending - SPEP/UPEP negative in the past (February 2023) * on fluid restriction currently * continue trial of normal saline IVFs * follow serial sodium levels I will continue to follow the patient with you while he remains hospitalized and make further recommendations as deemed necessary. Thank you for allowing me to participate in the care of this patient. L History of Present Illness Reason for Consult Consult date: 03/05/25 Reason for consult: hyponatremia (acute on chronic) Chief Complaint Chief complaint: Hyponatremia History of Present Illness Narrative: The patient is a 74 y/o female with a past medical history as outlined below who presented to [facility] ER with complaints of a persistent headache. he reports onset 2-3 days ago. She reports the headache has been dull and has shifted from side to side and has not stayed in 1 location. She reports the pain previously radiated into the base of her skull and neck. She reports her initially did not want her to seek evaluation in the emergency department, however after the pain was persistent she was able to come seek care. She denies associated vision changes, dizziness, nausea, vomiting. She does report she has felt more generally weak over this same time frame. Given these symptoms, she presented to the ER for further assessment. Evaluation in the ER noted the patient to Be hemodynamically stable (if not a bit hypertensive) and afebrile. Routine testing demonstrated no leukocytosis, no anemia, normal coaguation studies, sodium 123, creatinine 0.58, and AST 52/ALT 87. Her head CT showed no acute intracranial abnormality. EKG showed sinus bradycardia with first-degree AV block, rate 57, possible left atrial enlargement, moderate intraventricular conduction delay. given her constellation of symptoms in conjunction with her low sodium level she was admitted to the hospital for further evaluation and therapy. Since her admission, despite normal saline IV fluids, her sodium level has not really significantly improved. Renal consultation was requested due to acute on chronic hyponatremia. The patient is somewhat familiar to me as I took care a few years ago when she was admitted to hospital for acute hyponatremia. For review of her records, it would seem her baseline sodium level runs around 125-130 millimoles L although she has fluctuated to extremes her lowest sodium level being 120 millimoles per L and her highest sodium level being 134 millimoles per L. on further questioning, patient reports that she does not drink that much water but on further questioning by her , he does admit that she drinks at least 64 oz of water a day and that is usually supplemented by other significant fluid intake throughout the day. on her previous hospitalizations for acute hyponatremia, she seemed to respond to fluid restriction as well as salt tablets and Lasix although it was seems at salt tablets and Lasix were weaned off if not discontinued at some point in time. Currently, the time my evaluation, she appears to be in no acute distress. Review of Systems 2 Review of Systems: As per HPI. [facility] Past Medical History Medical History Vascular malformation of nervous system Seizure disorder Excessive cerumen in both ear canals Hyponatremia Grand mal seizure Seizures Ganglion cyst of foot removal 2004 (left) Cyst of breast, left, diffuse fibrocystic Removal 1981 PTSD (post-traumatic stress disorder) Cataract Anxiety Depression HTN (hypertension) Surgical History Surgical History History of breast surgery breast cyst benign left History of surgery on arm titanium theresa Family History Family History Father Patient's father is , Onset Age: 88 Mother Family history of malignant neoplasm of bone Social History Social History Social History: Caffeine- coffee Plant based diet Smoking status: Never smoker Alcohol intake: never Alcohol use details: rarely Substance use: never Substance use type: does not use Lack of Transportation: No Lack of Food: Never True Current Housing: I Have Housing Concerned About Future Housing: No Difficulty Paying Gas/Electric Bills: No Difficulty Paying for Meds: No Currently Unemployed: No Education: Master's Degree or Higher Difficulty w/ Childcare or Family Care: No Living arrangements: with family Additional living arrangements comments: Lives with . Occupation/Education: retired Spiritual care concerns: No Meds Home Medications and Allergies Home Medications ?Medication ?Instructions ?Recorded ?Confirmed ?Type cholecalciferol (vitamin D3) 25 25 mcg PO DAILY 03/04/25 History mcg (1,000 unit) capsule nebivolol 5 mg tablet (Bystolic) 5 mg PO DAILY 5 03/04/25 History lacosamide 100 mg tablet (Vimpat) 100 mg PO Q12HR #60 tabs 12/27/24 03/04/25 Rx levetiracetam 500 mg tablet 1,000 mg (2 x 500 mg) PO 0 500,1700 12/27/24 03/04/25 Rx (Keppra) #60 tabs buspirone 5 mg tablet 2.5 mg (1/2 x 5 mg) PO BID # 60 tabs 02/12/25 03/04/25 Rx Allergies Allergy/AdvReac Type Severity Reaction Status Date / Time Latex, Natural Rubber Allergy Intermediate Hives Verified 03/04/25 14:52 olanzapine (From Zyprexa) Allergy Intermediate Itching Verified 03/04/25 14:52 amoxicillin Allergy Mild Diarrhea Verified 03/04/25 14:52 Corticosteroids Allergy Unknown excessive Verified 03/04/25 14:52 (Glucocorticoids) thirst hydrocodone Allergy Unknown [place], Verified 03/04/25 14:52 abdominal pain lisinopril Allergy Unknown Constipatio Verified 03/04/25 14:52 n bleach Allergy Unknown Rash Uncoded 02/19/25 10:15 fragrance Allergy Unknown Rash Uncoded 02/19/25 10:15 Vital Signs Vital Signs Temp Pulse Resp BP Pulse Ox O2 Del Method 03/05/25 14:00 97.6 F 85 18 116/53 L 91 03/05/25 08:00 92 18 94 Room Air 03/05/25 06:30 92 03/05/25 06:00 98.3 F 92 18 152/73 H 94 03/05/25 00:00 98.2 F 03/04/25 21:30 98.0 F 03/04/25 21:00 96.6 F L 03/04/25 20:40 Room Air 03/04/25 20:30 95.6 F L 03/04/25 20:00 95.3 F L 03/04/25 19:44 77 18 126/63 95 03/04/25 19:30 94.6 F L 03/04/25 19:00 94.6 F L 03/04/25 18:59 93.9 F L Exam 2 Narrative: GENERAL APPEARANCE: elderly but well developed well nourished female in no acute distress HEENT: normocephalic, atraumatic, normal conjunctiva and sclera, nares patient NECK: no lymphadenopathy, thyromegaly, or JVD MOUTH: normal lips, teeth, and gums CARDIOVASCULAR: RRR, normal S1 and S2, no rub RESPIRATORY: clear to auscultation bilaterally ABDOMEN: soft, nontender, nondistended, positive bowel sounds present EXTREMITIES: no evidence of cyanosis, clubbing, or edema NEUROLOGICAL: alert and oriented x 3; CN II - XII intact bilaterally; no focal deficits noted Results Lab Results 03/06/25 06:10 03/07/25 05:33 Lab results: Most recent lab results Calcium 8.7 mg/dL (8.4-10.2) 03/05/25 06:04 Urine Creatinine 68.3 mg/dL 03/04/25 17:33 Urine Creatinine 69.7 mg/dL 03/04/25 17:33
[2025-03-05 22:00] VITALS: BP 152/85; PULSE 73; RESP 20; TEMP 36.2; O2SAT 98
[2025-03-06] MEDS: SODIUM CHLORIDE 0.9% IV 1,000 ML 100 ML IV CONT (03:53)
[2025-03-06 04:14] VITALS: BP 159/87; PULSE 78; RESP 20; TEMP 36.3; O2SAT 96
[2025-03-06 06:04] VITALS: PULSE 78
[2025-03-06] MEDS: CHOLECALCIFEROL (VITAMIN D3) 25 MCG (1,000 UNITS) TABLET PO (06:04)
[2025-03-06] MEDS: NEBIVOLOL HCL 5 MG TABLET PO (06:04)
[2025-03-06 06:49] LABS: Hematocrit 34.6 % (37.0-47.0); Hemoglobin 11.5 g/dL (12.0-15.0); Immature Platelet Fraction Pct 7.4 % (0.9-11.2); Mean Corpuscular HGB Conc 33.2 g/dl (32-36); Mean Corpuscular Hemoglobin 33.7 pg (26-34); Mean Corpuscular Volume 101.5 fl (80-100); Platelet Count Result 136 k/mm3 (150-375); Red Blood Count 3.41 M/mm3 (4.2-5.4); White Blood Count 3.3 K/mm3 (4.5-10.0)
[2025-03-06 07:11] LABS: Anion Gap 7 mmol/L (4-12); Blood Urea Nitrogen 13 mg/dL (7-17); Calcium 8.9 mg/dL (8.4-10.2); Carbon Dioxide 24 mmol/L (22-30); Chloride 98 mmol/L (98-107); Estimated CRCL calculation 60 ml/min; Estimated Glomerular Filt Rate > 60; Glucose 78 mg/dL (65-110); Potassium 3.9 mmol/L (3.4-5.0); Sodium 129 mmol/L (137-145)
[2025-03-06 07:47] LABS: Thyroid Stimulating Hormone 3.300 uIU/mL (0.465-4.680)
--- NOTE | 2025-03-06 08:50 | P.PNIM_ITS ---
Progress Note: A&P Assessment and Plan (1) Hyponatremia: Code(s): E87.1 - Hypo-osmolality and hyponatremia Status: Acute Assessment and Plan: Slight improvement Patient has history of hyponatremia. Currently on BuSpar and Vimpat which could be contributing. Now acutely worse today. Initial sodium upon admission was 123. Previously 130 upon discharge on 12/27/2024. Per review, has been as low as 128 back in 2022. More consistently appears to run in the upper 120s/low 130s. Nephrology consulted - check serum osmolality, urine osmolality, urine sodium, protein/creatinine ratio, urine creatinine Mental status at baseline - fluid restriction: 1500 mL per day, limit free water encourage Gatorade or Pedialyte DC IV fluids IV Lasix x1 (2) Seizures: Code(s): R56.9 - Unspecified convulsions Status: Chronic Assessment and Plan: Stable - continue Keppra 1000 mg b.i.d. and Vimpat 100 mg b.i.d. 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 Prominent feeding vessel extending to a 7 x 4 x 3 mm enhancing lesion in the right temporal occipital region of surrounding vasogenic edema identified on prior MRI. Appearance favors vascular malformation over malignancy. 2. Otherwise unremarkable MRI of the bilateral internal auditory canals. Neurosurgery was consulted the time and did not recommend an urgent MRI or angiogram as there was no current suggestion of hemorrhage. Patient referred to a neurosurgical team that offered vascular Services such is [facility] or [facility] for further evaluation as an outpatient as the team at [facility] does not offer this. (4) Depression: Qualifiers: Depression Type: unspecified Qualified Code(s): F32.A - Depression, unspecified Code(s): F32.9 - Major depressive disorder, single episode, unspecified Status: Chronic Assessment and Plan: Flat affect on exam. No depressive thoughts voiced. - continue BuSpar 2.5 mg b.i.d. (5) Hypothermia: Qualifiers: Encounter type: initial encounter Qualified Code(s): T68.XXXA - Hypothermia, initial encounter Code(s): T68.XXXA - Hypothermia, initial encounter Status: Acute Assessment and Plan: Resolved No specific etiology indicated at that time, Per review of chart, patient had hypothermic episode during her most recent admission in December. Patient found to be hypothermic post admission. Recorded rectal temp of 89.9. Nephrology consulted - check TSH, pending UDS, negative (6) Headache: Qualifiers: Headache chronicity pattern: acute headache Headache type: tension-type Intractability: intractable Qualified Code(s): G44.201 - Tension-type headache, unspecified, intractable Code(s): R51.9 - Headache, unspecified Status: Acute Assessment and Plan: Resolved Reported headache for the past 2-3 days. Has been shifting from side to side and radiates into her occiput/neck. No associated vision changes, dizziness, nausea, or vomiting. Does report fatigue. - head CT obtained in the emergency department on 03/04, reads no acute intracranial abnormality. - suspect etiology is patient's acute on chronic hyponatremia. - analgesics p.r.n. Plan Diet: Regular, fluid restriction GI Prophylaxis: Na DVT Prophylaxis: SCDs IV fluids: Lines/Tubes: Peripheral IV Code Status: Full code Subjective Date/time seen: 03/06/25 08:50 Interval history: 74 y/o F with PMH of anxiety, hyponatremia, seizures, PTSD, depression, and hypertension presents here with headache found to have hyponatremia and hypothermia Hypernatremia minimally improved on a.m. labs Patient's flat affect on bedside exam, order PT OT Patient becoming edematous due to aggressive fluid Review of Systems Review of Systems: 12 systems were reviewed and are negativ e except for as per HPI. Exam Narrative: General: well appearing, appears stated age. HEENT: normocephalic, atraumatic. Mucous membranes moist. EOMI, PERRLA, bilateral sclera anicteric, no conjunctival injection. Neck supple without JVD, lymphadenopathy, or bruit. Respiratory: clear bilaterally. No rales/rhonic/wheezes. Cardiovascular: Regular rate and rhythm, normal S1-S2. No murmurs, rubs, or cli cks. PMI is nondisplaced, capillary refill less than 3 second. Abdomen: Soft, round, no pulsatile masses, nondistended and nontender. No rebound, no guarding. Bowel sounds present to all four quadrants. No high pitch or tinkling sounds, resonant to percussion. Extremities: No cyanosis, clubbing, Pulses are palpable 2/2. 2+ is passing edema to butt Neuro: Alert and orientated x 4. PERRLA. Cranial nerves 2-12 intact without focal deficit. Skin: Warm, dry, and intact, without rash, erythema, or lesion. Psych: Flat affect Objective Data Vital Signs Vital Signs: Vital Signs - 24 hr 03/05/25 14:00 03/05/25 20:12 03/05/25 22:00 Temperature 97.6 F 97.1 F L Pulse Rate 85 73 Respiratory Rate 18 20 Blood Pressure 116/53 L 152/85 H Pulse Oximetry 91 98 Oxygen Delivery Room Air 03/06/25 04:14 03/06/25 06:04 Temperature 97.3 F L Pulse Rate 78 78 Respiratory Rate 20 Blood Pressure 159/87 H Pulse Oximetry 96 Oxygen Delivery Intake/Output Intake/Output: Intake & Output 03/03/25 03/04/25 03/05/25 03/06/25 23:59 23:59 23:59 23:59 Intake Total 730 2780 1175 Output Total 50 Balance 680 2780 1175 Meds/Results Medications: Active Medications Generic Name Dose Route Start Last Admin Trade Name Freq PRN Reason Stop Dose Admin Buspirone HCl 2.5 mg 03/04/25 17:00 03/05/25 17:48 Buspirone Hcl 2.5 Mg Tablet PO 2.5 mg BID RAVIN Administration Sodium Chloride 1,000 mls @ 100 mls/hr 03/04/25 17:10 03/06/25 03:53 Normal Saline Iv IV CONT 100 mls/hr .Q10H RAVIN Administration Lacosamide 100 mg 03/04/25 21:00 03/05/25 20:22 Lacosamide (*Crx) 100 Mg Tablet PO 100 mg Q12HR RAVIN Administration Levetiracetam 1,000 mg 03/04/25 17:00 03/06/25 06:05 Levetiracetam 500 Mg Tablet PO 1,000 mg 0500,1700 RAVIN Administration Nebivolol 5 mg 03/05/25 05:00 03/06/25 06:04 Nebivolol Hcl 5 Mg Tablet PO 5 mg Q24H RAVIN Administration Home Med ( 2 each 03/05/25 12:30 03/05/25 13:14 Tetrahydrozoline Hcl EACH EYE 04/04/25 12:29 2 each /Polyethylene Glycol DAILY RAVIN Administration 0.05 %-1 % Ophthalmic (Eye...) Senna 8.6 mg 03/05/25 10:40 03/05/25 20:24 Sennosides 8.6 Mg Tablet PO Not Given HS RAVIN Sodium Chloride 1 spray 03/05/25 10:37 Saline 0.65% Tre Soln 44 Ml Btl NASAL Q6HR PRN Congestion Vitamin D 25 mcg 03/05/25 05:00 03/06/25 06:04 Cholecalciferol (Vitamin D3) 25 Mcg (1,000 Units) Tablet PO 25 mcg Q24H RAVIN Administration Radiology Results: ITS Impressions Head CT 03/04/25 09:29 Impression: 1.No acute intracranial abnormality. Labs Labs: Laboratory Results - last 24 hr 03/06/25 06:10 WBC 3.3 L RBC 3.41 L Hgb 11.5 L Hct 34.6 L MCV 101.5 H MCH 33.7 MCHC 33.2 RDW 14.7 H Plt Count 136 L MPV 10.9 H % Immature Plt Fraction 7.4 Sodium 129 L Potassium 3.9 Chloride 98 Carbon Dioxide 24 Anion Gap 7 BUN 13 Creatinine 0.65 L Estim Creat Clear Calc 60 Estimated GFR > 60 Glucose 78 Calcium 8.9 TSH 3.300 Quality VTE Prophylaxis VTE prophylaxis: mechanical ordered
[2025-03-06 09:41] VITALS: O2SAT 96
[2025-03-06] MEDS: busPIRone HCL 2.5 MG TABLET PO ×2 (09:59→17:52)
[2025-03-06] MEDS: LACOSAMIDE (*CRX) 100 MG TABLET PO ×2 (09:59→22:20)
--- NOTE | 2025-03-06 10:36 | P.PNNP_ITS ---
Progress Note: A&P Assessment and Plan (1) Hyponatremia: Code(s): E87.1 - Hypo-osmolality and hyponatremia Status: Acute Assessment and Plan: * slow improvement * acute on chronic * baseline sodium seems to run around 125 - 130mmol/L * has been as low as 120 and as high as 134mmol/L in the past * admission sodium 123mmol/L with slow improvement noted with IVFs * risk factors for low sodium: * excessive fluid intake (per my discussion with ) - initially reported no more than 4 bottles of water a day - however, on further questioning, more likely 8 bottles of water/day + other beverages as well... * buspar use(?) * vimpat use(?) * other(?) * evaluation to date: * TSH normal * cortisol slightly low - consider stim test * urine electrolytes non-prerenal * urine sodium 100 * SPEP, UPEP, and serum/urine osmo pending - SPEP/UPEP negative in the past (February 2023) * on fluid restriction currently (off IVFs) * if sodium drops further, consider adding salt tablets * may need to consider low dose lasix in addition to salt tabs... * follow serial sodium levels Unclear if low sodium related to admission symptoms but since this electrolyte abnormality is improving, would not be opposed to discharge with frequent outpatient labs to ensure sodium remains relatively stable. Will continue to follow. L Subjective Date/time seen: 03/06/25 10:36 Interval history: Follow-up for acute on chronic hyponatremia. Sodium continues slowly improve with current interventions/therapy (fluid restriction, normal saline IVF); due to noted swelling/edema today. IVFs discontinued and given a dose of IV lasix. Exam 2 Narrative: General: eldely but WD/WN female in NAD Heart: normal S1 and S2; no rub Lungs: clear to auscultation Abdomen: soft, nontender, nondistended, positive bowel sounds Extremities: no cyanosis or clubbing; trace edema Skin: warm and dry Objective Data Vital Signs Vital Signs: Vital Signs Temp Pulse Resp BP Pulse Ox O2 Del Method 03/06/25 09:41 96 Room Air 03/06/25 08:00 Room Air 03/06/25 06:04 78 03/06/25 04:14 97.3 F L 78 20 159/87 H 96 03/05/25 22:00 97.1 F L 73 20 152/85 H 98 03/05/25 20:12 Room Air Intake/Output Intake/Output: Intake & Output 03/03/25 03/04/25 03/05/25 03/06/25 23:59 23:59 23:59 23:59 Intake Total 730 2780 1415 Output Total 50 Balance 680 2780 1415 Meds/Results Medications: Active Medications Generic Name Dose Route Start Last Admin Trade Name Freq PRN Reason Stop Dose Admin Buspirone HCl 2.5 mg 03/04/25 17:00 03/06/25 09:59 Buspirone Hcl 2.5 Mg Tablet PO 2.5 mg BID RAVIN Administration Lacosamide 100 mg 03/04/25 21:00 03/06/25 09:59 Lacosamide (*Crx) 100 Mg Tablet PO 100 mg Q12HR RAVIN Administration Levetiracetam 1,000 mg 03/04/25 17:00 03/06/25 06:05 Levetiracetam 500 Mg Tablet PO 1,000 mg 0500,1700 RAVIN Administration Nebivolol 5 mg 03/05/25 05:00 03/06/25 06:04 Nebivolol Hcl 5 Mg Tablet PO 5 mg Q24H RAVIN Administration Home Med ( 2 each 03/07/25 09:00 Tetrahydrozoline Hcl EACH EYE 04/04/25 12:29 /Polyethylene Glycol DAILY RAVIN 0.05 %-1 % Ophthalmic (Eye...) Senna 8.6 mg 03/05/25 10:40 03/05/25 20:24 Sennosides 8.6 Mg Tablet PO Not Given HS RAVIN Sodium Chloride 1 spray 03/05/25 10:37 Saline 0.65% Tre Soln 44 Ml Btl NASAL Q6HR PRN Congestion Vitamin D 25 mcg 03/05/25 05:00 03/06/25 06:04 Cholecalciferol (Vitamin D3) 25 Mcg (1,000 Units) Tablet PO 25 mcg Q24H RAVIN Administration Radiology Results: ITS Impressions Head CT 03/04/25 09:29 Impression: 1.No acute intracranial abnormality. Labs Labs: Laboratory Tests 03/06/25 06:10 03/06/25 06:10 Calcium 8.9 TSH 3.300
[2025-03-06 14:00] VITALS: BP 135/71; PULSE 63; RESP 18; TEMP 36.3; O2SAT 98
[2025-03-06] MEDS: FUROSEMIDE INJ 40 MG/4 ML VIAL 20 MG IV PUSH (14:01)
[2025-03-06 19:57] LABS: Sodium 129 mmol/L (137-145)
[2025-03-06 22:00] VITALS: BP 180/77; PULSE 84; RESP 16; TEMP 36.1; O2SAT 95
[2025-03-06] MEDS: SENNOSIDES 8.6 MG TABLET PO (22:20)
[2025-03-07] VITALS (22 sets, daily range): BP systolic 127–154; BP diastolic 54–83; PULSE 74–81; RESP 16–18; TEMP 34.7–37; O2SAT 98–99
[2025-03-07 06:07] LABS: Albumin Level 3.7 g/dL (3.5-5.1); Anion Gap 4 mmol/L (4-12); Blood Urea Nitrogen 12 mg/dL (7-17); Calcium 9.0 mg/dL (8.4-10.2); Carbon Dioxide 29 mmol/L (22-30); Chloride 95 mmol/L (98-107); Estimated CRCL calculation 68 ml/min; Estimated Glomerular Filt Rate > 60; Glucose 64 mg/dL (65-110); Potassium 3.5 mmol/L (3.4-5.0); Sodium 128 mmol/L (137-145)
[2025-03-07] MEDS: NEBIVOLOL HCL 5 MG TABLET PO (06:27)
[2025-03-07] MEDS: CHOLECALCIFEROL (VITAMIN D3) 25 MCG (1,000 UNITS) TABLET PO (06:27)
--- NOTE | 2025-03-07 07:31 | P.PNIM_ITS ---
Progress Note: A&P Assessment and Plan (1) Hyponatremia: Code(s): E87.1 - Hypo-osmolality and hyponatremia Status: Acute Assessment and Plan: Slight improvement Patient has history of hyponatremia. Currently on BuSpar and Vimpat which could be contributing. Now acutely worse today. Initial sodium upon admission was 123. Previously 130 upon discharge on 12/27/2024. Per review, has been as low as 128 back in 2022. More consistently appears to run in the upper 120s/low 130s. Nephrology consulted - check serum osmolality, urine osmolality, urine sodium, protein/creatinine ratio, urine creatinine Mental status at baseline - fluid restriction: 1500 mL per day, limit free water encourage Gatorade or Pedialyte DC IV fluids IV Lasix x1 Na level 128 today AM labs (2) Seizures: Code(s): R56.9 - Unspecified convulsions Status: Chronic Assessment and Plan: Stable - continue Keppra 1000 mg b.i.d. and Vimpat 100 mg b.i.d. 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 Prominent feeding vessel extending to a 7 x 4 x 3 mm enhancing lesion in the right temporal occipital region of surrounding vasogenic edema identified on prior MRI. Appearance favors vascular malformation over malignancy. 2. Otherwise unremarkable MRI of the bilateral internal auditory canals. Neurosurgery was consulted the time and did not recommend an urgent MRI or angiogram as there was no current suggestion of hemorrhage. Patient referred to a neurosurgical team that offered vascular Services such is [facility] or [facility] for further evaluation as an outpatient as the team at [facility] does not offer this. (4) Depression: Qualifiers: Depression Type: unspecified Qualified Code(s): F32.A - Depression, unspecified Code(s): F32.9 - Major depressive disorder, single episode, unspecified Status: Chronic Assessment and Plan: Flat affect on exam. No depressive thoughts voiced. - continue BuSpar 2.5 mg b.i.d. (5) Hypothermia: Qualifiers: Encounter type: initial encounter Qualified Code(s): T68.XXXA - Hypothermia, initial encounter Code(s): T68.XXXA - Hypothermia, initial encounter Status: Acute Assessment and Plan: Resolved No specific etiology indicated at that time, Per review of chart, patient had hypothermic episode during her most recent admission in December. Patient found to be hypothermic post admission. Recorded rectal temp of 89.9. Nephrology consulted - check TSH, 3.3 UDS, negative -patient was hypothermic again today, 94.4 rectal, daniel rivera applied and quickly normalized -no changes to mental status or patient condition during this per nursing staff (6) Headache: Qualifiers: Headache chronicity pattern: acute headache Headache type: tension-type Intractability: intractable Qualified Code(s): G44.201 - Tension-type head ache, unspecified, intractable Code(s): R51.9 - Headache, unspecified Status: Acute Assessment and Plan: Resolved Reported headache for the past 2-3 days. Has been shifting from side to side and radiates into her occiput/neck. No associated vision changes, dizziness, nausea, or vomiting. Does report fatigue. - head CT obtained in the emergency department on 03/04, reads no acute intracranial abnormality. - suspect etiology is patient's acute on chronic hyponatremia. - analgesics p.r.n. Plan Diet: Regular, fluid restriction GI Prophylaxis: Na DVT Prophylaxis: SCDs IV fluids: Lines/Tubes: Peripheral IV Code Status: Full code Subjective Date/time seen: 03/07/25 07:31 Interval history: Patient seen for a routine follow up. Patient sitting in chair, in no acute distress. Patient denies acute pain. Patient complaints of constipation, noted bowel movement charted yesterday. I will adjust bowel regimen. Patient was hypothermic this morning on rectal temperature, daniel hugger was applied and it resolved quickly. Patient with no other signs of acute infection. Patient complaining that her skin feels like it is on fire, reports this happens at home. Her skin on her face, neck, chest, arms does appear red, no definite rash noted. Patient asking to have lotion applied. Patient given Atarax by nursing. Review of Systems Review of Systems: All systems reviewed & are unremarkable except as noted in HPI and below (Limited, poor historian) Exam Narrative: General: well appearing, appears stated age. HEENT: normocephalic, atraumatic. Mucous membranes moist. EOMI, PERRLA, bilateral sclera anicteric, no conjunctival injection. Neck supple Respiratory: clear bilaterally. No rales/rhonic/wheezes. Cardiovascular: Regular rate and rhythm, normal S1-S2. No murmurs, rubs, or clicks. Abdomen: Soft, round, no pulsatile masses, nondistended and nontender. No rebound, no guarding. Bowel sounds present to all four quadrants. Extremities: No cyanosis, clubbing. 2+ edema to butt Neuro: Alert and orientated x 4. PERRLA. Skin: Warm, dry, and intact, without rash, erythema, or lesion. Psych: Flat affect Objective Data Vital Signs Vital Signs: Vital Signs - 24 hr 03/06/25 08:00 03/06/25 09:41 03/06/25 13:43 Temperature Pulse Rate Respiratory Rate Blood Pressure Pulse Oximetry 96 Oxygen Delivery Room Air Room Air Room Air 03/06/25 14:00 03/06/25 15:06 03/06/25 22:00 Temperature 97.3 F L 97 F L Pulse Rate 63 84 Respiratory Rate 18 16 Blood Pressure 135/71 180/77 H Pulse Oximetry 98 95 Oxygen Delivery Room Air 03/06/25 22:10 03/07/25 00:50 03/07/25 06:00 Temperature Pulse Rate 76 Respiratory Rate 16 Blood Pressure 136/82 154/83 H Pulse Oximetry 99 Oxygen Delivery Room Air 03/07/25 06:27 Temperature Pulse Rate 74 Respiratory Rate Blood Pressure Pulse Oximetry Oxygen Delivery Intake/Output Intake/Output: Intake & Output 03/04/25 03/05/25 03/06/25 03/07/25 23:59 23:59 23:59 23:59 Intake Total 730 2780 1535 150 Output Total 50 Balance 680 2780 1535 150 Meds/Results Medications: Active Medications Generic Name Dose Route Start Last Admin Trade Name Freq PRN Reason Stop Dose Admin Buspirone HCl 2.5 mg 03/04/25 17:00 03/06/25 17:52 Buspirone Hcl 2.5 Mg Tablet PO 2.5 mg BID RAVIN Administration Hydralazine HCl 10 mg 03/06/25 22:47 03/06/25 23:44 Hydralazine Hcl 20 Mg/Ml Vial IV PUSH 10 mg Q8H PRN Administration Blood Pressure - High Hydroxyzine HCl 10 mg 03/06/25 22:48 Hydroxyzine Hcl 10 Mg Tablet PO Q6H PRN Itching Lacosamide 100 mg 03/04/25 21:00 03/06/25 22:20 Lacosamide (*Crx) 100 Mg Tablet PO 100 mg Q12HR RAVIN Administration Levetiracetam 1,000 mg 03/04/25 17:00 03/07/25 06:27 Levetiracetam 500 Mg Tablet PO 1,000 mg 0500,1700 RAVIN Administration Nebivolol 5 mg 03/05/25 05:00 03/07/25 06:27 Nebivolol Hcl 5 Mg Tablet PO 5 mg Q24H RAVIN Administration Home Med ( 2 each 03/07/25 09:00 Tetrahydrozoline Hcl EACH EYE 04/04/25 12:29 /Polyethylene Glycol DAILY RAVIN 0.05 %-1 % Ophthalmic (Eye...) Senna 8.6 mg 03/05/25 10:40 03/06/25 22:20 Sennosides 8.6 Mg Tablet PO 8.6 mg HS RAVIN Administration Sodium Chloride 1 spray 03/05/25 10:37 Saline 0.65% Tre Soln 44 Ml Btl NASAL Q6HR PRN Congestion Vitamin D 25 mcg 03/05/25 05:00 03/07/25 06:27 Cholecalciferol (Vitamin D3) 25 Mcg (1,000 Units) Tablet PO 25 mcg Q24H RAVIN Administration Radiology Results: ITS Impressions Head CT 03/04/25 09:29 Impression: 1.No acute intracranial abnormality. Labs Labs: Laboratory Results - last 24 hr 03/06/25 03/06/25 03/07/25 06:10 19:39 05:33 Sodium 129 L 128 L Potassium 3.5 Chloride 95 L Carbon Dioxide 29 Anion Gap 4 BUN 12 Creatinine 0.56 L Estim Creat Clear Calc 68 Estimated GFR > 60 Glucose 64 L Calcium 9.0 Phosphorus 3.1 Albumin 3.7 TSH 3.300 Quality VTE Prophylaxis VTE prophylaxis: mechanical ordered
[2025-03-07] MEDS: LACOSAMIDE (*CRX) 100 MG TABLET PO ×2 (08:36→20:38)
[2025-03-07] MEDS: busPIRone HCL 2.5 MG TABLET PO ×2 (08:36→16:10)
--- NOTE | 2025-03-07 10:58 | PM.PNNEP ---
Progress Note: A&P Assessment and Plan (1) Hyponatremia: Code(s): E87.1 - Hypo-osmolality and hyponatremia Status: Acute Assessment and Plan: slow improvement acute on chronic baseline sodium seems to run around 125 - 130mmol/L has been as low as 120 and as high as 134mmol/L in the past admission sodium (daily a.m. draws) 123, then 125 then 129 and today 128. risk factors for low sodium: excessive fluid intake (per my discussion with ) - initially reported no more than 4 bottles of water a day - however, on further questioning, more likely 8 bottles of water/day + other beverages as well... buspar use(?) vimpat use(?) other(?) evaluation to date: TSH normal cortisol slightly low - consider stim test urine electrolytes non-prerenal urine sodium 100 SPEP, UPEP, and serum/urine osmo pending - SPEP/UPEP negative in the past (February 2023) on fluid restriction currently Will follow sodium level as it has been correcting at a good pace. Will check 1 tomorrow Subjective Date/time seen: 03/07/25 10:58 Interval history: Patient resting in bed. in the room. No chest pain or shortness of breath Sodium level coming up slowly. Exam Narrative: WDWN in NAD skin no rash head ncat lungs clear cor reg no rub abd BS+ nontender and soft ext no edema. Objective Data Intake/Output Intake/Output: Intake & Output 03/06/25 03/07/25 03/08/25 03/09/25 23:59 23:59 23:59 23:59 Intake Total 1535 150 570 Balance 1535 150 570 Meds/Results Radiology Results: ITS Impressions Head CT 03/04/25 09:29 Impression: 1.No acute intracranial abnormality.
--- NOTE | 2025-03-07 10:58 | P.PNNP_ITS ---
Progress Note: A&P Assessment and Plan (1) Hyponatremia: Code(s): E87.1 - Hypo-osmolality and hyponatremia Status: Acute Assessment and Plan: * slow improvement * acute on chronic * baseline sodium seems to run around 125 - 130mmol/L * has been as low as 120 and as high as 134mmol/L in the past * admission sodium (daily a.m. draws) 123, then 125 then 129 and today 128. * risk factors for low sodium: * excessive fluid intake (per my discussion with ) - initially reported no more than 4 bottles of water a day - however, on further questioning, more likely 8 bottles of water/day + other beverages as well... * buspar use(?) * vimpat use(?) * other(?) * evaluation to date: * TSH normal * cortisol slightly low - consider stim test * urine electrolytes non-prerenal * urine sodium 100 * SPEP, UPEP, and serum/urine osmo pending - SPEP/UPEP negative in the past (February 2023) * on fluid restriction currently * Will follow sodium level as it has been correcting at a good pace. * Will check 1 tomorrow Subjective Date/time seen: 03/07/25 10:58 Interval history: Patient resting in bed. in the room. No chest pain or shortness of breath Sodium level coming up slowly. Exam Narrative: WDWN in NAD skin no rash head ncat lungs clear cor reg no rub abd BS+ nontender and soft ext no edema. Objective Data Intake/Output Intake/Output: Intake & Output 03/06/25 03/07/25 03/08/25 03/09/25 23:59 23:59 23:59 23:59 Intake Total 1535 150 570 Balance 1535 150 570 Meds/Results Radiology Results: ITS Impressions Head CT 03/04/25 09:29 Impression: 1.No acute intracranial abnormality.
[2025-03-07] MEDS: SENNOSIDES 8.6 MG TABLET PO (20:37)
[2025-03-08] VITALS: TEMP 36.5
[2025-03-08 00:30] VITALS: TEMP 36.3
[2025-03-08 03:00] VITALS: TEMP 36.3
[2025-03-08 05:00] VITALS: TEMP 36.4
[2025-03-08] MEDS: NEBIVOLOL HCL 5 MG TABLET PO (05:10)
[2025-03-08] MEDS: CHOLECALCIFEROL (VITAMIN D3) 25 MCG (1,000 UNITS) TABLET PO (05:10)
[2025-03-08 05:32] VITALS: BP 163/74; PULSE 81; RESP 18; TEMP 36.4; O2SAT 98
[2025-03-08 05:46] LABS: Hematocrit 33.0 % (37.0-47.0); Hemoglobin 11.3 g/dL (12.0-15.0); Immature Granulocyte Percent A 0.3 % (0-0.5); Lymphocytes Absolute Auto 1.34 K/mm3 (0.9-3.2); Mean Corpuscular HGB Conc 34.2 g/dl (32-36); Mean Corpuscular Hemoglobin 33.5 pg (26-34); Mean Corpuscular Volume 97.9 fl (80-100); Nucleated Red Blood Cells Absolute Auto 0.000 K/mm3 (0.0-0.012); Nucleated Red Blood Cells Perc 0.0 % (0.0-0.2); Platelet Count Result 146 k/mm3 (150-375); Red Blood Count 3.37 M/mm3 (4.2-5.4); White Blood Count 3.7 K/mm3 (4.5-10.0)
[2025-03-08 06:08] LABS: Alanine Aminotransferase 53 U/L (6-35); Albumin Level 3.5 g/dL (3.5-5.1); Alkaline Phosphatase 165 U/L (38-126); Anion Gap 4 mmol/L (4-12); Aspartate Amino Transferase 44 U/L (14-36); Bilirubin,Total 0.6 mg/dL (0.2-1.3); Blood Urea Nitrogen 14 mg/dL (7-17); Calcium 9.0 mg/dL (8.4-10.2); Carbon Dioxide 29 mmol/L (22-30); Chloride 97 mmol/L (98-107); Estimated CRCL calculation 53 ml/min; Estimated Glomerular Filt Rate > 60; Glucose 67 mg/dL (65-110); Potassium 3.7 mmol/L (3.4-5.0); Sodium 130 mmol/L (137-145); Total Protein 6.6 g/dL (6.3-8.2)
--- NOTE | 2025-03-08 08:30 | P.PNIM_ITS ---
Progress Note: A&P Assessment and Plan (1) Hyponatremia: Code(s): E87.1 - Hypo-osmolality and hyponatremia Status: Acute Assessment and Plan: At baseline Patient has history of hyponatremia. Currently on BuSpar and Vimpat which could be contributing. Now acutely worse today. Initial sodium upon admission was 123. Previously 130 upon discharge on 12/27/2024. Per review, has been as low as 128 back in 2022. More consistently appears to run in the upper 120s/low 130s. Nephrology consulted - check serum osmolality, urine osmolality, urine sodium, protein/creatinine ratio, urine creatinine Mental status at baseline - fluid restriction: 1500 mL per day, limit free water encourage Gatorade or Pedialyte (2) Seizures: Code(s): R56.9 - Unspecified convulsions Status: Chronic Assessment and Plan: Stable - continue Keppra 1000 mg b.i.d. and Vimpat 100 mg b.i.d. 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 Prominent feeding vessel extending to a 7 x 4 x 3 mm enhancing lesion in the right temporal occipital region of surrounding vasogenic edema identified on prior MRI. Appearance favors vascular malformation over malignancy. 2. Otherwise unremarkable MRI of the bilateral internal auditory canals. Neurosurgery was consulted the time and did not recommend an urgent MRI or angiogram as there was no current suggestion of hemorrhage. Patient referred to a neurosurgical team that offered vascular Services such is [facility] or [facility] for further evaluation as an outpatient as the team at [facility] does not offer this. (4) Depression: Qualifiers: Depression Type: unspecified Qualified Code(s): F32.A - Depression, unspecified Code(s): F32.9 - Major depressive disorder, single episode, unspecified Status: Chronic Assessment and Plan: At baseline Flat affect on exam. No depressive thoughts voiced. - continue BuSpar 2.5 mg b.i.d. (5) Hypothermia: Qualifiers: Encounter type: initial encounter Qualified Code(s): T68.XXXA - Hypothermia, initial encounter Code(s): T68.XXXA - Hypothermia, initial encounter Status: Acute Assessment and Plan: Resolved No specific etiology indicated at that time, Per review of chart, patient had hypothermic episode during her most recent admission in December. Patient found to be hypothermic post admission. Recorded rectal temp of 89.9. Nephrology consulted - check TSH, 3.3 UDS, negative -patient was hypothermic again today, 94.4 rectal, daniel rivera applied and quickly normalized -no changes to mental status or patient condition during this per nursing staff (6) Headache: Qualifiers: Headache chronicity pattern: acute headache Headache type: tension-type Intractability: intractable Qualified Code(s): G44.201 - Tension-type headache, unspecified, intractable Code(s): R51.9 - Headache, unspecified Status: Acute Assessment and Plan: Resolved Reported headache for the past 2-3 days. Has been shifting from side to side and radiates into her occiput/neck. No associated vision changes, dizziness, nausea, or vomiting. Does report fatigue. - head CT obtained in the emergency department on 03/04, reads no acute intracranial abnormality. - suspect etiology is patient's acute on chronic hyponatremia. - analgesics p.r.n. Plan Diet: Regular, fluid restriction GI Prophylaxis: Na DVT Prophylaxis: SCDs IV fluids: Lines/Tubes: Peripheral IV Code Status: Full code Subjective Date/time seen: 03/08/25 08:30 Interval history: 74 y/o F with PMH of anxiety, hyponatremia, seizures, PTSD, depression, and hypertension presents here with headache found to have hyponatremia and hypothermia Sodium 130 on a.m. labs Review of Systems Review of Systems: 12 systems were reviewed and are negativ e except for as per HPI. Exam Narrative: General: well appearing, appears stated age. HEENT: normocephalic, atraumatic. Mucous membranes moist. EOMI, PERRLA, bilateral sclera anicteric, no conjunctival injection. Neck supple Respiratory: clear bilaterally. No rales/rhonic/wheezes. Cardiovascular: Regular rate and rhythm, normal S1-S2. No murmurs, rubs, or clicks. Abdomen: Soft, round, no pulsatile masses, nondistended and nontender. No rebound, no guarding. Bowel sounds present to all four quadrants. Extremities: No cyanosis, clubbing. 2+ edema to butt Neuro: Alert and orientated x 4. PERRLA. Skin: Warm, dry, and intact, without rash, erythema, or lesion. Psych: Flat affect Objective Data Vital Signs Vital Signs: Vital Signs - 24 hr 03/07/25 08:31 03/07/25 08:52 03/07/25 09:01 Temperature 96.5 F L 96.8 F L 96.7 F L Pulse Rate Respiratory Rate Blood Pressure Pulse Oximetry Oxygen Delivery 03/07/25 09:25 03/07/25 09:42 03/07/25 10:30 Temperature 97.0 F L 97.7 F 98.6 F Pulse Rate Respiratory Rate Blood Pressure Pulse Oximetry Oxygen Delivery 03/07/25 13:35 03/07/25 15:18 03/07/25 18:03 Temperature 97.0 F L 97.4 F L 97 F L Pulse Rate 81 Respiratory Rate 18 Blood Pressure 127/54 L Pulse Oximetry 99 Oxygen Delivery 03/07/25 20:24 03/07/25 20:30 03/07/25 20:37 Temperature 97.5 F L 97.5 F L Pulse Rate 80 Respiratory Rate 18 Blood Pressure 143/73 H Pulse Oximetry 98 Oxygen Delivery Room Air 03/07/25 22:30 03/08/25 00:00 03/08/25 00:00 Temperature 97.5 F L 97.7 F 97.7 F Pulse Rate Respiratory Rate Blood Pressure Pulse Oximetry Oxygen Delivery 03/08/25 00:30 03/08/25 03:00 03/08/25 05:00 Temperature 97.3 F L 97.3 F L 97.5 F L Pulse Rate Respiratory Rate Blood Pressure Pulse Oximetry Oxygen Delivery 03/08/25 05:32 Temperature 97.5 F L Pulse Rate 81 Respiratory Rate 18 Blood Pressure 163/74 H Pulse Oximetry 98 Oxygen Delivery Intake/Output Intake/Output: Intake & Output 03/05/25 03/06/25 03/07/25 03/08/25 23:59 23:59 23:59 23:59 Intake Total 2780 1535 150 390 Balance 2780 1535 150 390 Meds/Results Medications: Active Medications Generic Name Dose Route Start Last Admin Trade Name Freq PRN Reason Stop Dose Admin Bisacodyl 10 mg 03/07/25 15:45 Bisacodyl 10 Mg Suppository RECTAL DAILY PRN Constipation Buspirone HCl 2.5 mg 03/04/25 17:00 03/07/25 16:10 Buspirone Hcl 2.5 Mg Tablet PO 2.5 mg BID RAVIN Administration Hydralazine HCl 10 mg 03/06/25 22:47 03/08/25 05:46 Hydralazine Hcl 20 Mg/Ml Vial IV PUSH 10 mg Q8H PRN Administration Blood Pressure - High Hydroxyzine HCl 10 mg 03/06/25 22:48 03/07/25 08:36 Hydroxyzine Hcl 10 Mg Tablet PO 10 mg Q6H PRN Administration Itching Lacosamide 100 mg 03/04/25 21:00 03/07/25 20:38 Lacosamide (*Crx) 100 Mg Tablet PO 100 mg Q12HR RAVIN Administration Levetiracetam 1,000 mg 03/04/25 17:00 03/08/25 05:10 Levetiracetam 500 Mg Tablet PO 1,000 mg 0500,1700 RAVIN Administration Nebivolol 5 mg 03/05/25 05:00 03/08/25 05:10 Nebivolol Hcl 5 Mg Tablet PO 5 mg Q24H RAVIN Administration Home Med ( 2 each 03/07/25 09:00 03/07/25 08:38 Tetrahydrozoline Hcl EACH EYE 04/04/25 12:29 2 each /Polyethylene Glycol DAILY RAVIN Administration 0.05 %-1 % Ophthalmic (Eye...) Polyethylene Glycol 17 gm 03/08/25 09:00 Polyethylene Glycol 3350 17 Gm Powd.Pack PO QAM RAVIN Senna 8.6 mg 03/05/25 10:40 03/07/25 20:37 Sennosides 8.6 Mg Tablet PO 8.6 mg HS RAVIN Administration Sodium Chloride 1 spray 03/05/25 10:37 Saline 0.65% Tre Soln 44 Ml Btl NASAL Q6HR PRN Congestion Vitamin D 25 mcg 03/05/25 05:00 03/08/25 05:10 Cholecalciferol (Vitamin D3) 25 Mcg (1,000 Units) Tablet PO 25 mcg Q24H RAVIN Administration Radiology Results: ITS Impressions Head CT 03/04/25 09:29 Impression: 1.No acute intracranial abnormality. Labs Labs: Laboratory Results - last 24 hr 03/08/25 05:10 WBC 3.7 L RBC 3.37 L Hgb 11.3 L Hct 33.0 L MCV 97.9 MCH 33.5 MCHC 34.2 RDW 14.5 Plt Count 146 L MPV 10.6 H Immature Gran % (Auto) 0.3 Neut % (Auto) 39.8 L Lymph % (Auto) 36.5 [place] % (Auto) 15.8 H Eos % (Auto) 6.5 H Baso % (Auto) 1.1 Lymph # (Auto) 1.34 [place] # (Auto) 0.6 Eos # (Auto) 0.2 Baso # (Auto) 0.0 Abs Immat Gran (auto) 0.01 Absolute Neuts (auto) 1.5 Absolute Nucleated RBC 0.000 Nucleated RBC % 0.0 Sodium 130 L Potassium 3.7 Chloride 97 L Carbon Dioxide 29 Anion Gap 4 BUN 14 Creatinine 0.74 Estim Creat Clear Calc 53 Estimated GFR > 60 Glucose 67 Calcium 9.0 Total Bilirubin 0.6 AST 44 H ALT 53 H Alkaline Phosphatase 165 H Total Protein 6.6 Albumin 3.5 Quality VTE Prophylaxis VTE prophylaxis: mechanical ordered
[2025-03-08] MEDS: LACOSAMIDE (*CRX) 100 MG TABLET PO (08:31)
[2025-03-08] MEDS: busPIRone HCL 2.5 MG TABLET PO (08:31)
--- NOTE | 2025-03-08 11:37 | P.PNNP_ITS ---
Progress Note: A&P Assessment and Plan (1) Hyponatremia: Code(s): E87.1 - Hypo-osmolality and hyponatremia Status: Acute Assessment and Plan: * slow improvement * acute on chronic * baseline sodium seems to run around 125 - 130mmol/L * has been as low as 120 and as high as 134mmol/L in the past * admission sodium 123mmol/L with slow improvement noted with IVFs * risk factors for low sodium: * excessive fluid intake (per my discussion with ) - initially reported no more than 4 bottles of water a day - however, on further questioning, more likely 8 bottles of water/day + other beverages as well... * buspar use(?) * vimpat use(?) * other(?) * evaluation to date: * TSH normal * cortisol slightly low - consider stim test * urine electrolytes non-prerenal * urine sodium 100 * SPEP, UPEP, and serum/urine osmo pending - SPEP/UPEP negative in the past (February 2023) * on fluid restriction currently * sodium improved gradually to 130 * continue same approach. Subjective Date/time seen: 03/08/25 11:37 Interval history: alert. feels okay sitting up in a chair. Review of Systems Cardiovascular: Cardiovascular: Reports no additional cardiovascular complaints Respiratory: Respiratory: Reports no additional respiratory complaints Gastrointestinal: Gastrointestinal: Reports no additional gastrointestinal complaints Genitourinary: Genitourinary: Reports no additional female genitourinary complaints Exam Narrative: WDWN in NAD skin no rash head ncat lungs clear cor reg no rub abd BS+ nontender and soft ext no edema. Objective Data Vital Signs Vital Signs: Vital Signs - 24 hr 03/07/25 13:35 03/07/25 15:18 03/07/25 18:03 Temperature 97.0 F L 97.4 F L 97 F L Pulse Rate 81 Respiratory Rate 18 Blood Pressure 127/54 L Pulse Oximetry 99 Oxygen Delivery 03/07/25 20:24 03/07/25 20:30 03/07/25 20:37 Temperature 97.5 F L 97.5 F L Pulse Rate 80 Respiratory Rate 18 Blood Pressure 143/73 H Pulse Oximetry 98 Oxygen Delivery Room Air 03/07/25 22:30 03/08/25 00:00 03/08/25 00:00 Temperature 97.5 F L 97.7 F 97.7 F Pulse Rate Respiratory Rate Blood Pressure Pulse Oximetry Oxygen Delivery 03/08/25 00:30 03/08/25 03:00 03/08/25 05:00 Temperature 97.3 F L 97.3 F L 97.5 F L Pulse Rate Respiratory Rate Blood Pressure Pulse Oximetry Oxygen Delivery 03/08/25 05:32 Temperature 97.5 F L Pulse Rate 81 Respiratory Rate 18 Blood Pressure 163/74 H Pulse Oximetry 98 Oxygen Delivery Intake/Output Intake/Output: Intake & Output 03/05/25 03/06/25 03/07/25 03/08/25 23:59 23:59 23:59 23:59 Intake Total 2780 1535 150 450 Balance 2780 1535 150 450 Meds/Results Medications: Active Medications Generic Name Dose Route Start Last Admin Trade Name Freq PRN Reason Stop Dose Admin Bisacodyl 10 mg 03/07/25 15:45 Bisacodyl 10 Mg Suppository RECTAL DAILY PRN Constipation Buspirone HCl 2.5 mg 03/04/25 17:00 03/08/25 08:31 Buspirone Hcl 2.5 Mg Tablet PO 2.5 mg BID RAVIN Administration Hydralazine HCl 10 mg 03/06/25 22:47 03/08/25 05:46 Hydralazine Hcl 20 Mg/Ml Vial IV PUSH 10 mg Q8H PRN Administration Blood Pressure - High Hydroxyzine HCl 10 mg 03/06/25 22:48 03/07/25 08:36 Hydroxyzine Hcl 10 Mg Tablet PO 10 mg Q6H PRN Administration Itching Lacosamide 100 mg 03/04/25 21:00 03/08/25 08:31 Lacosamide (*Crx) 100 Mg Tablet PO 100 mg Q12HR RAVIN Administration Levetiracetam 1,000 mg 03/04/25 17:00 03/08/25 05:10 Levetiracetam 500 Mg Tablet PO 1,000 mg 0500,1700 RAVIN Administration Nebivolol 5 mg 03/05/25 05:00 03/08/25 05:10 Nebivolol Hcl 5 Mg Tablet PO 5 mg Q24H RAVIN Administration Home Med ( 2 each 03/07/25 09:00 03/08/25 08:33 Tetrahydrozoline Hcl EACH EYE 04/04/25 12:29 2 each /Polyethylene Glycol DAILY RAVIN Administration 0.05 %-1 % Ophthalmic (Eye...) Polyethylene Glycol 17 gm 03/08/25 09:00 03/08/25 08:31 Polyethylene Glycol 3350 17 Gm Powd.Pack PO 17 gm QAM RAVIN Administration Senna 8.6 mg 03/05/25 10:40 03/07/25 20:37 Sennosides 8.6 Mg Tablet PO 8.6 mg HS RAVIN Administration Sodium Chloride 1 spray 03/05/25 10:37 Saline 0.65% Tre Soln 44 Ml Btl NASAL Q6HR PRN Congestion Vitamin D 25 mcg 03/05/25 05:00 03/08/25 05:10 Cholecalciferol (Vitamin D3) 25 Mcg (1,000 Units) Tablet PO 25 mcg Q24H RAVIN Administration Radiology Results: ITS Impressions Head CT 03/04/25 09:29 Impression: 1.No acute intracranial abnormality. Labs Labs: Laboratory Results - last 24 hr 03/08/25 05:10 WBC 3.7 L RBC 3.37 L Hgb 11.3 L Hct 33.0 L MCV 97.9 MCH 33.5 MCHC 34.2 RDW 14.5 Plt Count 146 L MPV 10.6 H Immature Gran % (Auto) 0.3 Neut % (Auto) 39.8 L Lymph % (Auto) 36.5 [place] % (Auto) 15.8 H Eos % (Auto) 6.5 H Baso % (Auto) 1.1 Lymph # (Auto) 1.34 [place] # (Auto) 0.6 Eos # (Auto) 0.2 Baso # (Auto) 0.0 Abs Immat Gran (auto) 0.01 Absolute Neuts (auto) 1.5 Absolute Nucleated RBC 0.000 Nucleated RBC % 0.0 Sodium 130 L Potassium 3.7 Chloride 97 L Carbon Dioxide 29 Anion Gap 4 BUN 14 Creatinine 0.74 Estim Creat Clear Calc 53 Estimated GFR > 60 Glucose 67 Calcium 9.0 Total Bilirubin 0.6 AST 44 H ALT 53 H Alkaline Phosphatase 165 H Total Protein 6.6 Albumin 3.5
--- NOTE | 2025-03-08 12:49 | P.DS_ITS ---
DS: Admitting Diagnosis Discharge Date 03/08/25 Admitting Diagnosis Hyponatremia and hypothermia DS: Discharge Diagnosis Discharge Diagnosis (1) Hyponatremia: Code(s): E87.1 - Hypo-osmolality and hyponatremia Status: Acute Assessment and Plan: At baseline Patient has history of hyponatremia. Currently on BuSpar and Vimpat which could be contributing. Now acutely worse today. Initial sodium upon admission was 123. Previously 130 upon discharge on 12/27/2024. Per review, has been as low as 128 back in 2022. More consistently appears to run in the upper 120s/low 130s. Nephrology consulted - check serum osmolality, urine osmolality, urine sodium, protein/creatinine ratio, urine creatinine Mental status at baseline - fluid restriction: 1500 mL per day, limit free water encourage Gatorade or Pedialyte (2) Seizures: Code(s): R56.9 - Unspecified convulsions Status: Chronic Assessment and Plan: Stable - continue Keppra 1000 mg b.i.d. and Vimpat 100 mg b.i.d. 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 Prominent feeding vessel extending to a 7 x 4 x 3 mm enhancing lesion in the right temporal occipital region of surrounding vasogenic edema identified on prior MRI. Appearance favors vascular malformation over malignancy. 2. Otherwise unremarkable MRI of the bilateral internal auditory canals. Neurosurgery was consulted the time and did not recommend an urgent MRI or angiogram as there was no current suggestion of hemorrhage. Patient referred to a neurosurgical team that offered vascular Services such is [facility] or [facility] for further evaluation as an outpatient as the team at [facility] does not offer this. (4) Depression: Qualifiers: Depression Type: unspecified Qualified Code(s): F32.A - Depression, unspecified Code(s): F32.9 - Major depressive disorder, single episode, unspecified Status: Chronic Assessment and Plan: At baseline Flat affect on exam. No depressive thoughts voiced. - continue BuSpar 2.5 mg b.i.d. (5) Hypothermia: Qualifiers: Encounter type: initial encounter Qualified Code(s): T68.XXXA - Hypothermia, initial encounter Code(s): T68.XXXA - Hypothermia, initial encounter Status: Acute Assessment and Plan: Resolved No specific etiology indicated at that time, Per review of chart, patient had hypothermic episode during her most recent admission in December. Patient found to be hypothermic post admission. Recorded rectal temp of 89.9. Nephrology consulted - check TSH, 3.3 UDS, negative -patient was hypothermic again today, 94.4 rectal, daniel rivera applied and quickly normalized -no changes to mental status or patient condition during this per nursing staff (6) Headache: Qualifiers: Headache chronicity pattern: acute headache Headache type: tension-type Intractability: intractable Qualified Code(s): G44.201 - Tension-type headache, unspecified, intractable Code(s): R51.9 - Headache, unspecified Status: Acute Assessment and Plan: Resolved Reported headache for the past 2-3 days. Has been shifting from side to side and radiates into her occiput/neck. No associated vision changes, dizziness, nausea, or vomiting. Does report fatigue. - head CT obtained in the emergency department on 03/04, reads no acute intracranial abnormality. - suspect etiology is patient's acute on chronic hyponatremia. - analgesics p.r.n. Plan Diet: Regular, fluid restriction GI Prophylaxis: Na DVT Prophylaxis: SCDs IV fluids: Lines/Tubes: Peripheral IV Code Status: Full code DS: Summary Hospital Course Reason for hospitalization: Altered mental status, Hyponatremia hypothermia Hospital Course: 74 y/o F with PMH of anxiety, hyponatremia, seizures, PTSD, depression, and hypertension presents here with headache. She reports her initially did not want her to seek evaluation in the emergency department, however after the pain was persistent she was able to come seek care. Patient previously been at the hospital and worked up by Neurology and neuro surgery for a vascular malformation extending to a 7 x 4 x 3 enhancing lesion in the right temporal occipital region was noted. However neurosurgery felt there were multiple other explanations for the change in her mental status and did not feel the malformation/lesion was the culprit of her symptoms. During this admission she was also treated for hyponatremia which is chronic for her. Patient also developed hypothermia, lowest recorded temp 91.3?F. Patient again presented with hyponatremia and hypothermia. Hypothermia resolved the next day. Hyponatremia was managed with a fluid restriction of free water encouraging Gatorade or Pedialyte. With frequent neuro checks. Nephrology was consulted with no identified reason. Patient states that she drinks a lot a water at home she could have hyponatremia due to excessive water intake. TSH was checked and was within normal limits. Patient did have Lasix x1 due to generalized edema from fluid hydration. Patient had improvement in mental status and was at her baseline. Acute headache seemed to correlate with the patient's hyponatremia. Patient's sodium had improved to 130 which was her baseline and family and patient wanted to go home. She had a BMP checked on 09/02/2024 with sodium at 130, patient was called and updated about stable sodium with recommendations to follow-up with her planned neurology appointment. Status at Discharge Functional status at discharge: uses cane/walker Overall status at discharge: patient is back to baseline Time Spent with Patient Time attestation: Total time spent providing and/or coordinating discharge services: Time spent: Greater than 30 minutes Exam Narrative: General: well appearing, appears stated age. HEENT: normocephalic, atraumatic. Mucous membranes moist. EOMI, PERRLA, bilateral sclera anicteric, no conjunctival injection. Neck supple Respiratory: clear bilaterally. No rales/rhonic/wheezes. Cardiovascular: Regular rate and rhythm, normal S1-S2. No murmurs, rubs, or clicks. Abdomen: Soft, round, no pulsatile masses, nondistended and nontender. No rebound, no guarding. Bowel sounds present to all four quadrants. Extremities: No cyanosis, clubbing. Neuro: Alert and orientated x 4. PERRLA. Skin: Warm, dry, and intact, without rash, erythema, or lesion. Psych: Flat affect DS: Data Data Completed and Pending Labs on day of discharge: Labs from last 24 hours 03/08/25 05:10 WBC 3.7 L RBC 3.37 L Hgb 11.3 L Hct 33.0 L MCV 97.9 MCH 33.5 MCHC 34.2 RDW 14.5 Plt Count 146 L MPV 10.6 H Immature Gran % (Auto) 0.3 Neut % (Auto) 39.8 L Lymph % (Auto) 36.5 [place] % (Auto) 15.8 H Eos % (Auto) 6.5 H Baso % (Auto) 1.1 Lymph # (Auto) 1.34 [place] # (Auto) 0.6 Eos # (Auto) 0.2 Baso # (Auto) 0.0 Abs Immat Gran (auto) 0.01 Absolute Neuts (auto) 1.5 Absolute Nucleated RBC 0.000 Nucleated RBC % 0.0 Sodium 130 L Potassium 3.7 Chloride 97 L Carbon Dioxide 29 Anion Gap 4 BUN 14 Creatinine 0.74 Estim Creat Clear Calc 53 Estimated GFR > 60 Glucose 67 Calcium 9.0 Total Bilirubin 0.6 AST 44 H ALT 53 H Alkaline Phosphatase 165 H Total Protein 6.6 Albumin 3.5 Discharge Plan Discharge Consulting providers: Baldo Carrington; Ray Hickey; Ginny Jones; Katarina Duncan; Suraj Koch; Elliot Diego Discharging Clinician: Luna Correia Anticipated Discharge Date/Time: 03/08/25 12:51 Patient Disposition: Home with Home Health Service Activity: may shower Diet: regular Discharge Instructions: Discharge instructions: Take medications as prescribed You will need to have your sodium checked In 3-4 days And in 10-14 fluid restriction: 1500 mL per day, limit free water encourage Gatorade or Pedialyte You are activity as tolerated Monitor blood pressures Avoid social areas, you wear a mask when in social settings Encouraged to continue with yearly vaccinations Return to the emergency department if he developed sudden shortness of breath, chest pain, nausea, vomiting, upset stomach or intractable diarrhea Return to the emergency department if you develop fever greater than 101.5 Follow-up with: Your primary care physician within 1-2 weeks for post hospitalization check up Nephrology in 2 weeks for hyponatremia Per Care Coordination: [facility] will contact you prior to their first visit. [facility] will follow for RN and PT/OT eval and treat. [facility] can be contacted at [phone]. Thank you for choosing [facility] for your healthcare needs Patient Instructions: Hyponatremia (DC) Patient Language: Surinamese Stand Alone Forms: General Discharge Information Follow-up/Referrals: Baldo Carrington MD [Physician, Nephrology] - 2 Weeks Marce Fowler APRN, [employer] [Primary Care Provider, Internal Medicine] Discharge Medications: Continued cholecalciferol (vitamin D3) 25 mcg (1,000 unit) capsule 25 mcg PO DAILY Rx Instructions: pt takes at 0500 nebivolol [Bystolic] 5 mg tablet 5 mg PO DAILY Rx Instructions: pt takes at 0500 levetiracetam [Keppra] 500 mg Tablet 1,000 mg PO 0500,1700 Qty: 60 0RF lacosamide [Vimpat] 100 mg Tablet 100 mg PO Q12HR Qty: 60 0RF buspirone 5 mg tablet 2.5 mg PO BID Qty: 60 0RF Other Ambulatory Orders: Basic Metabolic Panel (Routine) Timeframe: 1 Week Location: Determined by Patient Ordered By: Luna Correia Date of admission: 03/05/25 10:24 Primary Care Provider: Marce Fowler Admitting Provider: Hernán Spencer Attending physician on admission: uLna Correia Condition: Stable Hospitalist MIPS Heart Failure (Exclusion) Patient has history of Heart Transplant or Left Ventricular Assistive Device?: No IF YES, STOP HERE Heart Failure (Qualifier) Patient has current or prior documentation of LVEF less than or equal to 40%, or mod/servere depressed LVSF?: No IF NO, STOP HERE
[2025-03-09 14:08] LABS: Albumin, U 53.5 % (.); Alpha-1-Globulin, U 5.4 % (.); Alpha-2-Globulin, U 8.8 % (.); Beta Globulin, U 19.9 % (.); Gamma Globulin, U 12.4 % (.)
[2025-03-10 20:07] LABS: Osmolality, Urine 601 mOsmol/kg (.)
[2025-03-11 14:08] LABS: Osmolality, Serum 259 mOsmol/kg (280-301)
== END 2025-03-08 13:35 | disposition home health service (06) | DRG 641 ==
LOC: ANHED 11:21 → ANH3MEDSUR 12:52
PROVIDERS: Internal Medicine Nephrology; Nurse Practitioner Adult Health; Student in an Organized Health Care Education/Training Program; Admitting Provider Internal Medicine; Emergency Provider Emergency Medicine; PCP Clinical Nurse Specialist; Visit Provider Nurse Practitioner Gerontology
DX: E87.1 Hypo-osmolality and hyponatremia (principal); Q07.8 Other specified congenital malformations of nervous system; R68.0 Hypothermia, not associated with low environmental temperature; R56.9 Unspecified convulsions; F32.9 Major depressive disorder, single episode, unspecified; F41.9 Anxiety disorder, unspecified; F43.10 Post-traumatic stress disorder, unspecified; G44.201 Tension-type headache, unspecified, intractable; I10 Essential (primary) hypertension
CPT/HCPCS: 36415; 70450; 80048; 80053; 80069; 80307; 82533; 82570; 83930; 83935; 84156; 84166; 84295; 84300; 84443; 85025; 85027; 85055; 85610; 85730; 93005; 96361; 96374; 96375; 97161; 97166; 99285; A9270; G0378; J0360; J1938; J2405; J3010; J7030

== ENCOUNTER 2025-03-10 13:42 | Outpatient (NON) | payer MEDICARE, SELFPAY ==
[2025-03-10 14:12] LABS: Anion Gap 6 mmol/L (4-12); Blood Urea Nitrogen 15 mg/dL (7-17); Calcium 9.3 mg/dL (8.4-10.2); Carbon Dioxide 30 mmol/L (22-30); Chloride 94 mmol/L (98-107); Estimated Glomerular Filt Rate > 60; Glucose 98 mg/dL (65-110); Potassium 3.9 mmol/L (3.4-5.0); Sodium 130 mmol/L (137-145)
--- OUTSIDE RECORDS SUMMARY | 2025-03-10 15:32 | XMS_ITS | Clinical Summary ---
Author Organization [facility] Address [facility] [place] [address] Care Team Providers Care Car Pusher Name Role Phone Marce Fowler NP Unavailable Marce Fowler NP Primary Care Provider [phone] Allergies Active Allergy Reactions Criticality Noted Date [...] Care: Maintain surgical dressing until follow-up - Sutures/[place]: Will be removed 3 weeks after surgical date., will be 02/10/2024 - Bone health referral at discharge Patient has follow up scheduled on 03/[address] Wu located at [address], DVT prophylaxis Eliquis 2.5 mg PO [...] Description 01/16/2025 Telephone [facility] [address] [facility] Advanced Medicine 6th [place] [address] [place] [address] Clay Monroy MD PhD Med Management 01/07/2025 5:46 PM CDT - 01/07/2025 11:59 PM CDT Hospital Encounter [facility] [place] [facility] ([facility]) [address] [place] [address] Diagnosis unknown Discharge Disposition: Discharge to home or self care 01/07/2025 3:27 PM CDT - 01/07/2025 11:59 PM CDT Hospital Encounter [facility] [place] [facility] ([facility]) [address] [place] [address] Discharge Disposition: Discharge to home or self [...] on file Legal Sex Female 11:50 PM FIOS LINE INSTALLER Gender Identity Female 01/20/2024 12:30 AM CDT Sexual Orientation Not on file Last Filed Vital Signs Vital Sign Reading Time Taken Comments Blood Pressure 171/86 03/10/2024 7:56 AM FIOS LINE INSTALLER Pulse 99 03/10/2024 7:56 AM FIOS LINE INSTALLER Temperature 37.3 C (99.2 F) 01/25/2024 3:12 PM CDT Respiratory Rate 18 01/25/2024 3:12 PM CDT Oxygen Saturation 100% 01/25/2024 3:12 PM CDT Inhaled Oxygen Concentration - - Weight 70.3 kg (155 lb) 03/10/2024 7:56 AM FIOS LINE INSTALLER Height 157.5 cm (5' 2) 03/10/2024 7:56 AM FIOS LINE INSTALLER Body Mass Index 28.35 03/10/2024 7:56 AM FIOS LINE INSTALLER Plan of Treatment Health Maintenance Due Date [...] 01/24/2025 01/25/2024 Medical Devices Implanted Type Area Powerhouse Electrician Apprentice Device Identifier Shelf Expiration Date Model / Serial / Lot [employer]a [employer] Simplex P Full Dose Radiopaque Preblend Cement Bone Tobramycin 6197-9-010 - S0 - [id number] Implanted:Qty: 2 on 01/20/2024 by Dhruv Wu MD at [facility] Bone Cement Left: Femur [employer] [id number] 03/15/2025 6197-9-010 / 0 / [id number] Description:Same Lot # and s mary Exp date (x2) Synthes 1.7mm 750mm Crimp Cerclage Cable Orthopedic Stainless Steel 298.801.01s - S0 - [id number] Implanted:Qty: 1 on 01/20/2024 by Dhruv Wu MD at [facility] Cable Left: Femur Synthes 10/13/2028 298.801.01S / 0 / [id number] Depuy Orthopaedics Inc [place] 97mm Cemented Hip 2 03/29 Standard Offset Taper Stem [id number] - S0 - [id number] Implanted:Qty: 1 on 01/20/2024 by Dhruv Wu MD at [facility] Other - see comments Left: Femur Depuy Orthopaedics Inc [id number] 06/13/2028 [id number] / 0 / [id number] Description:Femoral Stem Depuy Orthopaedics Inc Cementralizer 8.5mm Cemented Hip Femur Centralizer Stem Pmma Latex Free 1376-46-000 - S0 - [id number] Implanted:Qty: 1 on 01/20/2024 by Dhruv Wu MD at [facility] Other - see comments Left: Femur Depuy Orthopaedics Inc [id number] 08/13/2028 1376-46-000 / 0 / [id number] Description:Stem Centralizer Depuy Orthopaedics Inc Articul/Girma 28mm Hip +1.5mm 03/29 Taper Head Femoral Cocr Sterile Latex Free 1365-11-000 - S0 - [id number] Implanted:Qty: 1 on 01/20/2024 by Dhruv Wu MD at [facility] Other - see comments Left: Femur Depuy Orthopaedics Inc [id number] 10/13/2028 1365-11-000 / 0 / [id number] Description:Femoral Head Depuy Orthopaedics Inc Self-Centering 44mm 28mm Hip Femur Head Bipolar Sterile [place] 1035-44-000 - S0 - [id number] Implanted:Qty: 1 on 01/20/2024 by Dhruv Wu MD at [facility] Other - see comments Left: Femur Depuy Orthopaedics Inc [id number] 09/13/2028 1035-44-000 / 0 / [id number] Description:Bi-polar Head Suggs & Nephew/Richco/O rtho Prep-Im Plug [place] Sponge Suction Hip Kit Thr Latex Free 138318 - S0 - [id number] Implanted:Qty: 1 on 01/20/2024 by Dhruv Wu MD at [facility] Other - see comments Left: Femur [employer]gs [employer] Nephew/Richco/ Ortho [id number] 06/05/2033 876031 / 0 / [id number] Description:Cement restricto r Procedures Procedure Name Priority [...] images may or may not represent the [place] source data set and thus may contain [...] IMAGING STUDY STUDY INITIALLY PERFORMED: 12/24/2024 at [facility]. TYPE OF STUDY: Multiple MR images of [...] IMAGING STUDY STUDY INITIALLY PERFORMED: 12/24/2024 at [facility]. TYPE OF STUDY: Multiple MR images of [...] images may or may not represent the [place] source data set and thus may contain [...] only and have not been reviewed by [facility] Radiology. There will be no report generated by a [facility] Radiologist. Narrative RAD_PACS_BJ - 01/07/2025 3:27 PM CDT EXAMINATION: Images For Reference Purposes Only us Clay Monroy MD PhD IMG MRI PROCEDURES F inal Result RAD_PACS_[facility] from Last 3 Months Insurance [facility] MEDICARE T MEDICARE Advance Directives For more information, please contact: [phone] Documents on File Type Date Recorded Patient Seconds Inspector Expl anation ADVANCE DIRECTIVE 01/21/2024 2:49 PM POWER OF CONDUIT INSTALLER-MEDICAL ADVANCE DIRECTIVE 01/21/2024 2:49 PM LIVIN G WILL * Full Code (Latest Code Status on File) Date Activated Date Inactivated Comments 01/20/2024 1:58 AM 01/25/2024 11:27 PM Care Teams Car Pusher Relationship Specialty Start Date End Date Marce Fowler HOT BLASTER [address] [place] [address] [place] [address] PCP - General Cardiovascular Disease 01/31/24 Marce Fowler NP [address] [place] [address] [place] [address] Registered Nurse Cardiovascular Disease 10/31/23
== END 2025-03-10 13:43 | disposition home or self-care (01) ==
LOC: HOME HLTH 13:45
PROVIDERS: PCP Clinical Nurse Specialist; Visit Provider Nurse Practitioner Gerontology
DX: E87.1 Hypo-osmolality and hyponatremia (principal)
CPT/HCPCS: 80048

== ENCOUNTER 2025-03-16 10:24 | Outpatient (NON) | payer MEDICARE, SELFPAY ==
[2025-03-17 10:57] LABS: Albumin Level 4.6 g/dL (3.5-5.1); Anion Gap 4 mmol/L (4-12); Blood Urea Nitrogen 22 mg/dL (7-17); Calcium 9.7 mg/dL (8.4-10.2); Carbon Dioxide 31 mmol/L (22-30); Chloride 95 mmol/L (98-107); Estimated Glomerular Filt Rate > 60; Glucose 66 mg/dL (65-110); Potassium 5.0 mmol/L (3.4-5.0); Sodium 130 mmol/L (137-145)
--- OUTSIDE RECORDS SUMMARY | 2025-03-17 11:14 | XMS_ITS | Clinical Summary ---
Author Organization [facility] Address [facility] [place] [address] Care Team Providers Care Electric Wheelchair Repairer Name Role Phone Marce Fowler NP Unavailable [phone] Marce Fowler NP Primary Care Provider [phone] Allergies Active Allergy Reactions Criticality Noted Date [...] on 03/[address] Wu located at [address], DVT prophylaxis Eliquis 2.5 mg PO [...] Description 01/16/2025 Telephone [facility] [address] [facility] Advanced Medicine 6th [place] [address] [place] [address] Clay Monroy MD PhD Med Management 01/07/2025 5:46 PM CDT - 01/07/2025 11:59 PM CDT Hospital Encounter [facility] [place] [facility] ([facility]) [address] [place] [address] Diagnosis unknown Discharge Disposition: Discharge to home or self care 01/07/2025 3:27 PM CDT - 01/07/2025 11:59 PM CDT Hospital Encounter [facility] [place] [facility] ([facility]) [address] [place] [address] Discharge Disposition: Discharge to home or self [...] on file Legal Sex Female 11:50 PM COMPENSATION PROGRAMS MANAGER Gender Identity Female 01/20/2024 12:30 AM CDT Sexual Orientation Not on file Last Filed Vital Signs Vital Sign Reading Time Taken Comments Blood Pressure 171/86 03/10/2024 7:56 AM COMPENSATION PROGRAMS MANAGER Pulse 99 03/10/2024 7:56 AM COMPENSATION PROGRAMS MANAGER Temperature 37.3 C (99.2 F) 01/25/2024 3:12 PM CDT Respiratory Rate 18 01/25/2024 3:12 PM CDT Oxygen Saturation 100% 01/25/2024 3:12 PM CDT Inhaled Oxygen Concentration - - Weight 70.3 kg (155 lb) 03/10/2024 7:56 AM COMPENSATION PROGRAMS MANAGER Height 157.5 cm (5' 2) 03/10/2024 7:56 AM COMPENSATION PROGRAMS MANAGER Body Mass Index 28.35 03/10/2024 7:56 AM COMPENSATION PROGRAMS MANAGER Plan of Treatment Health Maintenance Due Date [...] 01/24/2025 01/25/2024 Medical Devices Implanted Type Area Car Dealer Device Identifier Shelf Expiration Date Model / Serial / Lot [employer] Simplex P Full Dose Radiopaque Preblend Cement Bone Tobramycin 6197-9-010 - S0 - [id number] Implanted:Qty: 2 on 01/20/2024 by Dhruv Wu MD at [facility] Bone Cement Left: Femur [employer] [id number] 03/15/2025 6197-9-010 / 0 / [id number] Description:Same Lot # and s mary Exp date (x2) Synthes 1.7mm 750mm Crimp Cerclage Cable Orthopedic Stainless Steel 298.801.01s - S0 - [id number] Implanted:Qty: 1 on 01/20/2024 by Dhruv Wu MD at [facility] Cable Left: Femur Synthes 10/13/2028 298.801.01S / 0 / [id number] Depuy Orthopaedics Inc [place] 97mm Cemented Hip 2 03/29 Standard Offset Taper Stem 636848151 - S0 - [id number] Implanted:Qty: 1 on 01/20/2024 by Dhruv Wu MD at [facility] Other - see comments Left: Femur Depuy Orthopaedics Inc [id number] 06/13/2028 099748781 / 0 / [id number] Description:Femoral Stem Depuy Orthopaedics Inc Cementralizer 8.5mm Cemented Hip Femur Centralizer Stem Pmma Latex Free 1376-46-000 - S0 - [id number] Implanted:Qty: 1 on 01/20/2024 by Dhruv Wu MD at [facility] Other - see comments Left: Femur Depuy Orthopaedics Inc [id number] 08/13/2028 1376-46-000 / 0 / [id number] Description:Stem Centralizer Depuy Orthopaedics Inc Articul/Girma 28mm Hip +1.5mm 03/29 Taper Head Femoral Cocr Sterile Latex Free 1365-11-000 - S0 - [id number] Implanted:Qty: 1 on 01/20/2024 by Dhruv Wu MD at [facility] Other - see comments Left: Femur Depuy Orthopaedics Inc [id number] 10/13/2028 1365-11-000 / 0 / [id number] Description:Femoral Head Depuy Orthopaedics Inc Self-Centering 44mm 28mm Hip Femur Head Bipolar Sterile [place] 1035-44-000 - S0 - [id number] Implanted:Qty: 1 on 01/20/2024 by Dhruv Wu MD at [facility] Other - see comments Left: Femur Depuy Orthopaedics Inc [id number] 09/13/2028 1035-44-000 / 0 / [id number] Description:Bi-polar Head Suggs & Nephew/Richco/O rtho Prep-Im Plug [place] Sponge Suction Hip Kit Thr Latex Free 376305 - S0 - [id number] Implanted:Qty: 1 on 01/20/2024 by Dhruv Wu MD at [facility] Other - see comments Left: Femur Suggs [employer] Nephew/Richco/ Ortho [id number] 06/05/2033 329622 / 0 / [id number] Description:Cement restricto r Procedures Procedure Name Priority [...] images may or may not represent the [place] source data set and thus may contain [...] IMAGING STUDY STUDY INITIALLY PERFORMED: 12/24/2024 at [facility]. TYPE OF STUDY: Multiple MR images of [...] IMAGING STUDY STUDY INITIALLY PERFORMED: 12/24/2024 at [facility]. TYPE OF STUDY: Multiple MR images of [...] images may or may not represent the [place] source data set and thus may contain [...] only and have not been reviewed by [facility] Radiology. There will be no report generated by a [facility] Radiologist. Narrative RAD_PACS_BJ - 01/07/2025 3:27 PM CDT EXAMINATION: Images For Reference Purposes Only us Clay Monroy MD PhD IMG MRI PROCEDURES F inal Result RAD_PACS_[facility] from Last 3 Months Insurance [facility] MEDICARE T MEDICARE Advance Directives For more information, please contact: [phone] Documents on File Type Date Recorded Patient Adult School Counselor Expl anation ADVANCE DIRECTIVE 01/21/2024 2:49 PM POWER OF WEB DEVELOPMENT DIRECTOR-MEDICAL ADVANCE DIRECTIVE 01/21/2024 2:49 PM LIVIN G WILL * Full Code (Latest Code Status on File) Date Activated Date Inactivated Comments 01/20/2024 1:58 AM 01/25/2024 11:27 PM Care Teams Electric Wheelchair Repairer Relationship Specialty Start Date End Date Marce Fowler MINESWEEPING OFFICER [address] [place] [address] [place] [address] PCP - General Cardiovascular Disease 01/31/24 Marce Fowler NP [address] [place] [address] [place] [address] Registered Nurse Cardiovascular Disease 10/31/23
== END 2025-03-16 10:25 | disposition home or self-care (01) ==
PROVIDERS: PCP Clinical Nurse Specialist; Visit Provider Internal Medicine Nephrology
DX: E87.1 Hypo-osmolality and hyponatremia (principal)
CPT/HCPCS: 36415; 80069

== ENCOUNTER 2025-03-25 16:16 | Outpatient (NON) | payer MEDICARE, SELFPAY ==
--- OUTSIDE RECORDS SUMMARY | 2015-06-02 09:00 | XMS_ITS | Continuity of Care Document ---
Author Organization [facility] Address [address] [place] [address] [address] [place] [address] Phone Care Team Providers Care Moisture Meter Reader Name Role Phone Bennett PT,MPT,ATC, Porfirio Unavailable Unavai lable Procedures Procedure Date Progress Note THERAPEUTIC EXERCISES MANUAL THERAPY THERAPEUTIC EXERCISES MANUAL THERAPY THERAPEUTIC EXERCISES MANUAL THERAPY THERAPEUTIC EXERCISES MANUAL THERAPY THERAPEUTIC EXERCISES MANUAL THERAPY THERAPEUTIC EXERCISES MANUAL THERAPY THERAPEUTIC EXERCISES MANUAL THERAPY THERAPEUTIC EXERCISES MANUAL THERAPY THERAPEUTIC EXERCISES MANUAL THERAPY HOT/COLD PACK THERAPEUTIC EXERCISES MANUAL THERAPY THERAPEUTIC EXERCISES MANUAL THERAPY THERAPEUTIC EXERCISES MANUAL THERAPY THERAPEUTIC EXERCISES MANUAL THERAPY PT RE-EVALUATION THERAPEUTIC EXERCISES MANUAL THERAPY HOT/COLD PACK THERAPEUTIC EXERCISES MANUAL THERAPY THERAPEUTIC EXERCISES MANUAL THERAPY HOT/COLD PACK THERAPEUTIC EXERCISES MANUAL THERAPY HOT/COLD PACK ELECTRIC STIMULATION UNATT THERAPEUTIC EXERCISES MANUAL THERAPY THERAPEUTIC EXERCISES MANUAL THERAPY THERAPEUTIC EXERCISES MANUAL THERAPY HOT/COLD PACK ELECTRIC STIMULATION UNATT THERAPEUTIC EXERCISES MANUAL THERAPY THERAPEUTIC EXERCISES MANUAL THERAPY THERAPEUTIC EXERCISES MANUAL THERAPY HOT/COLD PACK ELECTRIC STIMULATION UNATT THERAPEUTIC EXERCISES MANUAL THERAPY THERAPEUTIC EXERCISES MANUAL THERAPY THERAPEUTIC EXERCISES MANUAL THERAPY HOT/COLD PACK ELECTRIC STIMULATION UNATT THERAPEUTIC EXERCISES MANUAL THERAPY HOT/COLD PACK ELECTRIC STIMULATION UNATT THERAPEUTIC EXERCISES MANUAL THERAPY HOT/COLD PACK ELECTRIC STIMULATION UNATT THERAPEUTIC EXERCISES MANUAL THERAPY HOT/COLD PACK ELECTRIC STIMULATION UNATT THERAPEUTIC EXERCISES MANUAL THERAPY HOT/COLD PACK ELECTRIC STIMULATION UNATT THERAPEUTIC EXERCISES MANUAL THERAPY HOT/COLD PACK ELECTRIC STIMULATION UNATT THERAPEUTIC EXERCISES Advance Directives Directive Yes / No Effective Date File Name No Information Encounters Encounter Description Practice Location Reason(s) For Visit Diagnoses Date Provider Providers Copied on Encounter [facility], [place], [place], [id number], [place] tel:[phone] [place] No Information 6 [place]. Referring Provider: Sandeep Thornton, [address] , [place], [address]. tel:[phone] [facility], [place], [place], [address], tel:[phone] [place] No Information May- 5 6 Bennett Porfirio. , [place], [place]. Referring Provider: Sandeep Thornton, [address] [place] [address], . tel:[phone] [facility] [address], [place], [place], [address], [place] tel:[phone] [place] No Information 0 6 Bennett Porfirio. , [place], [place]. Referring Provider: Sandeep Thornton, [address] [place] [address], . tel:[phone] [facility] [address], [place], [place], [address], [place] tel:[phone] [place] No Information b-0 8 6 Bennett Porfirio. , [place], [place]. Referring Provider: Sandeep Thornton, [address] [place] [address], [address]. tel:[phone] [place] [address], [place], [place], [address], [place] tel:[phone] [place] No Information 0 6 Bennett Porfirio. , [place], [place]. Referring Provider: Sandeep Thornton, [address] [place] [address], . tel:[phone], [place], [address], [place] tel:[phone] [place] No Information 0 6 Bennett Porfirio. , [place], [place]. Referring Provider: Sandeep Thornton, [address] [place] [address], . tel:[phone] [place] [address], [place], [place], [address], [place] tel:[phone] [place] No Information 6 Bennett Porfirio. , [place], [place]. Referring Provider: Sandeep Thornton, [address] [place] [address], . tel:[phone] [place] [address], [place], [place], [address], [place] tel:[phone] [place] No Information 6 Donald Munozn. , [place], [place]. Referring Provider: Sandeep Thornton, [address] [place] [address], [address]. tel:[phone] [facility], [place], [address], [place] tel:[phone] [place] No Information 6 Heaven Tiago. [address] [facility], [address], [place], [place], Formerly named [facility], [place]. tel: [phone] Referring Provider: Sandeep Thornton, [address] [place] [address], [address]. tel:[phone] [facility], [place], [address], [place] tel:[phone] [place] No Information 6 Donald [place]oz[place]. , [place], [place]. Referring Provider: Sandeep Thornton, [address] [place] [address], [address]. tel:[phone] [facility] [address], [place], [place], [address], [place] tel:[phone] [place] No Information 6 Donald Munozn. , [place], [place]. Referring Provider: Sandeep Thornton, [address] [place] [address], [address]. tel:[phone] [facility] [address], [place], [place], [address], [place] tel:[phone] [place] No Information 5 Donald Munozn. , [place], [place]. Referring Provider: Sandeep Thornton, [address] [place] [address], [address]. tel:[phone] [facility], [place], [place], [address], [place] tel:[phone] [place] No Information 5 Donald Munozn. , [place], [place]. Referring Provider: Sandeep Thornton, [address] [place] [address], [address]. tel:[phone] [facility] [address], [place], [address], [place] tel:[phone] [place] No Information Dec-2 1-201 5 Bennett Porfirio. , [place], [place]. Referring Provider: Sandeep Thornton, [address] [place] [address], [address]. tel:[phone] [facility] [address], [place], [address], [place] tel:[phone] [place] No Information Dec-1 6-201 5 Donald Munozn. , [place], [place]. Referring Provider: Sandeep Thornton, [address] [place] [address], [address]. tel:[phone] [place] [address], [place], [address], [place] tel:[phone] [place] No Information Dec-1 4-201 5 Donald Munozn. , [place], [place]. Referring Provider: Sandeep Thornton, [address] [place] [address], [address]. tel:[phone] [facility] [address], [place], [place], [address], [place] tel:[phone] [place] No Information Dec-0 9-201 5 Donald Munozn. , [place], [place]. Referring Provider: Sandeep Thornton, [address] [place] [address], [address]. tel:[phone] [facility] [address], [place], [place], [address], [place] tel:[phone] [place] No Information Dec-0 7-201 5 Donald Munozn. , [place], [place]. [facility] [address], [place], [place], [address], [place] tel:[phone] [place] No Information Dec-0 2-201 5 Donald Munozn. , [place], [place]. [facility] [address], [place], [place], [address], [place] tel:[phone] [place] No Information Nov-3 0-201 5 Bennett Porfirio. , [place], [place]. [facility], [place], [place], [address], [place] tel:[phone] [place] No Information Nov-2 5-201 5 Bennett Porfirio. , [place], [place]. [facility], [place], [address], [place] tel:[phone] [place] No Information Nov-2 3-201 5 Donald Porfirio. , [place], [place]. [facility], [place], [place], [address], [place] tel:[phone] [place] No Information Nov-1 8- 5 Leena Fowler. [address] [facility], [address], [place], [place], Formerly [facility], [place]. tel: [phone] [facility], [place], [place], [address], [place] tel:[phone] [place] No Information Feb-1 6- 5 Donald Porfirio. , [place], [place]. [facility], [place], [place], [address], [place] tel:[phone] [place] No Information Feb-1 1- 5 Donald Porfirio. , [place], [place]. [facility], [place], [place], [address], [place] tel:[phone] [place] No Information Nov-0 9- 5 Donald Porfirio. , [place], [place]. [facility], [place], [place], [address], [place] tel:[phone] [place] No Information Nov-0 6-201 5 Danie Pimentel. [address] [facility], [address], [place], [place], Formerly named [facility], [place]. tel: [phone] [address], [place], [place], [address], tel:[phone] [place] No Information 5 Danie Pimentel. [address] [place] [address], [facility] [address] [address], . tel: [phone] [facility] [address] [place] [address], [place], [address], tel:[phone] [place] No Information 5 Danie Batresie. [address] [place] [address], [facility] [address], [place], Formerly [facility], . tel: [phone] [address], [id number], tel:[phone] [place] No Information 5 Danie Pimentel. [address] [place] [address], [address], Formerly named [facility], . tel: [phone] [address], [id number], tel:[phone] [place] No Information 5 Danie Pimentel. [address] [place] [address], [facility] [address], [place], Formerly named [facility], . tel: [phone] [address] [address], [place], [address], tel:[phone] [place] Pain in right shoulderStiffnes s of right shoulder, not elsewhere classifiedMuscle weakness (generalized)Uns p fx upper end of r humerus, subs for fx w routn healPresence of other bone and tendon implants 5 Danie Pimentel. [address] [place] [address], [facility] [address], [place], Former[facility], . tel: [phone] Family History Family Member Type Diagnosis Age At Onset No Information Payers Payer name Insurance type Covered democrat ID Authoriza tion(s) No Information Social History Type Description Quantity Date Captured Comments Sex Female Smoking Status No Information Chief Complaint And Reason For Visit No Information Reason For Referral Reason For Referral No Information History Of Present Illness Encounter Date Complaint History Of Prese nt Illness No Information Functional Status Date Functional Assessmen t No Information Instructions Date Instruction Additional Infor mation No Information Assessments Type Assessment Date No Information Patient Care Teams Name Effective Dates (start - stop) Status Members No Information
[2025-03-25 13:30] LABS: Hematocrit 38.7 % (37.0-47.0); Hemoglobin 13.4 g/dL (12.0-15.0); Immature Granulocyte Percent A 0.2 % (0-0.5); Lymphocytes Absolute Auto 0.85 K/mm3 (0.9-3.2); Mean Corpuscular HGB Conc 34.6 g/dl (32-36); Mean Corpuscular Hemoglobin 35.1 pg (26-34); Mean Corpuscular Volume 101.3 fl (80-100); Nucleated Red Blood Cells Absolute Auto 0.000 K/mm3 (0.0-0.012); Nucleated Red Blood Cells Perc 0.0 % (0.0-0.2); Platelet Count Result 240 k/mm3 (150-375); Red Blood Count 3.82 M/mm3 (4.2-5.4); White Blood Count 5.1 K/mm3 (4.5-10.0)
--- OUTSIDE RECORDS SUMMARY | 2025-03-25 16:35 | XMS_ITS | Clinical Summary ---
Author Organization [facility] Address [place] [address] Care Team Providers Care Major Sales Associate Name Role Phone Marce Fowler NP Unavailable [phone] Marce Fowler NP Primary Care Provider [phone] Allergies Active Allergy Reactions Criticality Noted Date [...] Care: Maintain surgical dressing until follow-up - Sutures/[place]: Will be removed 3 weeks after surgical date., will be 02/10/2024 - Bone health referral at discharge Patient has follow up scheduled on 03/[address] Wu located at [address], DVT prophylaxis Eliquis 2.5 mg PO [...] Description 01/16/2025 Telephone [facility] [address] [facility] Advanced Medicine 6th [place] [address] [place] [address] Clay Monroy MD PhD Med Management 01/07/2025 5:46 PM CDT - 01/07/2025 11:59 PM CDT Hospital Encounter [facility]iology [place] [facility] ([facility]) [address] [place] [address] Diagnosis unknown Discharge Disposition: Discharge to home or self care 01/07/2025 3:27 PM CDT - 01/07/2025 11:59 PM CDT Hospital Encounter [facility] [place] [facility] ([facility]) [address] [place] [address] Discharge Disposition: Discharge to home or self [...] on file Legal Sex Female 11:50 PM KELLER MACHINE OPERATOR Gender Identity Female 01/20/2024 12:30 AM CDT Sexual Orientation Not on file Last Filed Vital Signs Vital Sign Reading Time Taken Comments Blood Pressure 171/86 03/10/2024 7:56 AM KELLER MACHINE OPERATOR Pulse 99 03/10/2024 7:56 AM KELLER MACHINE OPERATOR Temperature 37.3 C (99.2 F) 01/25/2024 3:12 PM CDT Respiratory Rate 18 01/25/2024 3:12 PM CDT Oxygen Saturation 100% 01/25/2024 3:12 PM CDT Inhaled Oxygen Concentration - - Weight 70.3 kg (155 lb) 03/10/2024 7:56 AM KELLER MACHINE OPERATOR Height 157.5 cm (5' 2) 03/10/2024 7:56 AM KELLER MACHINE OPERATOR Body Mass Index 28.35 03/10/2024 7:56 AM KELLER MACHINE OPERATOR Plan of Treatment Health Maintenance Due Date [...] 01/24/2025 01/25/2024 Medical Devices Implanted Type Area Banner Painter Device Identifier Shelf Expiration Date Model / Serial / Lot [employer] Simplex P Full Dose Radiopaque Preblend Cement Bone Tobramycin 6197-9-010 - S0 - [id number] Implanted:Qty: 2 on 01/20/2024 by Dhruv Wu MD at [facility] Bone Cement Left: Femur [employer] [id number] 03/15/2025 6197-9-010 / 0 / [id number] Description:Same Lot # and s mary Exp date (x2) Synthes 1.7mm 750mm Crimp Cerclage Cable Orthopedic Stainless Steel 298.801.01s - S0 - [id number] Implanted:Qty: 1 on 01/20/2024 by Dhruv Wu MD at [facility] Cable Left: Femur Synthes 10/13/2028 298.801.01S / 0 / [id number] Depuy Orthopaedics Inc [place] 97mm Cemented Hip 2 03/29 Standard Offset Taper Stem 934274457 - S0 - [id number] Implanted:Qty: 1 on 01/20/2024 by Dhruv Wu MD at [facility] Other - see comments Left: Femur Depuy Orthopaedics Inc [id number] 06/13/2028 [id number] / 0 / [id number] Description:Femoral Stem Depuy Orthopaedics Inc Cementralizer 8.5mm Cemented Hip Femur Centralizer Stem Pmma Latex Free 1376-46-000 - S0 - [id number] Implanted:Qty: 1 on 01/20/2024 by Dhruv Wu MD at [facility] Other - see comments Left: Femur Depuy Orthopaedics Inc [id number] 08/13/2028 1376-46-000 / 0 / [id number] Description:Stem Centralizer Depuy Orthopaedics Inc Articul/Girma 28mm Hip +1.5mm 03/29 Taper Head Femoral Cocr Sterile Latex Free 1365-11-000 - S0 - [id number] Implanted:Qty: 1 on 01/20/2024 by Dhruv Wu MD at [facility] Other - see comments Left: Femur Depuy Orthopaedics Inc [id number] 10/13/2028 1365-11-000 / 0 / [id number] Description:Femoral Head Depuy Orthopaedics Inc Self-Centering 44mm 28mm Hip Femur Head Bipolar Sterile [place] 1035-44-000 - S0 - [id number] Implanted:Qty: 1 on 01/20/2024 by Dhruv Wu MD at [facility] Other - see comments Left: Femur Depuy Orthopaedics Inc [id number] 09/13/2028 1035-44-000 / 0 / [id number] Description:Bi-polar Head Suggs [employer] Nephew/Richco/O rtho Prep-Im Plug [place] Sponge Suction Hip Kit Thr Latex Free 003720 - S0 - [id number] Implanted:Qty: 1 on 01/20/2024 by Dhruv Wu MD at [facility] Other - see comments Left: Femur Suggs [employer] Nephew/Richco/ Ortho [id number] 06/05/2033 965131 / 0 / [id number] Description:Cement restricto r Procedures Procedure Name Priority [...] images may or may not represent the [place] source data set and thus may contain [...] IMAGING STUDY STUDY INITIALLY PERFORMED: 12/24/2024 at [facility]. TYPE OF STUDY: Multiple MR [...] IMAGING STUDY STUDY INITIALLY PERFORMED: 12/24/2024 at [facility]. TYPE OF STUDY: Multiple MR [...] images may or may not represent the [place] source data set and thus may contain [...] only and have not been reviewed by [facility] Radiology. There will be no report generated by a [facility] Radiologist. Narrative RAD_PACS_BJ - 01/07/2025 3:27 PM CDT EXAMINATION: Images For Reference Purposes Only us Clay Monroy MD PhD IMG MRI PROCEDURES F inal Result RAD_PACS_[facility] from Last 3 Months Insurance [facility] MEDICARE T MEDICARE Advance Directives For more information, please contact: [phone] Documents on File Type Date Recorded Patient Knitting Inspector Expl anation ADVANCE DIRECTIVE 01/21/2024 2:49 PM POWER OF ROLLING MACHINE TENDER-MEDICAL ADVANCE DIRECTIVE 01/21/2024 2:49 PM LIVIN G WILL * Full Code (Latest Code Status on File) Date Activated Date Inactivated Comments 01/20/2024 1:58 AM 01/25/2024 11:27 PM Care Teams Major Sales Associate Relationship Specialty Start Date End Date Marce Fowler ANGULAR DEVELOPER [address] [place] [address] [place] [address] PCP - General Cardiovascular Disease 01/31/24 Marce Fowler NP [address] [place] [address] [place] [address] Registered Nurse Cardiovascular Disease 10/31/23
[2025-03-25 17:49] LABS: Anion Gap 9 mmol/L (4-12); Blood Urea Nitrogen 39 mg/dL (7-17); Calcium 10.2 mg/dL (8.4-10.2); Carbon Dioxide 27 mmol/L (22-30); Chloride 97 mmol/L (98-107); Estimated Glomerular Filt Rate > 60; Glucose 74 mg/dL (65-110); Potassium 4.4 mmol/L (3.4-5.0); Sodium 133 mmol/L (137-145)
--- OUTSIDE RECORDS SUMMARY | 2025-03-25 20:55 | XMS_ITS | Clinical Summary ---
Author Organization [facility] Address [facility] [place] [address] Care Team Providers Care Automation Driver Name Role Phone Marce Fowler NP Unavailable [phone] Marce Fowler NP Primary Care Provider [phone] Allergies Active Allergy Reactions Criticality Noted Date [...] Care: Maintain surgical dressing until follow-up - Sutures/Callender: Will be removed 3 weeks after surgical date., will be 02/10/2024 - Bone health referral at discharge Patient has follow up scheduled on 03/[address] Wu located at [address], DVT prophylaxis Eliquis 2.5 mg PO [...] Description 01/16/2025 Telephone [facility] [address] [facility] Advanced Medicine 6th [place] [address] [place] [address] Clay Monroy MD PhD Med Management 01/07/2025 5:46 PM CDT - 01/07/2025 11:59 PM CDT Hospital Encounter [facility] ([facility]) [address] [place] [id number] Diagnosis unknown Discharge Disposition: Discharge to home or self care 01/07/2025 3:27 PM CDT - 01/07/2025 11:59 PM CDT Hospital Encounter [facility] ([facility]) [address] [place] [address] Discharge Disposition: Discharge to home or self [...] on file Legal Sex Female 11:50 PM TRANSFER STATION ATTENDANT Gender Identity Female 01/20/2024 12:30 AM CDT Sexual Orientation Not on file Last Filed Vital Signs Vital Sign Reading Time Taken Comments Blood Pressure 171/86 03/10/2024 7:56 AM TRANSFER STATION ATTENDANT Pulse 99 03/10/2024 7:56 AM TRANSFER STATION ATTENDANT Temperature 37.3 C (99.2 F) 01/25/2024 3:12 PM CDT Respiratory Rate 18 01/25/2024 3:12 PM CDT Oxygen Saturation 100% 01/25/2024 3:12 PM CDT Inhaled Oxygen Concentration - - Weight 70.3 kg (155 lb) 03/10/2024 7:56 AM TRANSFER STATION ATTENDANT Height 157.5 cm (5' 2) 03/10/2024 7:56 AM TRANSFER STATION ATTENDANT Body Mass Index 28.35 03/10/2024 7:56 AM TRANSFER STATION ATTENDANT Plan of Treatment Health Maintenance Due Date [...] 01/24/2025 01/25/2024 Medical Devices Implanted Type Area Financial Aid Advisor Device Identifier Shelf Expiration Date Model / Serial / Lot [employer] Simplex P Full Dose Radiopaque Preblend Cement Bone Tobramycin 6197-9-010 - S0 - [id number] Implanted:Qty: 2 on 01/20/2024 by Dhruv Wu MD at [facility] Bone Cement Left: Femur [employer] [id number] 03/15/2025 6197-9-010 / 0 / [id number] Description:Same Lot # and s mary Exp date (x2) Synthes 1.7mm 750mm Crimp [employer] Stainless Steel 298.801.01s - S0 - [id number] Implanted:Qty: 1 on 01/20/2024 by Dhruv Wu MD at [facility] Cable Left: Femur [employer]ynthes 10/13/2028 298.801.01S / 0 / [id number] [employer] [place] 97mm Cemented Hip 2 03/29 Standard Offset Taper Stem [id number] - S0 - [id number] Implanted:Qty: 1 on 01/20/2024 by Dhruv Wu MD at [facility] Other - see comments Left: Femur [employer] [id number] 06/13/2028 [id number] / 0 / [id number] Description:Femoral Stem [employer] Cementralizer 8.5mm Cemented Hip Femur Centralizer Stem Pmma Latex Free 1376-46-000 - S0 - [id number] Implanted:Qty: 1 on 01/20/2024 by Dhruv Wu MD at [facility] Other - see comments Left: Femur [employer] [id number] 08/13/2028 1376-46-000 / 0 / [id number] Description:Stem Centralizer [employer] Articul/Girma 28mm Hip +1.5mm 03/29 Taper Head Femoral Cocr Sterile Latex Free 1365-11-000 - S0 - [id number] Implanted:Qty: 1 on 01/20/2024 by Dhruv Wu MD at [facility] Other - see comments Left: Femur [employer] [id number] 10/13/2028 1365-11-000 / 0 / [id number] Description:Femoral Head [employer] Self-Centering 44mm 28mm Hip Femur Head Bipolar Sterile [place] 1035-44-000 - S0 - [id number] Implanted:Qty: 1 on 01/20/2024 by Dhruv Wu MD at [facility] Other - see comments Left: Femur [employer] [id number] 09/13/2028 1035-44-000 / 0 / [id number] Description:Bi-polar Head [employer]/O rtho Prep-Im Plug [place] Sponge Suction Hip Kit Thr Latex Free 060223 - S0 - [id number] Implanted:Qty: 1 on 01/20/2024 by Dhruv Wu MD at [facility] Other - see comments Left: Femur [employer]/ Ortho [id number] 06/05/2033 771235 / 0 / [id number] Description:Cement restricto r Procedures Procedure Name Priority [...] images may or may not represent the [place] source data set and thus may contain [...] IMAGING STUDY STUDY INITIALLY PERFORMED: 12/24/2024 at [facility]. TYPE OF STUDY: Multiple MR [...] IMAGING STUDY STUDY INITIALLY PERFORMED: 12/24/2024 at [facility]. TYPE OF STUDY: Multiple MR [...] images may or may not represent the [place] source data set and thus may contain [...] only and have not been reviewed by [facility]. There will be no report generated by a [facility] Radiologist. Narrative RAD_PACS[facility] - 01/07/2025 3:27 PM CDT EXAMINATION: Images For Reference Purposes Only us Clay Monroy MD PhD IMG MRI PROCEDURES F inal Result [facility] from Last 3 Months Insurance [facility] MEDICARE T MEDICARE Advance Directives For more information, please contact: [phone] Documents on File Type Date Recorded Patient Supervisor Mail Carriers Expl anation ADVANCE DIRECTIVE 01/21/2024 2:49 PM POWER OF BRUSH POLISHER-MEDICAL ADVANCE DIRECTIVE 01/21/2024 2:49 PM LIVIN G WILL * Full Code (Latest Code Status on File) Date Activated Date Inactivated Comments 01/20/2024 1:58 AM 01/25/2024 11:27 PM Care Teams Automation Driver Relationship Specialty Start Date End Date Marce Fowler HEALTH SCIENCE WRITER [address] [place] [address] [place] [address] PCP - General Cardiovascular Disease 01/31/24 Marce Fowler NP [address] [place] [address] [place] [address] Registered Nurse Cardiovascular Disease 10/31/23
== END 2025-03-25 16:17 | disposition home or self-care (01) ==
PROVIDERS: PCP Clinical Nurse Specialist; Visit Provider Clinical Nurse Specialist
DX: E87.1 Hypo-osmolality and hyponatremia (principal); D64.9 Anemia, unspecified
CPT/HCPCS: 80048; 85025